=== PATIENT | female | born 1950 | race Two or more races ===

== ENCOUNTER 2021-12-20 08:04 | Outpatient (REF) | payer MEDICARE, MEDICAID, SELFPAY ==
[2021-12-20 08:37] LABS: MANUAL DIFF FLAG NO
[2021-12-20 09:25] LABS: Basophils Percent Auto 0.6 % (0-2); Eosinophils Absolute Auto 0.2 X10*3/uL (0.0-0.4); Eosinophils Percent Auto 3.2 % (0-4); Hematocrit 42.4 % (37.0-47.0); Hemoglobin 13.5 g/dl (12.0-16.0); Imm Gran Abs Auto 0.06 X10*3/uL (0.00-0.03); Imm Gran Pct Auto 0.9 % (0.0-0.4); Lymphocytes Absolute Auto 2.4 X10*3/uL (1.2-4.9); Lymphocytes Percent Auto 35.4 % (20-40); Mean Corpuscular HGB Conc 31.8 g/dl (31.0-35.0); Mean Corpuscular Hemoglobin 27.6 pg (27.0-33.0); Mean Corpuscular Volume 86.5 fL (80.0-98.0); Mean Platelet Volume 9.6 fL (9.4-12.3); Monocytes Absolute Auto 0.6 X10*3/uL (0.1-1.2); Monocytes Percent Auto 8.7 % (2-11); Neutrophils Absolute Auto 3.5 x10*3/uL (2.0-8.3); Neutrophils Percent Auto 51.2 % (45-73); Platelet Count 289 X10*3/uL (160-400); Red Cell Distribution Width 12.5 % (11.0-16.0); White Blood Count 6.9 X10*3/uL (4.8-10.8)
[2021-12-20 10:00] LABS: Appearance Urine CLOUDY; Color Urine BROWN; Glucose Urine UA NEG (NEG); Leukocyte Esterase Urine 2+ (NEG); Nitrite Urine NEG (NEG); PH 5.5 (5.0-8.0); Specific Gravity - Urine 1.025 (1.005-1.025); UACC Culture Trigger YES; Urine Blood 3+ (NEG); Urine Ketones NEG (NEG); Urine Protein 1+ MG/DL (NEG-TRACE)
[2021-12-20 10:02] LABS: Alanine Aminotransferase 22 U/L (0-31); Albumin Level 4.3 g/dL (3.5-5.0); Alkaline Phosphatase 82 U/L (39-117); Anion Gap 15 (12-20); Aspartate Amino Transferase 21 U/L (5-31); Bilirubin Total 0.8 mg/dL (0.0-1.0); Blood Urea Nitrogen 12 mg/dL (9-16); Calcium 10.1 mg/dL (8.4-10.2); Carbon Dioxide 29 mmol/L (22-29); Chloride 101 mmol/L (96-108); Cholesterol 155 mg/dL; Estimated Glomerular Filt Rate > 60; Glucose Fasting 133 mg/dL (60-99); HDL Cholesterol 50 mg/dL; LDL Cholesterol Calculated 74 mg/dl; Potassium 4.5 mmol/L (3.3-5.1); Sodium 140 mmol/L (135-145); Total Protein 7.2 g/dL (6.5-8.0); Triglycerides 157 mg/dL
[2021-12-20 10:06] LABS: Creatinine Urine 95.65 mg/dL; Microalbum/Creatinine Ratio Ur 175.6 ug/mg cr
[2021-12-20 10:09] LABS: Estimated Average Glucose 126 mg/dL
[2021-12-20 10:14] LABS: RBC Urine TNTC /HPF (0)
[2021-12-20 10:16] LABS: Bacteria Urine 2+ /LPF; Mucus Urine 1+ /LPF; WBC Urine 30-49 /HPF (0-4)
== END 2021-12-20 08:05 | disposition home or self-care (01) ==
LOC: HO.LAB 08:04
PROVIDERS: PCP Nurse Practitioner Family; Visit Provider Nurse Practitioner Family
DX: I10 Essential (primary) hypertension (principal); E11.9 Type 2 diabetes mellitus without complications; E78.00 Pure hypercholesterolemia, unspecified
CPT/HCPCS: 36415; 80053; 80061; 81001; 81003; 82043; 83036; 85025; 87086; 87088; 87186

== ENCOUNTER 2021-12-28 08:05 | Outpatient (REF) | payer MEDICARE, MEDICAID, SELFPAY ==
[2021-12-28 08:48] LABS: Appearance Urine CLEAR; Color Urine YELLOW; Glucose Urine UA NEG (NEG); Leukocyte Esterase Urine TRACE (NEG); Nitrite Urine NEG (NEG); PH 5.5 (5.0-8.0); Specific Gravity - Urine >= 1.030 (1.005-1.025); UACC Culture Trigger YES; Urine Blood 1+ (NEG); Urine Ketones NEG (NEG); Urine Protein 1+ MG/DL (NEG-TRACE)
[2021-12-28 08:58] LABS: Mucus Urine TRACE /LPF; Squamous Epithelial Cell Urine 2+ /LPF
== END 2021-12-28 08:06 | disposition home or self-care (01) ==
LOC: HO.LAB 08:05
PROVIDERS: PCP Nurse Practitioner Family; Visit Provider Nurse Practitioner Family
DX: I10 Essential (primary) hypertension (principal); N39.0 Urinary tract infection, site not specified
CPT/HCPCS: 81001; 87086

== ENCOUNTER 2022-02-20 15:46 | Outpatient (REF) | payer MEDICARE, MEDICAID, SELFPAY | END 2022-02-20 15:47 | disposition home or self-care (01) | LOC: HO.LNP 15:46 | PROVIDERS: Visit Provider Nurse Practitioner Family | DX: R35.0 Frequency of micturition (principal) | CPT/HCPCS: 87086; 87088; 87186 ==

== ENCOUNTER → 2022-05-08 14:02 | Outpatient (BNVA) | payer MEDICARE, MEDICAID, SELFPAY | PROVIDERS: PCP Nurse Practitioner Family; Referring Provider Nurse Practitioner Family; Visit Provider Physician Assistant | DX: K31.7 Polyp of stomach and duodenum (principal); K21.9 Gastro-esophageal reflux disease without esophagitis; Z79.899 Other long term (current) drug therapy | CPT/HCPCS: 99202 ==

== ENCOUNTER 2022-07-11 09:15 | Outpatient (REF) | payer MEDICARE, MEDICAID, SELFPAY ==
[2022-07-11 10:37] LABS: TSH reflex Free T4 2.73 uIU/mL (0.32-4.0); Vitamin D 25-OH Total 86.2 ng/mL (>30)
[2022-07-11 11:07] LABS: Folate > 20.0 ng/mL (> or = 4.0); Vitamin B12 407 pg/mL (200-900)
== END 2022-07-11 09:16 | disposition home or self-care (01) ==
LOC: HO.LAB 09:15
PROVIDERS: PCP Nurse Practitioner Family; Visit Provider Nurse Practitioner Family
DX: I10 Essential (primary) hypertension (principal)
CPT/HCPCS: 36415; 82306; 82607; 82746; 84443

== ENCOUNTER → 2022-08-10 13:26 | Outpatient (BNVA) | payer MEDICARE, MEDICAID, SELFPAY | PROVIDERS: PCP Nurse Practitioner Family; Visit Provider Physician Assistant | DX: K21.9 Gastro-esophageal reflux disease without esophagitis (principal); K31.7 Polyp of stomach and duodenum; I25.118 Atherosclerotic heart disease of native coronary artery with other forms of angina pectoris | CPT/HCPCS: 99212 ==

== ENCOUNTER 2022-08-22 14:38 | Outpatient (REF) | payer MEDICARE, MEDICAID, SELFPAY ==
[2022-08-22 15:00] LABS: MANUAL DIFF FLAG NO
[2022-08-22 15:13] LABS: Basophils Absolute Auto 0.1 X10*3/uL (0.0-0.2); Basophils Percent Auto 0.9 % (0-2); Eosinophils Absolute Auto 0.2 X10*3/uL (0.0-0.4); Eosinophils Percent Auto 2.6 % (0-4); Hematocrit 41.8 % (37.0-47.0); Hemoglobin 13.4 g/dl (12.0-16.0); Imm Gran Abs Auto 0.02 X10*3/uL (0.00-0.03); Imm Gran Pct Auto 0.3 % (0.0-0.4); Lymphocytes Absolute Auto 2.7 X10*3/uL (1.2-4.9); Lymphocytes Percent Auto 38.8 % (20-40); Mean Corpuscular HGB Conc 32.1 g/dl (31.0-35.0); Mean Corpuscular Hemoglobin 26.6 pg (27.0-33.0); Mean Corpuscular Volume 83.1 fL (80.0-98.0); Mean Platelet Volume 9.3 fL (9.4-12.3); Monocytes Absolute Auto 0.8 X10*3/uL (0.1-1.2); Neutrophils Absolute Auto 3.2 x10*3/uL (2.0-8.3); Neutrophils Percent Auto 46.4 % (45-73); Platelet Count 294 X10*3/uL (160-400); Red Blood Count 5.03 X10*6/uL (4.20-5.50); Red Cell Distribution Width 13.2 % (11.0-16.0); White Blood Count 6.9 X10*3/uL (4.8-10.8)
[2022-08-22 15:22] LABS: Prothrombin Time 11.9 SEC (10.0-13.1)
[2022-08-22 15:37] LABS: Alanine Aminotransferase 49 U/L (0-31); Albumin Level 4.4 g/dL (3.5-5.0); Alkaline Phosphatase 94 U/L (39-117); Anion Gap 16 (12-20); Aspartate Amino Transferase 38 U/L (5-31); Bilirubin Total 0.6 mg/dL (0.0-1.0); Blood Urea Nitrogen 13 mg/dL (9-16); Carbon Dioxide 26 mmol/L (22-29); Chloride 101 mmol/L (96-108); Estimated Glomerular Filt Rate > 60; Glucose Random 182 mg/dL (60-115); Potassium 3.9 mmol/L (3.3-5.1); Sodium 139 mmol/L (135-145); Total Protein 7.4 g/dL (6.5-8.0)
[2022-08-22 15:56] LABS: Erythrocyte Sedimentation Rate 11 MM/HR (0-20)
== END 2022-08-22 14:39 | disposition home or self-care (01) ==
LOC: HO.LAB 14:38
PROVIDERS: PCP Nurse Practitioner Family; Visit Provider Nurse Practitioner Family
DX: R21 Rash and other nonspecific skin eruption (principal)
CPT/HCPCS: 36415; 80053; 85025; 85610; 85652

== ENCOUNTER 2022-08-25 07:55 | Outpatient (REF) | payer MEDICARE, MEDICAID, SELFPAY ==
[2022-08-25 08:44] LABS: Estimated Average Glucose 160 mg/dL; Hemoglobin A1c % 7.2 %
[2022-08-25 08:53] LABS: Cholesterol 139 mg/dL; HDL Cholesterol 45 mg/dL; LDL Cholesterol Calculated 59 mg/dl; Triglycerides 178 mg/dL
[2022-08-25 09:08] LABS: HBS Num1 1.65 mIU/mL (0-7.99); HBc Num1 0.03 S/CO (0.00-0.79); HBsAGNum1 0.17 S/CO (0.00-0.99); Hepatitis A Antibody IgM 0.52 Index (0-0.79); Hepatitis B Core Antibody Nonreactive (Nonreactive); Hepatitis B Surface Antigen Negative (Negative); ~HepC Num1 0.06 S/CO (0.00-0.79); ~Hepatitis A Antibody IgM Nonreactive (Nonreactive); ~Hepatitis B Surface Antibody NONREACTIVE (Nonreactive); ~Hepatitis C Antibody Nonreactive (Nonreactive)
[2022-08-25 09:52] LABS: Creatinine Urine 124.72 mg/dL; Microalbum/Creatinine Ratio Ur 102.6 ug/mg cr
== END 2022-08-25 07:56 | disposition home or self-care (01) ==
LOC: HO.LAB 07:55
PROVIDERS: Visit Provider Nurse Practitioner Family
DX: R73.09 Other abnormal glucose (principal); R79.89 Other specified abnormal findings of blood chemistry; E78.00 Pure hypercholesterolemia, unspecified
CPT/HCPCS: 36415; 80061; 82043; 83036; 86704; 86706; 86709; 86803; 87340

== ENCOUNTER → 2022-08-29 08:33 | Outpatient (BNVA) | payer MEDICARE, MEDICAID, SELFPAY | PROVIDERS: PCP Nurse Practitioner Family; Visit Provider Urology | DX: I83.11 Varicose veins of right lower extremity with inflammation (principal); N39.0 Urinary tract infection, site not specified; N95.2 Postmenopausal atrophic vaginitis; R31.29 Other microscopic hematuria; E11.9 Type 2 diabetes mellitus without complications | CPT/HCPCS: 51701; 99202; 99212 ==

== ENCOUNTER 2022-08-30 10:12 | Outpatient (REF) | payer MEDICARE, MEDICAID, SELFPAY ==
--- NOTE | ~2022-08-30 | US_ITS ---
EXAMINATION: US ABDOMEN LIMITED CLINICAL INFORMATION: Other specified abnormal findings of blood chemistry. COMPARISON: None TECHNIQUE: Real-time imaging of the right upper quadrant abdominal viscera. FINDINGS: PANCREAS: Normal. LIVER: The liver contour is normal. Liver echotexture is increased. The liver is upper normal in size. No focal hepatic lesion. There is no intrahepatic biliary duct dilatation seen. GALLBLADDER: Normal. The gallbladder is physiologically distended without evidence of stones, sludge, polyps, wall thickening or pericholecystic fluid. COMMON BILE DUCT: Normal in caliber measuring 0.8 cm in diameter. RIGHT KIDNEY: Normal. No hydronephrosis. No renal calculi or focal parenchymal lesions. The kidney measures 11.3 cm in maximum dimension. FREE FLUID: None. US/US abdomen limited IMPRESSION: Echogenic liver probably representing fatty infiltration.
== END 2022-08-30 10:13 | disposition home or self-care (01) ==
LOC: HO.US 10:12
PROVIDERS: Visit Provider Urology
DX: R79.89 Other specified abnormal findings of blood chemistry (principal)
CPT/HCPCS: 76705

== ENCOUNTER 2022-09-12 14:50 | Outpatient (REF) | payer MEDICARE, MEDICAID, SELFPAY ==
--- NOTE | ~2022-09-12 | MM_ITS ---
EXAMINATION: MM SCREENING DIGITAL BREAST TOMOSYNTHESIS, BILATERAL CLINICAL INFORMATION: Screening. Asymptomatic. Prior [id number] mammography from [place] currently unavailable. History right lumpectomy for breast cancer, 2016. COMPARISON: None. TECHNIQUE: Digital breast tomosynthesis is performed in both the craniocaudal and mediolateral oblique views along with computer-aided detection (CAD). Synthesized 2D images are generated from the tomosynthesis. FINDINGS: There are scattered areas of fibroglandular density (ACR BI-RADS breast composition Category b). There are post therapy changes on the right with reduced breast size and primary scarring central breast. There are dystrophic calcifications in the scar as well as a biopsy clip marker. There is also scarring mid superior lateral breast and mid inferior medial breast with mild skin retraction. The axilla is unremarkable. There are no abnormal calcifications. The left breast shows unremarkable parenchymal pattern without underlying mass or architectural abnormality or abnormal calcifications. There are 2 small intramammary nodes mid outer left breast. The left axilla and skin contours are unremarkable. Radiology department staff will attempt to retrieve prior mjr-tq-[id number] mammography to allow for comparison in an addendum report. MM/MM tomosynthesis screening BI IMPRESSION: Right: -Post therapy changes right breast. Left: -No mammographic evidence of malignancy. ASSESSMENT: BI-RADS 0: Incomplete - prior outside mammography pending for comparison RECOMMENDATION: -Radiology department staff will attempt to retrieve outside prior exam(s) to allow for comparison in an addendum report. This patient's information was entered into a reminder system with a target due date for their next mammogram.
== END 2022-09-12 14:51 | disposition home or self-care (01) ==
LOC: HO.MAMMO 14:50
PROVIDERS: Visit Provider Nurse Practitioner Family
DX: Z12.31 Encounter for screening mammogram for malignant neoplasm of breast (principal)
CPT/HCPCS: 77063; 77067

== ENCOUNTER → 2022-10-04 09:59 | Outpatient (BNVA) | payer MEDICARE, MEDICAID, SELFPAY | PROVIDERS: PCP Nurse Practitioner Family; Referring Provider Nurse Practitioner Family; Visit Provider Internal Medicine Cardiovascular Disease | DX: I44.7 Left bundle-branch block, unspecified (principal) | CPT/HCPCS: 93005; 99202 ==

== ENCOUNTER → 2022-10-09 09:59 | Outpatient (BNVA) | payer MEDICARE, MEDICAID, SELFPAY | PROVIDERS: PCP Nurse Practitioner Family; Visit Provider Urology | DX: N39.0 Urinary tract infection, site not specified (principal); R35.0 Frequency of micturition; R31.29 Other microscopic hematuria; E11.9 Type 2 diabetes mellitus without complications; N95.2 Postmenopausal atrophic vaginitis | CPT/HCPCS: 52000; 99212 ==

== ENCOUNTER 2022-10-10 07:58 | Outpatient (REF) | payer MEDICARE, MEDICAID, SELFPAY ==
[2022-10-10 08:11] LABS: MANUAL DIFF FLAG NO
[2022-10-10 08:18] LABS: Basophils Percent Auto 0.5 % (0-2); Eosinophils Absolute Auto 0.2 X10*3/uL (0.0-0.4); Eosinophils Percent Auto 3.3 % (0-4); Hematocrit 46.6 % (37.0-47.0); Hemoglobin 14.6 g/dl (12.0-16.0); Imm Gran Abs Auto 0.02 X10*3/uL (0.00-0.03); Imm Gran Pct Auto 0.3 % (0.0-0.4); Lymphocytes Absolute Auto 1.9 X10*3/uL (1.2-4.9); Lymphocytes Percent Auto 32.3 % (20-40); Mean Corpuscular HGB Conc 31.3 g/dl (31.0-35.0); Mean Corpuscular Hemoglobin 26.4 pg (27.0-33.0); Mean Corpuscular Volume 84.3 fL (80.0-98.0); Mean Platelet Volume 9.1 fL (9.4-12.3); Monocytes Absolute Auto 0.5 X10*3/uL (0.1-1.2); Neutrophils Absolute Auto 3.3 x10*3/uL (2.0-8.3); Neutrophils Percent Auto 54.6 % (45-73); Platelet Count 304 X10*3/uL (160-400); Red Blood Count 5.53 X10*6/uL (4.20-5.50); Red Cell Distribution Width 13.1 % (11.0-16.0)
[2022-10-10 08:48] LABS: Alanine Aminotransferase 42 U/L (0-31); Albumin Level 4.7 g/dL (3.5-5.0); Alkaline Phosphatase 91 U/L (39-117); Anion Gap 15 (12-20); Aspartate Amino Transferase 36 U/L (5-31); Bilirubin Total 1.3 mg/dL (0.0-1.0); Blood Urea Nitrogen 16 mg/dL (9-16); Calcium 10.2 mg/dL (8.4-10.2); Carbon Dioxide 28 mmol/L (22-29); Chloride 102 mmol/L (96-108); Cholesterol 125 mg/dL; Estimated Average Glucose 134 mg/dL; Estimated Glomerular Filt Rate > 60; Glucose Fasting 143 mg/dL (60-99); HDL Cholesterol 51 mg/dL; Hemoglobin A1c % 6.3 %; LDL Cholesterol Calculated 50 mg/dl; Magnesium 1.6 mg/dL (1.6-2.6); Potassium 4.5 mmol/L (3.3-5.1); Sodium 140 mmol/L (135-145); Total Protein 7.8 g/dL (6.5-8.0); Triglycerides 122 mg/dL
[2022-10-10 10:43] LABS: Creatinine Urine 209.58 mg/dL; Microalbum/Creatinine Ratio Ur 84.4 ug/mg cr
== END 2022-10-10 07:59 | disposition home or self-care (01) ==
LOC: HO.LAB 07:58
PROVIDERS: Nurse Practitioner Family; PCP Nurse Practitioner Family; Visit Provider Nurse Practitioner Family
DX: I10 Essential (primary) hypertension (principal); E11.9 Type 2 diabetes mellitus without complications; E78.00 Pure hypercholesterolemia, unspecified; R25.2 Cramp and spasm
CPT/HCPCS: 36415; 80053; 80061; 82043; 83036; 83735; 85025

== ENCOUNTER → 2022-10-12 10:02 | Outpatient (BNVA) | payer MEDICARE, MEDICAID, SELFPAY | PROVIDERS: PCP Nurse Practitioner Family; Visit Provider Registered Nurse Diabetes Educator | DX: E11.9 Type 2 diabetes mellitus without complications (principal); Z79.84 Long term (current) use of oral hypoglycemic drugs | CPT/HCPCS: 99211 ==

== ENCOUNTER 2022-10-25 13:01 | Outpatient (REF) | payer MEDICARE, MEDICAID, SELFPAY ==
--- NOTE | ~2022-10-25 | MM_ITS ---
EXAMINATION: BONE DENSITOMETRY CLINICAL INDICATION: Menopause. COMPARISON: None (current study represents initial baseline exam). TECHNIQUE: Using a Univa DXA System (software version: 13.1) manufactured by [employer], dual-energy x-ray absorptiometry was performed of the lumbar spine and left hip. The images are of good technical quality. Summary results are attached. FINDINGS: AP SPINE L1-L4: BMD 1.058 g/cm2, Z-score 0.9, T-score -1.0, normal. LEFT FEMUR, NECK: BMD 0.733 g/cm2, Z-score -0.2, T-score -2.2, osteopenia. LEFT FEMUR, TOTAL: BMD 0.728 g/cm2, Z-score -0.4, T-score -2.2, osteopenia. IDENTIFIED RISK FACTORS: Early menopause, family history (parent hip fracture), hysterectomy, secondary osteoporosis. HISTORY OF FRACTURE: None listed. MEDICATIONS: Vitamin D. MM/XR DEXA axial skeleton IMPRESSION: 1. DIAGNOSIS: Osteopenia based on the lowest T-score value of -2.2 in the femur neck and total femur applying World Health Organization criteria. 2. 10-YEAR FRACTURE RISK PREDICTION, FRAX: Major osteoporotic fracture (clinical spine, forearm, hip or shoulder) 15.7%. Hip fracture 9.3%. 3. Treatment Recommendations: NOF guidelines recommend consideration for treatment in postmenopausal women and men age 50 and older presenting with the following: -A hip or vertebral (clinical or morphometric) fracture. -T-score less than or equal to -2.5 at the femoral neck or spine after appropriate evaluation to exclude secondary causes. -Low bone mass at the hip or spine and a 10-year fracture probability by FRAX of greater than or equal to 3% for hip fracture or greater than or equal to 20% for major osteoporotic fracture based on the [place] adapted WHO algorithm. 4. Other Recommendations: All treatment decisions require clinical judgment and consideration of individual patient factors, including patient preferences, comorbidities, previous drug use, risk factors not captured in the FRAX model (e.g. frailty, falls, vitamin D deficiency, increased bone turnover, interval significant decline in bone density) and possible under or overestimation of fracture risk by FRAX. Additional medical evaluation for secondary cause of low bone mineral density may be appropriate. FUTURE SCAN RECOMMENDATION: People with diagnosed cases of osteoporosis or at high risk for fracture should have regular bone mineral density tests. For patients eligible for Medicare, routine testing is allowed once every 2 years. The testing frequency can be increased to one year for patients who have rapidly progressing disease, those who are receiving or discontinuing medical therapy to restore bone mass, or have additional risk factors.
== END 2022-10-25 13:02 | disposition home or self-care (01) ==
LOC: HO.MAMMO 13:01
PROVIDERS: Visit Provider Nurse Practitioner Family
DX: Z13.820 Encounter for screening for osteoporosis (principal); Z78.0 Asymptomatic menopausal state
CPT/HCPCS: 77080

== ENCOUNTER 2022-10-27 08:06 | Outpatient (REF) | payer MEDICARE, MEDICAID, SELFPAY ==
--- NOTE | ~2022-10-27 | US_ITS ---
EXAMINATION: US VENOUS BILATERAL LOWER EXTREMITIES (REFLUX EXAM) CLINICAL INDICATION: Leg pain and varicose veins. COMPARISON: None TECHNIQUE: Color flow triplex imaging and compression Doppler was performed to evaluate both the deep and the superficial systems bilaterally. To evaluate the superficial system, the examination was performed in the upright position. Color-flow Doppler ultrasound and compression ultrasound were utilized. In addition, maneuvers were utilized to demonstrate reflux. FINDINGS: 1. DEEP VENOUS ULTRASOUND OF THE RIGHT LOWER EXTREMITY: Respiratory variation, normal compression and augmented flow are noted in the right common femoral vein as well as the right popliteal vein and there is no evidence of deep venous thrombosis at these locations. There is no evidence of reflux in the deep system in either the common femoral vein or the popliteal vein. There is no evidence of a Kate's cyst. 2. SUPERFICIAL ULTRASOUND WITH DOPPLER OF RIGHT LOWER EXTREMITY: The right great saphenous vein at the saphenofemoral junction measures 5 mm, at the proximal thigh 5 mm, at the mid thigh 3 mm, above the knee 2 mm, at the knee 2 mm, [id number]-[id number] 2 mm, midcalf 2 mm and at the ankle measures 2 mm. Segmental reflux in the mid thigh as well as at the level of the knee is noted with reflux times as high as 2.7 seconds. Duplicated Right Great Saphenous Vein: There is a 1 mm lateral accessory saphenous which does not reflux. The right small saphenous vein measures 5 mm and demonstrates 0.8 seconds of reflux in the distal calf. Accessory Vein of Giacomini: None Incompetent Perforators: None Varices Present: Small varices are present measuring 2 mm in size and demonstrate greater than 3 seconds of reflux. 3. DEEP VENOUS ULTRASOUND OF THE LEFT LOWER EXTREMITY: Respiratory variation, normal compression and augmented flow are noted in the left common femoral vein as well as the left popliteal vein and there is no evidence of deep venous thrombosis at these locations. There is no evidence of reflux in the deep system in either the common femoral vein or the popliteal vein. There is no evidence of a Kate's cyst. 4. SUPERFICIAL ULTRASOUND WITH DOPPLER OF LEFT LOWER EXTREMITY: Left great saphenous vein at the saphenofemoral junction measures 4 mm, at the proximal thigh 4 mm, at the mid thigh 2 mm, above the knee 2 mm, at the knee 3 mm, gspsk-env-[id number] 4 mm, midcalf 4 mm and at the ankle measures 2 mm. Reflux is present from the mid thigh down to the ankle with reflux times of just under 3 seconds. Duplicated Left Great Saphenous Vein: 1 mm lateral accessory saphenous which does not reflux. The left small saphenous vein measures 2 mm and shows no reflux. Accessory Vein of Giacomini: None Incompetent Perforators: None. Varices Present: 3 mm sized varices are present at the knee and in the calf which demonstrate greater than 3 seconds of reflux. US/US venous duplex LE BI IMPRESSION: 1. No evidence of reflux or thrombus in the common femoral veins or popliteal veins bilaterally. 2. Reflux present in both great saphenous veins as described above. 3. Reflux in right small saphenous vein in the distal calf. 4. Refluxing varices as described above.
== END 2022-10-27 08:07 | disposition home or self-care (01) ==
LOC: HO.US 08:06
PROVIDERS: Visit Provider Surgery Vascular Surgery
DX: I83.11 Varicose veins of right lower extremity with inflammation (principal)
CPT/HCPCS: 93970

== ENCOUNTER → 2022-11-03 07:51 | Outpatient (REF) | payer MEDICARE, MEDICAID, SELFPAY ==
--- NOTE | ~2022-11-03 | NM_ITS ---
Myocardial perfusion study Indication: Left bundle branch block to evaluate for myocardial ischemia Technique: The patient was brought in for a Lexiscan perfusion study on 11/03/2022. Patient performed low-level exercise and was injected 0.4 mg of Lexiscan intravenously. Within a minute of injection, 25 mCi of sestamibi was given intravenously. Images were obtained using the SPECT gamma camera interlaced with the gating device. Images were obtained in supine position. Resting perfusion study was performed on 11/06/2022. Patient was administered 25 mCi of sestamibi intravenously at rest. Images were then obtained in supine position. Images obtained with and without CT attenuation. Total DLP 87 mGy-cm. Images were processed with the software and compared side to side in short axis, horizontal long axis and vertical long axis views. Findings: The stress perfusion study showed non attenuated images show minimally reduced uptake in the apex of the LV myocardium. Remainder of the LV myocardium is normally perfused. Attenuation corrected images show mildly reduced uptake in the apex of the LV myocardium.. The gated study shows normal LV systolic function with calculated LVEF of greater than 70%. LV cavity is normal in size. The gated study shows normal systolic wall thickening and contraction of segments. Resting study shows no change in perfusion pattern compared to stress perfusion study. Gating at rest reveals normal systolic wall motion with ejection fraction at 65%. The findings are consistent with normal myocardial perfusion. NM/NM abel perf SPECT rest & str Impression: 1. Myocardial perfusion imaging study shows normal myocardial perfusion 2. Gated LVEF is 65% 3. Transient ischemic dilatation not present EKG is nondiagnostic for ischemia
--- NOTE | 2022-11-03 07:54 | CA_ITS ---
Acquisition Time: 2022-11-03 08:37:50 Total Exercise Time: 00:02:00 Test Indications: Abnormal ECG LBBB Medications: METOPROLOL ASA AMLODIPINE BREO ELIPTA METFORMIN ROSUVASTATIN ALBUTEROL Protocol: LEXISCAN Max HR: 125 BPM 85% of Pred: 146 BPM Max BP: 162/088 mmHG Max Work Load: 1.0 METS Pharmacological stress test with Lexiscan injection, while sitting not moving, with heart rate reaching 82% MPHR post injection, without anginal symptoms, with normotensive response, without arrythmia, with nondiagnostic EKG for ischemia. At 3 min recovery she had nausea and dry heaves, with heart rate up to 89% MPHR. She was treated with Aminophylline 75mg IVP to reverse Lexiscan with improvement in symptoms and heart rate. Nuclear images pending. Test reviewed with Dr Johns. Referred By: Tj Johns Overread By: DARWIN GOLD
--- NOTE | 2022-11-03 07:54 | HM_ITS ---
Conclusion: 1. Patient was monitored for total period of 2 days and 21 hours 2. Baseline was normal sinus with average heart of 67 beats per minute 3. Frequent sinus bradycardia with 37% of the time heart rate below 60 beats per minute 4. No significant pauses noted 5. Very rare PACs noted 6. No patient reported events MTDD
--- NOTE | 2022-11-03 07:54 | CA_ITS ---
Transthoracic Echocardiogram Patient (Last, First, Middle): Yvette Watson, Gender: Female Date of : 1950 Age: 72 Procedure Date: 11/03/2022 Procedure Type: Transthoracic Echocardiogram Location: OP Height: 170.18 cm Weight: 63.05 kg BSA: 1.73 m2 Heart Rate: 66 bpm BP: 136 / 80 mmHg Power Shovel Operator Helper: ELIA Referring MD: Tj Johns MD Single Corner Cutter: Tj Johns MD Symptoms: I44.7 - Left bundle-branch block, unspecified Study Quality: Adequate ECG Rhythm: Sinus Conclusions: - 1. Normal LV systolic function with impaired relaxation filling pattern 2. Normal cardiac valvular Doppler 3. Normal RV systolic pressure 4. No gross pericardial effusion Findings Left Ventricle Normal left ventricular size, thickness, and systolic function. The visually estimated ejection fraction is between 55-60%. There is paradoxical septal motion consistent with a left bundle branch block. Spectral Doppler is indicative of an impaired relaxation filling pattern. E/E prime ratio is between 8 and 15 consistent with indeterminate filling pressures. There is mild septal asymmetric hypertrophy. Right Ventricle Normal right ventricular cavity size and systolic function. Atria Both atria are normal in size. Interatrial shunt cannot be excluded. Aortic Valve Normal aortic valve structure and function. There is no aortic valve stenosis. There is no aortic valve regurgitation. Mitral Valve Normal mitral valve structure and function. There is trace mitral valve regurgitation. There is no mitral valve stenosis. Pulmonic Valve The pulmonic valve is likely normal. Tricuspid Valve Normal tricuspid valve structure. There is trace tricuspid valve regurgitation. The right ventricular systolic pressure is normal. The right ventricular systolic pressure is 15 mmHg. Normal right atrial pressure. There is no evidence of pulmonary hypertension. Great Vessels All visible segments of the aorta are normal in size. The pulmonary artery was not well visualized. Venous The inferior vena cava is normal in size and collapses greater than 50% with inspiration. Pericardium/Pleural There is no evidence of pericardial effusion. Prior Study Comparison No prior study available for comparison. Measurements 2D Linear Measurements IVSd: 1.24 0.6-0.9/0.6-1.0 cm LVIDd: 4.10 3.9-5.3/4.2-5.9 cm LVIDd Index: 2.37 2.4-3.2/2.2-3.1 cm/m2 LVIDs: 2.49 2.0-3.6 cm LVPWd: 0.81 0.7-1.1 cm LA Diam: 3.40 2.7-3.8/3.0-4.0 cm LAIDs Index: 1.97 1.5-2.3 cm/m2 LV Mass: 170.35 67-162/88-224 g LV Mass Index: 98.47 43-95/49-115 g/m2 LVOT Diam: 1.90 3.0+(-)1.3 cm 2D Systolic Function EF 4C: 58.40 >55% EF 2C: 59.80 >55% EF BiP: 56.50 >55% Mitral Valve MV Pk E: 0.60 MV PK A: 1.08 MV Decel Time: 286.00 E/A: 0.60 E'Lateral: 6.64 E'Medial: 3.81 E/E' Med: 15.90 E/E' Lat: 9.10 PHT: 84.00 MVA PHT: 2.62 Decel Montague: 2.11 Aortic Valve AoV Pk Segundo: 1.49 AoV Pk Grad: 9.00 LVOT LVOT Pk Segundo: 1.09 LVOT Mn Segundo: 0.81 LVOT VTI: 0.25 LVOT Pk Grad: 5.00 LVOT Mn Grad: 3.00 LVOT Diam: 1.90 LVOT Area: 2.84 Diastolic Function MV Pk E: 0.60 MV Pk A: 1.08 E/A: 0.60 E'Medial: 3.81 E/E' Med: 15.90 E' Laterial: 6.64 E/E' Lat: 9.10 Right Ventricle TAPSE (mm): 13.00 TVS' Segundo: 7.50 Tricuspid Valve TR Pk Segundo: 1.76 TR Pk Grad: 12.00 RA Press: 3.00 RVSP: 15.00 Great Vessels Aorta Sinus of Valsalva: 2.60 2.0-3.5 cm Ao Asc: 2.70 2.1-3.4 cm Pulmonary Valve PV Pk Segundo: 1.08 Peak PV Grad: 5.00 Updated in Other Vendor System with Status of Final Tj Johns MD electronically signed on 11/04/2022 1:20:35 PM with status of Final
== END ==
LOC: HO.CARD 07:51
PROVIDERS: PCP Nurse Practitioner Family; Visit Provider Internal Medicine Cardiovascular Disease
DX: I44.7 Left bundle-branch block, unspecified (principal)
CPT/HCPCS: 78452; 93017; 93242; 93306; A9500; J0280; J2785

== ENCOUNTER → 2022-11-07 09:56 | Outpatient (BNVA) | payer MEDICARE, MEDICAID, SELFPAY | PROVIDERS: PCP Nurse Practitioner Family; Visit Provider Surgery Vascular Surgery | DX: I83.11 Varicose veins of right lower extremity with inflammation (principal) | CPT/HCPCS: 99212 ==

== ENCOUNTER → 2022-11-09 08:01 | Outpatient (BNVA) | payer MEDICARE, MEDICAID, SELFPAY | PROVIDERS: PCP Nurse Practitioner Family; Referring Provider Nurse Practitioner Family; Visit Provider Physician Assistant | DX: K31.7 Polyp of stomach and duodenum (principal); K21.9 Gastro-esophageal reflux disease without esophagitis; Z79.899 Other long term (current) drug therapy | CPT/HCPCS: 99212 ==

== ENCOUNTER → 2022-11-28 12:43 | Outpatient (BNVA) | payer MEDICARE, MEDICAID, SELFPAY | PROVIDERS: PCP Nurse Practitioner Family; Visit Provider Registered Nurse Diabetes Educator | DX: E11.9 Type 2 diabetes mellitus without complications (principal) | CPT/HCPCS: 99211 ==

== ENCOUNTER 2022-12-20 10:06 | Outpatient (REF) | payer MEDICARE, MEDICAID, SELFPAY ==
--- NOTE | ~2022-12-20 | US_ITS ---
EXAMINATION: US RETROPERITONEAL LIMITED (RENAL ONLY) CLINICAL INFORMATION: Urinary tract infection, site not specified. COMPARISON: Limited abdominal ultrasound 08/30/2022. TECHNIQUE: Real-time imaging of the kidneys. FINDINGS: RIGHT KIDNEY: 10.9 x 4.0 x 5.1 cm (SAG x AP x TRV). The kidney is normal in size, contour, and echogenicity. Renal cortical thickness is normal. No renal calculi or hydronephrosis. Simple cyst in the upper pole measuring 1.1 cm for which no imaging follow-up is recommended. LEFT KIDNEY: 11.0 x 5.7 x 4.0 cm (SAG x AP x TRV). The kidney is normal in size, contour, and echogenicity. Renal cortical thickness is normal. No hydronephrosis. There is a 0.4 cm hyperechoic focus in the lower pole with no associated shadowing. US/US renal BI IMPRESSION: 1. A 0.4 cm hyperechoic focus in the lower pole of the left kidney could represent a nonobstructive calculus, vascular calcification or less likely a hyperechoic lesion such as tiny angiomyolipoma. Recommend a short-term follow-up ultrasound in 3-6 months to reassess. 2. No hydronephrosis. 3. Simple cyst in the upper pole of the right kidney for which no imaging follow-up is recommended.
== END 2022-12-20 10:07 | disposition home or self-care (01) ==
LOC: HO.US 10:06
PROVIDERS: PCP Nurse Practitioner Family; Visit Provider Urology
DX: N39.0 Urinary tract infection, site not specified (principal); R35.0 Frequency of micturition
CPT/HCPCS: 76775

== ENCOUNTER → 2022-12-29 09:55 | Outpatient (BNVA) | payer MEDICARE, MEDICAID, SELFPAY | PROVIDERS: PCP Nurse Practitioner Family; Visit Provider Surgery Vascular Surgery | DX: I83.11 Varicose veins of right lower extremity with inflammation (principal) | CPT/HCPCS: 36482 ==

== ENCOUNTER 2023-01-01 12:04 | Outpatient (REF) | payer MEDICARE, MEDICAID, SELFPAY ==
--- NOTE | ~2023-01-01 | US_ITS ---
EXAMINATION: US VENOUS ULTRASOUND WITH DOPPLER LOWER EXTREMITY, RIGHT CLINICAL INFORMATION: Right leg pain. COMPARISON: October 27, 2022. TECHNIQUE: Ultrasound of the deep veins is performed from the hip to the calf with compression sonography and color and pulse Doppler assessment. Spectral analysis with color-flow imaging is performed. FINDINGS: There is normal venous compression and respiratory variation and augmented flow. The visualized common femoral vein, superficial femoral vein, profunda femoral vein, popliteal vein, and the trifurcation region shows no evidence of deep venous thrombosis. There is no significant popliteal fossa cyst. The visualized portion of the greater saphenous vein appears occluded beginning approximately 0.9 cm from the saphenofemoral junction. There is no evidence of extension of thrombus into the femoral system. Incidentally visualized, normal-appearing right proximal thigh lymph node. US/US venous duplex LE RT IMPRESSION: No DVT demonstrated in the right lower extremity.
== END 2023-01-01 12:05 | disposition home or self-care (01) ==
LOC: HO.US 12:04
PROVIDERS: Visit Provider Surgery Vascular Surgery
DX: M79.604 Pain in right leg (principal)
CPT/HCPCS: 93971

== ENCOUNTER 2023-01-08 09:06 | Outpatient (REF) | payer MEDICARE, MEDICAID, SELFPAY ==
[2023-01-08 09:28] LABS: MANUAL DIFF FLAG NO
[2023-01-08 10:51] LABS: Basophils Absolute Auto 0.1 X10*3/uL (0.0-0.2); Basophils Percent Auto 0.9 % (0-2); Eosinophils Absolute Auto 0.1 X10*3/uL (0.0-0.4); Hematocrit 44.5 % (37.0-47.0); Hemoglobin 13.9 g/dl (12.0-16.0); Imm Gran Abs Auto 0.03 X10*3/uL (0.00-0.03); Imm Gran Pct Auto 0.5 % (0.0-0.4); Lymphocytes Absolute Auto 2.3 X10*3/uL (1.2-4.9); Lymphocytes Percent Auto 36.1 % (20-40); Mean Corpuscular HGB Conc 31.2 g/dl (31.0-35.0); Mean Corpuscular Hemoglobin 26.2 pg (27.0-33.0); Mean Corpuscular Volume 83.8 fL (80.0-98.0); Mean Platelet Volume 9.9 fL (9.4-12.3); Monocytes Absolute Auto 0.7 X10*3/uL (0.1-1.2); Monocytes Percent Auto 10.6 % (2-11); Neutrophils Absolute Auto 3.2 x10*3/uL (2.0-8.3); Neutrophils Percent Auto 49.9 % (45-73); Platelet Count 302 X10*3/uL (160-400); Red Blood Count 5.31 X10*6/uL (4.20-5.50); Red Cell Distribution Width 13.3 % (11.0-16.0); White Blood Count 6.5 X10*3/uL (4.8-10.8)
[2023-01-08 11:08] LABS: Estimated Average Glucose 111 mg/dL; Hemoglobin A1c % 5.5 %
[2023-01-08 11:35] LABS: Alanine Aminotransferase 29 U/L (0-31); Albumin Level 4.4 g/dL (3.5-5.0); Alkaline Phosphatase 65 U/L (39-117); Anion Gap 17 (12-20); Aspartate Amino Transferase 29 U/L (5-31); Bilirubin Total 1.2 mg/dL (0.0-1.0); Blood Urea Nitrogen 15 mg/dL (9-16); Calcium 10.2 mg/dL (8.4-10.2); Carbon Dioxide 27 mmol/L (22-29); Chloride 101 mmol/L (96-108); Cholesterol 112 mg/dL; Estimated Glomerular Filt Rate > 60; Glucose Random 104 mg/dL (60-115); HDL Cholesterol 55 mg/dL; LDL Cholesterol Calculated 39 mg/dl; Potassium 4.2 mmol/L (3.3-5.1); Sodium 141 mmol/L (135-145); Total Protein 7.1 g/dL (6.5-8.0); Triglycerides 92 mg/dL
== END 2023-01-08 09:07 | disposition home or self-care (01) ==
LOC: HO.LAB 09:06
PROVIDERS: PCP Internal Medicine; Visit Provider Nurse Practitioner Family
DX: E11.9 Type 2 diabetes mellitus without complications (principal); E78.00 Pure hypercholesterolemia, unspecified
CPT/HCPCS: 36415; 80053; 80061; 83036; 84443; 85025

== ENCOUNTER 2023-01-10 13:10 | Outpatient (REF) | payer MEDICARE, MEDICAID, SELFPAY | END 2023-01-10 13:11 | disposition home or self-care (01) | LOC: HO.LAB 13:10 | PROVIDERS: PCP Internal Medicine; Visit Provider Urology | DX: N39.0 Urinary tract infection, site not specified (principal); R35.0 Frequency of micturition; N95.2 Postmenopausal atrophic vaginitis; N20.0 Calculus of kidney | CPT/HCPCS: 51798; 99212 ==

== ENCOUNTER → 2023-01-11 11:28 | Outpatient (BNVA) | payer MEDICARE, MEDICAID, SELFPAY | PROVIDERS: PCP Internal Medicine; Visit Provider Surgery Vascular Surgery | DX: I83.11 Varicose veins of right lower extremity with inflammation (principal); I83.12 Varicose veins of left lower extremity with inflammation | CPT/HCPCS: 99212 ==

== ENCOUNTER → 2023-03-06 15:24 | Outpatient (BNVA) | payer MEDICARE, MEDICAID, SELFPAY | PROVIDERS: PCP Internal Medicine; Referring Provider Internal Medicine; Visit Provider Nurse Practitioner Family | DX: I25.10 Atherosclerotic heart disease of native coronary artery without angina pectoris (principal); I44.7 Left bundle-branch block, unspecified; I10 Essential (primary) hypertension; R00.1 Bradycardia, unspecified; E78.00 Pure hypercholesterolemia, unspecified | CPT/HCPCS: 99212 ==

== ENCOUNTER → 2023-05-21 10:21 | Outpatient (BNVA) | payer MEDICARE, MEDICAID, SELFPAY | PROVIDERS: PCP Internal Medicine; Visit Provider Physician Assistant | DX: K21.9 Gastro-esophageal reflux disease without esophagitis (principal); Z86.010 Personal history of colon polyps | CPT/HCPCS: 99212 ==

== ENCOUNTER 2023-05-30 15:15 | Outpatient (REF) | payer MEDICARE, MEDICAID, SELFPAY ==
--- NOTE | ~2023-05-30 | CT_ITS ---
EXAMINATION: CT ABDOMEN AND PELVIS WITHOUT CONTRAST CLINICAL INFORMATION: Abdominal pain COMPARISON: Renal ultrasound November 2022 and abdominal ultrasound August 2022 TECHNIQUE: Multidetector volumetric imaging was performed from the superior aspect of the liver through the pubic symphysis. Sagittal and coronal reformatted images were obtained on the technologist's workstation. This CT examination was performed using dose optimization techniques as appropriate, variously including the following: *Automated exposure control *Adjustment of mA and/or kV according to patient size (this includes techniques or standardized protocols for targeted exams where dose is matched to indication/reason for exam; i.e. extremities or head) *Use of iterative reconstruction technique DLP: 402 mGy-cm FINDINGS: LUNG BASES: The visualized lung bases are unremarkable. LIVER, GALLBLADDER, AND BILIARY TREE: The liver is normal in size, shape, and attenuation. No focal hepatic lesion or biliary ductal dilatation is present. The gallbladder is unremarkable with no evidence of radiopaque gallstones, gallbladder wall thickening, or obvious pericholecystic inflammatory changes. PANCREAS: Unremarkable. SPLEEN: Unremarkable. ADRENAL GLANDS: Unremarkable. KIDNEYS AND URETERS: The kidneys are normal in size, shape, and attenuation. No hydronephrosis, hydroureter, or calculi seen. No perinephric stranding. No CT correlate for renal ultrasound findings. BLADDER: Unremarkable. GASTROINTESTINAL TRACT: The small and large bowel are unremarkable. The appendix is unremarkable. ABDOMINAL WALL: No significant hernia is appreciated. LYMPH NODES: Normal. VASCULAR: Atherosclerotic disease. No aneurysm. PELVIC VISCERA: Uterus has been removed. No pelvic mass. OSSEOUS STRUCTURES: Degenerative changes of the spine and hip joints. CT/CT abdomen pelvis wo IV con IMPRESSION: Unremarkable exam. No stone seen. Fleischner guidelines were followed.
== END 2023-05-30 15:16 | disposition home or self-care (01) ==
LOC: HO.CT 15:15
PROVIDERS: PCP Internal Medicine; Visit Provider Urology
DX: N20.0 Calculus of kidney (principal)
CPT/HCPCS: 74176

== ENCOUNTER 2023-06-04 15:25 | Outpatient (AMB) | payer MEDICARE, MEDICAID, SELFPAY ==
--- NOTE | 2023-06-04 15:43 | A.OFFVIS_ITS ---
Intake Intake Visit Reasons: follow up/CT Intake Note: * Patient presents today for a follow-up on CT scan results * Meds- Naproxen & Nitrofurantoin * Allergies to Antibiotic- None * Blood Thinner- Aspirin Speech Communication Instructor Required: No Allergies lisinopril Allergy (Severe, Verified 06/05/23 16:03) Angioedema HPI HPI Comments History of Present Illness Details Veronica is a 72-year-old Persian-speaking female, Son interprets for her. FU for recurrent UTIs, recent move from [place]. Per patient 3 UTIs in the last 9 months, treated by PCP. UTI Symptoms include urgency and urge incontinence, Denies seeing blood in the urine Pertinent history: Total hysterectomy 2019, for endometrial adenocarcinoma, Comorbidity diabetes Last Visit--10/09/22--had office cysto-mild trabeculations, no suspicious bladder lesions Status post limited ultrasound of abdomen, 08/30/2022 the view the right kidney which was within normal limits Office visit--01/10/23-- doing well, asymptomatic discussed 12/20/22--renal sono results; ? left renal stone vs vasular calcification Evaluation today - PVR 163, UA- trace blood, mod leuks FU CT KUB in 4 months 06/04/23-- HPI: As noted above. The patient presents to the office for discussion of CT scan results. Previous renal US had noted left kidney calcification versus vascular calcification. The patient did not have UTI symptoms in the interim. CAT scan results reviewed--05/30/23-- No any kidney stones visualized. I discussed with the patient that on review of films I did not see a left kidney stone. However, the official reading is pending. Plan: Follow-up after 9 months for UA and UTI symptoms. [facility] Medical History (Updated 07/24/23 @ 09:04 by Isabella Clark RN) Angina pectoris Elevated cholesterol Osteopenia Renal calculi Left bundle branch block Diabetes Palpitations CAD (coronary artery disease) GERD (gastroesophageal reflux disease) Elevated LFTs Elevated glucose Rash and nonspecific skin eruption Angioedema Encounter to establish care Ductal carcinoma in situ of right breast Surgical History Hx of colonoscopy History of esophagogastroduodenoscopy (EGD) History of total hysterectomy with bilateral salpingo-oophorectomy (BSO) Social History Housing: Apartment Patient Tobacco Use Status: Never used Tobacco e-Cigarette/Vaping Use: Never Used Second Hand Smoke Exposure: No service: No Current occupational status: retired Cognitive needs: No Hearing needs: No Vision needs: Yes (glasses) Review of Systems Const All systems reviewed & are unremarkable except as noted in HPI and below Reports no additional complaints Eyes Reports no additional complaints ENT Reports no additional complaints Card Denies dyspnea Resp Denies cough and Denies dyspnea GI Reports no additional complaints Reports no additional complaints Musc Reports no additional complaints Skin/Breast Denies rash and Denies unusual bruising Neuro Reports no additional complaints Psych Reports no additional complaints Endo Reports no additional complaints Xiang/Lymph Reports no additional complaints Aller/Immun Reports no additional complaints Physical Exam Const General: cooperative and no acute distress Orientation/consciousness: patient oriented x3 HEENT Head: Yes normal to inspection, Yes normocephalic and Yes atraumatic Eyes Conjunctivae: conjunctivae normal Neck Neck: Yes normal visual inspection and Yes trachea midline Chest Chest palpation & inspection: normal inspection of the chest Resp Effort & Inspection: normal respiratory effort Cardio Rate: regular rate GI Inspection: Yes normal to inspection Neuro General: patient oriented x3 Psych Appearance: grossly normal Results AMB Urinalysis, Automated UA Leukoctes 0 Sylvester/uL Last Edit by JEFF Bills on 06/04/23 16:15 UA Nitrite Negative Last Edit by JEFF Bills on 06/04/23 16:15 UA Urobilinogen 0.2 mg/dL Last Edit by JEFF Bills on 06/04/23 16:1 5 UA Protein 0 mg/dL Last Edit by JEFF Bills on 06/04/23 16:15 UA pH 6.0 Last Edit by JEFF Bills on 06/04/23 16:15 UA Blood 10 Johnny/uL Last Edit by Josie Garduno, A on 06/04/23 16:15 UA Specific [place] 1.020 Last Edit by Josie Shaan, A on 06/04/23 16: 15 UA Ketone Negative Last Edit by Josie Garduno, A on 06/04/23 16:15 UA Bilirubin 0 mg/dL Last Edit by Josie Garduno, A on 06/04/23 16:15 UA Glucose 0 mg/dL Last Edit by Josie Garduno, A on 06/04/23 16:15 Results Reviewed Results Reviewed: Laboratory Last Values Urine pH (Auto) 6.0 06/04/23 15:47 Specific [place] (Auto) 1.020 06/04/23 15:47 Urine Protein (Auto) 0 mg/dL 06/04/23 15:47 Glucose (UA)(Auto) 0 mg/dL 06/04/23 15:47 Urine Ketones (Auto) Negative 06/04/23 15:47 Urine Blood (Auto) 10 Johnny/uL 06/04/23 15:47 Urine Nitrite (Auto) Negative 06/04/23 15:47 Urine Bilirubin (Auto) 0 mg/dL 06/04/23 15:47 Urine Urobilinogen (Auto) 0.2 mg/dL 06/04/23 15:47 Leukocyte Esterase (Auto) 0 Sylvester/uL 06/04/23 15:47 Assessment & Plan Assessment & Plan (1) Renal calcification: Code(s): N28.89 - Other specified disorders of kidney and ureter (2) Urinary frequency: Code(s): R35.0 - Frequency of micturition (3) Diabetes mellitus: Comment: T2DM and abnormal weight loss Code(s): E11.9 - Type 2 diabetes mellitus without complications (4) Recurrent UTI: Comment: Reviewed previous urine cultures E coli: Pansensitive Code(s): N39.0 - Urinary tract infection, site not specified (5) Vaginal atrophy: Code(s): N95.2 - Postmenopausal atrophic vaginitis (6) Microscopic hematuria: Code(s): R31.29 - Other microscopic hematuria Plan Follow-up after 9 months for UA and UTI symptoms. Orders: Orders AMB Urinalysis Automated 06/04/23 Hazel13.9 - Encounter for screening, unspecified Patient Instructions: The patient had an opportunity to ask questions regarding treatment plan. All questions were answered. Imaging, Laboratory studies and physical exam results were discussed and reviewed in detail. No major barriers to understanding were identified. The patient expressed understanding and agreement with the above treatment plan. The patient is aware they should contact our office by phone for worsening of their current condition or the appearance of new symptoms. Compliance is encouraged with any medications and followup testing that is ordered. It is a privilege to be allowed the opportunity to participate in the urologic care of your patient. If you have any questions or concerns regarding treatment for the above conditions please do not hesitate to contact me. The office telephone contact is [phone]. This note is constructed in part using voice recognition software. While every effort has been made to ensure accuracy ornament maker hand errors may have been included. Yours sincerely, Avelino Restrepo MD Coding Level of Care Code Est Pt Level 4 (47586) Diagnoses Renal calcification N28.89 Urinary frequency R35.0 Diabetes mellitus E11.9 Recurrent UTI N39.0 Vaginal atrophy N95.2 Microscopic hematuria R31.29
== END 2023-06-04 16:16 | disposition home or self-care (01) ==
PROVIDERS: PCP Internal Medicine; Visit Provider Urology
DX: N28.89 Other specified disorders of kidney and ureter (principal); R35.0 Frequency of micturition; E11.9 Type 2 diabetes mellitus without complications; N39.0 Urinary tract infection, site not specified; N95.2 Postmenopausal atrophic vaginitis; R31.29 Other microscopic hematuria
CPT/HCPCS: 99214

== ENCOUNTER → 2023-06-04 15:25 | Outpatient (BNVA) | payer MEDICARE, MEDICAID, SELFPAY | PROVIDERS: PCP Internal Medicine; Visit Provider Urology | DX: N28.89 Other specified disorders of kidney and ureter (principal); N39.0 Urinary tract infection, site not specified; N95.2 Postmenopausal atrophic vaginitis; R35.0 Frequency of micturition; R31.29 Other microscopic hematuria; E11.9 Type 2 diabetes mellitus without complications | CPT/HCPCS: 99212 ==

== ENCOUNTER 2023-06-05 15:49 | Outpatient (AMB) | payer MEDICARE, MEDICAID, SELFPAY ==
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
[2023-06-05 15:51] VITALS: BP 156/80; PULSE 68; BMI 18.5
== END 2023-06-05 16:23 | disposition home or self-care (01) ==
PROVIDERS: PCP Internal Medicine; Visit Provider Physician Assistant
DX: S09.90XA Unspecified injury of head, initial encounter (principal)
CPT/HCPCS: 99213

== ENCOUNTER 2023-06-05 16:25 | Emergency (ER) | payer MEDICARE, MEDICAID, SELFPAY ==
--- NOTE | ~2023-06-05 | CT_ITS ---
EXAMINATION: CT HEAD WITHOUT CONTRAST CLINICAL INFORMATION: Head injury. COMPARISON: None TECHNIQUE: Contiguous axial imaging was performed from the skull base to vertex without intravenous administration of contrast. This CT examination was performed using dose optimization techniques as appropriate, variously including the following: *Automated exposure control *Adjustment of mA and/or kV according to patient size (this includes techniques or standardized protocols for targeted exams where dose is matched to indication/reason for exam; i.e. extremities or head) *Use of iterative reconstruction technique DLP: 554 mGy-cm FINDINGS: Age indeterminate lacunar infarcts in the bilateral basal ganglia. There is no evidence of acute intracranial hemorrhage or edematous territorial infarction. A few foci of hypoattenuation in the periventricular and deep white matter are consistent with mild microangiopathy. Trejo-white matter differentiation is preserved. Proportional prominence of the ventricles and sulcal spaces. Symmetric mineralization of the basal ganglia. No evidence for obstructive hydrocephalus. No abnormal mass effect or midline shift. No extra-axial fluid collections. No acute soft tissue or osseous abnormalities. Mucus retention cyst in the left maxillary sinus. Otherwise, clear paranasal sinuses. The mastoids and middle ear cavities are clear. CT/CT head/brain wo IV con IMPRESSION: 1. 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 Correlation with an MRI of the brain could be obtained as clinically indicated. 2. No evidence of acute intracranial hemorrhage or edematous territorial infarction.
--- NOTE | ~2023-06-05 | XR_ITS ---
EXAMINATION: XR HAND, LEFT CLINICAL INFORMATION: Left hand pain COMPARISON: None available. TECHNIQUE: PA, lateral, and oblique views of the left hand. FINDINGS: Minimal degenerative changes are present DIP joints with some even lesser degenerative changes at the PIP joints most marked on the lateral aspect of the PIP joint of the middle finger. Along with the medial aspect of the PIP joint of the fifth digit. The MCP joints are free of disease. No chondrocalcinosis. No fractures or dislocations. XR/XR hand LT min 3V IMPRESSION: Mild degenerative changes as described above. No evidence of an acute injury.
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
[2023-06-05 16:44] VITALS: BP 163/95; PULSE 76; RESP 17; TEMP 36.6; O2SAT 98; BMI 18.5
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
[2023-06-05 19:21] VITALS: BP 169/71; PULSE 65; RESP 14; O2SAT 93
--- NOTE | 2023-06-05 20:59 | PC.NURSE ---
pt awaiting provider re-eval at this time, pt and spouse have had to be redirected back to exam room twice. explained via supervisor lead refinery that provider needs to see pt to discuss results to CT scan. allowed pt and spouse to vent frustrations. agreed to wait at this time. call sapp within reach
--- NOTE | 2023-06-06 00:16 | PC.NURSE ---
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
== END 2023-06-06 00:17 | disposition left against medical advice (07) ==
PROVIDERS: Emergency Provider Student in an Organized Health Care Education/Training Program; PCP Internal Medicine
DX: S00.83XA Contusion of other part of head, initial encounter (principal); S60.222A Contusion of left hand, initial encounter; V78.1XXA Passenger on bus injured in noncollision transport accident in nontraffic accident, initial encounter; Y93.89 Activity, other specified; Y92.414 Local residential or business street as the place of occurrence of the external cause; Y99.9 Unspecified external cause status
CPT/HCPCS: 70450; 73130; 99282; 99284

== ENCOUNTER 2023-06-12 10:00 | Outpatient (AMB) | payer MEDICARE, MEDICAID, SELFPAY ==
[2023-06-12 10:42] VITALS: BMI 18.5
--- NOTE | 2023-06-12 10:42 | A.OFFVIS_ITS ---
Intake VS Expanded 06/12/23 10:42 06/25/23 12:57 Height 5 ft 5 in 5 ft 5 in Weight 111 lb 5.335 oz 111 lb BMI 18.5 18.5 Intake Visit Reasons: Abnormal weight loss, T2DM Allergies lisinopril Allergy (Severe, Verified 06/05/23 16:03) Angioedema HPI Nutrition Presentation Details Pt presents for MNT for abnormal weight loss with T2DM. Pt was referred by care provider, SARAH Hathaway. Pt is accompanied by . Pt reports working on reducing food portions related to T2DM. Pt expresses concerns regarding food portions and blood glucose control leading to weight loss. Pt reports feeling hungry all the time WT in 12/2022 at 139 lbs , reports having lost about 10-15 lbs in a month and has remained in 110s since January 2023 7 d BG average at 110 24 hr food recall 8: 30 am B: 4 sandw with ham/barnes/tomatoe/cheese coffee with sugar no milk snack: crackers with butter , cheese 1-2pm : rice, beans ,meat, bistec, water 6 pm: sandw or [place] hamburger 8:30 pm fried potatoes food frequency fruits: 0- vegetables: 0 dairy: cheese mainly 2 -3 x/d protein foods 6-7 oz/d starches 10 -15 serving/d ETOH/SMOKING: denies physical activity:daily life activities NOK-Wajsqqr-Fe.Jeor Equation Height 5 ft 5 in Weight 111 lb Resting Metabolic Rate 1004.86 Calculated Activity Level Moderate Activity Calories Needed to Maintain Weight 1557.53 Diagnosis Nutrition problem #1 food nutri know defi and inadequate energy intake As related to (etiology) #1 unsure how to apply info As evidenced by (sign/symptom) #1 no prior educ - nutri rec Monitoring/Goals Nutrition problem monitoring level of knowledge/skill and weight Nutrition goal/outcome wt gain 5lbs in 2 months Learning/Education Readiness to learn good Stages of change preparation Educational materials provided Yes (meal planning) Most Recent Diabetes Results: No Data to Display [facility] Medical History Angioedema Ductal carcinoma in situ of right breast Elevated glucose Elevated LFTs Encounter to establish care Rash and nonspecific skin eruption Surgical History History of esophagogastroduodenoscopy (EGD) History of total hysterectomy with bilateral salpingo-oophorectomy (BSO) Hx of colonoscopy Social History Housing: Apartment Patient Tobacco Use Status: Never used Tobacco e-Cigarette/Vaping Use: Never Used Second Hand Smoke Exposure: No service: No Current occupational status: retired Cognitive needs: No Hearing needs: No Vision needs: Yes (glasses) Assessment & Plan Assessment & Plan (1) Diabetes mellitus: Comment: T2DM and abnormal weight loss Code(s): E11.9 - Type 2 diabetes mellitus without complications (2) Abnormal weight loss: Code(s): R63.4 - Abnormal weight loss Plan weight: 50 kg Est kcal needs as per MSJ: 1500 + 500/1000 (40% carb, 30% protein/fat) Est fluid needs as per 25-30 ml/d: 1500 Est prot per day as per 1 g/kg bw: 50+ Recommend fiber intake : 8-10 g per day and gradually increase to 25-28 g per day for women or as tolerated Recommend sodium intake per day : less than 2000 mg Educated patient on: ( R = reviewed V = verbalizes understanding N/R = needs review N/A = not applicable * Food sources of carbohydrate, adequate serving sizes and its role in various health conditions: R * Differences between complex carbohydrates a simple carbohydrates, role of fiber in diet: R * Differences between types of fats and role in diet (mono on saturated fat fatty acids, saturated fatty acids, trans fats): R * Food sources of sodium in salt and healthy modifications for heart health in kidney health: R * Vitamins and minerals: R * Healthy plate method concept: R * Physical activity: Benefits a precaution: NR * Hypoglycemia protocol (rule of 15): R * Dietary prevention of Hyperglycemia: R Patient Instructions: Include 2 serving of protein foods in two of your meals and in 2 of your snacks Choose high fiber sources of foods (whole grain bread, cereals, vegetables) keepa food record and bring to your follow up , call for questions prior to the appt Coding Level of Care Code Nutr Indiv Intake (68647) Diagnoses Diabetes mellitus E11.9 Abnormal weight loss R63.4 Time Spent (min) 30
[2023-06-25 12:57] VITALS: BMI 18.5
== END 2023-06-12 11:24 | disposition home or self-care (01) ==
PROVIDERS: PCP Internal Medicine; Visit Provider Dietitian, Registered
DX: E11.9 Type 2 diabetes mellitus without complications (principal); R63.4 Abnormal weight loss

== ENCOUNTER → 2023-06-12 10:00 | Outpatient (BNVA) | payer MEDICARE, MEDICAID, SELFPAY | PROVIDERS: Visit Provider Dietitian, Registered | DX: E11.9 Type 2 diabetes mellitus without complications (principal); R63.4 Abnormal weight loss | CPT/HCPCS: 97802 ==

== ENCOUNTER 2023-07-17 07:58 | Outpatient (REF) | payer OTHER, SELFPAY ==
[2023-07-17 08:22] LABS: MANUAL DIFF FLAG NO
[2023-07-17 08:49] LABS: Basophils Absolute Auto 0.1 X10*3/uL (0.0-0.2); Basophils Percent Auto 0.8 % (0-2); Eosinophils Absolute Auto 0.2 X10*3/uL (0.0-0.4); Eosinophils Percent Auto 2.9 % (0-4); Hematocrit 44.1 % (37.0-47.0); Hemoglobin 13.6 g/dl (12.0-16.0); Imm Gran Abs Auto 0.02 X10*3/uL (0.00-0.03); Imm Gran Pct Auto 0.3 % (0.0-0.4); Lymphocytes Absolute Auto 2.6 X10*3/uL (1.2-4.9); Lymphocytes Percent Auto 43.6 % (20-40); Mean Corpuscular HGB Conc 30.8 g/dl (31.0-35.0); Mean Corpuscular Hemoglobin 26.7 pg (27.0-33.0); Mean Corpuscular Volume 86.5 fL (80.0-98.0); Mean Platelet Volume 9.4 fL (9.4-12.3); Monocytes Absolute Auto 0.6 X10*3/uL (0.1-1.2); Monocytes Percent Auto 9.8 % (2-11); Neutrophils Absolute Auto 2.5 x10*3/uL (2.0-8.3); Neutrophils Percent Auto 42.6 % (45-73); Platelet Count 258 X10*3/uL (160-400); Red Cell Distribution Width 12.9 % (11.0-16.0); White Blood Count 5.9 X10*3/uL (4.8-10.8)
[2023-07-17 09:00] LABS: Estimated Average Glucose 111 mg/dL; Hemoglobin A1c % 5.5 % (<6.0)
[2023-07-17 09:19] LABS: Alanine Aminotransferase 24 U/L (0-31); Albumin Level 4.3 g/dL (3.5-5.0); Alkaline Phosphatase 66 U/L (39-117); Anion Gap 13 (12-20); Aspartate Amino Transferase 22 U/L (5-31); Bilirubin Total 0.9 mg/dL (0.0-1.0); Blood Urea Nitrogen 14 mg/dL (9-16); Calcium 10.5 mg/dL (8.4-10.2); Carbon Dioxide 28 mmol/L (22-29); Chloride 104 mmol/L (96-108); Cholesterol 135 mg/dL (<200); Estimated Glomerular Filt Rate > 60; Glucose Fasting 105 mg/dL (60-99); HDL Cholesterol 65 mg/dL (>40); LDL Cholesterol Calculated 50 mg/dL (<100); Potassium 4.5 mmol/L (3.3-5.1); Sodium 140 mmol/L (135-145); Total Protein 7.6 g/dL (6.5-8.0); Triglycerides 103 mg/dL (<150)
[2023-07-17 09:36] LABS: TSH reflex Free T4 4.21 uIU/mL (0.32-4.0)
[2023-07-17 10:23] LABS: Free T4 (Free Thyroxine) 0.85 ng/dL (0.71-1.85)
== END 2023-07-17 07:59 | disposition home or self-care (01) ==
LOC: HO.LAB 07:58
PROVIDERS: PCP Nurse Practitioner Family; Visit Provider Nurse Practitioner Family
DX: E78.00 Pure hypercholesterolemia, unspecified (principal); E11.9 Type 2 diabetes mellitus without complications
CPT/HCPCS: 36415; 80053; 80061; 83036; 84439; 84443; 85025

== ENCOUNTER 2023-07-26 08:54 | Day surgery (SDC) | payer OTHER, SELFPAY ==
[2023-07-24 09:03] VITALS: BMI 18.5
--- NOTE | 2023-07-25 08:52 | HO.ANESPROP2 ---
Documented by User: Мария Childs NP 07/25/23 08:58 HPI - Anesthesia Eval Consult details Narrative: 73yo F for Upper Endoscopy and Colonoscopy Follows [facility] [place]. Last seen 02/2023. Stable without symptoms walking to the grocery store. [facility] Active Problems Active Problems: All Active Problems (Updated 07/24/23 @ 09:04 by Isabella Clark RN) GERD (gastroesophageal reflux disease) (Acute) Essential hypertension (Acute) Adenocarcinoma (Acute) Osteoporosis screening (Acute) History of hysterectomy for cancer (Acute) History of angina (Acute) Asthma (Acute) Hypercholesterolemia (Acute) Palpitations (Acute) Hyperkeratosis lenticularis perstans (Acute) CAD (coronary artery disease) (Acute) Chronic stable angina (Acute) Gastric polyps (Acute) Rash (Acute) UTI (urinary tract infection) (Acute) Urinary frequency (Acute) Dysuria (Acute) Recurrent UTI (Acute) Varicose veins of both lower extremities (Acute) Hair loss (Acute) Diabetes mellitus (Acute) Recurrent UTI (Acute) Vaginal atrophy (Acute) Microscopic hematuria (Acute) Varicose veins of right lower extremity with inflammation (Acute) Left bundle branch block (Acute) Post-menopausal (Acute) Adult general medical exam (Acute) Leg cramps (Acute) Osteopenia (Acute) Encounter for screening colonoscopy (Acute) Weight loss (Acute) Kidney stone on left side (Acute) Varicose veins of left lower extremity with inflammation (Acute) Sinus bradycardia (Acute) History of colon polyps (Acute) Head injury (Acute) Abnormal weight loss (Acute) Blurry vision (Acute) Angioedema (Acute) Ductal carcinoma in situ of right breast (Acute) Past Medical History Medical History (Updated 07/24/23 @ 09:04 by Isabella Clark RN) Angina pectoris Angioedema CAD (coronary artery disease) Diabetes Ductal carcinoma in situ of right breast Elevated cholesterol Elevated glucose Elevated LFTs Encounter to establish care GERD (gastroesophageal reflux disease) Left bundle branch block Osteopenia Palpitations Rash and nonspecific skin eruption Renal calculi Surgical History Surgical History History of esophagogastroduodenoscopy (EGD) History of total hysterectomy with bilateral salpingo-oophorectomy (BSO) Hx of colonoscopy Social History Social History Housing: Apartment Patient Tobacco Use Status: Never used Tobacco e-Cigarette/Vaping Use: Never Used Second Hand Smoke Exposure: No Advance Directives: No Advance Directives Information Provided: Yes service: No Current occupational status: retired Cognitive needs: No Hearing needs: No Vision needs: Yes (glasses) Meds Allergies Allergy/AdvReac Type Severity Reaction Status Date / Time lisinopril Allergy Severe Angioedema Verified 06/05/23 16:03 Exam Exam Date and Time: July 25, 2023 0852 Height,Weight and Vital Signs: Height 5 ft 5 in Weight 50.349 kg Pertinent Lab Results Pertinent Lab Results: Laboratory Tests 07/17/23 07/17/23 08:21 08:21 WBC 5.9 Hgb 13.6 Hct 44.1 Plt Count 258 Sodium 140 Potassium 4.5 Chloride 104 Carbon Dioxide 28 BUN 14 Creatinine 0.72 Narrative Narrative: ECHO 10/2022 Conclusions: - 1. Normal LV systolic function with impaired relaxation filling pattern? 2. Normal cardiac valvular Doppler ? 3. Normal RV systolic pressure ? 4. No gross pericardial effusion ? ? NM abel perf SPECT rest & str 10/2022 Impression: ? 1.? Myocardial perfusion imaging study shows normal myocardial perfusion 2.? Gated LVEF is 65% 3. Transient ischemic dilatation not present ? EKG is nondiagnostic for ischemia EKG 09/2022 normal sinus rhythm with left bundle-branch block at 70 beats per minute Assessment and Plan Assessment Anesthesia Assessment: Chart Reviewed Documented by User: Zay Maharaj MD 07/26/23 09:19 [facility] Past Medical History Medical History (Updated 07/24/23 @ 09:04 by Isabella Clark RN) Angina pectoris Angioedema CAD (coronary artery disease) Diabetes Ductal carcinoma in situ of right breast Elevated cholesterol Elevated glucose Elevated LFTs Encounter to establish care GERD (gastroesophageal reflux disease) Left bundle branch block Osteopenia Palpitations Rash and nonspecific skin eruption Renal calculi Family History Family history of problems with anesthesia: No Surgical History Surgical History History of esophagogastroduodenoscopy (EGD) History of total hysterectomy with bilateral salpingo-oophorectomy (BSO) Hx of colonoscopy History of Problems with Anesthesia: No Social History Social History Housing: Apartment Patient Tobacco Use Status: Never used Tobacco e-Cigarette/Vaping Use: Never Used Second Hand Smoke Exposure: No Advance Directives: No Advance Directives Information Provided: Yes service: No Current occupational status: retired Cognitive needs: No Hearing needs: No Vision needs: Yes (glasses) Meds Allergies Allergy/AdvReac Type Severity Reaction Status Date / Time lisinopril Allergy Severe Angioedema Verified 06/05/23 16:03 Exam Airway Mallampati Class: II TM Dist: >3cm Neck ROM: Limited Heart: rrr Lungs: cta Assessment and Plan Final Anesthetic Review Family History of Problems with Anesthesia: No History of Problems with Anesthesia: No NPO: Yes ASA Class: III Final Preanesthetic Review: No Changes in Pt Med Stat, Meds/Allgs Chart Reviewed, Consent Obtained/Reviewed and Anes Risks/Benef Reviewed Patient Risk: Intermediate Procedure Risk: Intermediate Anesthetic Plan Anesthetic Plan: MAC: and Agree w/ Assess. and Plan Disposition: Standard PACU
[2023-07-26 09:36] LABS: Glucose, Whole Blood 100 mg/dL (60-115)
[2023-07-26 09:45] VITALS: BP 163/81; PULSE 77; RESP 14; TEMP 36.8; O2SAT 98
--- NOTE | 2023-07-26 10:03 | MHC.SHP ---
Pre-Procedural Eval Section A Date of Service: 07/26/23 Section B Chief Complaint: GERD,Screening Relevant Family History (Specify if Yes): No Relevant Social History: None Present Medications: see Short Stay Collaborative assessment Medical History: Significant History (Angina pectoris Angioedema CAD (coronary artery disease) Diabetes Ductal carcinoma in situ of right breast Elevated cholesterol Elevated glucose Elevated LFTs Encounter to establish care GERD (gastroesophageal reflux disease) Left bundle branch block Osteopenia Palpitations Rash and nonspecific skin) History of Previous Operations: Relevant previous surgery/procedure and date(s) (History of esophagogastroduodenoscopy (EGD) History of total hysterectomy with bilateral salpingo-oophorectomy (BSO) Hx of colonoscopy) Allergies: Allergies Allergy/AdvReac Type Severity Reaction Status Date / Time lisinopril Allergy Severe Angioedema Verified 06/05/23 16:03 Review of Systems Sugical H&P ROS: Negative: Constitution, Cardiovascular, Respiratory, Neurological, Psychiatric, Hem-Onc, Allergic/Immunologic, Gastrointestinal, Genitourinary, Musculoskeletal, Integumentary, Endocrine and Eyes/Ears/Nose/Throat Exam Surgical H&P Exam: Normal: HEENT, Normal: Heart, Normal: Lungs, Normal: Extremities, Normal: Abdomen, Normal: Skin and Normal: Neurological Plan Diagnosis/Plan: Unchanged I have reviewed the history and physical and performed a pertinent physical examination on my patient. No changes have occurred unless specified. Time Spent With Patient Time: Total time managing care of this patient today ____ minutes.
--- NOTE | 2023-07-26 10:54 | P.OP_ITS ---
Operative Note Operative Note Date of Service: 07/26/23 Narrative: Operative Information Procedure Description: EGD, Colonoscopy Indication: hx of gastric polyps, screening Anesthesia: MAC FLEXIBLE TRANSORAL UPPER GASTROINTESTINAL ENDOSCOPY AND COLONOSCOPY PROCEDURE NOTE UPPER ENDOSCOPY Consent: Indications for the procedure and potential complications of bleeding, perforation, reaction to medications and missed diagnosis were discussed with the patient and informed consent was obtained. Instrument: Olympus GIF H 190 J mid size upper endoscope Monitoring: Vital signs and clinical assessment, continuous EKG monitoring, Pulse oximetry, Carbon Dioxide monitoring and blood pressure monitoring were done throughout the procedure. Procedure: The patient was placed in the left lateral decubitis position and pre-procedure medications were administered and a bite block was placed. The endoscope was inserted into the mouth and advanced under direct vision to the third part of duodenum. A careful inspection was made as the upper endoscope was withdrawn including a retroflexed examination of the proximal stomach; Findings and interventions are described below. Findings: Larynx:normal Esophagus: GE junction at 38 cm, diaphragm hiatus at 38 cm, normal mucosa Stomach: Nodular mucosa with small scattered fundiv gland polyps . Biopsies were obtained. Grade 2 flap valve on retroflexed examination of the cardia. Duodenum: Normal bulb and descending duodenum, Intervention: Biopsies as noted above COLONOSCOPY Instrument: Olympus variable stiffness pediatric scope 190L Colonoscopy Monitoring: Vital signs and clinical assessment, continuous EKG monitoring, Pulse oximetry, Carbon Dioxide monitoring and blood pressure monitoring were done throughout the procedure. Colon withdrawal time was 8 minutes. Procedure: The patient was placed in the left lateral decubitis position and pre-procedure medications were administered. After a digital rectal examination of the ano-rectum, the video colonoscope was inserted into the rectum and advanced through the colon to the cecum/TI. The colonoscope was slowly withdrawn in a retrograde panoramic fashion and the colon mucosa was carefully examined including a retroflexed view of the rectum. Findings and interventions are described below. Procedure Difficulty: easy Findings: Terminal Ileum-normal Cecum:normal Ascending Colon: normal Transverse Colon -normal Descending Colon:normal Sigmoid Colon: mild diverticulosis Rectum: Retroflexion with medium sized internal hemorrhoids, grade I Anorectum - normal Colon preparation: [place] Bowel Preparation Scale Right colon; 2 Transverse colon: 3 Left colon; 2 (0 = Unprepared colon segment with mucosa not seen due to solid stool that cannot be cleared. 1 = Portion of mucosa of the colon segment seen, but other areas of the colon segment not well seen due to staining, residual stool and/or opaque liquid. 2 = Minor amount of residual staining, small fragments of stool and/or opaque liquid, but mucosa of colon segment seen well. 3 = Entire mucosa of colon segment seen well with no residual staining, small fragments of stool or opaque liquid) Impression and Post Procedure Diagnosis: Endoscopy Findings: gastritis fundic gland polyps Colonoscopy Findings: internal hemorrhoids diverticulosis Plan: Await Pathology results Repeat Colonoscopy in 10 years if health allows and patient wishes or earlier if clinically indicated High fiber diet leaflet avoid straining at stool, epsom salts and sitz bath, anusol supps or cream if h pylori pos then treat Above findings were reviewed with the patient and relevant handouts were provided if indicated.
[2023-07-26 11:00] VITALS: BP 125/72; PULSE 82; RESP 12; TEMP 36.2; O2SAT 99
[2023-07-26 11:15] VITALS: BP 174/86; PULSE 81; RESP 16; O2SAT 97
[2023-07-26 11:30] VITALS: BP 168/78; PULSE 80; RESP 16; TEMP 36.4; O2SAT 98
[2023-07-26 11:45] VITALS: BP 163/79; PULSE 79; RESP 16; TEMP 36.4; O2SAT 98
== END 2023-07-26 12:19 | disposition home or self-care (01) ==
PROVIDERS: PCP Nurse Practitioner Family; Visit Provider Internal Medicine Gastroenterology
PROC: (CPT 43239; principal; 2023-07-26 10:40)
DX: Z12.11 Encounter for screening for malignant neoplasm of colon (principal); Z86.010 Personal history of colon polyps; K57.30 Diverticulosis of large intestine without perforation or abscess without bleeding; K64.0 First degree hemorrhoids; K21.9 Gastro-esophageal reflux disease without esophagitis; K29.70 Gastritis, unspecified, without bleeding; K31.7 Polyp of stomach and duodenum; K44.9 Diaphragmatic hernia without obstruction or gangrene; I10 Essential (primary) hypertension; I25.10 Atherosclerotic heart disease of native coronary artery without angina pectoris; E78.00 Pure hypercholesterolemia, unspecified; J45.909 Unspecified asthma, uncomplicated; E11.8 Type 2 diabetes mellitus with unspecified complications; Z79.82 Long term (current) use of aspirin; Z79.84 Long term (current) use of oral hypoglycemic drugs; Z79.899 Other long term (current) drug therapy; Z88.8 Allergy status to other drugs, medicaments and biological substances
CPT/HCPCS: 43239; G0105; 82947; 88305; 88342; J2250

== ENCOUNTER → 2023-07-26 08:54 | Outpatient (BNV) | payer OTHER, SELFPAY | PROVIDERS: PCP Nurse Practitioner Family; Visit Provider Internal Medicine Gastroenterology | DX: Z12.11 Encounter for screening for malignant neoplasm of colon (principal); Z87.19 Personal history of other diseases of the digestive system; K31.7 Polyp of stomach and duodenum; K29.70 Gastritis, unspecified, without bleeding; K57.30 Diverticulosis of large intestine without perforation or abscess without bleeding; K64.8 Other hemorrhoids | CPT/HCPCS: 43239; 45378 ==

== ENCOUNTER 2023-08-06 10:38 | Outpatient (AMB) | payer OTHER, MEDICAID, SELFPAY ==
[2023-08-06 10:57] VITALS: BP 131/61; PULSE 71; BMI 18.9
--- NOTE | 2023-08-06 10:57 | MHC.OFFVIS ---
Intake Vital Signs 08/06/23 10:57 Height 5 ft 5 in Weight 113 lb 5.082 oz BMI 18.9 BP 131/61 Blood Pressure Location Lt brachial Position Sitting Pulse 71 Intake Visit Reasons: S/p egd/colon- Farrell Intake Note: Patient present to in office visit today in follow up of EGD and colonoscopy screening. CC: Patient reports doing well and denies having any GI concerns today. Layer Up Required: Yes Accompanied by: Spouse Allergies lisinopril Allergy (Severe, Verified 08/06/23 11:00) Angioedema Medication List - Last Reconciled 08/06/23 by Pat Dixon PA-C amlodipine 5 mg PO DAILY aspirin (Ecotrin Low Strength) 81 mg PO DAILY blood pressure monitor As directed blood sugar diagnostic (Innov[employer]ient Solutionsuch Ultra Test strips) test daily blood-glucose meter (In[employer]uch Ultra2 Meter) test daily calcium carbonate (Oyster Shell Calcium) 500 mg PO DAILY 90 days cholecalciferol (vitamin D3) 25 mcg PO DAILY diphenhydramine HCl (Allergy (diphenhydramine)) 25 mg PO Q6-8H PRN folic acid 1 mg PO DAILY lancets ([employer]uch UltraSoft 2 Lancet) test daily metformin 500 mg PO .every other day metoprolol succinate ER 50 mg PO DAILY omeprazole 40 mg PO DAILY rosuvastatin 10 mg PO DAILY HPI HPI Comments History of Present Illness Details A 73 y/o female f/u after EGD colonoscopy- -she says she has not felt anything at all- she feels well- Appetite is good, omeprazole with good response Bowels are normal no issues No nausea, vomiting, hematemesis, hematochezia fever chills She does have a mild cough some mornings no other symptoms Reviewed procedure report, pathology recommendation [facility] Medical History Angina pectoris Elevated cholesterol Osteopenia Renal calculi Left bundle branch block Diabetes Palpitations CAD (coronary artery disease) GERD (gastroesophageal reflux disease) Elevated LFTs Elevated glucose Rash and nonspecific skin eruption Angioedema Encounter to establish care Ductal carcinoma in situ of right breast Surgical History Hx of colonoscopy History of esophagogastroduodenoscopy (EGD) History of total hysterectomy with bilateral salpingo-oophorectomy (BSO) Social History Housing: Apartment Patient Tobacco Use Status: Never used Tobacco e-Cigarette/Vaping Use: Never Used Second Hand Smoke Exposure: No service: No Current occupational status: retired Cognitive needs: No Hearing needs: No Vision needs: Yes (glasses) Review of Systems Const All systems reviewed & are unremarkable except as noted in HPI and below Denies chills and Denies fever(s) ENT Reports post nasal drip Card Denies chest pain Physical Exam Vital Signs: Last Vital Signs Pulse 71 08/06/23 10:57 BP 131/61 08/06/23 10:57 BMI result Body Mass Index 18.9 Const General: cooperative, healthy appearing, comfortable and no acute distress Orientation/consciousness: patient oriented x3 Limitations: language barrier Eyes Sclerae: sclerae normal Resp Effort & Inspection: normal respiratory effort and able to speak in complete sentences Auscultation: clear to auscultation bilaterally, no rales, no rhonchi and no wheezes Cardio Rate: regular rate Rhythm: regular rhythm Heart sounds: S1 normal heart sound present and S2 normal heart sound present Skin General skin exam: no rashes or lesions noted Neuro General: patient oriented x3 Extrem General: Yes full ROM Psych Appearance: grossly normal and well kempt Mental Status: mental status grossly normal Speech and movement: Normal speech and movement present and Clear speech present Affect: normal affect Attitude: cooperative Thought process: Normal thought process present Thought content: Normal thought content present Insight: Good insight present (Psych) Judgement: Good judgement present (Psych) Results Reviewed Results Reviewed: Endoscopy Findings: gastritis fundic gland polyps Colonoscopy Findings: internal hemorrhoids diverticulosis Plan: Await Pathology results Repeat Colonoscopy in 10 years if health allows and patient wishes or earlier if clinically indicated High fiber diet leaflet avoid straining at stool, epsom salts and sitz bath, anusol supps or cream if h pylori pos then treat /Sex: 73/F Attending: Michael Farrell MD : 1950 Submitted by: Michael Farrell MD Copies to: Barbara Quintero MR #: [id number] Status: [facility] Collected: 07/26/23 Location: [facility] Received: 07/26/23 Diagnosis Stomach, biopsy: Gastric mucosa with no diagnostic alteration, no evidence of H. pylori, intestinal metaplasia, or dysplasia. Clinical History Pre-Op Dx: GERD, screening Post-Op Dx: Gastritis, fundic gland polyps, diverticulosis, internal hemorrhoids Microscopic Description Microscopic sections reviewed. H. pylori immunostain is negative. Assessment & Plan Assessment & Plan (1) Gastric polyps: Comment: few polyps- neg bx Code(s): K31.7 - Polyp of stomach and duodenum (2) Diverticulosis of colon: Code(s): K57.30 - Diverticulosis of large intestine without perforation or abscess without bleeding Plan: HFD ER protocol (3) Hemorrhoids: Code(s): K64.9 - Unspecified hemorrhoids Plan: HFD Avoid straining (4) GERD (gastroesophageal reflux disease): Code(s): K21.9 - Gastro-esophageal reflux disease without esophagitis Plan: Avoid culprits Continue ppi Patient Instructions: Pleasant 73-year-old female follows up after recent colonoscopy EGD with history of fundic gland polyps Reviewed procedure report, pathology and recommendation She will continue PPI, reflux precautions reviewed avoid culprits Maintain high-fiber diet avoid straining with hemorrhoids as well ER protocol for diverticulosis/diverticular Follow back with PCP for non GI concerns. Encouraged to call with any questions or concerns Recommend asymptomatic colonoscopy 10 years health dependent Coding Level of Care Code Est Pt Level 3 (48846) Diagnoses Gastric polyps K31.7 Diverticulosis of colon K57.30 Hemorrhoids K64.9 GERD (gastroesophageal reflux disease) K21.9 Time Spent (min) 20 Comment [id number]
== END 2023-08-06 12:01 | disposition home or self-care (01) ==
PROVIDERS: PCP Internal Medicine; Visit Provider Physician Assistant
DX: K31.7 Polyp of stomach and duodenum (principal); K57.30 Diverticulosis of large intestine without perforation or abscess without bleeding; K64.9 Unspecified hemorrhoids; K21.9 Gastro-esophageal reflux disease without esophagitis
CPT/HCPCS: 99213

== ENCOUNTER → 2023-08-06 10:38 | Outpatient (BNVA) | payer OTHER, MEDICAID, SELFPAY | PROVIDERS: PCP Internal Medicine; Visit Provider Physician Assistant | DX: K57.30 Diverticulosis of large intestine without perforation or abscess without bleeding (principal); K64.8 Other hemorrhoids; K29.70 Gastritis, unspecified, without bleeding; K31.7 Polyp of stomach and duodenum; K21.9 Gastro-esophageal reflux disease without esophagitis; Z79.899 Other long term (current) drug therapy; Z98.890 Other specified postprocedural states | CPT/HCPCS: 99212 ==

== ENCOUNTER 2023-08-21 10:23 | Outpatient (AMB) | payer OTHER, SELFPAY ==
[2023-08-21 10:25] VITALS: BP 142/80; PULSE 74; O2SAT 95; BMI 19.1
--- NOTE | 2023-08-21 10:25 | MHC.PC.OV ---
Vital Signs 08/21/23 10:25 Height 5 ft 5 in Weight 115 lb BMI 19.1 BP 142/80 H Blood Pressure Location Lt brachial Position Sitting Pulse 74 Pulse Source Pulse Oximeter Temp Source Skin Pulse Oximetry (%) 95 Oxygen Delivery Method Room Air Intake Visit Reasons: F/U on DM, HLD, HTN, 30 min visit please, ty Canceling Machine Operator Required: Yes Canceling Machine Operator Language: [place] Allergies lisinopril Allergy (Severe, Verified 08/21/23 10:52) Angioedema Medication List - Last Reconciled 08/21/23 by HASMUKH Dennis amlodipine 5 mg PO DAILY aspirin (Ecotrin Low Strength) 81 mg PO DAILY blood pressure monitor As directed blood sugar diagnostic (Joinnus Ultra Test strips) test daily blood-glucose meter (Joinnus Ultra2 Meter) test daily calcium carbonate (Oyster Shell Calcium) 500 mg PO DAILY 90 days cholecalciferol (vitamin D3) 25 mcg PO DAILY diphenhydramine HCl (Allergy (diphenhydramine)) 25 mg PO Q6-8H PRN folic acid 1 mg PO DAILY lancets (Joinnus UltraSoft 2 Lancet) test daily metformin 500 mg PO .every other day metoprolol succinate ER 50 mg PO DAILY omeprazole 40 mg PO DAILY rosuvastatin 10 mg PO DAILY Tobacco use date assessed: 08/21/23 Fall risk assessment: No Falls in past year Last assessed Fall Risk: 08/21/23 Dental Screening Dental Screen Date: 08/21/23 Did you have a dental visit in the last 12 months?: No Did you have a dental problem in the last 6 months where you did not have access to dental care?: No HPI F/U on DM, HLD, HTN, 30 min visit please, ty HPI Details Patient is a 73-year-old female who presents today for a routine follow-up. Medical history significant for CAD - followed by [facility], hypercholesterolemia, asthma, history of endometrial adenocarcinoma -followed by Dr. Ponce Sprinkler Inspector/Oncology, hypertension, GERD, and diabetes. Patient is compliant with her medications. Patient reports that she did not have diabetic eye exam yet, will place referral. In addition, patient reports 2 skin lesions on her chin for the past some time a she would like evaluation for this. Patient is a Prydeinig-speaking and online lace roller was incorporated into this visit [id number]. [facility] Medical History Angina pectoris Elevated cholesterol Osteopenia Renal calculi Left bundle branch block Diabetes Palpitations CAD (coronary artery disease) GERD (gastroesophageal reflux disease) Elevated LFTs Elevated glucose Rash and nonspecific skin eruption Angioedema Encounter to establish care Ductal carcinoma in situ of right breast Surgical History Hx of colonoscopy History of esophagogastroduodenoscopy (EGD) History of total hysterectomy with bilateral salpingo-oophorectomy (BSO) Social History Housing: Apartment Patient Tobacco Use Status: Never used Tobacco e-Cigarette/Vaping Use: Never Used Second Hand Smoke Exposure: No service: No Current occupational status: retired Cognitive needs: No Hearing needs: No Vision needs: Yes (glasses) Questionnaire Thrive Questionnaire Date Thrive assessed: 01/05/23 AUDIT C Alcohol Use Questionnaire (AUDIT-C) 1. How often do you have a drink containing alcohol?: Never 3. How often do you have six or more drinks on one occasion?: Never Total Score: 0 Score Reviewed/Action Taken: No SHEREE-7 AMB Questionnaire SHEREE-7 Date SHEREE - 7 assessed: 01/05/23 Source: Developed by Drs. Jorge Johnson, Diana Mcelroy, Arnaud Ortega and colleagues, with an educational tori from [employer]. Review of Systems Const Denies body aches, Denies chills, Denies fever(s) and Denies headache(s) Eyes Denies change in vision ENT Denies dizziness, Denies otalgia, Denies headache(s), Denies nasal discharge, Denies sinus pain and Denies sore throat Card Denies chest pain, Denies edema, Denies lightheadedness and Denies dyspnea Resp Denies chest congestion, Denies cough and Denies dyspnea GI Denies constipation, Denies diarrhea, Denies nausea and Denies vomiting Denies dysuria Musc Denies myalgias Skin/Breast Reports as per HPI, Denies lesions and Denies rash Neuro Denies dizziness and Denies headache(s) Physical exam (Primary Care) Vital Signs: Last Vital Signs Pulse 74 08/21/23 10:25 BP 142/80 H 08/21/23 10:25 Pulse Ox 95 08/21/23 10:25 Oxygen Delivery Method Room Air 08/21/23 10:25 BMI result Body Mass Index 19.1 Tobacco/Smoking Status: Tobacco use Status Tobacco use date assessed 08/21/23 08/21/23 10:31 Patient Tobacco Use Status Never used Tobacco 08/21/23 10:25 e-Cigarette/Vaping Use Never Used 08/21/23 10:25 Thrive Assessment: Date of Thrive Assessment Date Thrive assessed 01/05/23 08/21/23 10:25 Const General: cooperative and no acute distress Orientation/consciousness: patient oriented x3 HENMT Head: Yes normocephalic and Yes atraumatic Face and sinus: Yes sinuses nontender Mouth: oropharynx normal and moist mucous membranes Throat: Yes posterior oropharynx normal Eyes General: appearance normal, both eyes and all related structures Pupils: Equal, round and reactive pupils present EOM: EOMs intact bilaterally Neck Neck: Yes normal visual inspection, Yes full ROM and Yes no lymphadenopathy Thyroid: Thyroid normal Resp Effort & Inspection: normal respiratory effort and able to speak in complete sentences Auscultation: clear to auscultation bilaterally, no crackles, no rales, no rhonchi and no wheezes Cardio Rate: regular rate Rhythm: regular rhythm Heart sounds: S1 normal heart sound present, S2 normal heart sound present and no murmurs GI Palpation (GI): Soft to palpation, not firm, nontender, no guarding and not rigid Auscultation: normal bowel sounds Skin Other: Chin with two slightly raised skin colored lesions, nontender, no signs of infection noted Neuro General: patient oriented x3 Cranial nerves: Yes Equal, round and reactive pupils present Gait exam (Neuro): Normal gait present Extrem General: Yes full ROM and No edema Assessment and Plan Assessment & Plan (1) CAD (coronary artery disease): Code(s): I25.10 - Atherosclerotic heart disease of [place] coronary artery without angina pectoris Plan: Continue to follow-up with [facility] Aspirin 81 mg daily Metoprolol 50 mg daily Rosuvastatin 10 mg daily (2) Hypercholesterolemia: Code(s): E78.00 - Pure hypercholesterolemia, unspecified Plan: Rosuvastatin 10 mg daily Low-cholesterol diet (3) Asthma: Code(s): J45.909 - Unspecified asthma, uncomplicated Plan: Stable (4) Essential hypertension: Code(s): I10 - Essential (primary) hypertension Plan: Continue current treatment Low-sodium diet (5) GERD (gastroesophageal reflux disease): Code(s): K21.9 - Gastro-esophageal reflux disease without esophagitis Plan: Continue to follow-up with gastroenterology Continue omeprazole 40 mg daily Avoid GERD trigger foods and do not lay down 2-3 hours after evening meal (6) Diabetes mellitus: Comment: T2DM and abnormal weight loss Code(s): E11.9 - Type 2 diabetes mellitus without complications Plan: A1c 5.5 06/2023 Metformin 500 mg every other day Low carbohydrate diet Ophthalmology referral for diabetic eye exam Blood work ordered (7) Skin lesion: Code(s): L98.9 - Disorder of the skin and subcutaneous tissue, unspecified Plan: Chin with two slightly raised skin colored lesions, nontender, no signs of infection noted Dermatology referral for an evaluation and treatment Orders: Orders TSH reflex Free T4 3 Months I10 - Essential (primary) hypertension Lipid Panel 3 Months E11.9 - Type 2 diabetes mellitus without complications Hemoglobin A1c 3 Months E11.9 - Type 2 diabetes mellitus without complications Complete Blood Count Auto Diff Today E11.9 - Type 2 diabetes mellitus without complications Microalbumin, Random (w Creat) Today E11.9 - Type 2 diabetes mellitus without complications Comprehensive [place]. Panel Fast 3 Months E11.9 - Type 2 diabetes mellitus without complications Referrals Ophthalmology Referral E11.9 - Type 2 diabetes mellitus without complications Dermatology Referral L98.9 - Disorder of the skin and subcutaneous tissue, unspecified Coding Level of Care Code Est Pt Level 4 (35645) Diagnoses CAD (coronary artery disease) I25.10 Hypercholesterolemia E78.00 Asthma J45.909 Essential hypertension I10 GERD (gastroesophageal reflux disease) K21.9 Diabetes mellitus E11.9 Skin lesion L98.9
== END 2023-08-21 11:12 | disposition home or self-care (01) ==
PROVIDERS: PCP Internal Medicine; Visit Provider Nurse Practitioner Family
DX: J45.909 Unspecified asthma, uncomplicated (principal); I10 Essential (primary) hypertension; K21.9 Gastro-esophageal reflux disease without esophagitis; E11.9 Type 2 diabetes mellitus without complications; I25.10 Atherosclerotic heart disease of native coronary artery without angina pectoris; E78.00 Pure hypercholesterolemia, unspecified; L98.9 Disorder of the skin and subcutaneous tissue, unspecified
CPT/HCPCS: 99214

== ENCOUNTER 2023-09-05 08:45 | Emergency (ER) | payer OTHER, SELFPAY ==
[2023-09-05 09:10] VITALS: BP 185/73; PULSE 73; RESP 17; TEMP 36.6; O2SAT 98; BMI 18.1
--- NOTE | 2023-09-05 09:14 | ED_ITS ---
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 She states the pain is located in her entire shoulder and radiates to the upper arm. It is worse with palpation and movement. She denies any injury. She denies any numbness, weakness, tingling of the RUE, no chest pain, SOB or neck pain. She states it feels like a bone is broken. She sleeps on both her right and left sides at night. MD Complaint: extremity pain and joint pain Onset (ago): hour(s) (8) Pain Consistency: constant Location: right and upper extremity Severity scale (1-10): 7 Quality: aching Radiation: distal Relieving factors: immobilization Exacerbating factors: range of motion and palpation Associated symptoms: denies other symptoms Related Data Previous Rx's Medication Instructions Recorded diphenhydramine HCl 25 mg capsule 25 mg PO Q6-8H PRN nausea and 01/26/22 (Allergy (diphenhydramine)) vomiting #30 caps calcium carbonate 500 mg calcium 500 mg PO DAILY 90 days #90 tabs 10/27/22 (1,250 mg) tablet (Oyster Shell Calcium) cholecalciferol (vitamin D3) 25 25 mcg PO DAILY #90 tabs 01/21/23 mcg (1,000 unit) tablet metoprolol succinate 50 mg 50 mg PO DAILY #90 tabs 02/12/23 tablet,extended release 24 hr amlodipine 5 mg tablet 5 mg PO DAILY #90 tabs 04/18/23 aspirin 81 mg tablet,delayed 81 mg PO DAILY #90 tabs 05/11/23 release (Ecotrin Low Strength) blood pressure monitor #1 ea 05/11/23 metformin 500 mg tablet 500 mg PO .every other day #90 tabs 05/30/23 folic acid 1 mg tablet 1 mg PO DAILY #90 tabs 06/21/23 omeprazole 40 mg capsule,delayed 40 mg PO DAILY #30 caps 06/27/23 release rosuvastatin 10 mg tablet 10 mg PO DAILY #90 tabs 07/08/23 blood sugar diagnostic (OneTouch #100 ea 07/18/23 Ultra Test strips) blood-glucose meter (OneTouch #1 ea 07/18/23 Ultra2 Meter) lancets 30 gauge (OneTouch #200 ea 07/18/23 UltraSoft 2 Lancet) lidocaine 5 % topical patch 1 patch topical DAILY #15 ea 09/05/23 prednisone 20 mg tablet 40 mg (2 x 20 mg) PO DAILY #10 tabs 09/05/23 Allergies Allergy/AdvReac Type Severity Reaction Status Date / Time lisinopril Allergy Severe Angioedema Verified 09/05/23 09:10 Review of Systems Review of Systems: Yes all other systems are reviewed and are negative [facility] Past Medical History Medical History Angina pectoris Elevated cholesterol Osteopenia Renal calculi Left bundle branch block Diabetes Palpitations CAD (coronary artery disease) GERD (gastroesophageal reflux disease) Elevated LFTs Elevated glucose Rash and nonspecific skin eruption Angioedema Encounter to establish care Ductal carcinoma in situ of right breast Surgical History Hx of colonoscopy History of esophagogastroduodenoscopy (EGD) History of total hysterectomy with bilateral salpingo-oophorectomy (BSO) Social History Social History Housing: Apartment Patient Tobacco Use Status: Never used Tobacco e-Cigarette/Vaping Use: Never Used Second Hand Smoke Exposure: No Advance Directives: No Advance Directives Information Provided: Yes service: No Current occupational status: retired Cognitive needs: No Hearing needs: No Vision needs: Yes (glasses) Physical Exam Vital Signs: Vital Signs: Last Vital Signs Temp 98 F 09/05/23 09:10 Pulse 73 09/05/23 09:10 Resp 17 09/05/23 09:10 BP 185/73 H 09/05/23 09:10 Pulse Ox 98 09/05/23 09:10 O2 Del Method Room Air 09/05/23 09:10 BMI result Body Mass Index 18.1 Appearance: Alert. Oriented X3. No acute distress. HEENT: normal inspection CVS: Normal heart rate and rhythm. Pulses normal. Respiratory: No respiratory distress. Skin: Skin warm and dry. Normal skin color. Normal skin turgor. No rashes. Extremities: normal inspection of bilateral upper extremities. limited forward and lateral abduction to about 90 degrees w/ pain. +empty can test. NV intact distally. nontender upper arm, elbow and wrist on the right. Neuro: Oriented X 3. No motor deficit. No sensory deficit. Medications Administered Discontinued Medications Generic Name Dose Route Start Last Admin Trade Name Chris PRN Reason Stop Dose Admin Acetaminophen 975 mg 09/05/23 09:59 09/05/23 10:27 Acetaminophen 325 Mg Tablet PO 09/05/23 10:00 975 mg ONCE ONE Administration Medical Decision Making Medical Decision Making MDM Narrative: 73 yo female presenting with nontraumatic right shoulder pain since last night. limited ROM on exam w/ tenderness. xray is showing moderate degenerative changes. will start short course predinsone, tylenol and lidoderm for symptomatic relief. discussed need for follow up with ortho if pain persists. staff development coordinator rn used to discuss results, plan and return precautions. stable for d/c home Differential Diagnosis Differential Diagnoses: The differential diagnosis associated with the presentation includes osteoarthritis, bursitis, tendonitis, inflammatory arthritis, fracture Independent Interpretation I performed an independent interpretation of an: Plain X-Ray Interpretation: no acute fracture, agree w/ radiology read Radiology Impression Discussion of test interpretation with radiology: I have reviewed the radiologist's reading. Radiologist Impression: EXAMINATION: XR SHOULDER, RIGHT CLINICAL INFORMATION: Pain. Limited range of motion. No injury. COMPARISON: None available. TECHNIQUE: Four views of the right shoulder. FINDINGS: Visualized portion of the proximal right humerus demonstrate no fracture. Humeral head demonstrates good articulation the glenoid fossa. There are severe hypertrophic changes of the acromioclavicular joint. Some soft tissue calcifications overlying the greater tuberosity of the humerus. Small osteophytes of the glenoid. Visualized right-sided ribs and lung parenchyma are unremarkable. XR/XR shoulder RT min 2V IMPRESSION: Moderate degenerative changes of the right shoulder. Independent Historian Clinical information obtained from an independent historian. History obtained from or confirmed by: Spouse External Record Review External record reviewed: Outpatient record, Prior outpatient labs and Prior outpatient radiology Prescription Management I considered prescription management with: Pain Medication Chronic Conditions Patient?s care impacted by: Other (osteopenia) Critical Care Time Critical Care Time Critical Care Time: No Discharge Plan Discharge Clinical Impression: Osteoarthritis of right shoulder Qualifiers: Osteoarthritis type: unspecified Qualified Code(s): M19.011 - Primary osteoarthritis, right shoulder Patient Disposition: Home, Self-Care Instructions: Osteoarthritis (DC), Shoulder Pain (ED) Additional Instructions: Your x-ray today showed moderate degenerative changes, no broken bones Recommend Tylenol 975 mg every 6-8 hours for pain Take the prescribed steroid medication for the next 5 days Recommend following up with your doctor as well as orthopedics if pain persists If you develop new or worsening symptoms call 911 or come back to the ER for further evaluation. Tao radiograf?a de hoy mostr? cambios degenerativos moderados, no hay huesos rotos. Se recomienda Tylenol 975 mg cada 6-8 horas para el dolor. [place] los esteroides recetados clarence los pr?ximos 5 d?as. Recomendar seguimiento con tao m?dico as? feli con ortopedia si el dolor persiste. Si desarrolla s?ntomas nuevos o que empeoran, llame al 911 o regrese a la johanna de emergencias para lien evaluaci?n adicional. Prescriptions: New prednisone 20 mg tablet 40 mg PO DAILY Qty: 10 0RF lidocaine 5 % adhesive patch,medicated 1 patch topical DAILY Qty: 15 0RF Rx Instructions: leave on most painful area for up to 12 hrs No Action calcium carbonate [Oyster Shell Calcium] 500 mg calcium (1,250 mg) tablet 500 mg PO DAILY 90 Days Qty: 90 2RF cholecalciferol (vitamin D3) 25 mcg (1,000 unit) tablet 25 mcg PO DAILY Qty: 90 2RF metoprolol succinate 50 mg tablet extended release 24 hr 50 mg PO DAILY Qty: 90 1RF amlodipine 5 mg tablet 5 mg PO DAILY Qty: 90 1RF metformin 500 mg tablet 500 mg PO .every other day Qty: 90 1RF folic acid 1 mg tablet 1 mg PO DAILY Qty: 90 0RF omeprazole 40 mg capsule,delayed release(DR/EC) 40 mg PO DAILY Qty: 30 1RF rosuvastatin 10 mg tablet 10 mg PO DAILY Qty: 90 1RF (DME) OneTouch Ultra Test Strip See Rx Instructions .Route Qty: 100 1RF Rx Instructions: test daily (DME) blood-glucose meter [OneTouch Ultra2 Meter] Misc See Rx Instructions .Route Qty: 1 0RF Rx Instructions: test daily (DME) lancets [OneTouch UltraSoft 2 Lancet] 30 gauge misc See Rx Instructions .Route Qty: 200 1RF Rx Instructions: test daily diphenhydramine HCl [Allergy (diphenhydramine)] 25 mg capsule 25 mg PO Q6-8H PRN (Reason: nausea and vomiting) Qty: 30 1RF (DME) blood pressure monitor Kit See Rx Instructions .Route Qty: 1 0RF Rx Instructions: As directed aspirin [Ecotrin Low Strength] 81 mg tablet,delayed release (DR/EC) 81 mg PO DAILY Qty: 90 2RF naproxen 500 mg tablet 500 mg PO ONCE Qty: 1 0RF nitrofurantoin monohyd/m-cryst 100 mg capsule 100 mg PO ONCE Qty: 1 0RF lidocaine HCl 2 % jelly in applicator 10 ml intra-urethral ONCE Qty: 10 0RF Referrals: [facility] [place] [facility] [Provider Group] (right shoulder OA) Randi Negron MD [Primary Care Provider] - Print Language: Nicaraguan
== END 2023-09-05 11:04 | disposition home or self-care (01) ==
PROVIDERS: Emergency Provider Emergency Medicine Emergency Medical Services; PCP Internal Medicine
DX: M19.011 Primary osteoarthritis, right shoulder (principal); M25.511 Pain in right shoulder; E11.9 Type 2 diabetes mellitus without complications; I10 Essential (primary) hypertension; E78.5 Hyperlipidemia, unspecified; Z87.440 Personal history of urinary (tract) infections; Z79.82 Long term (current) use of aspirin; Z79.84 Long term (current) use of oral hypoglycemic drugs; Z79.899 Other long term (current) drug therapy
CPT/HCPCS: 73030; 99283

== ENCOUNTER 2023-09-19 13:04 | Outpatient (REF) | payer OTHER, SELFPAY ==
--- NOTE | ~2023-09-19 | MM_ITS ---
EXAMINATION: MM SCREENING DIGITAL BREAST TOMOSYNTHESIS, BILATERAL CLINICAL INFORMATION: Screening. Asymptomatic. Patient is status post treatment for right breast cancer in 2016. COMPARISON: Mammography: This study is compared with prior exams dating back to 2019. TECHNIQUE: Digital breast tomosynthesis is performed in both the craniocaudal and mediolateral oblique views along with computer-aided detection (CAD). Synthesized 2D images are generated from the tomosynthesis. FINDINGS: There are scattered areas of fibroglandular density (ACR BI-RADS breast composition Category b). There are no significant masses, abnormal calcifications, or other abnormalities. Surgical changes are present in the right breast. There are also benign dystrophic calcifications in the right breast from prior surgery. MM/MM tomosynthesis screening BI IMPRESSION: No mammographic evidence of malignancy. ASSESSMENT: BI-RADS BI-RADS 2 - Benign Findings RECOMMENDATION: Routine annual mammography screening. 1 year F/U This examination should not preclude the clinical evaluation of a suspicious palpable abnormality. This patient's information was entered into a reminder system with a target due date for their next mammogram.
== END 2023-09-19 13:05 | disposition home or self-care (01) ==
LOC: HO.MAMMO 13:04
PROVIDERS: PCP Internal Medicine; Visit Provider Nurse Practitioner Family
DX: Z12.31 Encounter for screening mammogram for malignant neoplasm of breast (principal)
CPT/HCPCS: 77063; 77067

== ENCOUNTER → 2023-09-19 13:45 | Outpatient (BNV) | payer OTHER, SELFPAY | PROVIDERS: PCP Internal Medicine; Visit Provider Radiology Diagnostic Radiology | DX: Z12.31 Encounter for screening mammogram for malignant neoplasm of breast (principal) | CPT/HCPCS: 77063; 77067 ==

== ENCOUNTER 2023-09-25 13:59 | Outpatient (AMB) | payer OTHER, SELFPAY ==
--- NOTE | 2023-09-25 14:09 | A.OFFVIS_ITS ---
Intake VS Expanded 09/25/23 14:10 Height 5 ft 6 in Weight 117 lb 4.575 oz BMI 18.9 Intake Visit Reasons: WT loss with DM Allergies lisinopril Allergy (Severe, Verified 09/05/23 09:10) Angioedema HPI Nutrition Presentation Details Pt presents for MNT f/u for T2DM Pt bring glucometer and her 7 d bg average at 123 mg/dl, 14 d bg average at 121 mg/dl, Pt reports feeling shaky if waiting too long to eat and then has just crackers and water as snack or may have a meal (sand with tuna and cup of milk or fruit) Pt reports weighing self at home on a daily basis Most Recent Diabetes Results: Cholesterol 135 mg/dL (<200) 07/17/23 HDL Cholesterol 65 mg/dL (>40) 07/17/23 Triglycerides 103 mg/dL (<150) 07/17/23 Creatinine 0.72 mg/dL (0.5-1.4) 07/17/23 Blood Urea Nitrogen 14 mg/dL (9-16) 07/17/23 Sodium 140 mmol/L (135-145) 07/17/23 Potassium 4.5 mmol/L (3.3-5.1) 07/17/23 Chloride 104 mmol/L (96-108) 07/17/23 Carbon Dioxide 28 mmol/L (22-29) 07/17/23 Calcium 10.5 mg/dL (8.4-10.2) H 07/17/23 AST 22 U/L (5-31) 07/17/23 ALT 24 U/L (0-31) 07/17/23 Total Protein 7.6 g/dL (6.5-8.0) 07/17/23 Albumin 4.3 g/dL (3.5-5.0) 07/17/23 [facility] Medical History Angina pectoris Elevated cholesterol Osteopenia Renal calculi Left bundle branch block Diabetes Palpitations CAD (coronary artery disease) GERD (gastroesophageal reflux disease) Elevated LFTs Elevated glucose Rash and nonspecific skin eruption Angioedema Encounter to establish care Ductal carcinoma in situ of right breast Surgical History Hx of colonoscopy History of esophagogastroduodenoscopy (EGD) History of total hysterectomy with bilateral salpingo-oophorectomy (BSO) Social History Housing: Apartment Patient Tobacco Use Status: Never used Tobacco e-Cigarette/Vaping Use: Never Used Second Hand Smoke Exposure: No service: No Current occupational status: retired Cognitive needs: No Hearing needs: No Vision needs: Yes (glasses) Assessment & Plan Assessment & Plan (1) Diabetes mellitus: Code(s): E11.9 - Type 2 diabetes mellitus without complications (2) Abnormal weight loss: Comment: Pt has gained 11 lbs since last visit in 11/2022 Code(s): R63.4 - Abnormal weight loss Plan weight: 50 kg (11/2022) , 53 kg (08/2023) Est kcal needs as per MSJ: 1500 + 500/1000 (40% carb, 30% protein/fat) Est fluid needs as per 25-30 ml/d: 1500 Est prot per day as per 1 g/kg bw: 50+ Recommend fiber intake : 8-10 g per day and gradually increase to 25-28 g per day for women or as tolerated Recommend sodium intake per day : less than 2000 mg Educated patient on: ( R = reviewed V = verbalizes understanding N/R = needs review N/A = not applicable * Food sources of carbohydrate, adequate serving sizes and its role in various health conditions: R * Differences between complex carbohydrates a simple carbohydrates, role of fiber in diet: R * Differences between types of fats and role in diet (mono on saturated fat fatty acids, saturated fatty acids, trans fats): R * Food sources of sodium in salt and healthy modifications for heart health in kidney health: R * Vitamins and minerals: R * Healthy plate method concept: R * Physical activity: Benefits a precaution: R * Hypoglycemia protocol (rule of 15): R * Dietary prevention of Hyperglycemia: R * importance of hydration : R Patient Instructions: Have a snack in between meals. Carry with a snack to prevent going long hours without eating and shakiness symptoms. Snack choices: crackers with peanut butter, fruit with nuts, [place] snack bars, glucerna shake, milk and crackers with cheese/egg salad keep hydrated by having water, crystal light, tea, low sodium broth with meals and snacks monitor weight every 1-2 weeks instead of daily Coding Level of Care Code Nutr Indiv Subseq (28574) Diagnoses Diabetes mellitus E11.9 Abnormal weight loss R63.4 Time Spent (min) 30
[2023-09-25 14:10] VITALS: BMI 18.9
== END 2023-09-25 14:32 | disposition home or self-care (01) ==
PROVIDERS: PCP Nurse Practitioner Family; Visit Provider Dietitian, Registered
DX: E11.9 Type 2 diabetes mellitus without complications (principal); R63.4 Abnormal weight loss

== ENCOUNTER → 2023-09-25 13:59 | Outpatient (BNVA) | payer OTHER, SELFPAY | PROVIDERS: PCP Nurse Practitioner Family; Visit Provider Dietitian, Registered | DX: E11.9 Type 2 diabetes mellitus without complications (principal); R63.4 Abnormal weight loss | CPT/HCPCS: 97803 ==

== ENCOUNTER 2023-10-02 09:02 | Outpatient (REF) | payer OTHER, SELFPAY ==
[2023-10-02 09:31] LABS: MANUAL DIFF FLAG NO
[2023-10-02 09:57] LABS: Basophils Absolute Auto 0.1 X10*3/uL (0.0-0.2); Basophils Percent Auto 1.1 % (0-2); Eosinophils Absolute Auto 0.1 X10*3/uL (0.0-0.4); Eosinophils Percent Auto 2.6 % (0-4); Hematocrit 43.9 % (37.0-47.0); Hemoglobin 13.5 g/dl (12.0-16.0); Imm Gran Abs Auto 0.02 X10*3/uL (0.00-0.03); Imm Gran Pct Auto 0.4 % (0.0-0.4); Lymphocytes Absolute Auto 2.4 X10*3/uL (1.2-4.9); Lymphocytes Percent Auto 44.5 % (20-40); Mean Corpuscular HGB Conc 30.8 g/dl (31.0-35.0); Mean Corpuscular Hemoglobin 26.8 pg (27.0-33.0); Mean Corpuscular Volume 87.3 fL (80.0-98.0); Mean Platelet Volume 9.8 fL (9.4-12.3); Monocytes Absolute Auto 0.5 X10*3/uL (0.1-1.2); Monocytes Percent Auto 9.9 % (2-11); Neutrophils Absolute Auto 2.3 x10*3/uL (2.0-8.3); Neutrophils Percent Auto 41.5 % (45-73); Platelet Count 267 X10*3/uL (160-400); Red Blood Count 5.03 X10*6/uL (4.20-5.50); Red Cell Distribution Width 13.1 % (11.0-16.0); White Blood Count 5.5 X10*3/uL (4.8-10.8)
[2023-10-02 10:44] LABS: Alanine Aminotransferase 18 U/L (0-31); Albumin Level 4.5 g/dL (3.5-5.0); Alkaline Phosphatase 68 U/L (39-117); Anion Gap 14 (12-20); Aspartate Amino Transferase 21 U/L (5-31); Bilirubin Total 0.9 mg/dL (0.0-1.0); Blood Urea Nitrogen 14 mg/dL (9-16); Calcium 10.7 mg/dL (8.4-10.2); Carbon Dioxide 29 mmol/L (22-29); Chloride 104 mmol/L (96-108); Cholesterol 148 mg/dL (<200); Estimated Glomerular Filt Rate > 60; Glucose Fasting 107 mg/dL (60-99); HDL Cholesterol 67 mg/dL (>40); LDL Cholesterol Calculated 62 mg/dL (<100); Potassium 4.6 mmol/L (3.3-5.1); Sodium 142 mmol/L (135-145); Total Protein 7.6 g/dL (6.5-8.0); Triglycerides 95 mg/dL (<150)
[2023-10-02 10:49] LABS: TSH reflex Free T4 2.18 uIU/mL (0.32-4.0)
[2023-10-02 11:00] LABS: Estimated Average Glucose 111 mg/dL; Hemoglobin A1C 110.1367 umol/L; Hemoglobin A1c % 5.5 % (<6.0)
== END 2023-10-02 09:03 | disposition home or self-care (01) ==
LOC: HO.LAB 09:02
PROVIDERS: PCP Nurse Practitioner Family; Visit Provider Nurse Practitioner Family
DX: E11.9 Type 2 diabetes mellitus without complications (principal); I10 Essential (primary) hypertension
CPT/HCPCS: 36415; 80053; 80061; 82043; 82570; 83036; 84443; 85025

== ENCOUNTER 2023-10-09 10:53 | Outpatient (AMB) | payer OTHER, MEDICAID, SELFPAY ==
[2023-10-09 10:54] VITALS: BP 132/80; PULSE 67; O2SAT 98; BMI 18.9
--- NOTE | 2023-10-09 10:54 | A.OFFPC_ITS ---
Vital Signs 10/09/23 10:54 Height 5 ft 6 in Weight 117 lb BMI 18.9 BP 132/80 Blood Pressure Location Lt brachial Position Sitting Pulse 67 Pulse Source Pulse Oximeter Pulse Oximetry (%) 98 Oxygen Delivery Method Room Air Intake Visit Reasons: PE Intake Note: Patient is here today for a physical. 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 Allergies lisinopril Allergy (Severe, Verified 10/09/23 11:06) Angioedema Medication List - Last Reconciled 10/09/23 by HASMUKH Dennis amlodipine 5 mg PO DAILY aspirin (Ecotrin Low Strength) 81 mg PO DAILY blood pressure monitor As directed blood sugar diagnostic (PowerbyProxiuch Ultra Test strips) test daily blood-glucose meter (PowerbyProxiuch Ultra2 Meter) test daily cholecalciferol (vitamin D3) 25 mcg PO DAILY diphenhydramine HCl (Allergy (diphenhydramine)) 25 mg PO Q6-8H PRN folic acid 1 mg PO DAILY lancets (KickstarterTouch UltraSoft 2 Lancet) test daily lidocaine 5% 1 patch topical DAILY metformin 500 mg PO .every other day metoprolol succinate ER 50 mg PO DAILY omeprazole 40 mg PO DAILY rosuvastatin 10 mg PO DAILY Tobacco use date assessed: 10/09/23 Fall risk assessment: No Falls in past year Last assessed Fall Risk: 10/09/23 Dental Screening Dental Screen Date: 10/09/23 Did you have a dental visit in the last 12 months?: Yes Did you have a dental problem in the last 6 months where you did not have access to dental care?: No Was dental information given to patient?: Patient has dentist HPI PE HPI Details Patient is a 73-year-old female who presents today for physical exam. Medical history significant for CAD - followed by [facility], hypercholesterolemia, asthma, history of endometrial adenocarcinoma -followed by Dr. 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 Mammogram normal 08/2023. Bone density screen 09/2022 with osteopenia. Colonoscopy 06/2023 with internal hemorrhoids and diverticulosis repeat in [address] Farrell. Patient reports diabetic eye exam 08/2023. Today we discussed patient's need for pneumonia and tetanus vaccines, patient would like to hold off on these vaccines. Recent blood work results reviewed with the patient. Patient is a Hungarian-speaking and Jesus was helping with interpretation. [facility] Medical History Angina pectoris Elevated cholesterol Osteopenia Renal calculi Left bundle branch block Diabetes Palpitations CAD (coronary artery disease) GERD (gastroesophageal reflux disease) Elevated LFTs Elevated glucose Rash and nonspecific skin eruption Angioedema Encounter to establish care Ductal carcinoma in situ of right breast Surgical History Hx of colonoscopy History of esophagogastroduodenoscopy (EGD) History of total hysterectomy with bilateral salpingo-oophorectomy (BSO) Social History Housing: Apartment Patient Tobacco Use Status: Never used Tobacco e-Cigarette/Vaping Use: Never Used Second Hand Smoke Exposure: No service: No Current occupational status: retired Cognitive needs: No Hearing needs: No Vision needs: Yes (glasses) Questionnaire PHQ-9 Over the last 2 weeks, how often have you been bothered by any of the following problems? 1. Little interest or pleasure in doing things: not at all 2. Feeling down, depressed, or hopeless: not at all 3. Trouble falling or staying asleep, or sleeping too much: not at all 4. Feeling tired or having little energy: not at all 5. Poor appetite or overeating: not at all 6. Feeling bad about yourself - or that you are a failure or have let yourself or your family down: not at all 7. Trouble concentrating on things, such as reading the newspaper or watching television: not at all 8. Moving or speaking so slowly that other people could have noticed. Or the opposite - being so fidgety or restless that you have been moving around a lot more than usual: not at all 9. Thoughts that you would be better off or of hurting yourself in some way: not at all Total score: 0 Depression Screening Interpretation: Negative Depression Screening Done: Yes [id number] - PHQ-9 Billing: Yes Source: Developed by Drs. Jorge Johnson, Diana Mcelroy, Arnaud Ortega and colleagues, with an educational tori from [employer]. Thrive Questionnaire Date Thrive assessed: 01/05/23 I am a: Patient What is your living situation today?: I have a steady place to live Within the past 12 months, did the food you bought not last and you didn't have the money to get more?: Never true Within the past 12 months, did you worry whether your food would run out before you got money to buy more?: Never true Do you have trouble paying for medicines?: No Do you have trouble getting transportation to medical appointments?: No Do you have trouble paying your heating and electricity bill?: No Do you have trouble taking care of your child, family member or friend?: No Do you have trouble with day-to-day activities such as bathing, preparing meals, shopping, managing finances, etc.?: No Are you currently unemployed and looking for a job?: No Are you interested in more education?: No Currently or been in a relationship where the following occur: no concerns reported AUDIT C Alcohol Use Questionnaire (AUDIT-C) 1. How often do you have a drink containing alcohol?: Never 3. How often do you have six or more drinks on one occasion?: Never Total Score: 0 Score Reviewed/Action Taken: No SHEREE-7 AMB Questionnaire SHEREE-7 Date SHEREE - 7 assessed: 10/09/23 Feeling nervous, anxious, or on edge: 0 = Not at all Not being able to stop or control worryin = Not at all Worrying too much about different things: 0 = Not at all Trouble relaxin = Not at all Being so restless that it is hard to sit still: 0 = Not at all Becoming easily annoyed or irritable: 0 = Not at all Feeling afraid as if something awful might happen: 0 = Not at all Total SHEREE-7 score (0-4 normal; 5-9 mild; 10-14 moderate; 15-21 severe): 0 Source: Developed by Drs. Jorge Johnson, Diana Mcelroy, Arnaud Ortega and colleagues, with an educational tori from [employer]. SHEREE-7 Assessment Billing SHEREE-7 Assessment Tool: SHEREE-7 Assessment 76712 Review of Systems Const Denies body aches, Denies chills, Denies fever(s) and Denies headache(s) Eyes Denies change in vision ENT Denies dizziness, Denies otalgia, Denies headache(s), Denies nasal discharge, Denies sinus pain and Denies sore throat Card Denies chest pain, Denies edema, Denies lightheadedness and Denies dyspnea Resp Denies chest congestion, Denies cough and Denies dyspnea GI Denies constipation, Denies diarrhea, Denies nausea and Denies vomiting Denies dysuria Musc Denies myalgias Skin/Breast Denies lesions and Denies rash Neuro Denies dizziness and Denies headache(s) Physical exam (Primary Care) Vital Signs: Last Vital Signs Pulse 67 10/09/23 10:54 BP 132/80 10/09/23 10:54 Pulse Ox 98 10/09/23 10:54 Oxygen Delivery Method Room Air 10/09/23 10:54 BMI result Body Mass Index 18.9 Tobacco/Smoking Status: Tobacco use Status Tobacco use date assessed 10/09/23 10/09/23 10:57 Patient Tobacco Use Status Never used Tobacco 10/09/23 10:57 e-Cigarette/Vaping Use Never Used 10/09/23 10:57 PHQ-9: PHQ-9 Score PHQ-9: Total score 0 10/09/23 11:07 Depression Screening Interpretation: Negative Thrive Assessment: Date of Thrive Assessment Date Thrive assessed 01/05/23 10/09/23 10:57 Currently or been in a relationship where the following occur: no concerns reported Const General: cooperative and no acute distress Orientation/consciousness: patient oriented x3 HENMT Head: Yes normocephalic and Yes atraumatic Ears: TM's normal bilaterally Face and sinus: Yes sinuses nontender Mouth: oropharynx normal and moist mucous membranes Throat: Yes posterior oropharynx normal Eyes General: appearance normal, both eyes and all related structures Pupils: Equal, round and reactive pupils present EOM: EOMs intact bilaterally Neck Neck: Yes normal visual inspection, Yes full ROM and Yes no lymphadenopathy Thyroid: Thyroid normal Resp Effort & Inspection: normal respiratory effort and able to speak in complete sentences Auscultation: clear to auscultation bilaterally, no crackles, no rales, no rhonchi and no wheezes Cardio Rate: regular rate Rhythm: regular rhythm Heart sounds: S1 normal heart sound present, S2 normal heart sound present and n o murmurs GI Palpation (GI): Soft to palpation, not firm, nontender, no guarding, not rigid and no hepatosplenomegaly Auscultation: normal bowel sounds General: No CVA tenderness Back/Spine/Pelvis Back: No CVA tenderness Skin General skin exam: no rashes or lesions noted Neuro General: patient oriented x3 Cranial nerves: Yes Equal, round and reactive pupils present Gait exam (Neuro): Normal gait present Extrem General: Yes full ROM and No edema Office Procedures Flu Questionnaire Does the patient have a severe egg allergy?: No Does the patient have severe life threatening allergies?: No Does the patient have a fever or illness today?: No Has the patient ever had Guillain-[place] Syndrome?: No Has the patient ever had any past reaction to a flu shot?: No Immunizations flu vacc [id number] 6mos up(PF) 60 mcg(15 mcgx4)/0.5 mL IM syringe Performing Provider: HASMUKH Dennis [facility] Administered by: JEFF Hairston on 10/09/23 11:38 Dose Route Admin Location Dispensed Lot Number Expiration Date NDC Special Delivery Mail Carrier 0.5 mL IM Left Deltoid 0.5 mL [id number] 05/25/24 13534-358-21 [employer] VIS Given Date VIS Provided VIS Publication Date 10/09/23 Single Vaccine 21 Eligibility Eligibility Date Funding Source Not [facility] Eligible 10/09/23 Private Assessment and Plan Assessment & Plan (1) CAD (coronary artery disease): Code(s): I25.10 - Atherosclerotic heart disease of sun'aq coronary artery without angina pectoris Plan: Continue to follow-up with [facility] Aspirin 81 mg daily Metoprolol 50 mg daily Rosuvastatin 10 mg daily (2) Hypercholesterolemia: Code(s): E78.00 - Pure hypercholesterolemia, unspecified Plan: Rosuvastatin 10 mg daily Low-cholesterol diet (3) Asthma: Code(s): J45.909 - Unspecified asthma, uncomplicated Plan: Stable (4) Essential hypertension: Code(s): I10 - Essential (primary) hypertension Plan: Continue current treatment Low-sodium diet (5) GERD (gastroesophageal reflux disease): Code(s): K21.9 - Gastro-esophageal reflux disease without esophagitis Plan: Continue to follow-up with gastroenterology Continue omeprazole 40 mg daily Avoid GERD trigger foods and do not lay down 2-3 hours after evening meal (6) Diabetes mellitus: Code(s): E11.9 - Type 2 diabetes mellitus without complications Plan: A1c 5.5 09/2023 Metformin 500 mg every other day Low carbohydrate diet Diabetic eye exam 08/2023 (7) Hypercalcemia: Code(s): E83.52 - Hypercalcemia Plan: Calcium 10.7 09/2023, will recheck in 2 weeks Patient reports that she recently stopped taking calcium supplement (8) Adult general medical exam: Comment: PNA IZ declined. Td IZ declined. Code(s): Z00.00 - Encounter for general adult medical examination without abnormal findings Plan Follow-up in 3 months Orders: Orders Calcium, Ionized Today E83.52 - Hypercalcemia PTHI Today E83.52 - Hypercalcemia Calcium Today E83.52 - Hypercalcemia Influenza [id number] Immunization Today Z23 - Encounter for immunization Coding Level of Care Code Est Pt Prev Care >65y(15773) Diagnoses CAD (coronary artery disease) I25.10 Hypercholesterolemia E78.00 Asthma J45.909 Essential hypertension I10 GERD (gastroesophageal reflux disease) K21.9 Diabetes mellitus E11.9 Hypercalcemia E83.52 Adult general medical exam Z00.00 Additional Codes SHEREE-7 Assessment Billing - SHEREE-7 Assessment Tool: SHEREE-7 Assessment 45348 ([id number])
== END 2023-10-09 11:38 | disposition home or self-care (01) ==
PROVIDERS: Visit Provider Nurse Practitioner Family
DX: Z00.00 Encounter for general adult medical examination without abnormal findings (principal); E11.9 Type 2 diabetes mellitus without complications; I25.10 Atherosclerotic heart disease of native coronary artery without angina pectoris; E78.00 Pure hypercholesterolemia, unspecified; Z23 Encounter for immunization; J45.909 Unspecified asthma, uncomplicated; I10 Essential (primary) hypertension; K21.9 Gastro-esophageal reflux disease without esophagitis; E83.52 Hypercalcemia
CPT/HCPCS: 90471; 90686; 99397

== ENCOUNTER 2023-12-23 14:25 | Emergency (ER) | payer OTHER, SELFPAY ==
[2023-12-23] VITALS (7 sets, daily range): BP systolic 150–200; BP diastolic 76–101; PULSE 70–83; RESP 13–17; TEMP 36.2–36.8; O2SAT 95–99; BMI 20.8
--- NOTE | ~2023-12-23 | CT_ITS ---
EXAMINATION: CT HEAD WITHOUT CONTRAST CLINICAL INFORMATION: Dizziness. Hypertension. COMPARISON: CT head from 06/05/2023. TECHNIQUE: Contiguous axial imaging was performed from the skull base to vertex without intravenous administration of contrast. This CT examination was performed using dose optimization techniques as appropriate, variously including the following: *Automated exposure control. *Adjustment of mA and/or kV according to patient size (this includes techniques or standardized protocols for targeted exams where dose is matched to indication/reason for exam; i.e. extremities or head). *Use of iterative reconstruction technique. DLP: 615 mGy-cm FINDINGS: There is no evidence of acute intracranial hemorrhage or edematous territorial infarction. Chronic lacunar infarct of the left lentiform nucleus. No new loss of ford-white matter differentiation. Basal ganglia mineralization. Scattered and partially confluent hypoattenuation in the periventricular and deep white matter are consistent with moderate microangiopathy. The ventricles are normal in morphology and size. No evidence for obstructive hydrocephalus. No abnormal mass effect or midline shift. No extra-axial fluid collections. No acute soft tissue or osseous abnormalities. Mild mucosal thickening of the paranasal sinuses. The mastoid air cells and middle ear cavities are clear. Mild degenerative arthropathy of the left temporomandibular joint. CT/CT head/brain wo IV con IMPRESSION: 1. No evidence of acute intracranial hemorrhage or edematous territorial infarction. 2. Moderate underlying microangiopathy and generalized cerebral volume loss. Chronic lacunar infarct of the left lentiform nucleus.
--- NOTE | 2023-12-23 15:11 | ECG_ITS ---
Test Reason : SIBDHN Blood Pressure : / mmHG Vent. Rate : 068 BPM Atrial Rate : 068 BPM P-R Int : 158 ms QRS Dur : 132 ms QT Int : 454 ms P-R-T Axes : 016 -06 115 degrees QTc Int : 482 ms Normal sinus rhythm Left bundle branch block Abnormal ECG No previous ECGs available Referred By: Generic ED Physician Electronically Signed By:DESTINEE GALE MD
[2023-12-23 16:14] LABS: MANUAL DIFF FLAG NO
[2023-12-23 16:18] LABS: Basophils Absolute Auto 0.1 X10*3/uL (0.0-0.2); Basophils Percent Auto 0.7 % (0-2); Eosinophils Absolute Auto 0.1 X10*3/uL (0.0-0.4); Eosinophils Percent Auto 0.8 % (0-4); Hematocrit 44.6 % (37.0-47.0); Hemoglobin 14.2 g/dl (12.0-16.0); Imm Gran Abs Auto 0.02 X10*3/uL (0.00-0.03); Imm Gran Pct Auto 0.3 % (0.0-0.4); Lymphocytes Absolute Auto 2.3 X10*3/uL (1.2-4.9); Lymphocytes Percent Auto 30.3 % (20-40); Mean Corpuscular HGB Conc 31.8 g/dl (31.0-35.0); Mean Corpuscular Hemoglobin 26.7 pg (27.0-33.0); Mean Platelet Volume 9.1 fL (9.4-12.3); Monocytes Absolute Auto 0.6 X10*3/uL (0.1-1.2); Monocytes Percent Auto 7.4 % (2-11); Neutrophils Absolute Auto 4.7 x10*3/uL (2.0-8.3); Neutrophils Percent Auto 60.5 % (45-73); Platelet Count 281 X10*3/uL (160-400); Red Blood Count 5.31 X10*6/uL (4.20-5.50); Red Cell Distribution Width 12.6 % (11.0-16.0); White Blood Count 7.7 X10*3/uL (4.8-10.8)
--- NOTE | 2023-12-23 16:23 | ED_ITS ---
HPI - Dizziness General Chief Complaint: Dizziness Stated Complaint: dizzy this am,high bp 200/90, h/o ca Time Seen by Provider: 12/23/23 16:22 Source: patient Mode of arrival: ambulatory Limitations: no limitations History of Present Illness HPI Narrative: Patient history of hypertension noticed sudden onset of vertiginous feeling when she woke up early today especially on movement of the head patient has similar episode in the past patient blood pressure by EMS was 192/101 also patient has slight nausea no vomiting Related Data Previous Rx's Medication Instructions Recorded diphenhydramine HCl 25 mg capsule 25 mg PO Q6-8H PRN nausea and 01/26/22 (Allergy (diphenhydramine)) vomiting #30 caps cholecalciferol (vitamin D3) 25 25 mcg PO DAILY #90 tabs 01/21/23 mcg (1,000 unit) tablet blood pressure monitor #1 ea 05/11/23 metformin 500 mg tablet 500 mg PO .every other day #90 tabs 05/30/23 rosuvastatin 10 mg tablet 10 mg PO DAILY #90 tabs 07/08/23 blood-glucose meter (OneTouch #1 ea 07/18/23 Ultra2 Meter) lidocaine 5 % topical patch 1 patch topical DAILY #15 ea 09/05/23 folic acid 1 mg tablet 1 mg PO DAILY #90 tabs 09/24/23 metoprolol succinate 50 mg 50 mg PO DAILY #90 tabs 09/24/23 tablet,extended release 24 hr blood sugar diagnostic (OneTouch #100 ea 10/09/23 Ultra Test strips) lancets 30 gauge (OneTouch #200 ea 10/09/23 UltraSoft 2 Lancet) amlodipine 5 mg tablet 5 mg PO DAILY #90 tabs 10/12/23 aspirin 81 mg tablet,delayed 81 mg PO DAILY #90 tabs 11/28/23 release (Ecotrin Low Strength) omeprazole 40 mg capsule,delayed 40 mg PO DAILY #30 caps 12/12/23 release meclizine 25 mg tablet 25 mg PO TID PRN dizziness #20 tabs 12/23/23 Allergies Allergy/AdvReac Type Severity Reaction Status Date / Time lisinopril Allergy Severe Angioedema Verified 10/09/23 11:06 Review of Systems 2 Review of Systems: Yes all other systems are reviewed and are negative PMFSH Past Medical History Medical History Angina pectoris Elevated cholesterol Osteopenia Renal calculi Left bundle branch block Diabetes Palpitations CAD (coronary artery disease) GERD (gastroesophageal reflux disease) Elevated LFTs Elevated glucose Rash and nonspecific skin eruption Angioedema Encounter to establish care Ductal carcinoma in situ of right breast Surgical History Hx of colonoscopy History of esophagogastroduodenoscopy (EGD) History of total hysterectomy with bilateral salpingo-oophorectomy (BSO) Social History Social History Housing: Apartment Patient Tobacco Use Status: Never used Tobacco e-Cigarette/Vaping Use: Never Used Second Hand Smoke Exposure: No Advance Directives: No Advance Directives Information Provided: No service: No Current occupational status: retired Cognitive needs: No Hearing needs: No Vision needs: Yes (glasses) Physical Exam 2 Vital Signs: Vital Signs: Last Vital Signs Temp 98.1 F 12/23/23 19:38 Pulse 72 12/23/23 19:38 Resp 15 12/23/23 19:38 BP 171/82 H 12/23/23 19:38 Pulse Ox 99 12/23/23 19:38 O2 Del Method Room Air 12/23/23 19:38 BMI result Body Mass Index 20.8 Appearance: Alert. Oriented X3. No acute distress. Eyes: PERRLA, No Nystagmus increased vertiginous feeling on moving her head to the right ENT: Pharynx normal. Oral Mucosa moist Neck: Normal inspection. Neck supple. CVS: Normal heart rate and rhythm. Pulses normal. Respiratory: No respiratory distress. Equal air entry bilateral, no wheezing/rales/rhonchi Abdomen: Soft and nontender. Bowel sounds are present, no mass palpable, no CVA tenderness Skin: Skin warm and dry. Normal skin color. Normal skin turgor. Extremities: No lower extremity edema. No calf tenderness Neuro: Oriented X 3. No motor deficit. No sensory deficit.No cerebellar signs , cranial nerves II-XII intact Medications Administered Discontinued Medications Generic Name Dose Route Start Last Admin Trade Name Freq PRN Reason Stop Dose Admin Meclizine HCl 25 mg 12/23/23 16:43 12/23/23 17:44 Meclizine Hcl 25 Mg Tablet PO 12/23/23 16:44 25 mg ONCE ONE Administration Medical Decision Making Medical Decision Making [facility] Narrative: Patient with peripheral signs of vertigo improved after meclizine ambulatory in the ED no signs of central nervous system normal CT scan of the head was negative vitals are stable at the time of discharge Differential Diagnosis Differential Diagnoses: The differential diagnosis associated with the presentation includes CVA/vertigo/benign positional vertigo Lab Data [facility] Lab Attestation statement: I reviewed the patient's lab results. 12/23/23 16:08 12/23/23 16:08 Labs: Lab Results 12/23/23 Range/Units 16:08 WBC 7.7 (4.8-10.8) X10*3/uL RBC 5.31 (4.20-5.50) X10*6/uL Hgb 14.2 (12.0-16.0) g/dl Hct 44.6 (37.0-47.0) % MCV 84.0 (80.0-98.0) fL MCH 26.7 L (27.0-33.0) pg MCHC 31.8 (31.0-35.0) g/dl RDW 12.6 (11.0-16.0) % Plt Count 281 (160-400) X10*3/uL MPV 9.1 L (9.4-12.3) fL Immature Gran % (Auto) 0.3 (0.0-0.4) % Neut % (Auto) 60.5 (45-73) % Lymph % (Auto) 30.3 (20-40) % Brooke % (Auto) 7.4 (2-11) % Eos % (Auto) 0.8 (0-4) % Baso % (Auto) 0.7 (0-2) % Lymph # (Auto) 2.3 (1.2-4.9) X10*3/uL Brooke # (Auto) 0.6 (0.1-1.2) X10*3/uL Eos # (Auto) 0.1 (0.0-0.4) X10*3/uL Baso # (Auto) 0.1 (0.0-0.2) X10*3/uL Abs Immat Gran (auto) 0.02 (0.00-0.03) X10*3/uL Absolute Neuts (auto) 4.7 (2.0-8.3) x10*3/uL Absolute Nucleated RBC 0.000 (0.0-0.012) X10*3/uL Nucleated RBC % (auto) 0.0 (0.0-0.2) /100WBC Sodium 142 (135-145) mmol/L Potassium 4.4 (3.3-5.1) mmol/L Chloride 103 (96-108) mmol/L Carbon Dioxide 28 (22-29) mmol/L Anion Gap 15 (12-20) BUN 12 (9-16) mg/dL Creatinine 0.72 (0.5-1.4) mg/dL Estim Creat Clear Calc 58.2 Estimated GFR > 60 Fasting Glucose 89 (60-99) mg/dL Calcium 10.8 H (8.4-10.2) mg/dL Total Bilirubin 0.7 (0.0-1.0) mg/dL AST 23 (5-31) U/L ALT 24 (0-31) U/L Alkaline Phosphatase 68 (39-117) U/L Total Protein 8.1 H (6.5-8.0) g/dL Albumin 4.6 (3.5-5.0) g/dL Independent Interpretation I performed an independent interpretation of an: EKG Interpretation: Normal sinus rhythm left bundle-branch block heart rate 68 beats per minute no acute ST T wave changes no acute ischemia Discharge Plan Discharge Clinical Impression: Benign paroxysmal positional vertigo Patient Disposition: Home, Self-Care Instructions: Benign Paroxysmal Positional Vertigo (ED) Additional Instructions: Care and cautions as advised Medication as advised for dizziness Follow with PCP if not better Cuidados y precauciones seg?n lo recomendado. Medicaci?n recomendada para los mareos. Seguir con PCP si no es mejor Prescriptions: New meclizine 25 mg tablet 25 mg PO TID PRN (Reason: dizziness) Qty: 20 0RF No Action cholecalciferol (vitamin D3) 25 mcg (1,000 unit) tablet 25 mcg PO DAILY Qty: 90 2RF metformin 500 mg tablet 500 mg PO .every other day Qty: 90 1RF rosuvastatin 10 mg tablet 10 mg PO DAILY Qty: 90 1RF (DME) blood-glucose meter [OneTouch Ultra2 Meter] [facility] See Rx Instructions .Route Qty: 1 0RF Rx Instructions: test daily folic acid 1 mg tablet 1 mg PO DAILY Qty: 90 0RF metoprolol succinate 50 mg tablet extended release 24 hr 50 mg PO DAILY Qty: 90 1RF amlodipine 5 mg tablet 5 mg PO DAILY Qty: 90 1RF aspirin [Ecotrin Low Strength] 81 mg tablet,delayed release (DR/EC) 81 mg PO DAILY Qty: 90 2RF omeprazole 40 mg capsule,delayed release(DR/EC) 40 mg PO DAILY Qty: 30 1RF lidocaine 5 % adhesive patch,medicated 1 patch topical DAILY Qty: 15 0RF Rx Instructions: leave on most painful area for up to 12 hrs diphenhydramine HCl [Allergy (diphenhydramine)] 25 mg capsule 25 mg PO Q6-8H PRN (Reason: nausea and vomiting) Qty: 30 1RF (DME) blood pressure monitor Kit See Rx Instructions .Route Qty: 1 0RF Rx Instructions: As directed (DME) lancets [OneTouch UltraSoft 2 Lancet] [facility] See Rx Instructions .Route Qty: 200 1RF Rx Instructions: test daily (DME) OneTouch Ultra Test Strip See Rx Instructions .Route Qty: 100 1RF Rx Instructions: test daily naproxen 500 mg tablet 500 mg PO ONCE Qty: 1 0RF nitrofurantoin monohyd/m-cryst 100 mg capsule 100 mg PO ONCE Qty: 1 0RF lidocaine HCl 2 % jelly in applicator 10 ml intra-urethral ONCE Qty: 10 0RF Interventions: ED Discharge Assessment Last Done: 12/23/23 19:39 Discharge Date/Time: 12/23/23 19:40 Print Language: Nauruan
[2023-12-23 16:33] LABS: Alanine Aminotransferase 24 U/L (0-31); Albumin Level 4.6 g/dL (3.5-5.0); Alkaline Phosphatase 68 U/L (39-117); Anion Gap 15 (12-20); Aspartate Amino Transferase 23 U/L (5-31); Bilirubin Total 0.7 mg/dL (0.0-1.0); Blood Urea Nitrogen 12 mg/dL (9-16); Calcium 10.8 mg/dL (8.4-10.2); Carbon Dioxide 28 mmol/L (22-29); Chloride 103 mmol/L (96-108); Creatinine Clr Calc Pharmacy 58.2; Estimated Glomerular Filt Rate > 60; Glucose Fasting 89 mg/dL (60-99); Potassium 4.4 mmol/L (3.3-5.1); Sodium 142 mmol/L (135-145); Total Protein 8.1 g/dL (6.5-8.0)
[2023-12-23] MEDS: Meclizine HCl 25 MG TABLET PO (17:44)
--- NOTE | 2023-12-23 19:12 | MHC.EDTECH ---
Patient went for an ambulation trial Per Provider request ,pt walk fine ,gait was steady ,Provider aware .
--- NOTE | 2023-12-23 19:22 | PC.NURSE ---
this rn assumed care of pt. pt sitting in stretcher, no acute distress noted at this time.
== END 2023-12-23 19:40 | disposition home or self-care (01) ==
PROVIDERS: Emergency Provider Internal Medicine
DX: H81.13 Benign paroxysmal vertigo, bilateral (principal); I44.7 Left bundle-branch block, unspecified; R11.0 Nausea; Z79.899 Other long term (current) drug therapy
CPT/HCPCS: 36415; 70450; 80053; 85025; 93005; 99284

== ENCOUNTER → 2023-12-23 15:11 | Outpatient (BNV) | payer OTHER, SELFPAY | PROVIDERS: Emergency Provider Internal Medicine; Visit Provider Internal Medicine Cardiovascular Disease | DX: R94.31 Abnormal electrocardiogram [ECG] [EKG] (principal) | CPT/HCPCS: 93010 ==

== ENCOUNTER 2023-12-26 14:07 | Outpatient (AMB) | payer OTHER, SELFPAY ==
[2023-12-26 14:29] VITALS: BMI 19.9
--- NOTE | 2023-12-26 14:29 | A.OFFVIS_ITS ---
Intake VS Expanded 12/26/23 14:29 Height 5 ft 4 in Weight 116 lb 2.938 oz BMI 19.9 Intake Visit Reasons: wt loss w dm/LVM Allergies lisinopril Allergy (Severe, Verified 01/01/24 16:32) Angioedema HPI Nutrition Presentation Details Pt presents for MNT for abnormal weight loss with T2DM controlled via diet, on metformin every other day. Pt presents with her during this appt. Hx: Pt was very restrictive with her diet to maintain glucose control and lost significant amount of weight , weight in 05/2023 at 111 lbs. Pt is gradually working on increasing portion sizes , today's wt at 116 lbs Pt relates her only child about 7-9 years ago and her child had T1DM. Pt reports often times this contributes to anxiety and becoming restrictive with her eating. Typical meal intake B: pancake and eggs or sand with oil or butter, ham and cheese, drinks milk or coffee with milk and diet sugar L: fruit or crackers with cheese (reports having tried glucerna but thinks it has too much sugar - today we reviewed nutrition facts and what it means for her DM/Wt/heart health D: chicken and broccoli, sometimes potato or beans snack: few crackers and peanut butter physical activity: walking everywhere fluids: water, 24 oz /d, sometimes coffee once/day Most Recent Diabetes Results: Cholesterol 148 mg/dL (<200) 10/02/23 HDL Cholesterol 67 mg/dL (>40) 10/02/23 Triglycerides 95 mg/dL (<150) 10/02/23 Creatinine 0.72 mg/dL (0.5-1.4) 12/23/23 Blood Urea Nitrogen 12 mg/dL (9-16) 12/23/23 Sodium 142 mmol/L (135-145) 12/23/23 Potassium 4.4 mmol/L (3.3-5.1) 12/23/23 Chloride 103 mmol/L (96-108) 12/23/23 Carbon Dioxide 28 mmol/L (22-29) 12/23/23 Calcium 10.8 mg/dL (8.4-10.2) H 12/23/23 AST 23 U/L (5-31) 12/23/23 ALT 24 U/L (0-31) 12/23/23 Total Protein 8.1 g/dL (6.5-8.0) H 12/23/23 Albumin 4.6 g/dL (3.5-5.0) 12/23/23 [facility] Medical History (Updated 01/02/24 @ 10:15 by Rhona Watson, RD, LDN) Angina pectoris Elevated cholesterol Osteopenia Renal calculi Left bundle branch block Diabetes Palpitations CAD (coronary artery disease) GERD (gastroesophageal reflux disease) Elevated LFTs Elevated glucose Rash and nonspecific skin eruption Angioedema Encounter to establish care Ductal carcinoma in situ of right breast Surgical History Hx of colonoscopy History of esophagogastroduodenoscopy (EGD) History of total hysterectomy with bilateral salpingo-oophorectomy (BSO) Social History Housing: Apartment Patient Tobacco Use Status: Never used Tobacco e-Cigarette/Vaping Use: Never Used Second Hand Smoke Exposure: No service: No Current occupational status: retired Cognitive needs: No Hearing needs: No Vision needs: Yes (glasses) Assessment & Plan Assessment & Plan (1) Diabetes mellitus: Code(s): E11.9 - Type 2 diabetes mellitus without complications (2) Abnormal weight loss: Comment: Pt's BMI at 19.9 today , gradually gaining weight from 111 lbs in 05/2023 to 116 lbs in 11/2023 Code(s): R63.4 - Abnormal weight loss Plan weight: 50 kg (11/2022) , 53 kg (08/2023), 53 kg (11/2023) Est kcal needs as per MSJ: 1500 + 500/1000 (40% carb, 30% protein/fat) Est fluid needs as per 25-30 ml/d: 1500 Est prot per day as per 1 g/kg bw: 50+ Recommend fiber intake : 8-10 g per day and gradually increase to 25-28 g per day for women or as tolerated Recommend sodium intake per day : less than 2000 mg Educated patient on: ( R = reviewed V = verbalizes understanding N/R = needs review N/A = not applicable * Food sources of carbohydrate, adequate serving sizes and its role in various health conditions: R * Differences between complex carbohydrates a simple carbohydrates, role of fiber in diet: R , V * Differences between types of fats and role in diet (mono on saturated fat fatty acids, saturated fatty acids, trans fats): R , V * Food sources of sodium in salt and healthy modifications for heart health in kidney health: R * Vitamins and minerals: R * Healthy plate method concept: R * Physical activity: Benefits a precaution: R * Hypoglycemia protocol (rule of 15): R * Dietary prevention of Hyperglycemia: R * importance of hydration : R Patient Instructions: Include a protein food with each meal (2-3 oz) and snack (1-2 oz) Have a cup of milk in at least 2 of your meals or in 1 meal and 1 snack Include heart healthy fats (olive oil, avocado, nuts, nut butter, seeds, seed butters as exampled) Maintain physically active as able and hydrated by having water, milk , juices dilutes with water Coding Level of Care Code Nutr Indiv Subseq ([id number]) Diagnoses Diabetes mellitus E11.9 Abnormal weight loss R63.4 Time Spent (min) 30
== END 2023-12-26 15:03 | disposition home or self-care (01) ==
PROVIDERS: PCP Nurse Practitioner Family; Visit Provider Dietitian, Registered
DX: E11.9 Type 2 diabetes mellitus without complications (principal); R63.4 Abnormal weight loss

== ENCOUNTER → 2023-12-26 14:07 | Outpatient (BNVA) | payer OTHER, SELFPAY | PROVIDERS: PCP Nurse Practitioner Family; Visit Provider Dietitian, Registered | DX: E11.9 Type 2 diabetes mellitus without complications (principal); R63.4 Abnormal weight loss; Z68.1 Body mass index [BMI] 19.9 or less, adult; Z71.3 Dietary counseling and surveillance | CPT/HCPCS: 97803 ==

== ENCOUNTER 2024-01-01 16:06 | Outpatient (AMB) | payer OTHER, SELFPAY ==
--- NOTE | 2024-01-01 16:09 | A.OFFPC_ITS ---
Vital Signs 01/01/24 16:10 Height 5 ft 4 in Weight 125 lb BMI 21.5 BP 132/68 Blood Pressure Location Lt brachial Position Sitting Intake Visit Reasons: [facility] [place] dc f/u 12/26 benign paroxysmal position vertigo [employer] Required: No Accompanied by: Spouse Allergies lisinopril Allergy (Severe, Verified 01/01/24 16:32) Angioedema Medication List - Last Reconciled 01/01/24 by Randi Thompson MD amlodipine 5 mg PO DAILY aspirin (Ecotrin Low Strength) 81 mg PO DAILY blood pressure monitor As directed blood sugar diagnostic ([employer]ista DiagnosticsTouch Ultra Test strips) test daily blood-glucose meter (T2 Systemsuch Ultra2 Meter) test daily cholecalciferol (vitamin D3) 25 mcg PO DAILY folic acid 1 mg PO DAILY lancets (T2 [employer] UltraSoft 2 Lancet) test daily lidocaine 5% 1 patch topical DAILY meclizine 25 mg PO TID PRN metformin 500 mg PO .every other day metoprolol succinate ER 50 mg PO DAILY omeprazole 40 mg PO DAILY rosuvastatin 10 mg PO DAILY Tobacco use date assessed: 01/01/24 Fall risk assessment: No Falls in past year Last assessed Fall Risk: 01/01/24 Dental Screening Dental Screen Date: 01/01/24 Did you have a dental visit in the last 12 months?: No Did you have a dental problem in the last 6 months where you did not have access to dental care?: No Was dental information given to patient?: Patient has dentist HPI HPI Comments History of Present Illness Details This is a 73-year-old female with diabetes mellitus type 2, hypertension, hypercholesterolemia and GERD that comes today accompanied by for hospital discharge follow-up with discharge date 12/23/2023 due to benign paroxysmal positional vertigo. She said she felt very dizzy and went to ER. Blood pressure was elevated at ER. Had a head CT showing no acute changes but chronic left infarct. Was prescribed meclizine as needed and dizziness has resolved. Blood pressure within normal limits. A1c within goal. Lipid panel will be order and her LDL goal should be less than 70. GERD stable with medications. [facility] Medical History (Updated 01/01/24 @ 18:39 by Randi Thompson MD) Angina pectoris Elevated cholesterol Osteopenia Renal calculi Left bundle branch block Diabetes Palpitations CAD (coronary artery disease) GERD (gastroesophageal reflux disease) Elevated LFTs Elevated glucose Rash and nonspecific skin eruption Angioedema Encounter to establish care Ductal carcinoma in situ of right breast Surgical History Hx of colonoscopy History of esophagogastroduodenoscopy (EGD) History of total hysterectomy with bilateral salpingo-oophorectomy (BSO) Social History Housing: Apartment Patient Tobacco Use Status: Never used Tobacco e-Cigarette/Vaping Use: Never Used Second Hand Smoke Exposure: No service: No Current occupational status: retired Cognitive needs: No Hearing needs: No Vision needs: Yes (glasses) Questionnaire PHQ-9 Over the last 2 weeks, how often have you been bothered by any of the following problems? 1. Little interest or pleasure in doing things: not at all 2. Feeling down, depressed, or hopeless: not at all 3. Trouble falling or staying asleep, or sleeping too much: not at all 4. Feeling tired or having little energy: not at all 5. Poor appetite or overeating: not at all 6. Feeling bad about yourself - or that you are a failure or have let yourself or your family down: not at all 7. Trouble concentrating on things, such as reading the newspaper or watching television: not at all 8. Moving or speaking so slowly that other people could have noticed. Or the opp osite - being so fidgety or restless that you have been moving around a lot more than usual: not at all 9. Thoughts that you would be better off or of hurting yourself in some way: not at all Total score: 0 Source: Developed by Drs. Jorge Johnson, Diana Mcelroy, Arnaud Ortega and colleagues, with an educational tori from [employer]. Thrive Questionnaire Date Thrive assessed: 01/01/24 I am a: Patient What is your living situation today?: I have a steady place to live Within the past 12 months, did the food you bought not last and you didn't have the money to get more?: Never true Within the past 12 months, did you worry whether your food would run out before you got money to buy more?: Never true Do you have trouble paying for medicines?: No Do you have trouble getting transportation to medical appointments?: No Do you have trouble paying your heating and electricity bill?: No Do you have trouble taking care of your child, family member or friend?: No Do you have trouble with day-to-day activities such as bathing, preparing meals, shopping, managing finances, etc.?: No Are you currently unemployed and looking for a job?: No Are you interested in more education?: No Please select the resources that you would like help with: None Currently or been in a relationship where the following occur: no concerns reported THRIVE Score: 0 AUDIT C Alcohol Use Questionnaire (AUDIT-C) 1. How often do you have a drink containing alcohol?: Never Total Score: 0 SHEREE-7 AMB Questionnaire SHEREE-7 Date SHEREE - 7 assessed: 01/01/24 Feeling nervous, anxious, or on edge: 0 = Not at all Not being able to stop or control worryin = Not at all Worrying too much about different things: 0 = Not at all Trouble relaxin = Not at all Being so restless that it is hard to sit still: 0 = Not at all Becoming easily annoyed or irritable: 0 = Not at all Feeling afraid as if something awful might happen: 0 = Not at all Total SHEREE-7 score (0-4 normal; 5-9 mild; 10-14 moderate; 15-21 severe): 0 Source: Developed by Drs. Jorge Johnson, Diana Mcelroy, Arnaud Ortega and colleagues, with an educational tori from [employer]. Review of Systems Const All systems reviewed & are unremarkable except as noted in HPI and below Eyes Reports no additional complaints, Denies change in vision and Denies other visual disturbances Card Denies chest pain at rest, Denies chest pain with activity, Denies edema, Denies irregular heart rhythm, Denies claudication, Denies dyspnea, Denies dyspnea on exertion, Denies orthopnea, Denies paroxysmal nocturnal dyspnea and Denies slow heart rate Resp Denies cough, Denies dyspnea and Denies dyspnea on exertion GI Denies abdominal pain, Denies change in bowel habits, Denies excessive flatus, Denies nausea and Denies vomiting Denies urinary incontinence, Denies urinary hesitancy and Denies urinary urgency Musc Denies abnormal gait, Denies atrophy, Denies deformity and Denies limited range of motion Neuro Denies abnormal gait, Denies behavioral changes and Denies lack of coordination Psych Denies behavioral changes Physical exam (Primary Care) Vital Signs: Last Vital Signs BP 132/68 01/01/24 16:10 BMI result Body Mass Index 21.5 Tobacco/Smoking Status: Tobacco use Status Tobacco use date assessed 01/01/24 01/01/24 16:20 Patient Tobacco Use Status Never used Tobacco 01/01/24 16:12 e-Cigarette/Vaping Use Never Used 01/01/24 16:12 PHQ-9: PHQ-9 Score PHQ-9: Total score 0 01/01/24 16:31 Thrive Assessment: Date of Thrive Assessment Date Thrive assessed 01/01/24 01/01/24 16:27 Currently or been in a relationship where the following occur: no concerns reported Eyes General: appearance normal, both eyes and all related structures Eyelids: Yes eyelids normal Conjunctivae: conjunctivae normal Neck Neck: Yes normal visual inspection and Yes supple Resp Effort & Inspection: normal respiratory effort Auscultation: clear to auscultation bilaterally Cardio Jugular venous distension: no JVD Rate: regular rate Rhythm: regular rhythm Heart sounds: S1 normal heart sound present and S2 normal heart sound present Extrem General: Yes full ROM Results AMB Hemoglobin A1c AMB Hemoglobin A1c 5.4 % Last Edit by JEFF Kamara on 01/01/24 16:2 8 Results Reviewed Results Reviewed: Laboratory Last Values Hgb A1c (Clinic) 5.4 % (4.0-6.0) 01/01/24 16:27 Assessment and Plan Assessment & Plan (1) Hospital discharge follow-up: Code(s): Z09 - Encounter for follow-up examination after completed treatment for conditions other than malignant neoplasm Plan: Discharge date 12/23/2023 due to vertigo. Head CT done showing no acute changes. Had chronic infarct. Was prescribed meclizine and vertigo resolved. (2) Benign paroxysmal positional vertigo: Code(s): H81.10 - Benign paroxysmal vertigo, unspecified ear Plan: Restart meclizine if needed. (3) Hypercholesterolemia: Code(s): E78.00 - Pure hypercholesterolemia, unspecified Plan: Continue statins. Repeat lipid panel. LDL goal is less than 70. (4) Diabetes mellitus: Code(s): E11.9 - Type 2 diabetes mellitus without complications Plan: Continue metformin. A1c goal is equal or less than 7%. (5) Essential hypertension: Code(s): I10 - Essential (primary) hypertension Plan: Continue amlodipine. Blood pressure goal is equal or less than 130/80. (6) GERD (gastroesophageal reflux disease): Code(s): K21.9 - Gastro-esophageal reflux disease without esophagitis Plan: Continue PPIs. Orders: Orders AMB Hemoglobin A1c Today E11.9 - Type 2 diabetes mellitus without complications Lipid Panel Today E78.5 - Hyperlipidemia, unspecified Vitamin D 25-OH Total Today E55.9 - Vitamin D deficiency, unspecified Parathyroid Hormone Intact Today E83.52 - Hypercalcemia Comprehensive [place]. Panel Fast Today E83.52 - Hypercalcemia XR hip LT min 2V Today M25.552 - Pain in left hip Microalbumin, Random (w Creat) Today E11.9 - Type 2 diabetes mellitus without complications Medications: Refilled lidocaine 5% leave on most painful area for up to 12 hrs 1 patch topical DAILY 15 ea 0RF Coding Level of Care Code TCM Mod MDM <= 14 Days Diagnoses Hospital discharge follow-up Z09 Benign paroxysmal positional vertigo H81.10 Hypercholesterolemia E78.00 Diabetes mellitus E11.9 Essential hypertension I10 GERD (gastroesophageal reflux disease) K21.9 Time Spent (min) 24
[2024-01-01 16:10] VITALS: BP 132/68; BMI 21.5
== END 2024-01-01 16:44 | disposition home or self-care (01) ==
PROVIDERS: PCP Nurse Practitioner Family; Visit Provider Internal Medicine
DX: H81.10 Benign paroxysmal vertigo, unspecified ear (principal); E78.00 Pure hypercholesterolemia, unspecified; E11.9 Type 2 diabetes mellitus without complications; I10 Essential (primary) hypertension; K21.9 Gastro-esophageal reflux disease without esophagitis
CPT/HCPCS: 83036; 99214

== ENCOUNTER 2024-01-02 08:54 | Outpatient (REF) | payer OTHER, SELFPAY ==
--- NOTE | ~2024-01-02 | XR_ITS ---
EXAMINATION: XR HIP, LEFT CLINICAL INFORMATION: Pain in left hip COMPARISON: None available. TECHNIQUE: Two views of the left hip. FINDINGS: No fracture. Alignment is anatomic. Hip joint space is maintained. Small calcification adjacent to the greater trochanter can be seen with gluteal tendinosis. Faint arterial calcifications indicative of atherosclerotic disease are seen within the inner thigh. XR/XR hip LT min 2V IMPRESSION: No significant abnormality of the left hip.
== END 2024-01-02 08:55 | disposition home or self-care (01) ==
LOC: HO.XRAY 08:54
PROVIDERS: PCP Internal Medicine; Visit Provider Internal Medicine
DX: M25.552 Pain in left hip (principal)
CPT/HCPCS: 73502

== ENCOUNTER 2024-01-30 07:57 | Outpatient (AMB) | payer OTHER, MEDICAID, SELFPAY ==
[2024-01-30 07:58] VITALS: BP 130/60; BMI 19.7
--- NOTE | 2024-01-30 07:58 | A.OFFPC_ITS ---
Vital Signs 01/30/24 07:58 Height 5 ft 4 in Weight 115 lb BMI 19.7 BP 130/60 Blood Pressure Location Lt brachial Position Sitting Intake Visit Reasons: Trans. 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 Operator Required: No Accompanied by: Spouse Allergies lisinopril Allergy (Severe, Verified 01/30/24 08:12) Angioedema Medication List - Last Reconciled 01/30/24 by Randi Thompson MD amlodipine 5 mg PO DAILY aspirin (Ecotrin Low Strength) 81 mg PO DAILY blood pressure monitor As directed blood sugar diagnostic ([employer] Ultra Test strips) test daily blood-glucose meter ([employer] Ultra2 Meter) test daily cholecalciferol (vitamin D3) 25 mcg PO DAILY folic acid 1 mg PO DAILY lancets ([employer] UltraSoft 2 Lancet) test daily lidocaine 5% 1 patch topical DAILY meclizine 25 mg PO TID PRN metformin 500 mg PO .every other day metoprolol succinate ER 50 mg PO DAILY omeprazole 40 mg PO DAILY rosuvastatin 10 mg PO DAILY Tobacco use date assessed: 01/01/24 Fall risk assessment: No Falls in past year Last assessed Fall Risk: 01/30/24 Dental Screening Dental Screen Date: 01/30/24 Did you have a dental visit in the last 12 months?: No Did you have a dental problem in the last 6 months where you did not have access to dental care?: No Was dental information given to patient?: Patient has dentist HPI HPI Comments History of Present Illness Details This is a 73-year-old female with diabetes mellitus type 2, hypertension, hyperlipidemia, GERD and chronic lacunar infarcts that comes today accompanied by for follow-up on her conditions. A1c within goal. Blood pressure stable. Last LDL was on goal. GERD stable with medications. On aspirin for secondary prophylaxis of chronic lacunar infarcts with no residual deficit. Still has hypercalcemia and this will be repeated. Denies any chest pain or shortness of breath. [facility] Medical History (Updated 01/30/24 @ 10:38 by Randi Thompson MD) Angina pectoris Elevated cholesterol Osteopenia Renal calculi Left bundle branch block Diabetes Palpitations CAD (coronary artery disease) GERD (gastroesophageal reflux disease) Elevated LFTs Elevated glucose Rash and nonspecific skin eruption Angioedema Encounter to establish care Ductal carcinoma in situ of right breast Surgical History Hx of colonoscopy History of esophagogastroduodenoscopy (EGD) History of total hysterectomy with bilateral salpingo-oophorectomy (BSO) Social History Housing: Apartment Patient Tobacco Use Status: Never used Tobacco e-Cigarette/Vaping Use: Never Used Second Hand Smoke Exposure: No service: No Current occupational status: retired Cognitive needs: No Hearing needs: No Vision needs: Yes (glasses) Questionnaire PHQ-9 Over the last 2 weeks, how often have you been bothered by any of the following problems? 1. Little interest or pleasure in doing things: not at all 2. Feeling down, depressed, or hopeless: not at all 3. Trouble falling or staying asleep, or sleeping too much: not at all 4. Feeling tired or having little energy: not at all 5. Poor appetite or overeating: not at all 6. Feeling bad about yourself - or that you are a failure or have let yourself or your family down: not at all 7. Trouble concentrating on things, such as reading the newspaper or watching television: not at all 8. Moving or speaking so slowly that other people could have noticed. Or the opposite - being so fidgety or restless that you have been moving around a lot more than usual: not at all 9. Thoughts that you would be better off or of hurting yourself in some way: not at all Total score: 0 Depression Screening Interpretation: Negative Depression Screening Done: Yes 43279 - PHQ-9 Billing: Yes Source: Developed by Drs. Jorge Johnson, Diana Mcelroy, Arnaud Ortega and colleagues, with an educational tori from [employer]. Thrive Questionnaire Date Thrive assessed: 01/30/24 I am a: Patient What is your living situation today?: I have a steady place to live Within the past 12 months, did the food you bought not last and you didn't have the money to get more?: Never true Within the past 12 months, did you worry whether your food would run out before you got money to buy more?: Never true Do you have trouble paying for medicines?: No Do you have trouble getting transportation to medical appointments?: No Do you have trouble paying your heating and electricity bill?: No Do you have trouble taking care of your child, family member or friend?: No Do you have trouble with day-to-day activities such as bathing, preparing meals, shopping, managing finances, etc.?: No Are you currently unemployed and looking for a job?: No Are you interested in more education?: No Please select the resources that you would like help with: None Currently or been in a relationship where the following occur: no concerns reported THRIVE Score: 0 AUDIT C Alcohol Use Questionnaire (AUDIT-C) 1. How often do you have a drink containing alcohol?: Never Total Score: 0 SHEREE-7 AMB Questionnaire SHEREE-7 Date SHEREE - 7 assessed: 01/30/24 Feeling nervous, anxious, or on edge: 0 = Not at all Not being able to stop or control worryin = Not at all Worrying too much about different things: 0 = Not at all Trouble relaxin = Not at all Being so restless that it is hard to sit still: 0 = Not at all Becoming easily annoyed or irritable: 0 = Not at all Feeling afraid as if something awful might happen: 0 = Not at all Total SHEREE-7 score (0-4 normal; 5-9 mild; 10-14 moderate; 15-21 severe): 0 Source: Developed by Drs. Jorge Johnson, Diana Mcelroy, Arnaud Ortega and colleagues, with an educational tori from [employer]. SHEREE-7 Assessment Billing SHEREE-7 Assessment Tool: SHEREE-7 Assessment 60251 Review of Systems Const All systems reviewed & are unremarkable except as noted in HPI and below Eyes Reports no additional complaints, Denies change in vision and Denies other visual disturbances Card Denies chest pain at rest, Denies chest pain with activity, Denies edema, Denies irregular heart rhythm, Denies claudication, Denies dyspnea, Denies dyspnea on exertion, Denies orthopnea, Denies paroxysmal nocturnal dyspnea and Denies slow heart rate Resp Denies cough, Denies dyspnea and Denies dyspnea on exertion GI Denies abdominal pain, Denies change in bowel habits, Denies excessive flatus, Denies nausea and Denies vomiting Denies urinary incontinence, Denies urinary hesitancy and Denies urinary urgency Musc Denies abnormal gait, Denies atrophy, Denies deformity and Denies limited range of motion Skin/Breast Denies bleeding lesions, Denies changing lesions and Denies rash Neuro Denies abnormal gait and Denies lack of coordination Physical exam (Primary Care) Vital Signs: Last Vital Signs BP 130/60 01/30/24 07:58 BMI result Body Mass Index 19.7 Tobacco/Smoking Status: Tobacco use Status Tobacco use date assessed 01/01/24 01/30/24 08:05 Patient Tobacco Use Status Never used Tobacco 01/30/24 08:05 e-Cigarette/Vaping Use Never Used 01/30/24 08:05 PHQ-9: PHQ-9 Score PHQ-9: Total score 0 01/30/24 08:25 Depression Screening Interpretation: Negative Thrive Assessment: Date of Thrive Assessment Date Thrive assessed 01/30/24 01/30/24 08:05 Currently or been in a relationship where the following occur: no concerns reported Const Orientation/consciousness: patient oriented x3 Eyes General: appearance normal, both eyes and all related structures Eyelids: Yes eyelids normal Conjunctivae: conjunctivae normal Neck Neck: Yes normal visual inspection and Yes supple Resp Effort & Inspection: normal respiratory effort Auscultation: clear to auscultation bilaterally Cardio Jugular venous distension: no JVD Rate: regular rate Rhythm: regular rhythm Heart sounds: S1 normal heart sound present and S2 normal heart sound present Neuro General: patient oriented x3 and no focal motor deficits Extrem General: Yes full ROM Assessment and Plan Assessment & Plan (1) Diabetes mellitus: Code(s): E11.9 - Type 2 diabetes mellitus without complications Qualifiers: Diabetes mellitus type: type 2 Diabetes mellitus terminal manager insulin use: without intermediate use Diabetes mellitus complication status: without complication Qualified Code(s): E11.9 - Type 2 diabetes mellitus without complications Plan: Continue metformin. A1c goal is equal or less than 7%. (2) Essential hypertension: Code(s): I10 - Essential (primary) hypertension Plan: Continue amlodipine. Blood pressure goal is equal or less than 130/80. (3) Hyperlipidemia LDL goal <70: Code(s): E78.5 - Hyperlipidemia, unspecified Plan: Continue statins. LDL goal is less than 70. (4) Hypercalcemia: Code(s): E83.52 - Hypercalcemia Plan: Repeat lab. (5) Multiple lacunar infarcts: Code(s): I63.81 - Other cerebral infarction due to occlusion or stenosis of small artery Plan: Continue aspirin for secondary prophylaxis. (6) GERD (gastroesophageal reflux disease): Code(s): K21.9 - Gastro-esophageal reflux disease without esophagitis Qualifiers: Esophagitis presence: esophagitis presence not specified Qualified Code(s): K21.9 - Gastro-esophageal reflux disease without esophagitis Plan: Continue PPIs as needed. Orders: Orders Calcium, Ionized Today E83.52 - Hypercalcemia Calcium, 24 Hr Ur Today E83.52 - Hypercalcemia Parathyroid Hormone Intact Today E83.52 - Hypercalcemia Medications: Refilled cholecalciferol (vitamin D3) 25 mcg PO DAILY 90 tabs 2RF M85.80 - Other specified disorders of bone density and structure, unspecified site lidocaine 5% leave on most painful area for up to 12 hrs 1 patch topical DAILY 15 ea 0RF Coding Level of Care Code Est Pt Level 4 (70806) Diagnoses Type 2 diabetes mellitus without complication, without long-term current use of insulin E11.9 Diabetes mellitus type: type 2 Diabetes mellitus intermediate insulin use: without terminal manager use Diabetes mellitus complication status: without complication Essential hypertension I10 Hyperlipidemia LDL goal <70 E78.5 Hypercalcemia E83.52 Multiple lacunar infarcts I63.81 Gastroesophageal reflux disease, unspecified whether esophagitis present K21.9 Esophagitis presence: esophagitis presence not specified Additional Codes SHEREE-7 Assessment Billing - SHEREE-7 Assessment Tool: SHEREE-7 Assessment 70060 ([id number]) Time Spent (min) 24
== END 2024-01-30 08:26 | disposition home or self-care (01) ==
PROVIDERS: PCP Nurse Practitioner Family; Visit Provider Internal Medicine
DX: E11.69 Type 2 diabetes mellitus with other specified complication (principal); I63.81 Other cerebral infarction due to occlusion or stenosis of small artery; I10 Essential (primary) hypertension; E78.5 Hyperlipidemia, unspecified; E83.52 Hypercalcemia; K21.9 Gastro-esophageal reflux disease without esophagitis
CPT/HCPCS: 99214

== ENCOUNTER 2024-02-06 07:56 | Outpatient (REF) | payer OTHER, SELFPAY ==
[2024-02-06 09:20] LABS: Anion Gap 13 (12-20); Blood Urea Nitrogen 14 mg/dL (9-16); Calcium 10.3 mg/dL (8.4-10.2); Carbon Dioxide 30 mmol/L (22-29); Chloride 103 mmol/L (96-108); Estimated Glomerular Filt Rate > 60; Glucose Fasting 117 mg/dL (60-99); Potassium 4.3 mmol/L (3.3-5.1); Sodium 142 mmol/L (135-145)
[2024-02-06 09:21] LABS: Alanine Aminotransferase 25 U/L (0-31); Albumin Level 4.5 g/dL (3.5-5.0); Alkaline Phosphatase 73 U/L (39-117); Aspartate Amino Transferase 21 U/L (5-31); Bilirubin Total 0.9 mg/dL (0.0-1.0); Cholesterol 149 mg/dL (<200); HDL Cholesterol 62 mg/dL (>40); LDL Cholesterol Calculated 58 mg/dL (<100); Total Protein 7.7 g/dL (6.5-8.0); Triglycerides 145 mg/dL (<150)
[2024-02-06 09:28] LABS: Vitamin D 25-OH Total 32.4 ng/mL (>30)
[2024-02-06 14:46] LABS: Creatinine Urine 54.22 mg/dL; Microalbum/Creatinine Ratio Ur 31.3 ug/mg cr (<30)
[2024-02-07 15:54] LABS: Calcium, Ionized 5.3 mg/dL (4.7-5.5)
== END 2024-02-06 07:57 | disposition home or self-care (01) ==
LOC: HO.LAB 07:56
PROVIDERS: PCP Internal Medicine; Visit Provider Internal Medicine
DX: E78.5 Hyperlipidemia, unspecified (principal); E11.9 Type 2 diabetes mellitus without complications; E55.9 Vitamin D deficiency, unspecified
CPT/HCPCS: 36415; 80053; 80061; 82043; 82306; 82330; 82570; 83970

== ENCOUNTER 2024-02-11 09:21 | Outpatient (REF) | payer OTHER, SELFPAY ==
[2024-02-12 20:44] LABS: Calcium, 24 Hr Urine 88 mg/24 h; Calcium/Creatinine Ratio 89 mg/g creat (30-275); Creatinine 24Hr Urine 0.98 g/24 h (0.50-2.15)
== END 2024-02-11 09:22 | disposition home or self-care (01) ==
LOC: HO.LNP 09:21
PROVIDERS: Visit Provider Internal Medicine
DX: E83.52 Hypercalcemia (principal)
CPT/HCPCS: 82340

== ENCOUNTER 2024-03-04 11:58 | Outpatient (AMB) | payer OTHER, SELFPAY ==
[2024-03-04 12:25] VITALS: BP 136/70; BMI 19.4
--- NOTE | 2024-03-04 12:25 | A.OFFPC_ITS ---
Vital Signs 03/04/24 12:25 Height 5 ft 4 in Weight 113 lb BMI 19.4 BP 136/70 Blood Pressure Location Lt brachial Position Sitting Intake Visit Reasons: [facility]-Left eye cataract surgery 03/11 Intake Note: Patient here for [facility] left eye cataract Record Press Tender Required: No Accompanied by: Spouse Allergies lisinopril Allergy (Severe, Verified 03/04/24 12:35) Angioedema Medication List - Last Reconciled 03/04/24 by Randi Thompson MD amlodipine 5 mg PO DAILY aspirin (Ecotrin Low Strength) 81 mg PO DAILY blood pressure monitor As directed blood sugar diagnostic ([employer]uch Ultra Test strips) test daily blood-glucose meter ([employer] Ultra2 Meter) test daily cholecalciferol (vitamin D3) 25 mcg PO DAILY folic acid 1 mg PO DAILY lancets ([employer] UltraSoft 2 Lancet) test daily lidocaine 5% 1 patch topical DAILY meclizine 25 mg PO TID PRN metformin 500 mg PO .every other day metoprolol succinate ER 50 mg PO DAILY omeprazole 40 mg PO DAILY rosuvastatin 10 mg PO DAILY Tobacco use date assessed: 01/01/24 Fall risk assessment: No Falls in past year Last assessed Fall Risk: 03/04/24 Dental Screening Dental Screen Date: 01/30/24 HPI HPI Comments History of Present Illness Details This is a 74-year-old female with diabetes mellitus type 2, multiple lacunar infarcts, hypertension, hyperlipidemia and GERD that comes today acc ompanied by for preop evaluation of cataract extraction and intraocular lens implant scheduled for 03/11/2024. A1c within goal. Has no residual deficit from her lacunar infarcts. Blood pressure stable. On statins for hyperlipidemia. GERD stable with PPIs. She has 5-7 Mets of ADLs. Going for a low risk surgery. EKG shows normal sinus rhythm with a left bundle branch block that has been present for the past 2 years. By RCRI she is class 1 with 0.4% risk of cardiac complications. Patient is medically clear for surgery. [facility] Medical History (Updated 03/04/24 @ 12:42 by Randi Thompson MD) Angina pectoris Elevated cholesterol Osteopenia Renal calculi Left bundle branch block Diabetes Palpitations CAD (coronary artery disease) GERD (gastroesophageal reflux disease) Elevated LFTs Elevated glucose Rash and nonspecific skin eruption Angioedema Encounter to establish care Ductal carcinoma in situ of right breast Surgical History Hx of colonoscopy History of esophagogastroduodenoscopy (EGD) History of total hysterectomy with bilateral salpingo-oophorectomy (BSO) Social History Housing: Apartment Patient Tobacco Use Status: Never used Tobacco e-Cigarette/Vaping Use: Never Used Second Hand Smoke Exposure: No service: No Current occupational status: retired Cognitive needs: No Hearing needs: No Vision needs: Yes (glasses) Questionnaire Thrive Questionnaire Date Thrive assessed: 01/30/24 SHEREE-7 AMB Questionnaire SHEREE-7 Date SHEREE - 7 assessed: 01/30/24 Source: Developed by Drs. Jorge Johnson, Diana Mcelroy, Arnaud Ortega and colleagues, with an educational tori from [employer]. Review of Systems Const All systems reviewed & are unremarkable except as noted in HPI and below Eyes Reports no additional complaints, Denies change in vision and Denies other visual disturbances Card Denies chest pain at rest, Denies chest pain with activity, Denies edema, Denies irregular heart rhythm, Denies claudication, Denies dyspnea, Denies dyspnea on exertion, Denies orthopnea, Denies paroxysmal nocturnal dyspnea and Denies slow heart rate Resp Denies cough, Denies dyspnea and Denies dyspnea on exertion GI Denies abdominal pain, Denies change in bowel habits, Denies excessive flatus, Denies nausea and Denies vomiting Denies urinary incontinence, Denies urinary hesitancy and Denies urinary urgency Physical exam (Primary Care) Vital Signs: Last Vital Signs BP 136/70 03/04/24 12:25 BMI result Body Mass Index 19.4 Tobacco/Smoking Status: Tobacco use Status Tobacco use date assessed 01/01/24 03/04/24 12:28 Patient Tobacco Use Status Never used Tobacco 03/04/24 12:28 e-Cigarette/Vaping Use Never Used 03/04/24 12:28 Thrive Assessment: Date of Thrive Assessment Date Thrive assessed 01/30/24 03/04/24 12:28 Resp Effort & Inspection: normal respiratory effort Auscultation: clear to auscultation bilaterally Cardio Jugular venous distension: no JVD Rate: regular rate Rhythm: regular rhythm Heart sounds: S1 normal heart sound present and S2 normal heart sound present Extrem General: Yes full ROM Assessment and Plan Assessment & Plan (1) Pre-op evaluation: Code(s): Z01.818 - Encounter for other preprocedural examination Plan: Patient medically clear for cataract extraction and intraocular lens implant. EKG and labs were reviewed. (2) Multiple lacunar infarcts: Code(s): I63.81 - Other cerebral infarction due to occlusion or stenosis of small artery Plan: Continue aspirin for secondary prophylaxis. (3) Diabetes mellitus: Code(s): E11.9 - Type 2 diabetes mellitus without complications Qualifiers: Diabetes mellitus type: type 2 Diabetes mellitus fdc insulin use: without fdc use Diabetes mellitus complication status: without complication Qualified Code(s): E11.9 - Type 2 diabetes mellitus without complications Plan: Continue metformin. A1c goal is equal or less than 7%. (4) Hyperlipidemia LDL goal <70: Code(s): E78.5 - Hyperlipidemia, unspecified Plan: Continue statins. LDL goal is less than 70. (5) GERD (gastroesophageal reflux disease): Code(s): K21.9 - Gastro-esophageal reflux disease without esophagitis Qualifiers: Esophagitis presence: esophagitis presence not specified Qualified Code(s): K21.9 - Gastro-esophageal reflux disease without esophagitis Plan: Continue PPIs. (6) Essential hypertension: Code(s): I10 - Essential (primary) hypertension Plan: Continue lisinopril. Blood pressure goal is equal or less than 130/80. Medications: Refilled metformin 500 mg PO .every other day 90 tabs 1RF E11.9 - Type 2 diabetes mellitus without complications omeprazole 40 mg PO DAILY 30 caps 1RF Coding Level of Care Code Est Pt Level 4 (25215) Diagnoses Pre-op evaluation Z01.818 Multiple lacunar infarcts I63.81 Type 2 diabetes mellitus without complication, without long-term current use of insulin E11.9 Diabetes mellitus type: type 2 Diabetes mellitus terminal gauger supervisor insulin use: without terminal gauger supervisor use Diabetes mellitus complication status: without complication Hyperlipidemia LDL goal <70 E78.5 Gastroesophageal reflux disease, unspecified whether esophagitis present K21.9 Esophagitis presence: esophagitis presence not specified Essential hypertension I10 Time Spent (min) 23
== END 2024-03-04 12:45 | disposition home or self-care (01) ==
PROVIDERS: PCP Internal Medicine; Visit Provider Internal Medicine
DX: Z01.818 Encounter for other preprocedural examination (principal); I63.81 Other cerebral infarction due to occlusion or stenosis of small artery; E11.9 Type 2 diabetes mellitus without complications; E78.5 Hyperlipidemia, unspecified; K21.9 Gastro-esophageal reflux disease without esophagitis; I10 Essential (primary) hypertension
CPT/HCPCS: 99214

== ENCOUNTER 2024-03-14 12:59 | Outpatient (AMB) | payer OTHER, SELFPAY ==
[2024-03-14 13:04] VITALS: BP 130/70; PULSE 87; O2SAT 98; BMI 19.4
--- NOTE | 2024-03-14 13:04 | MHC.OFFVIS ---
Vital Signs 03/14/24 13:04 Height 5 ft 4 in Weight 112 lb 14.027 oz BMI 19.4 BP 130/70 Blood Pressure Location Lt brachial Position Sitting Pulse 87 Pulse Source Pulse Oximeter Pulse Oximetry (%) 98 Oxygen Delivery Method Room Air Intake Visit Reasons: 1 yr f/up Intake Note: 1 year follow up PT feels good Dinkey Mechanic Required: Yes Dinkey Mechanic Name: [id number] Allergies lisinopril Allergy (Severe, Verified 03/04/24 12:35) Angioedema HPI Comments Details: [id number] female presents today with her for a follow-up. 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 Patient reports she has been doing well since she was last seen and has no complaints. She did go to the emergency room for dizziness and nausea and was noted by EMS her blood pressure was high. (192/101) and was noted to be related to Benign Paroxysmal Positional Vertigo. Her blood pressures since have been much better. She does not check her blood pressures often at home. She denies having any chest discomforts, shortness of breath, palpitations, dizziness, or syncope. She stays busy at home doing household duties and walks often and occasionally uses the stairs at home without difficulty. [facility] Medical History Angina pectoris Elevated cholesterol Osteopenia Renal calculi Left bundle branch block Diabetes Palpitations CAD (coronary artery disease) GERD (gastroesophageal reflux disease) Elevated LFTs Elevated glucose Rash and nonspecific skin eruption Angioedema Encounter to establish care Ductal carcinoma in situ of right breast Surgical History Hx of colonoscopy History of esophagogastroduodenoscopy (EGD) History of total hysterectomy with bilateral salpingo-oophorectomy (BSO) Social History Housing: Apartment Patient Tobacco Use Status: Never used Tobacco e-Cigarette/Vaping Use: Never Used Second Hand Smoke Exposure: No service: No Current occupational status: retired Cognitive needs: No Hearing needs: No Vision needs: Yes (glasses) Review of Systems Const Denies weakness ENT Denies dizziness Card Denies chest pain, Denies chest pain with activity, Denies syncope, Denies rapid heart rate, Denies pedal edema, Denies edema, Denies leg edema, Denies lightheadedness, Denies palpitations, Denies dyspnea, Denies dyspnea on exertion and Denies orthopnea Resp Denies cough, Denies dyspnea and Denies dyspnea on exertion GI Denies hematochezia and Denies change in stool character Musc Denies abnormal gait, Denies muscle cramps, Denies muscle weakness, Denies numbness, Denies radiating pain into limb and Denies tingling Neuro Denies abnormal gait, Denies dizziness, Denies syncope, Denies numbness, Denies tingling and Denies weakness Endo Denies palpitations Physical Exam Vital Signs: Last Vital Signs Pulse 87 03/14/24 13:04 BP 130/70 03/14/24 13:04 Pulse Ox 98 03/14/24 13:04 Oxygen Delivery Method Room Air 03/14/24 13:04 BMI result Body Mass Index 19.4 Const General: healthy appearing and no acute distress Orientation/consciousness: patient oriented x3 HEENT Head: Yes normal to inspection Eyes General: appearance normal, both eyes and all related structures Neck Neck: Yes normal visual inspection Chest Chest palpation & inspection: normal inspection of the chest Resp Effort & Inspection: normal respiratory effort Auscultation: clear to auscultation bilaterally Cardio Jugular venous distension: no JVD Palpation: normal PMI Rate: regular rate Rhythm: regular rhythm Heart sounds: S1 normal heart sound present, S2 normal heart sound present, no click, no gallops, no murmurs and no rubs GI Inspection: Yes normal to inspection Palpation (GI): Soft to palpation Skin General skin exam: no rashes or lesions noted Neuro General: patient oriented x3 Extrem General: Yes normal to inspection Psych Appearance: grossly normal Assessment & Plan Assessment & Plan (1) CAD (coronary artery disease): Code(s): I25.10 - Atherosclerotic heart disease of [place] coronary artery without angina pectoris Category: Medical Plan: She has no anginal symptoms at this time. Will have her continue on current meds including aspirin, rosuvastatin, metoprolol. EKG in ED shows normal sinus with LBBB. Echocardiogram on 11/03/2022 showing EF 55-60%, no valve abnormalities, no reported wall motion abnormality. Will repeat due to being over a year old and had high blood pressure readings in the emergency room. (2) Hyperlipidemia LDL goal <70: Code(s): E78.5 - Hyperlipidemia, unspecified Category: Medical Plan: LDl on 02/06/2024 58. Within goal. (3) Left bundle branch block: Code(s): I44.7 - Left bundle-branch block, unspecified Category: Medical Plan: Present on EKG. Unknown how vic has been present. Nuclear stress test done 11/03/2022 showed normal myocardial perfusion imaging. (4) Hypertension: Code(s): I10 - Essential (primary) hypertension Plan: Blood pressure is within range today. Orders: Orders CA echo transthoracic complete Today I25.10 - Atherosclerotic heart disease of [place] coronary artery without angina pectoris
== END 2024-03-14 13:28 | disposition home or self-care (01) ==
PROVIDERS: Visit Provider Nurse Practitioner
DX: I25.10 Atherosclerotic heart disease of native coronary artery without angina pectoris (principal); E78.5 Hyperlipidemia, unspecified; I44.7 Left bundle-branch block, unspecified; I10 Essential (primary) hypertension
CPT/HCPCS: 99214

== ENCOUNTER → 2024-03-14 12:59 | Outpatient (BNVA) | payer OTHER, SELFPAY | PROVIDERS: Visit Provider Nurse Practitioner | DX: I25.10 Atherosclerotic heart disease of native coronary artery without angina pectoris (principal); I44.7 Left bundle-branch block, unspecified; I10 Essential (primary) hypertension; E78.5 Hyperlipidemia, unspecified; Z79.82 Long term (current) use of aspirin | CPT/HCPCS: 99212 ==

== ENCOUNTER → 2024-04-02 12:54 | Outpatient (REF) | payer OTHER, SELFPAY ==
--- NOTE | 2024-04-02 12:58 | CA_ITS ---
Transthoracic Echocardiogram Patient (Last, First, Middle): Yvette Watson, Gender: Female Date of : 1950 Age: 74 Procedure Date: 04/02/2024 Procedure Type: Transthoracic Echocardiogram Location: OP Height: 167.64 cm Weight: 51.71 kg BSA: 1.58 m2 Heart Rate: bpm BP: 124 / 66 mmHg Cigar Bander: TO Referring MD: Ursula Fields WAREHOUSE SELECTOR Solar Engineer: jT Johns MD Symptoms: I25.10 - Atherosclerotic heart disease of [place] coronary artery without... Study Quality: Fair ECG Rhythm: Sinus Conclusions: - 1. Normal LV ejection fraction of 60 65% with impaired relaxation filling pattern 2. Normal cardiac valvular Doppler 3. Normal RV systolic pressure 4. No gross pericardial effusion Findings Procedure Information The patient declines contrast. Left Ventricle Normal left ventricular size, thickness, and systolic function. The visually estimated ejection fraction is between 60-65%. There is no dynamic left ventricular outflow tract obstruction. There is systolic anterior motion of the chordae of the mitral valve. Spectral Doppler is indicative of an impaired relaxation filling pattern. E/E prime ratio is between 8 and 15 consistent with indeterminate filling pressures. There is mild septal asymmetric hypertrophy. Right Ventricle Normal right ventricular cavity size and systolic function. Atria Both atria are normal in size. There is no evidence of interatrial shunt. Aortic Valve There is mild thickening of the aortic valve. There is no aortic valve stenosis. There is no aortic valve regurgitation. Mitral Valve There is mild anterior and posterior mitral leaflet thickening. There is mild mitral annular calcification. There is trace mitral valve regurgitation. There is no mitral valve stenosis. Pulmonic Valve The pulmonic valve was not well visualized. Tricuspid Valve Likely normal tricuspid valve structure and function. There is trace tricuspid valve regurgitation. The right ventricular systolic pressure is normal. The right ventricular systolic pressure is 18 mmHg. Normal right atrial pressure. There is no evidence of pulmonary hypertension. Great Vessels The pulmonary artery was not well visualized. Moderate plaque is seen in the sino tubular ridge. Venous The inferior vena cava is normal in size and collapses greater than 50% with inspiration. Pericardium/Pleural There is no evidence of pericardial effusion. Measurements 2D Linear Measurements IVSd: 1.12 0.6-0.9/0.6-1.0 cm LVIDd: 4.21 3.9-5.3/4.2-5.9 cm LVIDd Index: 2.66 2.4-3.2/2.2-3.1 cm/m2 LVIDs: 2.52 2.0-3.6 cm LVPWd: 0.84 0.7-1.1 cm LA Diam: 3.30 2.7-3.8/3.0-4.0 cm LAIDs Index: 2.09 1.5-2.3 cm/m2 LV Mass: 167.03 67-162/88-224 g LV Mass Index: 105.72 43-95/49-115 g/m2 LVOT Diam: 1.90 3.0+(-)1.3 cm 2D Systolic Function EF 4C: 60.40 >55% EF 2C: 65.00 >55% EF BiP: 63.20 >55% Mitral Valve MV Pk E: 0.73 MV PK A: 1.03 MV Decel Time: 252.00 E/A: 0.70 E'Lateral: 4.57 E'Medial: 4.35 E/E' Med: 16.90 E/E' Lat: 16.00 PHT: 74.00 MVA PHT: 2.97 Decel [place]: 2.91 Aortic Valve AoV Pk [place]: 1.74 AoV Mn [place]: 1.13 AoV VTI: 0.38 AoV Pk Grad: 12.00 Aov Mn Grad: 6.00 BONIFACIO Cont.VTI: 2.14 LVOT LVOT Pk [place]: 1.19 LVOT Mn [place]: 0.88 LVOT VTI: 0.29 LVOT Pk Grad: 6.00 LVOT Mn Grad: 3.00 LVOT Diam: 1.90 LVOT Area: 2.84 Diastolic Function MV Pk E: 0.73 MV Pk A: 1.03 E/A: 0.70 E'Medial: 4.35 E/E' Med: 16.90 E' Laterial: 4.57 E/E' Lat: 16.00 Right Ventricle TAPSE (mm): 17.20 TVS' Segundo: 9.79 Tricuspid Valve TR Pk [place]: 1.93 TR Pk Grad: 15.00 RA Press: 3.00 RVSP: 18.00 Great Vessels Aorta Sinus of Valsalva: 2.85 2.0-3.[address] [place]: 1.99 1.7-3.4 cm Ao Asc: 2.90 2.1-3.4 cm Updated in Other Vendor System with Status of Final Tj Johns MD electronically signed on 04/03/2024 1:44:17 PM with status of Final
== END ==
LOC: HO.CARD 12:54
PROVIDERS: PCP Internal Medicine; Visit Provider Nurse Practitioner
DX: I25.10 Atherosclerotic heart disease of native coronary artery without angina pectoris (principal)
CPT/HCPCS: 93306

== ENCOUNTER → 2024-04-02 12:58 | Outpatient (BNV) | payer OTHER, SELFPAY | PROVIDERS: PCP Internal Medicine; Visit Provider Internal Medicine Cardiovascular Disease | DX: I34.81 Nonrheumatic mitral (valve) annulus calcification (principal) | CPT/HCPCS: 93306 ==

== ENCOUNTER 2024-06-03 14:11 | Outpatient (AMB) | payer OTHER, SELFPAY ==
[2024-06-03 14:44] VITALS: BP 138/66; PULSE 67; O2SAT 98; BMI 20.1
--- NOTE | 2024-06-03 14:44 | MHC.PC.OV ---
Vital Signs 06/03/24 14:44 Height 5 ft 4 in Weight 117 lb BMI 20.1 BP 138/66 Blood Pressure Location Lt brachial Position Sitting Pulse 67 Pulse Source Pulse Oximeter Pulse Oximetry (%) 98 Oxygen Delivery Method Room Air Intake Visit Reasons: dm Senior Search Marketing Analyst Required: No Accompanied by: Spouse Allergies lisinopril Allergy (Severe, Verified 06/03/24 14:55) Angioedema Medication List - Last Reconciled 06/03/24 by Randi Thompson MD amlodipine 5 mg PO DAILY aspirin (Ecotrin Low Strength) 81 mg PO DAILY blood pressure monitor As directed blood sugar diagnostic (EPINEX DIAGNOSTICSuch Ultra Test strips) test daily blood-glucose meter (EPINEX DIAGNOSTICSuch Ultra2 Meter) test daily cholecalciferol (vitamin D3) 25 mcg PO DAILY folic acid 1 mg PO DAILY lancets (Inflection EnergyTouch UltraSoft 2 Lancet) test daily lidocaine 5% 1 patch topical DAILY meclizine 25 mg PO TID PRN metformin 500 mg PO .every other day metoprolol succinate ER 50 mg PO DAILY omeprazole 40 mg PO DAILY rosuvastatin 10 mg PO DAILY Tobacco use date assessed: 01/01/24 Dental Screening Dental Screen Date: 01/30/24 HPI HPI Comments History of Present Illness Details This is a 74-year-old female with diabetes mellitus type 2, hypertension, hyperlipidemia and GERD that comes accompanied by for follow-up on her conditions. A1c within goal. Blood pressure stable. LDL within goal. GERD stable with PPIs. No chest pain or shortness on breath. [facility] Medical History (Updated 06/03/24 @ 19:33 by Randi Thompson MD) Adenocarcinoma Chronic stable angina Angina pectoris Elevated cholesterol Osteopenia Renal calculi Left bundle branch block Diabetes Palpitations CAD (coronary artery disease) GERD (gastroesophageal reflux disease) Elevated LFTs Elevated glucose Rash and nonspecific skin eruption Angioedema Encounter to establish care Ductal carcinoma in situ of right breast Surgical History Hx of colonoscopy History of esophagogastroduodenoscopy (EGD) History of total hysterectomy with bilateral salpingo-oophorectomy (BSO) Social History Housing: Apartment Patient Tobacco Use Status: Never used Tobacco e-Cigarette/Vaping Use: Never Used Second Hand Smoke Exposure: No service: No Current occupational status: retired Cognitive needs: No Hearing needs: No Vision needs: Yes (glasses) Questionnaire Thrive Questionnaire Date Thrive assessed: 01/30/24 SHEREE-7 AMB Questionnaire SHEREE-7 Date SHEREE - 7 assessed: 01/30/24 Source: Developed by Drs. Jorge Johnson, Diana Mcelroy, Arnaud Ortega and colleagues, with an educational tori from [employer]. Review of Systems Const All systems reviewed & are unremarkable except as noted in HPI and below Card Denies chest pain at rest, Denies chest pain with activity, Denies edema, Denies irregular heart rhythm, Denies claudication, Denies dyspnea, Denies dyspnea on exertion, Denies orthopnea, Denies paroxysmal nocturnal dyspnea and Denies slow heart rate Resp Denies cough, Denies dyspnea and Denies dyspnea on exertion Physical exam (Primary Care) Vital Signs: Last Vital Signs Pulse 67 06/03/24 14:44 BP 138/66 06/03/24 14:44 Pulse Ox 98 06/03/24 14:44 Oxygen Delivery Method Room Air 06/03/24 14:44 BMI result Body Mass Index 20.1 Tobacco/Smoking Status: Tobacco use Status Tobacco use date assessed 01/01/24 06/03/24 14:50 Patient Tobacco Use Status Never used Tobacco 06/03/24 14:50 e-Cigarette/Vaping Use Never Used 06/03/24 14:50 Thrive Assessment: Date of Thrive Assessment Date Thrive assessed 01/30/24 06/03/24 14:50 Resp Auscultation: clear to auscultation bilaterally Cardio Jugular venous distension: no JVD Rate: regular rate Rhythm: regular rhythm Heart sounds: S1 normal heart sound present and S2 normal heart sound present Extrem General: Yes full ROM Results AMB Hemoglobin A1c AMB Hemoglobin A1c 5.7 % Last Edit by JOE Mari on 06/03/24 14:58 Results Reviewed Results Reviewed: Laboratory Last Values Hgb A1c (Clinic) 5.7 % (4.0-6.0) 06/03/24 14:42 Assessment and Plan Assessment & Plan (1) Diabetes mellitus: Code(s): E11.9 - Type 2 diabetes mellitus without complications Qualifiers: Diabetes mellitus type: type 2 Diabetes mellitus tool and gauge inspector insulin use: without correction use Diabetes mellitus complication status: without complication Qualified Code(s): E11.9 - Type 2 diabetes mellitus without complications Plan: Continue metformin. A1c goal is equal or less than 7%. (2) Essential hypertension: Code(s): I10 - Essential (primary) hypertension Plan: Continue amlodipine. Blood pressure goal is equal or less than 130/80. (3) GERD (gastroesophageal reflux disease): Code(s): K21.9 - Gastro-esophageal reflux disease without esophagitis Plan: Continue PPIs. (4) Hyperlipidemia LDL goal <70: Code(s): E78.5 - Hyperlipidemia, unspecified Plan: Continue statins. LDL goal is less than 70. Orders: Orders Microalbumin, Random (w Creat) 4 Months E11.9 - Type 2 diabetes mellitus without complications Vitamin D 25-OH Total 4 Months E55.9 - Vitamin D deficiency, unspecified Complete Blood Count Auto Diff 4 Months D64.9 - Anemia, unspecified Comprehensive [place]. Panel Fast 4 Months E78.5 - Hyperlipidemia, unspecified AMB Hemoglobin A1c Today E11.9 - Type 2 diabetes mellitus without complications Lipid Panel 4 Months E78.5 - Hyperlipidemia, unspecified Vitamin B12 and Folate 4 Months E53.8 - Deficiency of other specified B group vitamins IRON PROFILE 4 Months D64.9 - Anemia, unspecified Medications: New aspirin 81 mg PO DAILY 90 days 90 tabs 1RF Changed From metformin 500 mg PO .every other day 90 tabs 1RF E11.9 - Type 2 diabetes mellitus without complications To metformin 500 mg PO .every other day 90 days 45 tabs 1RF E11.9 - Type 2 diabetes mellitus without complications Refilled folic acid 1 mg PO DAILY 90 tabs 0RF metoprolol succinate ER 50 mg PO DAILY 90 tabs 1RF rosuvastatin 10 mg PO DAILY 90 tabs 1RF amlodipine 5 mg PO DAILY 90 tabs 1RF cholecalciferol (vitamin D3) 25 mcg PO DAILY 90 tabs 2RF M85.80 - Other specified disorders of bone density and structure, unspecified site lidocaine 5% leave on most painful area for up to 12 hrs 1 patch topical DAILY 15 ea 0RF omeprazole 40 mg PO DAILY 30 caps 1RF Coding Level of Care Code Est Pt Level 4 (39716) Complex EM visit Add On G2211 Diagnoses Type 2 diabetes mellitus without complication, without long-term current use of insulin E11.9 Diabetes mellitus type: type 2 Diabetes mellitus correction insulin use: without tool and gauge inspector use Diabetes mellitus complication status: without complication Essential hypertension I10 GERD (gastroesophageal reflux disease) K21.9 Hyperlipidemia LDL goal <70 E78.5 Time Spent (min) 22
== END 2024-06-03 15:15 | disposition home or self-care (01) ==
PROVIDERS: PCP Internal Medicine; Visit Provider Internal Medicine
DX: E11.9 Type 2 diabetes mellitus without complications (principal); I10 Essential (primary) hypertension; K21.9 Gastro-esophageal reflux disease without esophagitis; E78.5 Hyperlipidemia, unspecified
CPT/HCPCS: 83036; 99214; G2211

== ENCOUNTER 2024-07-24 10:00 | Outpatient (AMB) | payer OTHER, SELFPAY ==
[2024-07-24 10:38] VITALS: BMI 19.9
--- NOTE | 2024-07-24 10:38 | A.OFFVIS_ITS ---
VS Expanded 07/24/24 10:38 Height 5 ft 4 in Weight 116 lb 2.938 oz BMI 19.9 Intake Visit Reasons: monitor wt, [id number] Allergies lisinopril Allergy (Severe, Verified 06/03/24 14:55) Angioedema Nutrition Presentation Details: Pt presents for MNT f/u for T2DM Pt reports feeling more comfortable with including foods in her diet and having snacks in between meals. A1c at 5.7 on 05/2024, and Pt reports feeling more comfortable. BS Monitoring Most Recent Diabetes Results: Microalb/Creat Ratio 31.3 ug/mg cr (<30) H 02/06/24 Cholesterol 149 mg/dL (<200) 02/06/24 HDL Cholesterol 62 mg/dL (>40) 02/06/24 Triglycerides 145 mg/dL (<150) 02/06/24 Creatinine 0.69 mg/dL (0.5-1.4) 02/06/24 Blood Urea Nitrogen 14 mg/dL (9-16) 02/06/24 Sodium 142 mmol/L (135-145) 02/06/24 Potassium 4.3 mmol/L (3.3-5.1) 02/06/24 Chloride 103 mmol/L (96-108) 02/06/24 Carbon Dioxide 30 mmol/L (22-29) H 02/06/24 Calcium 10.3 mg/dL (8.4-10.2) H 02/06/24 AST 21 U/L (5-31) 02/06/24 ALT 25 U/L (0-31) 02/06/24 Total Protein 7.7 g/dL (6.5-8.0) 02/06/24 Albumin 4.5 g/dL (3.5-5.0) 02/06/24 [facility] Medical History (Updated 07/30/24 @ 16:[address], LDN) Adenocarcinoma Chronic stable angina Angina pectoris Elevated cholesterol Osteopenia Renal calculi Left bundle branch block Diabetes Palpitations CAD (coronary artery disease) GERD (gastroesophageal reflux disease) Elevated LFTs Elevated glucose Rash and nonspecific skin eruption Angioedema Encounter to establish care Ductal carcinoma in situ of right breast Surgical History Hx of colonoscopy History of esophagogastroduodenoscopy (EGD) History of total hysterectomy with bilateral salpingo-oophorectomy (BSO) Social History Housing: Apartment Patient Tobacco Use Status: Never used Tobacco e-Cigarette/Vaping Use: Never Used Second Hand Smoke Exposure: No service: No Current occupational status: retired Cognitive needs: No Hearing needs: No Vision needs: Yes (glasses) Assessment & Plan Assessment & Plan (1) Diabetes mellitus: Code(s): E11.9 - Type 2 diabetes mellitus without complications Category: Medical Qualifiers: Diabetes mellitus type: type 2 Diabetes mellitus [facility] insulin use: without long chain quiller tender use Diabetes mellitus complication status: without complication Qualified Code(s): E11.9 - Type 2 diabetes mellitus without complications (2) Abnormal weight loss: Comment: Pt's BMI at 19.9 today , gradually gaining weight from 111 lbs in 05/2023 to 116 lbs in 11/2023, 06/2024 Code(s): R63.4 - Abnormal weight loss Category: Medical Plan weight: 50 kg (11/2022) , 53 kg (08/2023), 53 kg (11/2023) Est kcal needs as per MSJ: 1500 + 500/1000 (40% carb, 30% protein/fat) Est fluid needs as per 25-30 ml/d: 1500 Est prot per day as per 1 g/kg bw: 50+ Recommend fiber intake : 8-10 g per day and gradually increase to 25-28 g per day for women or as tolerated Recommend sodium intake per day : less than 2000 mg Educated patient on: ( R = reviewed V = verbalizes understanding N/R = needs review N/A = not applicable * Food sources of carbohydrate, adequate serving sizes and its role in various health conditions: R * Differences between complex carbohydrates a simple carbohydrates, role of fiber in diet: R , V * Differences between types of fats and role in diet (mono on saturated fat fatty acids, saturated fatty acids, trans fats): R , V * Food sources of sodium in salt and healthy modifications for heart health in kidney health: R * Vitamins and minerals: R * Healthy plate method concept: R * Physical activity: Benefits a precaution: R * Hypoglycemia protocol (rule of 15): R * Dietary prevention of Hyperglycemia: R * importance of hydration : R Patient Instructions: Continue working on having 6 small meals per day Have glucerna shake or yogurt or 1/2 sancwhich or crackers iwth peanut butter or glass of milk with cracker with peanut ubtter as snack in between meals Coding Level of Care Code Nutr Indiv Subseq (82974) Diagnoses Type 2 diabetes mellitus without complication, without long-term current use of insulin E11.9 Diabetes mellitus type: type 2 Diabetes mellitus [facility] insulin use: without [facility] use Diabetes mellitus complication status: without complication Abnormal weight loss R63.4 Time Spent (min) 30
== END 2024-07-24 11:00 | disposition home or self-care (01) ==
PROVIDERS: PCP Internal Medicine; Visit Provider Dietitian, Registered
DX: E11.9 Type 2 diabetes mellitus without complications (principal); R63.4 Abnormal weight loss

== ENCOUNTER → 2024-07-24 10:00 | Outpatient (BNVA) | payer OTHER, SELFPAY | PROVIDERS: PCP Internal Medicine; Visit Provider Dietitian, Registered | DX: E11.9 Type 2 diabetes mellitus without complications (principal); R63.4 Abnormal weight loss | CPT/HCPCS: 97803 ==

== ENCOUNTER 2024-08-12 13:09 | Outpatient (AMB) | payer OTHER, SELFPAY ==
--- NOTE | 2024-08-12 13:15 | A.OFFVIS_ITS ---
Intake Visit Reasons: VV/Leg pain s/p 12/29/22 right gsv venaseal Intake Note: Patient has had a right venaseal back in November of 2022 and is here today to discuss having a procedure on her left leg. She is experiencing cramping occasionally but no pain. Accompanied by: Self / Same As Patient Allergies lisinopril Allergy (Severe, Verified 08/12/24 13:17) Angioedema HPI HPI VV/Leg pain s/p 12/29/22 right gsv venaseal: Details: Very pleasant 74-year-old female well known to us for prior venous procedures nearly 2 years ago presents for repeat swelling and discomfort. She reports that it is left more so than right. She does note some cramping along with some mild swelling and itching. It has progressively gotten worse over the last several months. She has been using compression since her initial procedure which was dated back to 01/15/2023. She now presents for follow-up evaluation. [facility] Medical History Adenocarcinoma Chronic stable angina Angina pectoris Elevated cholesterol Osteopenia Renal calculi Left bundle branch block Diabetes Palpitations CAD (coronary artery disease) GERD (gastroesophageal reflux disease) Elevated LFTs Elevated glucose Rash and nonspecific skin eruption Angioedema Encounter to establish care Ductal carcinoma in situ of right breast Surgical History Hx of colonoscopy History of esophagogastroduodenoscopy (EGD) History of total hysterectomy with bilateral salpingo-oophorectomy (BSO) Social History Housing: Apartment Patient Tobacco Use Status: Never used Tobacco e-Cigarette/Vaping Use: Never Used Second Hand Smoke Exposure: No service: No Current occupational status: retired Cognitive needs: No Hearing needs: No Vision needs: Yes (glasses) Review of Systems Const Reports as per HPI ENT Reports no additional complaints Card Denies chest pain, Denies chest pain at rest and Denies chest pain with activity Resp Denies chest congestion and Denies cough GI Reports no additional complaints Musc Details: pain over varicosities, aching of lower extremities, swelling, cramping, heaviness and tiredness, itching Denies abnormal gait Skin/Breast Reports pruritus and Denies wounds Neuro Reports no additional complaints and Denies abnormal gait Psych Denies no additional complaints Physical Exam Const General: cooperative, healthy appearing and comfortable Orientation/consciousness: oriented to person, oriented to place and oriented to time Neck Carotids: no bruits Chest Chest palpation & inspection: normal inspection of the chest and normal palpation of entire chest wall Resp Effort & Inspection: normal respiratory effort and able to speak in complete sentences Cardio Rate: regular rate Heart sounds: S1 normal heart sound present and S2 normal heart sound present Peripheral pulses: Peripheral pulses 2+ throughout GI Inspection: Yes normal to inspection Skin Other: +2 edema, CEAP Classification C4 - skin color changes Ep - Etiology Primary As - superficial veins P - reflux General skin exam: dry skin Neuro General: oriented to person, oriented to place and oriented to time Extrem Right lower extremity: full ROM, normal capillary refill and edema Left lower extremity: full ROM, normal capillary refill and edema Psych Mental Status: mental status grossly normal Assessment & Plan Assessment & Plan (1) Varicose veins of left lower extremity with inflammation: Code(s): I83.12 - Varicose veins of left lower extremity with inflammation Category: Medical Plan: Patient appears to have recurrent symptoms of venous disease. We did reinforce conservative measures including compression, elevation, exercise. Have taken the liberty of ordering repeat venous insufficiency testing to see the status of her prior treatments and if recurrent disease has occurred. She will follow up with us after testing. Thank you for allowing us to assist in her care. If there are any questions or concerns please do not hesitate to contact us (2) Varicose veins of right lower extremity with inflammation: Comment: 12/29/2022 right great saphenous vein Cyanoacralate ablation Code(s): I83.11 - Varicose veins of right lower extremity with inflammation Category: Medical Plan: See above Orders: Orders US venous duplex LE BI 1 Week I83.12 - Varicose veins of left lower extremity with inflammation Coding Level of Care Code Est Pt Level 4 (20428) Diagnoses Varicose veins of left lower extremity with inflammation I83.12 Varicose veins of right lower extremity with inflammation I83.11
== END 2024-08-12 13:29 | disposition home or self-care (01) ==
PROVIDERS: PCP Internal Medicine; Visit Provider Surgery Vascular Surgery
DX: I83.12 Varicose veins of left lower extremity with inflammation (principal); I83.11 Varicose veins of right lower extremity with inflammation
CPT/HCPCS: 99214

== ENCOUNTER → 2024-08-12 13:09 | Outpatient (BNVA) | payer OTHER, SELFPAY | PROVIDERS: PCP Internal Medicine; Visit Provider Surgery Vascular Surgery | DX: I83.12 Varicose veins of left lower extremity with inflammation (principal); I83.11 Varicose veins of right lower extremity with inflammation; Z98.890 Other specified postprocedural states | CPT/HCPCS: 99212 ==

== ENCOUNTER 2024-08-25 10:26 | Outpatient (REF) | payer OTHER, SELFPAY ==
--- NOTE | ~2024-08-25 | US_ITS ---
EXAMINATION: US LOWER EXTREMITY VENOUS (REFLUX EXAM), BILATERAL CLINICAL INDICATION: Varicose veins COMPARISON: None. TECHNIQUE: Color flow triplex imaging and compression Doppler was performed to evaluate both the deep and the superficial systems bilaterally. To evaluate the superficial system, the examination was performed in the upright position. Color-flow Doppler ultrasound and compression ultrasound were utilized. In addition, maneuvers were utilized to demonstrate reflux. FINDINGS: 1. DEEP VENOUS ULTRASOUND OF THE RIGHT LOWER EXTREMITY: Common Femoral Vein: Compressible, normal respiratory variation and augmented flow. Femoral Vein: Compressible, normal color flow and augmentation. Popliteal Vein: Compressible, normal augmentation. Deep Reflux: There is no evidence of reflux in the deep system in either the common femoral vein, superficial femoral or the popliteal vein. There is no evidence of a Kate's cyst. 2. SUPERFICIAL ULTRASOUND WITH DOPPLER OF RIGHT LOWER EXTREMITY: GREAT SAPHENOUS VEIN: Saphenofemoral Junction: 0.4 cm; Reflux: 0 ms Proximal Thigh: 0.3 cm; Reflux: 0 ms Mid Thigh: occluded Above Knee: occluded At Knee: 0.2 cm; Reflux: 0 ms Below Knee: 0.2 cm; Reflux: 0 ms Mid Calf: 0.2 cm; Reflux: 0 ms Ankle: 0.2 cm; Reflux: 0 ms DUPLICATED MEDIAL GREAT SAPHENOUS VEIN: Diameter: None imaged Reflux: NA DUPLICATED LATERAL GREAT SAPHENOUS VEIN: Diameter: None imaged Reflux: NA SMALL SAPHENOUS VEIN: Saphenopopliteal Junction: 0.4 cm; Reflux: 0 ms Proximal: 0.1 cm; Reflux: 0 ms Distal: 0.2 cm; Reflux: 0 ms VEIN OF GIACOMINI: Size: NA Reflux: NA PERFORATORS: Location: None imaged Size: NA Reflux: NA VARICOSITIES: Location: None imaged Size: NA Reflux: NA 3. DEEP VENOUS ULTRASOUND OF THE LEFT LOWER EXTREMITY: Common Femoral Vein: Compressible, normal respiratory variation and augmented flow. Femoral Vein: Compressible, normal color flow and augmentation. Popliteal Vein: Compressible, normal augmentation. Deep Reflux: There is no evidence of reflux in the deep system in either the common femoral vein, superficial femoral or the popliteal vein. There is no evidence of a Kate's cyst. 4. SUPERFICIAL ULTRASOUND WITH DOPPLER OF LEFT LOWER EXTREMITY: GREAT SAPHENOUS VEIN: Saphenofemoral Junction: 0.6 cm; Reflux: 0 ms Proximal Thigh: 0.3 cm; Reflux: 0 ms Mid Thigh: 0.1 cm; Reflux: 0 ms Above Knee: 0.2 cm; Reflux: 0 ms At Knee: 0.3 cm; Reflux: 3488 ms Below Knee: 0.3 cm; Reflux: 0 ms Mid Calf: 0.3 cm; Reflux: 0 ms Ankle: 0.2 cm; Reflux: 0 ms DUPLICATED MEDIAL GREAT SAPHENOUS VEIN: Diameter: None imaged Reflux: NA DUPLICATED LATERAL GREAT SAPHENOUS VEIN: Diameter: None imaged Reflux: NA SMALL SAPHENOUS VEIN: Saphenopopliteal Junction: 0.3 cm; Reflux: 0 ms Proximal: 0.2 cm; Reflux: 0 ms Distal: 0.2 cm; Reflux: 1428 ms VEIN OF GIACOMINI: Size: NA Reflux: NA PERFORATORS: Location: 0.2cm Size: Mid thigh Reflux: NA VARICOSITIES: Location: 0.3cm Size: Prox alfaro Reflux: NA US/US venous duplex LE BI IMPRESSION: 1. Right: The great saphenous vein is occluded in the mid thigh and above the knee. No reflux in the remaining great saphenous vein. 2. Left: Focal reflux in the great saphenous vein at the knee. Reflux in the small saphenous vein at the distal calf. Electronically signed by: Christa Parr MD 08/28/2024 02:31 PM EDT
== END 2024-08-25 10:27 | disposition home or self-care (01) ==
LOC: HO.US 10:26
PROVIDERS: PCP Internal Medicine; Visit Provider Surgery Vascular Surgery
DX: I83.12 Varicose veins of left lower extremity with inflammation (principal)
CPT/HCPCS: 93970

== ENCOUNTER 2024-09-04 14:00 | Outpatient (AMB) | payer OTHER, SELFPAY ==
--- NOTE | 2024-09-04 14:16 | A.OFFVIS_ITS ---
Intake Vital Signs 09/04/24 14:23 Height 5 ft 4 in Weight 113 lb BMI 19.4 BP 120/70 Blood Pressure Location Lt brachial Position Sitting Intake Visit Reasons: swv [id number] [employer] Required: No Accompanied by: Self / Same As Patient Allergies lisinopril Allergy (Severe, Verified 09/04/24 14:37) Angioedema Medication List - Last Reconciled 09/04/24 by Randi Thompson MD amlodipine 5 mg PO DAILY aspirin (Ecotrin Low Strength) 81 mg PO DAILY aspirin 81 mg PO DAILY 90 days blood pressure monitor As directed blood sugar diagnostic (SongviceTouch Ultra Test strips) test daily blood-glucose meter (Sebeniecher Appraisalsuch Ultra2 Meter) test daily cholecalciferol (vitamin D3) 25 mcg PO DAILY folic acid 1 mg PO DAILY lancets (SongviceTouch UltraSoft 2 Lancet) test daily lidocaine 5% 1 patch topical DAILY meclizine 25 mg PO TID PRN metformin 500 mg PO .every other day 90 days metoprolol succinate ER 50 mg PO DAILY omeprazole 40 mg PO DAILY rosuvastatin 10 mg PO DAILY HPI HPI Comments History of Present Illness Details This is a 74-year-old female with diabetes mellitus type 2 that comes accompanied by for her Medicare wellness exam. A1c within goal. Mammogram done less than a year ago. Colonoscopy done few years ago. Ppp handed to patient. [place] of care up to date. Complains of loss of balance and I will order a cane. [facility] Medical History (Updated 09/04/24 @ 17:20 by Randi Thompson MD) Adenocarcinoma Chronic stable angina Angina pectoris Elevated cholesterol Osteopenia Renal calculi Left bundle branch block Diabetes Palpitations CAD (coronary artery disease) GERD (gastroesophageal reflux disease) Elevated LFTs Elevated glucose Rash and nonspecific skin eruption Angioedema Encounter to establish care Ductal carcinoma in situ of right breast Surgical History Hx of colonoscopy History of esophagogastroduodenoscopy (EGD) History of total hysterectomy with bilateral salpingo-oophorectomy (BSO) Family History (Updated 09/04/24 @ 14:43 by Randi Thompson MD) Father Hypertension Mother No problems noted. Sister Uterine cancer Social History Housing: Apartment Patient Tobacco Use Status: Never used Tobacco e-Cigarette/Vaping Use: Never Used Second Hand Smoke Exposure: No service: No Current occupational status: retired Cognitive needs: No Hearing needs: No Vision needs: Yes (glasses) Questionnaire Medicare Wellness Checkup [age] What gender do you identify with?: female During the past 4 weeks, how much have you been bothered by emotional problems such as feeling anxious, depressed, irritable, sad or downhearted, and blue?: not at all During the past 4 weeks, has your physical & emotional health limited your social activities with family, friends, neighbors, or groups?: not at all During the past 4 weeks, how much bodily pain have you generally had?: mild pain During the past 4 weeks, was someone available to help you if you needed & wanted help?: no, not at all During the past 4 weeks, what was the hardest physical activity you could do for at least 2 minutes?: light Can you get to places out of walking distance without help? (For eg., can you travel alone on buses, taxis or drive your car?): Yes Can you go shopping for groceries or clothes without someone's help?: Yes Can you prepare your own meals?: Yes Can you do your housework without help?: Yes Because of any health problems, do you need the help of another person with your personal care needs such as eating, bathing, dressing or getting around the house?: No Can you handle your own money without help?: Yes During the past 4 weeks, how would you rate your health in general?: fair During the past 4 weeks how have things been going for you?: pretty well Are you having difficulties driving your car?: yes, often Do you always fasten your seat belt when you are in a car?: yes, sometimes During past 4 weeks, have you been bothered by the following: never: Falling or dizzy when standing up and Sexual problems? and sometimes: Trouble eating well?, Teeth or denture problems?, Problems using the telephone? and Tiredness or fatigue? Have you fallen 2 or more times in the past year?: No Are you afraid of falling?: Yes Are you a smoker?: no During the past 4 weeks, how many drinks of wine, beer, or other alcoholic beverages did you have?: no alcohol at all Do you exercise for about 20 minutes 3 or more times a week?: no, I usually do not exercise this much Have you been given information to help with the following?: yes: Keeping track of your medications? and no: Hazards in your house that might hurt you? How often do you have trouble taking medicines the way you have been told to take them?: I always take medicine as prescribed How confident are you that you can control & manage most of your health problems?: somewhat confident What is your race?: or origin or descent Mini Mental State Exam (MMSE) Orientation What is the (year) (season) (date) (day) (month)?: year, season, date, day and month Where are we (state) (county) (town or city) (hospital) (floor)?: state, county, town or city, hospital/clinic and floor Registration Name of 3 unrelated objects clearly and slowly, then ask patient to repeat all 3 of them. (1st repeat determines score. Make sure they can repeat all three): object 1, object 2 and object 3 Attention & Calculation (CHOOSE ONE) Spell WORLD backwards (DLROW): 5 letters Recall Ask patient to repeat the 3 items from question #3.: object 1, object 2 and object 3 Language Show patient a wristwatch & ask what it is. Repeat for pencil.: watch and pencil Ask the patient to repeat the phrase 'No ifs, ands, or buts' after you.: correct Ask the patient to 'take a piece of paper with their right hand' 'fold paper in half' 'place paper on floor': take paper in right hand, fold paper in half and place paper on floor Print the sentence 'CLOSE YOUR EYES' on a piece. If patient actually closes eyes then score.: followed written direction Give patient a blank piece of paper & ask to write a sentence. Score if it contains a noun & verb.: sentence contains subject and verb Ask patient to copy figure of intersecting pentagons exactly. Score if all 10 angles & 2 intersects are included.: all 10 angles present & 2 are intersected Score Score: 30 Activity of Daily Living Bathing - sponge bath, tub bath or shower: receives no assistance (gets in/out by self, if usual bathing means Dressing - getting clothes from closets & drawers, including inner/outer garments & fasteners.: gets clothes & gets completely dressed without help Toileting - going to the 'toilet room' for urine/bowel elimination & cleaning self/arranging clothes: goes to toilet room, cleans self, arranges clothes with out help Transfer: moves in & out of bed and chair without help (may use support object) Continence: controls urination/bowel movements completely by self Feeding: feeds self without help Total Score: 0 Information obtained from: patient Using telephone: independent Traveling: needs assistance Shopping: needs assistance Preparing meals: independent Housework: needs assistance Taking medicine: independent Managing money: independent PHQ-9 Over the last 2 weeks, how often have you been bothered by any of the following problems? 1. Little interest or pleasure in doing things: not at all 2. Feeling down, depressed, or hopeless: not at all 3. Trouble falling or staying asleep, or sleeping too much: not at all 4. Feeling tired or having little energy: not at all 5. Poor appetite or overeating: not at all 6. Feeling bad about yourself - or that you are a failure or have let yourself or your family down: not at all 7. Trouble concentrating on things, such as reading the newspaper or watching television: not at all 8. Moving or speaking so slowly that other people could have noticed. Or the opposite - being so fidgety or restless that you have been moving around a lot more than usual: not at all 9. Thoughts that you would be better off or of hurting yourself in some way: not at all Total score: 0 Depression Screening Interpretation: Negative Depression Screening Done: Yes 03212 - PHQ-9 Billing: Yes Source: Developed by Drs. Jorge Johnson, Diana Mcelroy, Arnaud Ortega and colleagues, with an educational tori from [employer]. Fall Risk Assessment Fall Risk Assessment Fall risk assessment: No Falls in past year Thrive Questionnaire Date Thrive assessed: 09/04/24 I am a: Patient What is your living situation today?: I have a steady place to live Within the past 12 months, did the food you bought not last and you didn't have the money to get more?: Never true Within the past 12 months, did you worry whether your food would run out before you got money to buy more?: Never true Do you have trouble paying for medicines?: No Do you have trouble getting transportation to medical appointments?: No Do you have trouble paying your heating and electricity bill?: No Do you have trouble taking care of your child, family member or friend?: No Do you have trouble with day-to-day activities such as bathing, preparing meals, shopping, managing finances, etc.?: No Are you currently unemployed and looking for a job?: No Are you interested in more education?: No Please select the resources that you would like help with: None Currently or been in a relationship where the following occur: No concerns reported THRIVE Score: 0 AUDIT C Alcohol Use Questionnaire (AUDIT-C) 1. How often do you have a drink containing alcohol?: Never Total Score: 0 Score Reviewed/Action Taken: No SHEREE-7 AMB Questionnaire SHEREE-7 Date SHEREE - 7 assessed: 09/04/24 Feeling nervous, anxious, or on edge: 0 = Not at all Not being able to stop or control worryin = Not at all Worrying too much about different things: 0 = Not at all Trouble relaxin = Not at all Being so restless that it is hard to sit still: 0 = Not at all Becoming easily annoyed or irritable: 0 = Not at all Feeling afraid as if something awful might happen: 0 = Not at all Total SHEREE-7 score (0-4 normal; 5-9 mild; 10-14 moderate; 15-21 severe): 0 Source: Developed by Drs. Jorge Johnson, Diana Mcelroy, Arnaud Ortega and colleagues, with an educational tori from [employer]. SHEREE-7 Assessment Billing SHEREE-7 Assessment Tool: SHEREE-7 Assessment 57438 Review of Systems Const All systems reviewed & are unremarkable except as noted in HPI and below Card Denies chest pain at rest, Denies chest pain with activity, Denies edema, Denies irregular heart rhythm, Denies claudication, Denies dyspnea, Denies dyspnea on exertion, Denies orthopnea, Denies paroxysmal nocturnal dyspnea and Denies slow heart rate Resp Denies cough, Denies dyspnea and Denies dyspnea on exertion GI Denies abdominal pain, Denies change in bowel habits, Denies excessive flatus, Denies nausea and Denies vomiting Denies urinary incontinence, Denies urinary hesitancy and Denies urinary urgency Musc Denies atrophy, Denies deformity and Denies limited range of motion Physical Exam Vital Signs: Last Vital Signs BP 120/70 09/04/24 14:23 BMI result Body Mass Index 19.4 Const General: cooperative Orientation/consciousness: patient oriented x3 Resp Effort & Inspection: normal respiratory effort Auscultation: clear to auscultation bilaterally Cardio Jugular venous distension: no JVD Rate: regular rate Rhythm: regular rhythm Heart sounds: S1 normal heart sound present and S2 normal heart sound present Neuro General: patient oriented x3 and no focal motor deficits Gait exam (Neuro): Normal gait present Romberg Test: Negative Extrem General: Yes full ROM Office Procedures Flu Questionnaire Does the patient have a severe egg allergy?: No Does the patient have severe life threatening allergies?: No Does the patient have a fever or illness today?: No Has the patient ever had Guillain-[place] Syndrome?: No Has the patient ever had any past reaction to a flu shot?: No Results AMB Hemoglobin A1c AMB Hemoglobin A1c 5.9 % Last Edit by JEFF Kamara on 09/04/24 14:3 5 Immunizations Fluarix Triv [id number] (PF) 45 mcg (15 mcg x 3)/0.5 mL IM syringe Performing Provider: Randi Thompson MD Performing Location: [facility] Administered by: JEFF Kamara on 09/04/24 15:07 Dose Route Admin Location Dispensed Lot Number Expiration Date [employer] 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5 mL IM Right Deltoid 0.5 mL [id number] 06/26/25 [employer] VIS Given Date VIS Provided VIS Publication Date 09/04/24 Single Vaccine 21 Eligibility Eligibility Date Funding Source Not [facility] Eligible 09/04/24 Private Results Reviewed Results Reviewed: Laboratory Last Values Hgb A1c (Clinic) 5.9 % (4.0-6.0) 09/04/24 14:15 Assessment & Plan Assessment & Plan (1) Encounter for Medicare annual wellness exam: Code(s): Z00.00 - Encounter for general adult medical examination without abnormal findings Plan: Repeat in a year. 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 A1c within goal. Orders: Orders AMB Hemoglobin A1c Today E11.9 - Type 2 diabetes mellitus without complications Lipid Panel 6 Months E78.5 - Hyperlipidemia, unspecified Microalbumin, Random (w Creat) 6 Months R80.9 - Proteinuria, unspecified Influenza [id number] Immunization Today Z23 - Encounter for immunization Pneumococcal 20 Immunization Today Z23 - Encounter for immunization Vitamin D 25-OH Total 6 Months E55.9 - Vitamin D deficiency, unspecified Comprehensive [place]. Panel Fast 6 Months I63.81 - Other cerebral infarction due to occlusion or stenosis of small artery Medications: New cane As directed 1 ea 0RF I63.81 - Other cerebral infarction due to occlusion or stenosis of small artery, R26.89 - Other abnormalities of gait and mobility Quality Reporting (2020) Fall Risk Screening ([facility] 139) Fall risk assessment: No Falls in past year Depression/Bipolar (159/160/161/177) PHQ-9: Total score: 0 Coding Level of Care Code Medicare Subsequent (G0439) Diagnoses Encounter for Medicare annual wellness exam Z00.00 Type 2 diabetes mellitus without complication, without long-term current use of insulin E11.9 Diabetes mellitus type: type 2 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
[2024-09-04 14:23] VITALS: BP 120/70; BMI 19.4
== END 2024-09-04 15:09 | disposition home or self-care (01) ==
PROVIDERS: PCP Internal Medicine; Visit Provider Internal Medicine
DX: Z00.00 Encounter for general adult medical examination without abnormal findings (principal); E11.9 Type 2 diabetes mellitus without complications; Z23 Encounter for immunization

== ENCOUNTER → 2024-09-04 14:00 | Outpatient (BNVA) | payer OTHER, SELFPAY | PROVIDERS: PCP Internal Medicine; Visit Provider Internal Medicine | DX: Z00.00 Encounter for general adult medical examination without abnormal findings (principal); Z23 Encounter for immunization; E11.9 Type 2 diabetes mellitus without complications | CPT/HCPCS: 83036; 90471; 90656; 90677; 96127 ==

== ENCOUNTER 2024-09-16 14:56 | Outpatient (AMB) | payer OTHER, SELFPAY ==
--- NOTE | 2024-09-16 14:59 | A.OFFVIS_ITS ---
Intake Visit Reasons: Follow Up 08/25 [facility] Intake Note: Patient presents for follow up US. No complaints. Accompanied by: Self / Same As Patient Allergies lisinopril Allergy (Severe, Verified 09/16/24 15:00) Angioedema HPI HPI Follow Up 08/25 [facility]: Details: Very pleasant 74-year-old female presents for routine follow-up regarding venous insufficiency. She has some swelling and cramping. She had initial procedures done back in December of 2022 and was concerned that she may have recurrent venous disease. She reports that she is doing fairly well with her compression. She actually were her compression to her visit. She now presents for routine follow-up. [facility] Medical History Adenocarcinoma Chronic stable angina Angina pectoris Elevated cholesterol Osteopenia Renal calculi Left bundle branch block Diabetes Palpitations CAD (coronary artery disease) GERD (gastroesophageal reflux disease) Elevated LFTs Elevated glucose Rash and nonspecific skin eruption Angioedema Encounter to establish care Ductal carcinoma in situ of right breast Surgical History Hx of colonoscopy History of esophagogastroduodenoscopy (EGD) History of total hysterectomy with bilateral salpingo-oophorectomy (BSO) Family History (Updated 09/04/24 @ 14:43 by Randi Thompson MD) Father Hypertension Mother No problems noted. Sister Uterine cancer Social History Housing: Apartment Patient Tobacco Use Status: Never used Tobacco e-Cigarette/Vaping Use: Never Used Second Hand Smoke Exposure: No service: No Current occupational status: retired Cognitive needs: No Hearing needs: No Vision needs: Yes (glasses) Review of Systems Const All systems reviewed & are unremarkable except as noted in HPI and below Reports no additional complaints ENT Reports Normal hearing present Card Denies chest pain, Denies chest pain at rest, Denies chest pain with activity and Denies pedal edema Resp Denies cough GI Denies abdominal pain Musc Denies abnormal gait, Denies muscle cramps and Denies radiating pain into limb Skin/Breast Denies skin ulcer and Denies wounds Neuro Reports Normal hearing present and Denies abnormal gait Psych Reports no additional complaints Physical Exam Const General: cooperative, healthy appearing and comfortable Orientation/consciousness: oriented to person, oriented to place and oriented to time HEENT Head: Yes normal to inspection Neck Neck: Yes normal visual inspection Carotids: no bruits Chest Chest palpation & inspection: normal inspection of the chest Resp Effort & Inspection: normal respiratory effort and able to speak in complete sentences Auscultation: clear to auscultation bilaterally, no crackles, no rales, no rhonchi and no wheezes Cardio Rate: regular rate Rhythm: regular rhythm Heart sounds: S1 normal heart sound present and S2 normal heart sound present Bruits: no carotid bruits Peripheral pulses: Peripheral pulses 2+ throughout GI Inspection: Yes normal to inspection Skin Wounds: no wounds Hair: normal Neuro General: oriented to person, oriented to place and oriented to time Cranial nerves: Yes CN's II-XII intact bilaterally and Yes Normal hearing present Cognition (Neuro): normal cognition Motor exam (neuro): 5/5 motor strength present throughout Extrem Other: venous exam: No significant superficial varicosities or spider telangiectasias, minimal edema General: No clubbing, No cyanosis and No edema Psych Appearance: grossly normal Mental Status: mental status grossly normal Speech and movement: Normal speech and movement present Results Reviewed Results Reviewed: Brief summary of venous insufficiency testing is as follows: right great saphenous vein: negative right small saphenous vein: negative right accessory vein: none present left great saphenous vein: negative left small saphenous vein: negative left accessory vein: none present Please note there is no evidence of any venous aneurysms or significant tortuosity Assessment & Plan Assessment & Plan (1) Varicose veins of right lower extremity with inflammation: Comment: 12/29/2022 right great saphenous vein Cyanoacralate ablation Code(s): I83.11 - Varicose veins of right lower extremity with inflammation Category: Medical Plan: In short the patient is negative for any additional venous insufficiency. At the current time I would recommend continued conservative measures including compression elevation and exercise. She will follow up with us on an as-needed basis. Thank you for allowing us to assist in her care. If there are any q uestions or concerns please do not hesitate to contact us. Coding Level of Care Code Est Pt Level 4 (89599) Diagnoses Varicose veins of right lower extremity with inflammation I83.11
== END 2024-09-16 15:25 | disposition home or self-care (01) ==
PROVIDERS: PCP Internal Medicine; Visit Provider Surgery Vascular Surgery
DX: I83.11 Varicose veins of right lower extremity with inflammation (principal)
CPT/HCPCS: 99214

== ENCOUNTER → 2024-09-16 14:56 | Outpatient (BNVA) | payer OTHER, SELFPAY | PROVIDERS: PCP Internal Medicine; Visit Provider Surgery Vascular Surgery | DX: I83.11 Varicose veins of right lower extremity with inflammation (principal) | CPT/HCPCS: 99212 ==

== ENCOUNTER 2024-09-24 13:21 | Outpatient (REF) | payer OTHER, SELFPAY ==
--- NOTE | ~2024-09-24 | MM_ITS ---
EXAMINATION: MM SCREENING DIGITAL BREAST TOMOSYNTHESIS, BILATERAL CLINICAL INFORMATION: Screening. Asymptomatic. COMPARISON: Mammography: Comparison is made with available priors TECHNIQUE: Digital breast mammography with tomosynthesis is performed in both the craniocaudal and mediolateral oblique views along with computer-aided detection (CAD). FINDINGS: The breasts are heterogeneously dense, which may obscure small masses (ACR BI-RADS breast composition Category c). Right lumpectomy changes. There are no significant masses, abnormal calcifications, or other abnormalities. MM/MM tomosynthesis screening BI IMPRESSION: No mammographic evidence of malignancy. ASSESSMENT: BI-RADS BI-RADS 2 - Benign Findings RECOMMENDATION: Routine annual mammography screening. 1 year F/U This examination should not preclude the clinical evaluation of a suspicious palpable abnormality. This patient's information was entered into a reminder system with a target due date for their next mammogram. Electronically signed by: Sandie Mcdonald DO 10/03/2024 09:35 AM ANÍBAL
== END 2024-09-24 13:22 | disposition home or self-care (01) ==
LOC: HO.MAMMO 13:21
PROVIDERS: PCP Internal Medicine; Visit Provider Internal Medicine
DX: Z12.31 Encounter for screening mammogram for malignant neoplasm of breast (principal)
CPT/HCPCS: 77063; 77067

== ENCOUNTER → 2024-09-24 13:30 | Outpatient (BNV) | payer OTHER, SELFPAY | PROVIDERS: PCP Internal Medicine; Visit Provider Internal Medicine | DX: Z12.31 Encounter for screening mammogram for malignant neoplasm of breast (principal) | CPT/HCPCS: 77063; 77067 ==

== ENCOUNTER 2024-11-20 09:02 | Emergency (ER) | payer OTHER, SELFPAY ==
[2024-11-20 09:11] VITALS: BP 153/76; PULSE 65; RESP 16; TEMP 36.6; O2SAT 99; BMI 19.5
--- NOTE | 2024-11-20 09:37 | ED.URI ---
HPI - URI/Sore Throat General Chief Complaint: Upper Respiratory Symptoms Stated Complaint: sore throat Time Seen by Provider: 11/20/24 09:35 Source: patient, family and investor relations analyst Mode of arrival: ambulatory Limitations: language barrier History of Present Illness ED Provider: Rose Marie Stewart PA-C HPI Narrative: This is a 74-year-old female, with a history of left bundle-branch block, diabetes, CAD, GERD, who presents emergency department with complaints of sore throat x3 days. Patient states that her is currently sick with RSV. She denies any fevers, chest pain, shortness of breath, headaches. She denies any cough, abdominal pain, nausea, vomiting. She does report that she has had 1 episode of diarrhea which was yesterday, denies any bloody or black stool. No other complaints or concerns at this time. MD elicited complaint: cough, sore throat, rhinorrhea and nasal congestion Onset (ago): day(s) Consistency: constant Severity: moderate Able to tolerate fluids by mouth: Yes Exacerbating factors: nothing Relieving factors: NSAID Context: sick contacts Associated symptoms: rhinorrhea, nasal congestion, sore throat and cough Treatments prior to arrival: none Related Data Previous Rx's ?Medication ?Instructions ?Recorded blood pressure monitor #1 ea 05/11/23 aspirin 81 mg tablet,delayed 81 mg PO DAILY #90 tabs 11/28/23 release (Ecotrin Low Strength) meclizine 25 mg tablet 25 mg PO TID PRN dizziness #20 tabs 12/23/23 amlodipine 5 mg tablet 5 mg PO DAILY #90 tabs 06/03/24 aspirin 81 mg tablet,delayed 81 mg PO DAILY 90 days #90 tabs 06/03/24 release cholecalciferol (vitamin D3) 25 25 mcg PO DAILY #90 tabs 06/03/24 mcg (1,000 unit) tablet lidocaine 5 % topical patch 1 patch topical DAILY #15 ea 06/03/24 metformin 500 mg tablet 500 mg PO .every other day 90 days 06/03/24 #45 tabs metoprolol succinate 50 mg 50 mg PO DAILY #90 tabs 06/03/24 tablet,extended release 24 hr rosuvastatin 10 mg tablet 10 mg PO DAILY #90 tabs 06/03/24 cane #1 ea 09/04/24 blood sugar diagnostic (OneTouch #100 ea 09/16/24 Ultra Test strips) blood-glucose meter (OneTouch #1 ea 09/16/24 Ultra2 Meter) lancets 30 gauge (OneTouch #200 ea 09/16/24 UltraSoft 2 Lancet) folic acid 1 mg tablet 1 mg PO DAILY #90 tabs 09/22/24 omeprazole 40 mg capsule,delayed 40 mg PO DAILY #30 caps 10/31/24 release acetaminophen 500 mg tablet 500 mg PO Q6H #30 tabs 11/20/24 (Tylenol Extra Strength) Allergies Allergy/AdvReac Type Severity Reaction Status Date / Time lisinopril Allergy Severe Angioedema Verified 11/20/24 09:16 Review of Systems Review of Systems: Yes all other systems are reviewed and are negative Constitutional: Constitutional: Reports as per [facility] Past Medical History Medical History Adenocarcinoma Chronic stable angina Angina pectoris Elevated cholesterol Osteopenia Renal calculi Left bundle branch block Diabetes Palpitations CAD (coronary artery disease) GERD (gastroesophageal reflux disease) Elevated LFTs Elevated glucose Rash and nonspecific skin eruption Angioedema Encounter to establish care Ductal carcinoma in situ of right breast Surgical History Hx of colonoscopy History of esophagogastroduodenoscopy (EGD) History of total hysterectomy with bilateral salpingo-oophorectomy (BSO) Family History Family History (Updated 09/04/24 @ 14:43 by Randi Thompson MD) Father Hypertension Mother No problems noted. Sister Uterine cancer Social History Social History Housing: Apartment Patient Tobacco Use Status: Never used Tobacco e-Cigarette/Vaping Use: Never Used Second Hand Smoke Exposure: No Advance Directives: No Advance Directives Information Provided: Yes service: No Current occupational status: retired Cognitive needs: No Hearing needs: No Vision needs: Yes (glasses) Physical Exam Vital Signs: Vital Signs: Last Vital Signs Temp 97.8 F 11/20/24 09:11 Pulse 65 11/20/24 09:11 Resp 16 11/20/24 09:11 BP 153/76 H 11/20/24 09:11 Pulse Ox 99 11/20/24 09:11 O2 Del Method Room Air 11/20/24 09:11 BMI result Body Mass Index 19.5 Const: General: cooperative, comfortable and no acute distress Orientation/consciousness: patient oriented x3 Limitations: no limitations HEENT: Other: Oropharynx is mildly erythematous, no tonsillar hypertrophy or exudates. No trismus, drooling, or dysphonia. Bilateral cervical lymphadenopathy noted. Head: Yes normal to inspection, Yes normocephalic and Yes atraumatic Ears: hearing grossly normal bilaterally and TM's normal bilaterally General nose exam: Normal external nose present Face and sinus: Yes normal facial exam Mouth: oropharynx normal and moist mucous membranes Throat: Yes uvula midline Eyes: General: appearance normal, both eyes and all related structures Eyelids: Yes eyelids normal Conjunctivae: conjunctivae normal Sclerae: sclerae normal Pupils: Equal, round and reactive pupils present EOM: EOMs intact bilaterally Neck: Neck: Yes normal visual inspection, Yes full ROM and Yes no lymphadenopathy Lymphatic: no lymphadenopathy noted Chest: Chest palpation & inspection: normal inspection of the chest Resp: Effort & Inspection: normal respiratory effort and able to speak in complete sentences Auscultation: clear to auscultation bilaterally, no crackles, no rales, no rhonchi and no wheezes Cardio: Rate: regular rate Rhythm: regular rhythm Heart sounds: S1 normal heart sound present and S2 normal heart sound present GI: Inspection: Yes normal to inspection Skin: General skin exam: no rashes or lesions noted Trauma: no lacerations or abrasions Wounds: no wounds Neuro: General: patient oriented x3 and moves all extremities Cranial nerves: Yes Equal, round and reactive pupils present Extrem: General: Yes normal to inspection Right upper extremity: normal to inspection Left upper extremity: normal to inspection Right lower extremity: normal to inspection Left lower extremity: normal to inspection Course Reevaluation(s) Reevaluation #1: Patient tested positive for RSV, discussed with patient. She has no shortness for breath, chest pain, vital signs within normal limits. She is only complaining of a sore throat therefore will discharge with Tylenol. Lungs are clear to auscultation bilaterally. Given strict return precautions. She understands agrees with plan. Patient stable for discharge. Time: 11:16 Medications Administered Discontinued Medications Generic Name Dose Route Start Last Admin Trade Name Freq PRN Reason Stop Dose Admin Acetaminophen 650 mg 11/20/24 10:46 11/20/24 11:18 Acetaminophen 325 Mg Tablet PO 11/20/24 10:47 650 mg ONCE ONE Administration Medical Decision Making Medical Decision Making [facility] Narrative: This is a 74-year-old Haitian-speaking female, with a history of GERD, CAD, left bundle branch block, who presents emergency department with complaints of sore throat x3 days. On arrival, vital signs revealing slight hypertension at 153/76, all other vital signs within normal limits. Oropharynx is mildly erythematous, no tonsillar hypertrophy or exudates. She is speaking in full sentences under no acute distress. She has no chest pain or shortness of breath. Differential diagnoses include RSV, COVID, flu, strep pharyngitis, tonsillitis, viral URI. Differential Diagnosis Differential Diagnoses: The differential diagnosis associated with the presentation includes See above Lab Data [facility] Lab Attestation statement: I reviewed the patient's lab results. Labs: Lab Results 11/20/24 Range/Units 10:25 Influenza Type A (PCR) NEGATIVE (Negative) Influenza Type B (PCR) NEGATIVE (Negative) RSV RNA Qual (PCR) POSITIVE A (Negative) SARS-CoV-2 RNA (RT-PCR) NEGATIVE (Negative) S. pyogenes GrpA SARAH Negative (Negative) Radiology Impression Discussion of test interpretation with radiology: I have reviewed the radiologist's reading. External Record Review External record reviewed: Inpatient record, Office record, Outpatient record, Prior outpatient labs, Prior outpatient radiology, Primary care record and Outside ED record Discharge Plan Discharge Clinical Impression: Respiratory syncytial virus (RSV) Patient Disposition: Home, Self-Care Instructions: Respiratory Syncytial Virus (ED) Additional Instructions: You were seen in the emergency department due to a sore throat. You did test positive for RSV. RSV is a virus that can cause sore throat, congestion, cough, shortness of breath. Please drink plenty of fluids get plenty of rest. Take Tylenol as needed for pain in your throat. Saltwater gargles, hot tea with honey, warm soups can help with your symptoms. If any new or worsening symptoms occur including but not limited to shortness of breath, chest pain, dizziness, blurred vision, severe headache, please seek emergent care. Prescriptions: New acetaminophen [Tylenol Extra Strength] 500 mg tablet 500 mg PO Q6H Qty: 30 0RF No Action aspirin [Ecotrin Low Strength] 81 mg tablet,delayed release (DR/EC) 81 mg PO DAILY Qty: 90 2RF (DME) blood-glucose meter [OneTouch Ultra2 Meter] Misc See Rx Instructions .Route Qty: 1 0RF Rx Instructions: test daily (DME) OneTouch Ultra Test Strip See Rx Instructions .Route Qty: 100 1RF Rx Instructions: test daily (DME) lancets [OneTouch UltraSoft 2 Lancet] 30 gauge misc See Rx Instructions .Route Qty: 200 1RF Rx Instructions: test daily folic acid 1 mg tablet 1 mg PO DAILY Qty: 90 0RF omeprazole 40 mg capsule,delayed release(DR/EC) 40 mg PO DAILY Qty: 30 1RF meclizine 25 mg tablet 25 mg PO TID PRN (Reason: dizziness) Qty: 20 0RF (DME) blood pressure monitor Kit See Rx Instructions .Route Qty: 1 0RF Rx Instructions: As directed amlodipine 5 mg tablet 5 mg PO DAILY Qty: 90 1RF aspirin 81 mg tablet,delayed release (DR/EC) 81 mg PO DAILY 90 Days Qty: 90 1RF cholecalciferol (vitamin D3) 25 mcg (1,000 unit) tablet 25 mcg PO DAILY Qty: 90 2RF lidocaine 5 % adhesive patch,medicated 1 patch topical DAILY Qty: 15 0RF Rx Instructions: leave on most painful area for up to 12 hrs metformin 500 mg tablet 500 mg PO .every other day 90 Days Qty: 45 1RF metoprolol succinate 50 mg tablet extended release 24 hr 50 mg PO DAILY Qty: 90 1RF rosuvastatin 10 mg tablet 10 mg PO DAILY Qty: 90 1RF naproxen 500 mg tablet 500 mg PO ONCE Qty: 1 0RF nitrofurantoin monohyd/m-cryst 100 mg capsule 100 mg PO ONCE Qty: 1 0RF lidocaine HCl 2 % jelly in applicator 10 ml intra-urethral ONCE Qty: 10 0RF (DME) cane Device See Rx Instructions .Route Qty: 1 0RF Rx Instructions: As directed Print Language: Haitian
[2024-11-20 10:48] LABS: IDNOW Serial# 6674DD1D; Strep A Nucleic Acid Negative (Negative)
[2024-11-20 11:10] LABS: Influenza A PCR NEGATIVE (Negative); Influenza B PCR NEGATIVE (Negative); Resp Syncy Virus RNA Qual PCR POSITIVE (Negative); SARS COV2 PCR INHOUSE NEGATIVE (Negative)
[2024-11-20] MEDS: Acetaminophen 325 MG TABLET 650 MG PO (11:18)
[2024-11-20 11:41] VITALS: BP 153/76; PULSE 65; RESP 16; TEMP 36.6; O2SAT 99
== END 2024-11-20 11:41 | disposition home or self-care (01) ==
PROVIDERS: Emergency Provider Emergency Medicine; PCP Internal Medicine
DX: J02.9 Acute pharyngitis, unspecified (principal); R05.9 Cough, unspecified; B97.4 Respiratory syncytial virus as the cause of diseases classified elsewhere; Z03.818 Encounter for observation for suspected exposure to other biological agents ruled out; J45.909 Unspecified asthma, uncomplicated
CPT/HCPCS: 0241U; 87651; 99283

== ENCOUNTER 2025-02-02 09:57 | Outpatient (AMB) | payer OTHER, SELFPAY ==
--- NOTE | 2025-02-02 09:58 | AM.OFFWIN_ITS ---
Intake Vital Signs 02/02/25 09:59 Weight 106 lb BP 132/80 Blood Pressure Location Rt brachial Position Sitting Pulse 72 Pulse Source Pulse Oximeter Temp 98.6 F Temp Source Oral Pulse Oximetry (%) 96 Oxygen Delivery Method Room Air Intake Visit Reasons: EP Cough, congestion Intake Note: Patient here congestion, cough that started Sunday night. Patient Tobacco Use Status: Never used Tobacco Allergies lisinopril Allergy (Severe, Verified 02/02/25 10:00) Angioedema Do you need a note to return to daycare/school/sports/work: No HPI HPI Comments History of Present Illness Details History The patient is a 74-year-old female presenting with cough and fever symptoms. - The onset of symptoms began with a run ny nose 4 days ago, with cough onset on Sunday morning. - Fever of 101?F was noted 2 days ago an d temporarily alleviated with Tylenol. - Additional symptoms such as shortness of breath, wheezing, nausea, vomiting, or diarrhea were absent. - No history of asthma or COPD. - Flu vaccination was administered this season; no prior COVID-19 test before this visit. - Nighttime cough affecting sleep contin ues without sinus or ear pain. Physical Exam General: Cooperative, healthy appearing, comfortable and no acute distress Orientation/consciousness: Patient oriented x3 Limitations: No limitations Head: Normal to inspection Ears: Hearing grossly normal bilaterally, external ears normal and TM's normal bilaterally Nose: Normal external nose present, Normal nares present and No nasal discharge present Face and sinus: Normal facial exam and Sinuses tender Mouth: Normal oral and palatal mucosa present and moist mucous membranes Throat: Yes tonsils normal, Yes uvula midline. Posterior oropharynx erythema Eyes: Appearance normal, both eyes and all related structures Neck: Normal visual inspection Respiratory: Clear to auscultation bilaterally. Normal respiratory effort, able to speak in complete sentences, Actively coughing, no respiratory distress, not tachypneic, no tripod positioning and no use of accessory muscles Cardiovascular: Regular rate and rhythm. Normal S1 and S2 Skin: No rashes or lesions noted Neuro: Patient oriented x3 Extremities: Normal to inspection and Yes no clubbing, cyanosis or edema [facility] Medical History Adenocarcinoma Chronic stable angina Angina pectoris Elevated cholesterol Osteopenia Renal calculi Left bundle branch block Diabetes Palpitations CAD (coronary artery disease) GERD (gastroesophageal reflux disease) Elevated LFTs Elevated glucose Rash and nonspecific skin eruption Angioedema Encounter to establish care Ductal carcinoma in situ of right breast Surgical History Hx of colonoscopy History of esophagogastroduodenoscopy (EGD) History of total hysterectomy with bilateral salpingo-oophorectomy (BSO) Family History (Updated 09/04/24 @ 14:43 by Randi Thompson MD) Father Hypertension Mother No problems noted. Sister Uterine cancer Social History Housing: Apartment Patient Tobacco Use Status: Never used Tobacco e-Cigarette/Vaping Use: Never Used Second Hand Smoke Exposure: No service: No Current occupational status: retired Cognitive needs: No Hearing needs: No Vision needs: Yes (glasses) Review of Systems Const All systems reviewed & are unremarkable except as noted in HPI and below Physical Exam Vital Signs: Last Vital Signs Temp 98.6 F 02/02/25 09:59 Pulse 72 02/02/25 09:59 BP 132/80 02/02/25 09:59 Pulse Ox 96 02/02/25 09:59 Oxygen Delivery Method Room Air 02/02/25 09:59 Assessment & Plan Assessment & Plan (1) URI, acute: Code(s): J06.9 - Acute upper respiratory infection, unspecified Plan: Testing for influenza, COVID-19, and RSV was carried out during the visit, with results expected the same day. In the event of a positive result for influenza, oseltamivir Tamiflu was considered, with detailed discussion of possible adverse effects; however, the patient preferred to forego this treatment unless necessary. Management includes prescribing a cough suppressant for nocturnal coughing and advising the use of fwtm-[id number] medications like Tylenol or ibuprofen to manage fever and symptoms. Emergency care should be sought if new symptoms like chest pain or shortness of breath arise. Patient was informed and verbally consented to the use of an ambient scribe for clinic note documentation during this visit Orders: Orders SARS-CoV2/FLU/RSV Today R09.89 - Other specified symptoms and signs involving the circulatory and respiratory systems Medications: New benzonatate 200 mg PO BEDTIME PRN 10 caps 0RF cough Coding Level of Care Code Est Pt Level 3 (37756) Diagnoses URI, acute J06.9
[2025-02-02 09:59] VITALS: BP 132/80; PULSE 72; TEMP 37; O2SAT 96
== END 2025-02-02 10:24 | disposition home or self-care (01) ==
PROVIDERS: PCP Internal Medicine; Visit Provider Physician Assistant
DX: J06.9 Acute upper respiratory infection, unspecified (principal)

== ENCOUNTER 2025-02-02 09:57 | Outpatient (REF) | payer OTHER, SELFPAY ==
[2025-02-02 14:16] LABS: Influenza A PCR POSITIVE (Negative); Influenza B PCR NEGATIVE (Negative); Resp Syncy Virus RNA Qual PCR NEGATIVE (Negative); SARS COV2 PCR INHOUSE NEGATIVE (Negative)
== END 2025-02-02 09:58 | disposition home or self-care (01) ==
LOC: HO.LAB 09:57
PROVIDERS: Physician Assistant; PCP Internal Medicine
DX: J06.9 Acute upper respiratory infection, unspecified (principal); R09.89 Other specified symptoms and signs involving the circulatory and respiratory systems
CPT/HCPCS: 0241U; 99212

== ENCOUNTER 2025-03-17 14:44 | Outpatient (AMB) | payer OTHER, SELFPAY ==
--- NOTE | 2025-03-17 14:46 | MHC.OFFVIS ---
Vital Signs 03/17/25 14:47 Height 5 ft 4 in Weight 104 lb 0.931 oz BMI 17.9 BP 120/70 Blood Pressure Location Lt brachial Position Sitting Pulse 65 Pulse Source Monitor Intake Visit Reasons: 1 yr f/up-echo Intake Note: 1 yr f/up-echo Quality Assurance Monitor Body Required: No Quality Assurance Monitor Body Name: shadia/son/urdu Accompanied by: Son Allergies lisinopril Allergy (Severe, Verified 02/02/25 10:00) Angioedema Medication List - Last Reconciled 03/17/25 by Tj Johns MD acetaminophen (Tylenol Extra Strength) 500 mg PO Q6H alprazolam 0.25 mg PO BID PRN 2 days amlodipine 5 mg PO DAILY aspirin 81 mg PO DAILY 90 days benzonatate 200 mg PO BEDTIME PRN blood pressure monitor As directed blood sugar diagnostic ([place] Medical[employer] Ultra Test strips) test daily blood-glucose meter ([employer] Ultra2 Meter) test daily cane As directed cholecalciferol (vitamin D3) 25 mcg PO DAILY folic acid 1 mg PO DAILY hydroxyzine HCl 25 mg PO BID PRN 14 days lancets ([employer] UltraSoft 2 Lancet) test daily lidocaine 5% 1 patch topical DAILY meclizine 25 mg PO TID PRN metformin 500 mg PO .every other day 90 days metoprolol succinate ER 50 mg PO DAILY omeprazole 40 mg PO DAILY rosuvastatin 10 mg PO DAILY HPI Comments Details: Yvette comes for follow-up, accompanied by his son who acts as supervisor gate services. Patient is taking all her medications. Denies any symptoms from cardiac perspective. No exertional chest pain or significant shortness of breath. No orthopnea, PND, leg edema. Blood pressures been generally well controlled. Denies any prolonged palpitation irregular heartbeat. No lightheadedness, syncope. [facility] Medical History Adenocarcinoma Chronic stable angina Angina pectoris Elevated cholesterol Osteopenia Renal calculi Left bundle branch block Diabetes Palpitations CAD (coronary artery disease) GERD (gastroesophageal reflux disease) Elevated LFTs Elevated glucose Rash and nonspecific skin eruption Angioedema Encounter to establish care Ductal carcinoma in situ of right breast Surgical History Hx of colonoscopy History of esophagogastroduodenoscopy (EGD) History of total hysterectomy with bilateral salpingo-oophorectomy (BSO) Family History Father Hypertension Mother No problems noted. Sister Uterine cancer Social History Housing: Apartment Patient Tobacco Use Status: Never used Tobacco e-Cigarette/Vaping Use: Never Used Second Hand Smoke Exposure: No service: No Current occupational status: retired Cognitive needs: No Hearing needs: No Vision needs: Yes (glasses) Review of Systems Const Denies chills, Denies fatigue, Denies fever(s), Denies frequent falls, Denies weakness, Denies weight gain and Denies weight loss ENT Denies dizziness Card Denies chest pain, Denies leg edema, Denies lightheadedness, Denies palpitations, Denies dyspnea and Denies dyspnea on exertion Resp Denies cough, Denies dyspnea and Denies dyspnea on exertion GI Denies hematochezia Musc Denies abnormal gait, Denies muscle weakness, Denies numbness, Denies radiating pain into limb and Denies tingling Neuro Denies abnormal gait, Denies dizziness, Denies frequent falls, Denies numbness, Denies tingling and Denies weakness Endo Denies fatigue and Denies palpitations Physical Exam Vital Signs: Last Vital Signs Pulse 65 03/17/25 14:47 BP 120/70 03/17/25 14:47 BMI result Body Mass Index 17.9 Const General: cooperative, healthy appearing, comfortable and no acute distress Nutritional Appearance: thin Orientation/consciousness: patient oriented x3 Neck Neck: Yes normal visual inspection and Yes no JVD Resp Effort & Inspection: normal respiratory effort Auscultation: clear to auscultation bilaterally, no crackles, no rales, no rhonchi and no wheezes Cardio Jugular venous distension: no JVD Rate: regular rate Rhythm: regular rhythm Heart sounds: S1 normal heart sound present, S2 normal heart sound present and no murmurs Neuro General: patient oriented x3 Extrem General: Yes normal to inspection and No no pedal edema Psych Appearance: grossly normal Mental Status: mental status grossly normal Speech and movement: Normal speech and movement present Office Procedures EKG Details: EKG shows normal sinus rhythm with left bundle-branch block, unchanged from before [id number], Complete Assessment & Plan Assessment & Plan (1) CAD (coronary artery disease): Code(s): I25.10 - Atherosclerotic heart disease of [place] coronary artery without angina pectoris Category: Medical Plan: Prior reported CAD from [place], details not available. Patient not aware of it. Currently on appropriate medications. Stable coronary artery disease. Currently on good medical therapy. Continue low-dose aspirin therapy for life. Continue statin therapy with target goal LDL less than 70 mg/dL continue aggressive blood pressure control which is currently well optimized. (2) Left bundle branch block: Code(s): I44.7 - Left bundle-branch block, unspecified Category: Medical Plan: Left bundle-branch block which is chronic. She was no symptoms related to it. No interventions required per se for the same. Will require EKGs on annual basis. Echocardiogram every 3 years. Will follow up in the clinic in 1 year's time, sooner p.r.n.. Thank you for allowing me to partake in her care Coding Level of Care Code Est Pt Level 4 (55271) Complex EM visit Add On G2211 Diagnoses CAD (coronary artery disease) I25.10 Left bundle branch block I44.7 CPT Codes EKG - CPT: 26805-[id number], Complete ([id number])
[2025-03-17 14:47] VITALS: BP 120/70; PULSE 65; BMI 17.9
--- OUTSIDE RECORDS SUMMARY | 2025-03-17 17:34 | XMS_ITS | Patient Health Record ---
Author Organization [facility] Address [address] [place] [address] Care Team Providers Care Radiator Specialist Name Role Phone RICKIE FREY Primary Care Provider [phone] Allergies No Known Allergies Reason For Referral No Information Medications Medication SIG (Take, Route, Frequency, Duration) Notes Start Date End Date Status Anastrozole 1 MG TAKE 1 TABLET BY NAINA TH EVERY DAY 10/18/2021 Active Cyanocobalamin 2500 MCG as directed Subl ingual Once a day 10/18/2021 Active Clopidogrel Bisulfate 75 MG TAKE 1 TABLE T BY MOUTH EVERY DAY for 100 Active Clotrimazole 1 % 1 application Coupon Collection Clerk ally Twice a day for 28 day(s) 08/22/2021 Active Vitamin D (Ergocalciferol) 84518 UNIT TAKE 1 CAPSULE BY MOUTH ONCE A WEEK Orally wkly for 90 days 08/22/2021 Active Breo Ellipta 100-25 MCG/INH 1 puff Inhal ation Once a day 10/18/2021 Active Omeprazole 40 MG 1 capsule Orally Onc e a day 08/22/2021 Active Alendronate Sodium 70 MG 1 tablet Orally 1 XWEEK 1 11/26/2020 Active CalciFol 1342-1.6 MG 1 wafer Orally Once a day 11/2020 Active Plavix 75 1 tablet Orally Once a day 10/18/2021 Active Prevnar 13 - as directed Intramus cular once for 1 days Active Clotrimazole-Betamethasone 1-0.05 % 1 application Externally Twice a day for 30 days 08/22/2021 Active Losartan Potassium 25 MG TAKE 1 TABLET B Y MOUTH EVERY DAY Orally Once a day 10/18/2021 Active Vitamin D (Ergocalciferol) 1.25 MG (18764 UT) TAKE 1 CAPSULE BY MOUTH EVERY WEEK Orally wkly for 90 days 10/18/2021 Active Tylenol 8 Hour Arthritis Pain 650 MG 2 tablets as needed Orally every 8 hrs for 30 days 10/18/2021 Active Rosuvastatin Calcium 10 MG TAKE ONE TABL ET BY MOUTH DAILY Orally Once a day 10/18/2021 Active Folic Acid 1 MG TAKE 1 TABLET BY NAINA TH EVERY DAY Orally Once a day for 90 days Active Metoprolol Succinate ER 50 MG TAKE 1 TABLET BY MOUTH EVERY DAY Orally Once a day 10/18/2021 Active Ranexa 500 MG 1 tablet Orally Twic e a day 10/18/2021 Active Immunizations Vaccine Route Administration Date Status Comme nts Influenza (split), preservat fernando free, 6-35 months Unknown 09/12/2018 Administered Influenza (split), preservat fernando free, 6-35 months Unknown 09/11/2019 Administered Pneumococcal polysaccharide PPV23 Unknown 09/14/2017 Ad ministered Social History Tobacco Use: Social History Observation Description Date Details (start date - stop date) Never Smoker NA - NA Tobacco Use/Smoking Question Answer Notes Are you a nonsmoker Alcohol Screen (Audit-C) Question Answer Notes Did you have a drink containing alcohol in the p ast year? No Points 0 Interpretation Negative Tobacco use other than smoking: Question Answer Notes Are you an other tobacco user? 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) Active confirmed Problem 02736475 Varicose veins o f bilateral lower extremities with pain (I83.813) Active confirmed Problem 27924544 HTN (hypertensio n), benign (I10) Active confirmed Problem 1345640279655249 Arthritis of kn ee, left (M17.12) Active confirmed Problem 57799630 Vitamin D defici ency (E55.9) Active confirmed Problem 275869247 Arthritis of kne e (M17.10) Active confirmed Problem 75270217 Hyperlipidemia L DL goal <100 (E78.5) Active confirmed Problem 035277560 Mild intermitten t asthma without complication (J45.20) Active confirmed Problem 408774411 Gastroesophageal reflux disease without esophagitis (K21.9) Active confirmed Problem 071524252 Chronic stable a ngina (I20.8) Active confirmed Problem 401882871 History of breas t cancer (Z85.3) Active confirmed Problem 71060284 Benign gastric p olyp (K31.7) Active confirmed Problem Pure hypercholesterolemia (987897461) Pure hypercholesterolemia (272.0) Active confirmed jose rafael-48 5222 Problem Mixed hyperlipidemia (960972735) Mixed hyperlipidemia (272.2) Active confirmed jose rafael-48 5222 Problem Essential hypertension (21714807) Unspecified essential hypertension (401.9) Active confirmed jose rafael-48 5222 Problem Acute bronchitis (35096213) Acute bronchitis (466.0) Active confirmed jose rafael-48 5222 Problem Acute gastritis (70177886) Acute gastritis (535.0) Active confirmed jose rafael-48 5222 Problem Chronic nonalcoholic liver disease (00726478) Other chronic nonalcoholic liver disease (571.8) Active confirmed jose rafael-48 5222 Problem Lumbago (295547170) Lumbago (724.2) Active conf irmed jose rafael-48 5222 Problem Depression screening (580811332) Screening for depression (V79.0) Active confirmed jose rafael-48 5222 Problem General examination of patient (009826705) Routine general medical examination at a health care facility (V70.0) Active confirmed jose rafael-48 5222 Problem Bursitis of right shoulder (274332456246789) Bursitis of right shoulder (726.10) Active confirmed jose rafael-48 5222 Problem Stable angina (528914900) Stable angina (413.9) Active confirmed mi g-48 5222 Problem Gastric polyposis (21191518) Gastric polyposis (211.1) Active confirmed jose rafael-48 5222 Problem Nodule of breast (793.89) Active confirmed jose rafael-48 5222 Problem Carcinoma in situ of breast (722413616) 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 09/11/2017 *Sed Rate (ESR) 09/11/2017 *Thyroxine (T4 Total). 09/11/2017 *TSH Ultra Sensitive (3rd Gen) 7 *Urinalysis. 09/11/2017 *Urinalysis. 07/24/2019 *Urinalysis. 01/27/2020 *Vitamin B12 & Folate. 09/11/2017 *VITAMIN D 25-HYDROXY 09/11/2017 *VITAMIN D 25-HYDROXY 07/08/2018 PA074- LIPID PANEL WITH NON-HDL CHOLESTE ROL 09/11/2017 888-Phlebotomy 09/11/2017 888-Phlebotomy 07/08/2018 34495-GTOAKBST BLOOD COUNT (CBC) WITH DI FFERENTIAL[203] 09/11/2017 999NS - Problem With Specimen (No Specim en Received) 04/07/2021 999NS - Problem With Specimen (No Specim en Received) 09/26/2021 [id number] IONIZED[[id number]] 9 Insurance Providers Payer Name Payer Address Payer Phone Subscriber Number Group Number Insured Name Patient Relationship to Insured Coverage Start Date Coverage End Date MEDICARE [address] [place] [address] [phone] [id number] Nehemiah riveraYvette Self - patient is the insured 3 [facility] Medicaid [address] [place] [phone] [id number] Nehemiah rivreaYvette Self - patient is the insured 0 MEDICAID [address] [place] [address] [id number] Nehemiah Yvette rivera Self - patient is the insured 2 Medical (General) History Medical History History ICD Code GASTRIC POLYPS, hypertenion gastritis hyperlipidemia fatty liver Bronchitis Ductal Ca in situ of breast Surgical History Surgery Date(Month/Year) CESAREA 1977 AND 1978, Rt breast Biopsy 04/2017 Uterus Cancer 10/18/2020
--- OUTSIDE RECORDS SUMMARY | 2025-03-17 17:34 | XMS_ITS | Continuity of Care Document ---
Author Organization [facility] Address [address] [place] [address] Phone Care Team Providers Care Swimmer Name Role Phone Emily Pedraza MD Unavailable [...] Pt 45 Mins [facility], [address] [place] [address], [id number], [place] tel:[phone] CONNIE Hdz chronic venous htn w/oth compvaricose vns low extrem w/oth Sep-2 1201 5 Milo Diaz. [address] [facility], [facility] [address], [place], [place], [id number] , [place]. tel:[phone] Referring Provider: Ros Nielsen, [address] [place], [address] . tel:[phone] [facility], [address] [place] [address], [id number], [place] tel:[phone] CONNIE GONZALEZ - [place] No Information Milo Diaz. [address] [facility], [address], [place], [place], [id number] , [place]. tel: [phone] Referring Provider: Ros Nielsen, [address] [place], [address] . tel:[phone] Family History Family Member Type Diagnosis Age At Onset No Information Payers Payer name Insurance type Covered democrat ID Authoriza tion(s) Medicare [facility] [id number] [facility] [id number] Social History Type Description Quantity Date Captured [...]
== END 2025-03-17 15:05 | disposition home or self-care (01) ==
LOC: HO.HCS 14:44
PROVIDERS: PCP Internal Medicine; Visit Provider Internal Medicine Cardiovascular Disease
DX: I25.10 Atherosclerotic heart disease of native coronary artery without angina pectoris (principal); I44.7 Left bundle-branch block, unspecified
CPT/HCPCS: 93010; 99214; G2211

== ENCOUNTER → 2025-03-17 14:44 | Outpatient (BNVA) | payer OTHER, SELFPAY | PROVIDERS: PCP Internal Medicine; Visit Provider Internal Medicine Cardiovascular Disease | DX: I25.10 Atherosclerotic heart disease of native coronary artery without angina pectoris (principal); I44.7 Left bundle-branch block, unspecified | CPT/HCPCS: 93005; 99212 ==

== ENCOUNTER 2025-03-19 13:31 | Outpatient (AMB) | payer OTHER, SELFPAY ==
--- NOTE | 2025-03-19 13:35 | A.OFFPC_ITS ---
Vital Signs 03/19/25 13:42 Height 5 ft 4 in Weight 102 lb BMI 17.5 BP 140/62 H Blood Pressure Location Lt brachial Position Sitting Intake Visit Reasons: weight loss 15 lbs Tire Fixer Required: No Accompanied by: Son Allergies lisinopril Allergy (Severe, Verified 03/19/25 13:48) Angioedema Medication List - Last Reconciled 03/19/25 by Randi Thompson MD acetaminophen (Tylenol Extra Strength) 500 mg PO Q6H alprazolam 0.25 mg PO BID PRN 2 days amlodipine 5 mg PO DAILY aspirin 81 mg PO DAILY 90 days benzonatate 200 mg PO BEDTIME PRN blood pressure monitor As directed blood sugar diagnostic (Klick2Contactuch Ultra Test strips) test daily blood-glucose meter (Klick2Contactuch Ultra2 Meter) test daily cane As directed cholecalciferol (vitamin D3) 25 mcg PO DAILY folic acid 1 mg PO DAILY hydroxyzine HCl 25 mg PO BID PRN 14 days lancets (Klick2Contactuch UltraSoft 2 Lancet) test daily lidocaine 5% 1 patch topical DAILY meclizine 25 mg PO TID PRN metformin 500 mg PO .every other day 90 days metoprolol succinate ER 50 mg PO DAILY omeprazole 40 mg PO DAILY rosuvastatin 10 mg PO DAILY Tobacco use date assessed: 03/19/25 Fall risk assessment: No Falls in past year Last assessed Fall Risk: 03/19/25 Dental Screening Dental Screen Date: 03/19/25 Did you have a dental visit in the last 12 months?: No Did you have a dental problem in the last 6 months where you did not have access to dental care?: No Was dental information given to patient?: Patient has dentist HPI HPI Comments History of Present Illness Details The patient is a 75-year-old female presenting with unexplained weight loss. Over the course of four months, she has experienced an 11-pound decrease in weight since October, which she reports was not influenced by any changes in diet or exercise routine. Her background includes a history of Type 2 Diabetes Mellitus and currently takes Metformin 500 mg on alternate days. Adding to her recent challenges, the patient has experienced depressive symptoms following a personal event on the of the month, leading her to notice a decline in appetite and overall motivation. Additionally, she reports experiencing leg weakness, notably in the knees, and frequent cramping, raising concerns about potential electrolyte disturbances. She also has hypertension and hyperlipidemia with LDL goal less than 70. Has mild major depression since the loss of the with a PHQ-9 of 8 and I will start her on sertraline. Patient aware she is going to feel better after taking it for 2-3 weeks. Accompanied by son today. Also complains of muscle cramps and bilateral leg paresthesias and weakness. Will order nerve conduction study. [facility] Medical History (Updated 03/19/25 @ 14:04 by Randi Thompson MD) Adenocarcinoma Chronic stable angina Angina pectoris Elevated cholesterol Osteopenia Renal calculi Left bundle branch block Diabetes Palpitations CAD (coronary artery disease) GERD (gastroesophageal reflux disease) Elevated LFTs Elevated glucose Rash and nonspecific skin eruption Angioedema Encounter to establish care Ductal carcinoma in situ of right breast Surgical History Hx of colonoscopy History of esophagogastroduodenoscopy (EGD) History of total hysterectomy with bilateral salpingo-oophorectomy (BSO) Family History Father Hypertension Mother No problems noted. Sister Uterine cancer Social History Housing: Apartment Patient Tobacco Use Status: Never used Tobacco e-Cigarette/Vaping Use: Never Used Second Hand Smoke Exposure: No service: No Current occupational status: retired Cognitive needs: No Hearing needs: No Vision needs: Yes (glasses) Questionnaire PHQ-9 Over the last 2 weeks, how often have you been bothered by any of the following problems? 1. Little interest or pleasure in doing things: not at all 2. Feeling down, depressed, or hopeless: more than half the days 3. Trouble falling or staying asleep, or sleeping too much: more than half the days 4. Feeling tired or having little energy: more than half the days 5. Poor appetite or overeating: more than half the days 6. Feeling bad about yourself - or that you are a failure or have let yourself or your family down: not at all 7. Trouble concentrating on things, such as reading the newspaper or watching television: not at all 8. Moving or speaking so slowly that other people could have noticed. Or the opposite - being so fidgety or restless that you have been moving around a lot more than usual: not at all 9. Thoughts that you would be better off or of hurting yourself in some way: not at all Total score: 8 Depression Screening Interpretation: Positive Depression Screening Follow-up: Existing condition, In treatment and Follow-up Visit Requested Depression Screening Done: Yes 67554 - PHQ-9 Billing: Yes Source: Developed by Drs. Jorge Johnson, Diana Mcelroy, Arnaud Ortega and colleagues, with an educational tori from [employer]. Thrive Questionnaire Date Thrive assessed: 03/19/25 I am a: Patient What is your living situation today?: I have a steady place to live Within the past 12 months, did the food you bought not last and you didn't have the money to get more?: Never true Within the past 12 months, did you worry whether your food would run out before you got money to buy more?: Never true Do you have trouble paying for medicines?: No Do you have trouble getting transportation to medical appointments?: No Do you have trouble paying your heating and electricity bill?: No Do you have trouble taking care of your child, family member or friend?: No Do you have trouble with day-to-day activities such as bathing, preparing meals, shopping, managing finances, etc.?: No Are you currently unemployed and looking for a job?: No Are you interested in more education?: No Please select the resources that you would like help with: None Currently or been in a relationship where the following occur: No concerns reported THRIVE Score: 0 AUDIT C Alcohol Use Questionnaire (AUDIT-C) 1. How often do you have a drink containing alcohol?: Never Total Score: 0 SHEREE-7 AMB Questionnaire SHEREE-7 Date SHEREE - 7 assessed: 03/19/25 Feeling nervous, anxious, or on edge: 0 = Not at all Not being able to stop or control worryin = Not at all Worrying too much about different things: 0 = Not at all Trouble relaxin = Not at all Being so restless that it is hard to sit still: 0 = Not at all Becoming easily annoyed or irritable: 0 = Not at all Feeling afraid as if something awful might happen: 0 = Not at all Total SHEREE-7 score (0-4 normal; 5-9 mild; 10-14 moderate; 15-21 severe): 0 Source: Developed by Drs. Jorge Johnson, Diana Mcelroy, Arnaud Ortega and colleagues, with an educational tori from [employer]. SHEREE-7 Assessment Billing SHEREE-7 Assessment Tool: SHEREE-7 Assessment 75080 Review of Systems Const All systems reviewed & are unremarkable except as noted in HPI and below Card Denies chest pain at rest, Denies chest pain with activity, Denies edema, Denies irregular heart rhythm, Denies claudication, Denies dyspnea, Denies dyspnea on exertion, Denies orthopnea, Denies paroxysmal nocturnal dyspnea and Denies slow heart rate Resp Denies cough, Denies dyspnea and Denies dyspnea on exertion GI Denies abdominal pain, Denies change in bowel habits, Denies excessive flatus, Denies nausea and Denies vomiting Physical exam (Primary Care) Vital Signs: Last Vital Signs BP 140/62 H 03/19/25 13:42 BMI result Body Mass Index 17.5 Tobacco/Smoking Status: Tobacco use Status Tobacco use date assessed 03/19/25 03/19/25 13:47 Patient Tobacco Use Status Never used Tobacco 03/19/25 13:39 e-Cigarette/Vaping Use Never Used 03/19/25 13:39 PHQ-9: PHQ-9 Score PHQ-9: Total score 8 03/19/25 13:58 Depression Screening Interpretation: Positive Depression Screening Follow-up: Existing condition, In treatment and Follow-up Visit Requested Thrive Assessment: Date of Thrive Assessment Date Thrive assessed 03/19/25 03/19/25 13:39 Currently or been in a relationship where the following occur: No concerns reported Resp Effort & Inspection: normal respiratory effort Auscultation: clear to auscultation bilaterally Cardio Jugular venous distension: no JVD Rate: regular rate Rhythm: regular rhythm Heart sounds: S1 normal heart sound present and S2 normal heart sound present Extrem General: Yes full ROM Results AMB Hemoglobin A1c AMB Hemoglobin A1c 5.8 % Last Edit by JEFF Kamara on 03/19/25 13:4 9 Results Reviewed Results Reviewed: Laboratory Last Values Hgb A1c (Clinic) 5.8 % (4.0-6.0) 03/19/25 13:33 Coding Level of Care Code Est Pt Level 4 (57676) Complex EM visit Add On G2211 Diagnoses Mild recurrent major depression F33.0 Bilateral leg paresthesia R20.2 Hyperlipidemia LDL goal <70 E78.5 Weight loss R63.4 Muscle cramps R25.2 Type 2 diabetes mellitus without complication, without long-term current use of insulin E11.9 Diabetes mellitus type: type 2 Diabetes mellitus intermediate insulin use: without rn long term care use Diabetes mellitus complication status: without complication Essential hypertension I10 Additional Codes SHEREE-7 Assessment Billing - SHEREE-7 Assessment Tool: SHEREE-7 Assessment 52033 ([id number]) PHQ-9 - 64496 - PHQ-9 Billing: Yes ([id number]) Time Spent (min) 23 Assessment & Plan Assessment & Plan (1) Mild recurrent major depression: Code(s): F33.0 - Major depressive disorder, recurrent, mild Category: Medical (2) Bilateral leg paresthesia: Code(s): R20.2 - Paresthesia of skin Category: Medical (3) Hyperlipidemia LDL goal <70: Code(s): E78.5 - Hyperlipidemia, unspecified Category: Medical (4) Weight loss: Code(s): R63.4 - Abnormal weight loss Category: Medical (5) Muscle cramps: Code(s): R25.2 - Cramp and spasm Category: Medical (6) Diabetes mellitus: Code(s): E11.9 - Type 2 diabetes mellitus without complications Category: Medical Qualifiers: Diabetes mellitus type: type 2 Diabetes mellitus intermediate insulin use: without rn long term care use Diabetes mellitus complication status: without complication Qualified Code(s): E11.9 - Type 2 diabetes mellitus without complications (7) Essential hypertension: Code(s): I10 - Essential (primary) hypertension Category: Medical Plan I have ordered laboratory tests including cholesterol, thyroid, hemoglobin, white blood cells, magnesium, and potassium levels to investigate the patient's current symptoms of weight loss and muscle cramps. A nerve conduction study has also been arranged to further understand the neuromuscular complaints, specifically leg weakness and cramping. The patient will begin a short course of antidepressants, potentially for a duration of 2 to 4 months, to address her depressive symptoms and expected improvement in appetite and mood. Regular follow-up will be necessary to evaluate the outcomes of these interventions. She has been advised to maintain her current medication regimen, including Metformin, omeprazole, amlodipine, aspirin, folic acid, metoprolol, naproxen, and rosuvastatin, while monitoring blood pressure readings due to today's high readings. Ongoing evaluation of her physical and psychological symptoms is essential to effectively manage and adjust her treatment plan. Patient was informed and verbally consented to the use of an ambient scribe for clinic note documentation during this visit. I discussed the diagnostic plan with the patient, including the necessity of fasting laboratory tests to assess for potential causes of weight loss and muscle cramps, such as imbalances in cholesterol, thyroid function, hemoglobin, white blood cells, magnesium, and potassium. The nerve conduction study was explained as a next step to further evaluate the recurrent leg weakness and cramps. We deliberated on starting an antidepressant for mood improvement and appetite increase, explaining that this course is short-term, possibly 2 to 4 months, and the importance of compliance for optimal results. The patient acknowledged the allergy to lisinopril and is aware of the elevation in blood pressure, hence the importance of adherence to amlodipine was reiterated. I provided reassurance and addressed concerns regarding potential side effects and emphasized the importance of follow-up visits to ensure effective management of her conditions. Orders: Orders AMB Hemoglobin A1c Today E11.9 - Type 2 diabetes mellitus without complications Lipid Panel Today E78.5 - Hyperlipidemia, unspecified Microalbumin, Random (w Creat) Today R80.9 - Proteinuria, unspecified Vitamin B12 and Folate Today E53.8 - Deficiency of other specified B group vitamins Complete Blood Count Auto Diff Today R63.4 - Abnormal weight loss Magnesium Today R25.2 - Cramp and spasm Vitamin D 25-OH Total Today E55.9 - Vitamin D deficiency, unspecified Thyroid Stimulating Hormone Today R63.4 - Abnormal weight loss NE nerve conduction velocity Today R20.2 - Paresthesia of skin Medications: New sertraline 25 mg PO DAILY 90 tabs 0RF 90 days F33.0 - Major depressive disorder, recurrent, mild Patient Instructions: - Undergo fasting lab tests as indicated to assess weight loss and cramp causes. - Attend the scheduled nerve conduction study for leg symptoms evaluation. - Start prescribed antidepressant in the morning; monitor for side effects and determine effectiveness over 2-3 weeks. - Continue current medications (Metformin, amlodipine, etc.) and monitor blood pressure regularly. - Return for follow-up appointments to review lab results and treatment progress. - Contact the office immediately if experiencing unusual symptoms or significant changes.
[2025-03-19 13:42] VITALS: BP 140/62; BMI 17.5
--- OUTSIDE RECORDS SUMMARY | 2025-03-19 15:55 | XMS_ITS | Patient Health Record ---
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) Active confirmed Problem 47007179 Varicose veins o f bilateral lower extremities with pain (I83.813) Active confirmed Problem 03428206 HTN (hypertensio n), benign (I10) Active confirmed Problem 1060857066705961 Arthritis of kn ee, left (M17.12) Active confirmed Problem 22500367 Vitamin D defici ency (E55.9) Active confirmed Problem 761095010 Arthritis of kne e (M17.10) Active confirmed Problem 34957153 Hyperlipidemia L DL goal <100 (E78.5) Active confirmed Problem 875648253 Mild intermitten t asthma without complication (J45.20) Active confirmed Problem 124734044 Gastroesophageal reflux disease without esophagitis (K21.9) Active confirmed Problem 517609615 Chronic stable a ngina (I20.8) Active confirmed Problem 661807033 History of breas t cancer (Z85.3) Active confirmed Problem 92289700 Benign gastric p olyp (K31.7) Active confirmed Problem Pure hypercholesterolemia (449926052) Pure hypercholesterolemia (272.0) Active confirmed jose rafael-48 5222 Problem Mixed hyperlipidemia (231846384) Mixed hyperlipidemia (272.2) Active confirmed jose rafael-48 5222 Problem Essential hypertension (17878147) Unspecified essential hypertension (401.9) Active confirmed jose rafael-48 5222 Problem Acute bronchitis (35584978) Acute bronchitis (466.0) Active confirmed jose rafael-48 5222 Problem Acute gastritis (04448809) Acute gastritis (535.0) Active confirmed jose rafael-48 5222 Problem Chronic nonalcoholic liver disease (48216302) Other chronic nonalcoholic liver disease (571.8) Active confirmed jose rafael-48 5222 Problem Lumbago (915496968) Lumbago (724.2) Active conf irmed jose rafael-48 5222 Problem Depression screening (613548469) Screening for depression (V79.0) Active confirmed jose rafael-48 5222 Problem General examination of patient (837757501) Routine general medical examination at a health care facility (V70.0) Active confirmed jose rafael-48 5222 Problem Bursitis of right shoulder (209685648379060) Bursitis of right shoulder (726.10) Active confirmed jose rafael-48 5222 Problem Stable angina (866452974) Stable angina (413.9) Active confirmed mi g-48 5222 Problem Gastric polyposis (71604587) Gastric polyposis (211.1) Active confirmed jose rafael-48 5222 Problem Nodule of breast (793.89) Active confirmed jose rafael-48 5222 Problem Carcinoma in situ of breast (933482354) 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 09/11/2017 *Sed Rate (ESR) 09/11/2017 *Thyroxine (T4 Total). 09/11/2017 *TSH Ultra Sensitive (3rd Gen) 7 *Urinalysis. 09/11/2017 *Urinalysis. 01/27/2020 *Urinalysis. 07/24/2019 *Vitamin B12 & Folate. 09/11/2017 *VITAMIN D 25-HYDROXY 09/11/2017 *VITAMIN D 25-HYDROXY 07/08/2018 PA074- LIPID PANEL WITH NON-HDL CHOLESTE ROL 09/11/2017 888-Phlebotomy 07/08/2018 888-Phlebotomy 09/11/2017 19512-ESKHFFGA BLOOD COUNT (CBC) WITH DI FFERENTIAL[203] 09/11/2017 999NS - Problem With Specimen (No Specim en Received) 09/26/2021 999NS - Problem With Specimen (No Specim en Received) 04/07/2021 [id number] IONIZED[4831] 9 Insurance Providers Payer Name Payer Address Payer Phone Subscriber Number Group Number Insured Name Patient Relationship to Insured Coverage Start Date Coverage End Date MEDICARE [address] [place] [address] [phone] [id number] Nehemiah riveraYvette Self - patient is the insured 3 [facility] Medicaid [address] [place] [address] [id number] Nehemiah riveraYvette Self - patient is the insured 0 MEDICAID [address] [place] [address] [id number] Nehemiah zYvette Self - patient is the insured 2 Medical (General) History Medical History History ICD Code GASTRIC POLYPS, hypertenion gastritis hyperlipidemia fatty liver Bronchitis Ductal Ca in situ of breast Surgical History Surgery Date(Month/Year) CESAREA 1977 AND 1978, Rt breast Biopsy 04/2017 Uterus Cancer 10/18/2020
== END 2025-03-19 14:02 | disposition home or self-care (01) ==
LOC: HO.HMCH 13:31
PROVIDERS: PCP Internal Medicine; Visit Provider Internal Medicine
DX: E11.69 Type 2 diabetes mellitus with other specified complication (principal); F33.0 Major depressive disorder, recurrent, mild; R20.2 Paresthesia of skin; E78.5 Hyperlipidemia, unspecified; R63.4 Abnormal weight loss; R25.2 Cramp and spasm; I10 Essential (primary) hypertension

== ENCOUNTER → 2025-03-19 13:31 | Outpatient (BNVA) | payer OTHER, SELFPAY | PROVIDERS: PCP Internal Medicine; Visit Provider Internal Medicine | DX: E11.9 Type 2 diabetes mellitus without complications (principal); I10 Essential (primary) hypertension; E78.5 Hyperlipidemia, unspecified; Z79.84 Long term (current) use of oral hypoglycemic drugs; F33.0 Major depressive disorder, recurrent, mild; R20.2 Paresthesia of skin; R63.4 Abnormal weight loss; R25.2 Cramp and spasm; Z68.1 Body mass index [BMI] 19.9 or less, adult | CPT/HCPCS: 83036; 96127; 99212 ==

== ENCOUNTER 2025-03-23 08:21 | Outpatient (REF) | payer OTHER, SELFPAY ==
[2025-03-23 08:33] LABS: MANUAL DIFF FLAG NO
--- OUTSIDE RECORDS SUMMARY | 2025-03-23 08:40 | XMS_ITS | Patient Health Record ---
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) Active confirmed Problem 31477083 Varicose veins o f bilateral lower extremities with pain (I83.813) Active confirmed Problem 02940290 HTN (hypertensio n), benign (I10) Active confirmed Problem 1948756385745404 Arthritis of kn ee, left (M17.12) Active confirmed Problem 15881005 Vitamin D defici ency (E55.9) Active confirmed Problem 740067826 Arthritis of kne e (M17.10) Active confirmed Problem 83625217 Hyperlipidemia L DL goal <100 (E78.5) Active confirmed Problem 602974577 Mild intermitten t asthma without complication (J45.20) Active confirmed Problem 976667671 Gastroesophageal reflux disease without esophagitis (K21.9) Active confirmed Problem 371035897 Chronic stable a ngina (I20.8) Active confirmed Problem 939909706 History of breas t cancer (Z85.3) Active confirmed Problem 20180630 Benign gastric p olyp (K31.7) Active confirmed Problem Pure hypercholesterolemia (933788957) Pure hypercholesterolemia (272.0) Active confirmed jose rafael-48 5222 Problem Mixed hyperlipidemia (502541652) Mixed hyperlipidemia (272.2) Active confirmed jose rafael-48 5222 Problem Essential hypertension (23591197) Unspecified essential hypertension (401.9) Active confirmed jose rafael-48 5222 Problem Acute bronchitis (27345690) Acute bronchitis (466.0) Active confirmed jose rafael-48 5222 Problem Acute gastritis (79558802) Acute gastritis (535.0) Active confirmed jose rafael-48 5222 Problem Chronic nonalcoholic liver disease (81897204) Other chronic nonalcoholic liver disease (571.8) Active confirmed jose rafael-48 5222 Problem Lumbago (003507322) Lumbago (724.2) Active conf irmed jose rafael-48 5222 Problem Depression screening (475538523) Screening for depression (V79.0) Active confirmed jose rafael-48 5222 Problem General examination of patient (086402896) Routine general medical examination at a health care facility (V70.0) Active confirmed jose rafael-48 5222 Problem Bursitis of right shoulder (334756845001628) Bursitis of right shoulder (726.10) Active confirmed jose rafael-48 5222 Problem Stable angina (723753317) Stable angina (413.9) Active confirmed mi g-48 5222 Problem Gastric polyposis (80634769) Gastric polyposis (211.1) Active confirmed jose rafael-48 5222 Problem Nodule of breast (793.89) Active confirmed jose rafael-48 5222 Problem Carcinoma in situ of breast (729424856) 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) [...] CHOLESTE ROL 09/11/2017 888-Phlebotomy 07/08/2018 888-Phlebotomy 09/11/2017 49554-[id number] BLOOD COUNT (CBC) WITH DI FFERENTIAL[203] 09/11/2017 999NS - Problem With Specimen (No Specim en Received) 04/07/2021 999NS - Problem With Specimen (No Specim en Received) 09/26/2021 [id number] IONIZED[4831] 9 Insurance Providers Payer Name Payer Address Payer Phone Subscriber Number Group Number Insured Name Patient Relationship to Insured Coverage Start Date Coverage End Date MEDICARE [address] [place] [address] [phone] [id number] Nehemiah riveraYvette Self - patient is the insured 3 [facility] Medicaid [address] [place] [address] [id number] Nehemiah riveraYvette Self - patient is the insured 0 MEDICAID [address] [place] [address] [id number] Nehemiah Yvette rivera Self - patient is the insured 2 Medical (General) History Medical History History ICD Code GASTRIC POLYPS, hypertenion gastritis hyperlipidemia fatty liver Bronchitis Ductal Ca in situ of breast Surgical History Surgery Date(Month/Year) CESAREA 1977 AND 1978, Rt breast Biopsy 04/2017 Uterus Cancer 10/18/2020
[2025-03-23 09:12] LABS: Basophils Absolute Auto 0.1 X10*3/uL (0.0-0.2); Basophils Percent Auto 0.9 % (0-2); Eosinophils Absolute Auto 0.1 X10*3/uL (0.0-0.4); Eosinophils Percent Auto 2.3 % (0-4); Hematocrit 43.4 % (37.0-47.0); Hemoglobin 13.5 g/dl (12.0-16.0); Imm Gran Abs Auto 0.02 X10*3/uL (0.00-0.03); Imm Gran Pct Auto 0.4 % (0.0-0.4); Lymphocytes Percent Auto 35.2 % (20-40); Mean Corpuscular HGB Conc 31.1 g/dl (31.0-35.0); Mean Corpuscular Hemoglobin 26.4 pg (27.0-33.0); Mean Corpuscular Volume 84.8 fL (80.0-98.0); Mean Platelet Volume 9.6 fL (9.4-12.3); Monocytes Absolute Auto 0.6 X10*3/uL (0.1-1.2); Monocytes Percent Auto 10.2 % (2-11); Neutrophils Absolute Auto 2.9 x10*3/uL (2.0-8.3); Platelet Count 275 X10*3/uL (160-400); Red Blood Count 5.12 X10*6/uL (4.20-5.50); Red Cell Distribution Width 13.5 % (11.0-16.0); White Blood Count 5.6 X10*3/uL (4.8-10.8)
[2025-03-23 09:57] LABS: Alanine Aminotransferase 21 U/L (0-31); Albumin Level 4.5 g/dL (3.5-5.0); Alkaline Phosphatase 62 U/L (39-117); Anion Gap 13 (12-20); Aspartate Amino Transferase 29 U/L (5-31); Blood Urea Nitrogen 14 mg/dL (9-16); Carbon Dioxide 29 mmol/L (22-29); Chloride 104 mmol/L (96-108); Cholesterol 141 mg/dL (<200); Estimated Glomerular Filt Rate > 60; Glucose Fasting 95 mg/dL (60-99); HDL Cholesterol 67 mg/dL (>40); Iron 132 mcg/dL (30-160); LDL Cholesterol Calculated 52 mg/dL (<100); Magnesium 1.7 mg/dL (1.6-2.6); Percent Iron Saturation 50 % (15-50); Sodium 142 mmol/L (135-145); Total Iron Binding Capacity 263 mcg/dL (228-428); Total Protein 7.8 g/dL (6.5-8.0); Triglycerides 113 mg/dL (<150); Unsaturated Iron Binding 131 ug/dL
[2025-03-23 10:12] LABS: Folate 16.4 ng/mL (> or = 4.0); Vitamin B12 440 pg/mL (200-900)
[2025-03-23 10:15] LABS: Vitamin D 25-OH Total 40.7 ng/mL (>30)
[2025-03-23 12:55] LABS: Creatinine Urine 114.62 mg/dL; Microalbum/Creatinine Ratio Ur 39.2 ug/mg cr (<30)
== END 2025-03-23 08:22 | disposition home or self-care (01) ==
LOC: HO.LAB 08:21
PROVIDERS: PCP Internal Medicine; Visit Provider Internal Medicine
DX: D64.9 Anemia, unspecified (principal); E53.8 Deficiency of other specified B group vitamins; E78.5 Hyperlipidemia, unspecified; R63.4 Abnormal weight loss; I63.81 Other cerebral infarction due to occlusion or stenosis of small artery; E55.9 Vitamin D deficiency, unspecified; R25.2 Cramp and spasm; R80.9 Proteinuria, unspecified; E11.9 Type 2 diabetes mellitus without complications
CPT/HCPCS: 36415; 80053; 80061; 82043; 82306; 82570; 82607; 82746; 83540; 83735; 84443; 85025

== ENCOUNTER 2025-04-07 10:00 | Outpatient (REF) | payer OTHER, SELFPAY ==
--- NOTE | 2025-04-07 10:03 | EMG_ITS ---
Bilateral tibial and peroneal motor studies were performed. Bilateral superficial peroneal, sural, and median and lateral mixed plantar sensory studies were performed. Tibial H reflexes were obtained and paraspinal muscles were tested with a needle. IMPRESSION: Mild to moderate axonal sensory motor peripheral neuropathy. MD RONALD Jo/MARK / [id number]
--- OUTSIDE RECORDS SUMMARY | 2025-04-07 10:52 | XMS_ITS | Patient Health Record ---
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) Active confirmed Problem 66152770 Varicose veins o f bilateral lower extremities with pain (I83.813) Active confirmed Problem 74722066 HTN (hypertensio n), benign (I10) Active confirmed Problem 7740777706441183 Arthritis of kn ee, left (M17.12) Active confirmed Problem 65287410 Vitamin D defici ency (E55.9) Active confirmed Problem 337315809 Arthritis of kne e (M17.10) Active confirmed Problem 44416570 Hyperlipidemia L DL goal <100 (E78.5) Active confirmed Problem 191940873 Mild intermitten t asthma without complication (J45.20) Active confirmed Problem 917296663 Gastroesophageal reflux disease without esophagitis (K21.9) Active confirmed Problem 397860552 Chronic stable a ngina (I20.8) Active confirmed Problem 838444241 History of breas t cancer (Z85.3) Active confirmed Problem 80600650 Benign gastric p olyp (K31.7) Active confirmed Problem Pure hypercholesterolemia (836460479) Pure hypercholesterolemia (272.0) Active confirmed jose rafael-48 5222 Problem Mixed hyperlipidemia (260699922) Mixed hyperlipidemia (272.2) Active confirmed jose rafael-48 5222 Problem Essential hypertension (02861133) Unspecified essential hypertension (401.9) Active confirmed jose rafael-48 5222 Problem Acute bronchitis (22492435) Acute bronchitis (466.0) Active confirmed jose rafael-48 5222 Problem Acute gastritis (61440906) Acute gastritis (535.0) Active confirmed jose rafael-48 5222 Problem Chronic nonalcoholic liver disease (62419799) Other chronic nonalcoholic liver disease (571.8) Active confirmed jose rafael-48 5222 Problem Lumbago (862041485) Lumbago (724.2) Active conf irmed jose rafael-48 5222 Problem Depression screening (571046312) Screening for depression (V79.0) Active confirmed jose rafael-48 5222 Problem General examination of patient (298373432) Routine general medical examination at a health care facility (V70.0) Active confirmed jose rafael-48 5222 Problem Bursitis of right shoulder (104230577020866) Bursitis of right shoulder (726.10) Active confirmed jose rafael-48 5222 Problem Stable angina (759954422) Stable angina (413.9) Active confirmed mi g-48 5222 Problem Gastric polyposis (31178772) Gastric polyposis (211.1) Active confirmed jose rafael-48 5222 Problem Nodule of breast (793.89) Active confirmed jose rafael-48 5222 Problem Carcinoma in situ of breast (349909832) 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) [...] CHOLESTE ROL 09/11/2017 888-Phlebotomy 07/08/2018 888-Phlebotomy 09/11/2017 43529-[id number] BLOOD COUNT (CBC) WITH DI FFERENTIAL[203] 09/11/2017 999NS - Problem With Specimen (No Specim en Received) 09/26/2021 999NS - Problem With Specimen (No Specim en Received) 04/07/2021 [id number] IONIZED[4831] 9 Insurance Providers Payer Name Payer Address Payer Phone Subscriber Number Group Number Insured Name Patient Relationship to Insured Coverage Start Date Coverage End Date MEDICARE [address] [place] [address] [phone] [id number] Nehemiah riveraYvette Self - patient is the insured 3 [facility] Medicaid [address] [place] [address] [id number] Nehemiah riveraYvette Self - patient is the insured 0 MEDICAID [address] [place] [address] [id number] Nehemiah zYvette Self - patient is the insured 2 Medical (General) History Medical History History ICD Code GASTRIC POLYPS, hypertenion gastritis hyperlipidemia fatty liver Bronchitis Ductal Ca in situ of breast Surgical History Surgery Date(Month/Year) CESAREA 1977 AND 1978, Rt breast Biopsy 04/2017 Uterus Cancer 10/18/2020
--- OUTSIDE RECORDS SUMMARY | 2025-04-07 10:52 | XMS_ITS | Continuity of Care Document ---
Author Organization [facility] Address [address] [facility] [address] [place] [address] Phone Care Team Providers Care Electronics Supervisor Name Role Phone Emily Pedraza MD Unavailable [...] Pt 45 Mins [facility], [address] [place] [address], [id number], [place] tel:[phone] CONNIE Hdz chronic venous htn w/oth compvaricose vns low extrem w/oth Sep-2 1201 5 Milo Diaz. [address] [facility], [facility] [address], [place], [place], [id number] , [place]. tel:[phone] Referring Provider: Ros Nielsen, [address] [place] [address], [address] . tel:[phone] [facility], [address] [place] [address], [id number], [place] tel:[phone] CONNIE GONZALEZ - Marcell No Information Milo Diaz. [address] [facility], [address], [place], [place], [id number] , [place]. tel: [phone] Referring Provider: Ros Nielsen, [address] [place], [address] . tel:[phone] Family History Family Member Type Diagnosis Age At Onset No Information Payers Payer name Insurance type Covered constitution party ID Authoriza tion(s) Medicare [facility] [id number] [facility] [id number] Social History Type Description Quantity Date Captured [...]
== END 2025-04-07 10:01 | disposition home or self-care (01) ==
LOC: HO.NEURO 10:00
PROVIDERS: PCP Internal Medicine; Visit Provider Internal Medicine
DX: R20.2 Paresthesia of skin (principal)
CPT/HCPCS: 95886; 95913

== ENCOUNTER 2025-05-27 10:39 | Outpatient (AMB) | payer OTHER, SELFPAY ==
--- NOTE | 2025-05-27 10:53 | MHC.OFFVIS ---
Vital Signs 05/27/25 10:54 Height 5 ft 4 in Weight 103 lb BMI 17.7 BP 128/72 Blood Pressure Location Rt brachial Position Sitting Intake Visit Reasons: 15LVM+Let INP-Polyneuropathy Intake Note: Patient referred inhouse Dr. Coe for polyneuropathy Broadcast Operations Manager Services: Broadcast Operations Manager Offered & Declined Broadcast Operations Manager Name: son will interpret Information Interpreted: non-clinical & clinical Allergies lisinopril Allergy (Severe, Verified 05/27/25 10:55) Angioedema Medication List - Last Reconciled 05/28/25 by Jo-Ann Mendoza MD acetaminophen (Tylenol Extra Strength) 500 mg PO Q6H alprazolam 0.25 mg PO BID PRN 2 days amlodipine 5 mg PO DAILY aspirin 81 mg PO DAILY 90 days benzonatate 200 mg PO BEDTIME PRN blood pressure monitor As directed blood sugar diagnostic (Chef SurfingTouch Ultra Test strips) test daily blood-glucose meter (Task Messengeruch Ultra2 Meter) test daily cane As directed cholecalciferol (vitamin D3) 25 mcg PO DAILY folic acid 1 mg PO DAILY gabapentin 100 mg PO BEDTIME hydroxyzine HCl 25 mg PO BID PRN 14 days lancets (Task Messengeruch UltraSoft 2 Lancet) test daily lidocaine 5% 1 patch topical DAILY meclizine 25 mg PO TID PRN metformin 500 mg PO .every other day 90 days metoprolol succinate ER 50 mg PO DAILY omeprazole 40 mg PO DAILY rosuvastatin 10 mg PO DAILY sertraline 25 mg PO DAILY 90 days HPI Comments Details: 75y/o female comes for neurological evaluation. she reports leg cramps about 5 years ago.The cramps are intermittent affecting her when she is lying down, at night and wakes her up from sleep occasionally . sometimes when she sits down she also feels abdominal cramps. Rubbing her abdomen helps with her cramps but for legs she stands up and stretches. she has excessive daytime fatigue and snores.she has involuntary leg movements when she is resting , occasionally affecting her UE as well. EMG was c/w mild axonal neuropathy She denies back pain. she denies any numbness or tingling in her feet. [facility] Medical History (Updated 05/28/25 @ 15:46 by Jo-Ann Mendoza MD) Neuropathy Leg cramps, sleep related Adenocarcinoma Chronic stable angina Angina pectoris Elevated cholesterol Osteopenia Renal calculi Left bundle branch block Diabetes Palpitations CAD (coronary artery disease) GERD (gastroesophageal reflux disease) Elevated LFTs Elevated glucose Rash and nonspecific skin eruption Angioedema Encounter to establish care Ductal carcinoma in situ of right breast Surgical History Hx of colonoscopy History of esophagogastroduodenoscopy (EGD) History of total hysterectomy with bilateral salpingo-oophorectomy (BSO) Family History Father Hypertension Mother No problems noted. Sister Uterine cancer Social History Housing: Apartment Patient Tobacco Use Status: Never used Tobacco e-Cigarette/Vaping Use: Never Used Second Hand Smoke Exposure: No service: No Current occupational status: retired Cognitive needs: No Hearing needs: No Vision needs: Yes (glasses) Physical Exam Vital Signs: Last Vital Signs BP 128/72 05/27/25 10:54 BMI result Body Mass Index 17.7 Const General: cooperative, healthy appearing, comfortable and no acute distress Nutritional Appearance: average body habitus Orientation/consciousness: patient oriented x3 Eyes Pupils: Equal, round and reactive pupils present Neuro General: patient oriented x3, tone normal, moves all extremities and no focal motor deficits Cranial nerves: Yes Facial sensation intact/muscles of mastication intact, Yes Equal, round and reactive pupils present, Yes Bilaterally intact EOM present, Yes Nystagmus not present, Yes Normal facial strength present and Yes Midline tongue present Cognition (Neuro): normal cognition Gait exam (Neuro): Antalgic gait present Motor exam (neuro): 5/5 motor strength present throughout and Normal motor muscle tone present throughout Assessment & Plan Assessment & Plan (1) Leg cramps, sleep related: Comment: nocturnal, ? restless legs Code(s): G47.62 - Sleep related leg cramps Category: Medical (2) Neuropathy: Code(s): G62.9 - Polyneuropathy, unspecified Category: Medical Plan I will trial her on gabapentin 100mg qhs will consider sleep study Reviewed labs Check ferritin level i will monitor neuropathy clinically Orders: Orders Ferritin Today G62.9 - Polyneuropathy, unspecified Medications: New gabapentin 100 mg PO BEDTIME 30 caps 6RF Coding Level of Care Code New Pt Level 4 (47800) Complex EM visit Add On G2211 Diagnoses Leg cramps, sleep related G47.62 Neuropathy G62.9
[2025-05-27 10:54] VITALS: BP 128/72; BMI 17.7
== END 2025-05-27 11:27 | disposition home or self-care (01) ==
PROVIDERS: PCP Internal Medicine; Visit Provider Psychiatry & Neurology Neurology
DX: G47.62 Sleep related leg cramps (principal); G62.9 Polyneuropathy, unspecified
CPT/HCPCS: 99204; G2211

== ENCOUNTER → 2025-05-27 10:39 | Outpatient (BNVA) | payer OTHER, SELFPAY | PROVIDERS: PCP Internal Medicine; Visit Provider Psychiatry & Neurology Neurology | DX: G47.62 Sleep related leg cramps (principal); G62.9 Polyneuropathy, unspecified | CPT/HCPCS: 99202 ==

== ENCOUNTER 2025-06-30 16:21 | Outpatient (AMB) | payer OTHER, SELFPAY ==
--- OUTSIDE RECORDS SUMMARY | 2025-06-30 16:24 | XMS_ITS | Patient Health Record ---
Author Organization [facility] Address [address] [place] [address] Care Team Providers Care Split And Drum Room Supervisor Name Role Phone SalbadorDharmesh tolbert Unavailable [phone] Matt Lamar Unavailable Unavailable Reason For Referral No Information Plan Of Treatment No Information Insurance Providers Payer Name Payer Address Payer Phone Subscriber Number Group Number Insured Name Patient Relationship to Insured Coverage Start Date Coverage End Date MEDICARE [address] [place] [phone] [id number] Yvette Graham Self - patient is the insured [facility] [address] [place] [address] [id number] Yvette Graham Self - patient is the insured
--- OUTSIDE RECORDS SUMMARY | 2025-06-30 16:24 | XMS_ITS | Patient Health Record ---
Author Organization Alex F[facility] Address [address] [place] [address] Care Team Providers Care Publicity Agent Name Role Phone RICKIE FREY Primary Care Provider [phone] Allergies No Known Allergies Reason For Referral No Information Medications Medication SIG (Take, Route, Frequency, Duration) Notes Start Date End Date Status Anastrozole 1 MG TAKE 1 TABLET BY NAINA TH EVERY DAY 10/18/2021 Active Cyanocobalamin 2500 MCG as directed Subl ingual Once a day 10/18/2021 Active Clopidogrel Bisulfate 75 MG TAKE 1 TABLE T BY MOUTH EVERY DAY; Duration: 100 Active Clotrimazole 1 % 1 application [employer] ally Twice a day; Duration: 28 day(s) 08/22/2021 Active Vitamin D (Ergocalciferol) 86086 UNIT TAKE 1 CAPSULE BY MOUTH ONCE A WEEK Orally wkly; Duration: 90 days 08/22/2021 Active Breo Ellipta 100-25 [...] Prevnar 13 - as directed Intramus cular once; Duration: 1 days Active Clotrimazole-Betamethasone 1-0.05 % 1 application Externally Twice a day; Duration: 30 days 08/22/2021 Active Losartan Potassium 25 MG TAKE 1 TABLET B Y MOUTH EVERY DAY Orally Once a day 10/18/2021 Active Vitamin D (Ergocalciferol) 1.25 MG (44998 UT) TAKE 1 CAPSULE BY MOUTH EVERY WEEK Orally wkly; Duration: 90 days 10/18/2021 Active Tylenol 8 Hour Arthritis Pain 650 MG 2 tablets as needed Orally every 8 hrs; Duration: 30 days 10/18/2021 Active Rosuvastatin Calcium 10 MG TAKE ONE TABL ET BY MOUTH DAILY Orally Once a day 10/18/2021 Active Folic Acid 1 MG TAKE 1 TABLET BY NAINA TH EVERY DAY Orally Once a day; Duration: 90 days Active Metoprolol Succinate ER 50 [...] Problem Status W/U Status Risk Notes Problem Intraductal carcinom a in situ of right breast (9948867176749824) 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 confirmed Problem Pain co-occurrent an d due to varicose veins of bilateral legs (61139353032520716) Varicose veins of bilateral lower extremities with pain (I83.813) Active confirmed Problem Essential hypertension (38120317) HTN (hypertension), benign (I10) Active confirmed Problem Arthritis of left knee (3317992702325112) Arthritis of knee, left (M17.12) Active confirmed Problem Vitamin D deficiency (87667835) Vitamin D deficiency (E55.9) Active confirmed Problem Arthritis of knee (902403536) Arthritis of knee (M17.10) Active confirmed Problem Hyperlipidaemia (43989905) Hyperlipidemia LDL goal <100 (E78.5) Active confirmed Problem Mild intermittent asthma (021501134) Mild intermittent asthma without complication (J45.20) Active confirmed Problem Gastroesophageal reflux disease without esophagitis (907890373) Gastroesophageal reflux disease without esophagitis (K21.9) Active confirmed Problem Stable angina (disorder) (383260731) Chronic stable angina (I20.8) Active confirmed Problem Personal history of primary malignant neoplasm of breast (722276293) History of breast cancer (Z85.3) Active confirmed Problem Benign neoplasm of stomach (62747227) Benign gastric polyp (K31.7) Active confirmed Problem Pure hypercholesterolemia (131896818) Pure hypercholesterolemia (272.0) Active confirmed jose rafael-48 5222 Problem Mixed hyperlipidemia (871937256) Mixed hyperlipidemia (272.2) Active confirmed jose rafael-48 5222 Problem Essential hypertension (73268017) Unspecified essential hypertension (401.9) Active confirmed jose rafael-48 5222 Problem Acute bronchitis (70057627) Acute bronchitis (466.0) Active confirmed jose rafael-48 5222 Problem Acute gastritis (17582796) Acute gastritis (535.0) Active confirmed jose rafael-48 5222 Problem Chronic nonalcoholic liver disease (57056617) Other chronic nonalcoholic liver disease (571.8) Active confirmed jose rafael-48 5222 Problem Lumbago (284474504) Lumbago (724.2) Active conf irmed jose rafael-48 5222 Problem Depression screening (417183810) Screening for depression (V79.0) Active confirmed jose rafael-48 5222 Problem General examination of patient (075203157) Routine general medical examination at a health care facility (V70.0) Active confirmed jose rafael-48 5222 Problem Bursitis of right shoulder (159535374996617) Bursitis of right shoulder (726.10) Active confirmed jose rafael-48 5222 Problem Stable angina (568338107) Stable angina (413.9) Active confirmed mi g-48 5222 Problem Gastric polyposis (42105286) Gastric polyposis (211.1) Active confirmed jose rafael-48 5222 Problem Nodule of breast (793.89) Active confirmed jose rafael-48 5222 Problem Carcinoma in situ of breast (588903266) 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) [...] CHOLESTE ROL 09/11/2017 888-Phlebotomy 09/11/2017 888-Phlebotomy 07/08/2018 [id number]-[id number] BLOOD COUNT (CBC) WITH DI FFERENTIAL[203] 09/11/2017 999NS - Problem With Specimen (No Specim en Received) 04/07/2021 999NS - Problem With Specimen (No Specim en Received) 09/26/2021 [id number] IONIZED[[id number]] 9 Insurance Providers Payer Name Payer Address Payer Phone Subscriber Number Group Number Insured Name Patient Relationship to Insured Coverage Start Date Coverage End Date MEDICARE [address] [place] [address] [phone] [id number] Yvette Graham Self - patient is the insured [address] [facility] Comm Medicaid [address] [place] [address] [id number] Yvette Graham Self - patient is the insured 0 MEDICAID [address] [place] [address] [id number] Yvette Graham Self - patient is the insured 2 Medical (General) History Medical History History ICD Code GASTRIC POLYPS, hypertenion gastritis hyperlipidemia fatty liver Bronchitis Ductal Ca in situ of breast Surgical History Surgery Date(Month/Year) CESAREA 1977 AND 1978, Rt breast Biopsy 04/2017 Uterus Cancer 10/18/2020
[2025-06-30 16:25] VITALS: BP 136/72; BMI 17.5
--- NOTE | 2025-06-30 16:25 | A.OFFPC_ITS ---
Vital Signs 06/30/25 16:25 Height 5 ft 4 in Weight 102 lb BMI 17.5 BP 136/72 Blood Pressure Location Lt brachial Position Sitting Intake Visit Reasons: DM Intake Note: Patient here for a follow up DM, c/o right shoulder pain [employer] Required: No Accompanied by: Son Allergies lisinopril Allergy (Severe, Verified 06/30/25 16:41) Angioedema Medication List - Last Reconciled 06/30/25 by Randi Thompson MD acetaminophen (Tylenol Extra Strength) 500 mg PO Q6H alprazolam 0.25 mg PO BID PRN 2 days amlodipine 5 mg PO DAILY aspirin 81 mg PO DAILY 90 days blood pressure monitor As directed blood sugar diagnostic (Blue[employer] Systemsuch Ultra Test strips) test daily blood-glucose meter ([employer] Systemsuch Ultra2 Meter) test daily cane As directed cholecalciferol (vitamin D3) 25 mcg PO DAILY folic acid 1 mg PO DAILY gabapentin 100 mg PO BEDTIME hydroxyzine HCl 25 mg PO BID PRN 14 days lancets ([employer] Systemsuch UltraSoft 2 Lancet) test daily lidocaine 5% 1 patch topical DAILY linagliptin (Tradjenta) 5 mg PO DAILY 90 days meclizine 25 mg PO TID PRN metoprolol succinate ER 50 mg PO DAILY omeprazole 40 mg PO DAILY rosuvastatin 10 mg PO DAILY sertraline 25 mg PO DAILY 90 days Tobacco use date assessed: 03/19/25 Fall risk assessment: No Falls in past year Last assessed Fall Risk: 06/30/25 Dental Screening Dental Screen Date: 03/19/25 HPI HPI Comments History of Present Illness Details The patient is a 75-year-old female presenting with a follow-up for her chronic conditions, including diabetes and hypertension. Her diabetes is currently well-controlled with an HbA1c of 5.6, and she is on Trajenta for management. She also takes amlodipine for hypertension, which is currently well- managed. The patient reports a history of depression, for which she takes sertraline. She prefers to take it in the evening to avoid dizziness during the day, which has been effective in preventing falls. She has hyperlipidemia managed with rosuvastatin and reports no issues with her cholesterol levels. The patient experiences dizziness, for which she takes meclizine. She denies any recent episodes of dizziness or falls. She has a history of gastroesophageal reflux disease, managed with omeprazole, and reports no recent symptoms of heartburn. The patient reports chronic pain in her right shoulder, which she describes as a persistent ache. She has had imaging done previously, but no recent interventions have been discussed. [facility] Medical History (Updated 06/30/25 @ 16:58 by Randi Thompson MD) Neuropathy Leg cramps, sleep related Adenocarcinoma Chronic stable angina Angina pectoris Elevated cholesterol Osteopenia Renal calculi Left bundle branch block Diabetes Palpitations CAD (coronary artery disease) GERD (gastroesophageal reflux disease) Elevated LFTs Elevated glucose Rash and nonspecific skin eruption Angioedema Encounter to establish care Ductal carcinoma in situ of right breast Surgical History Hx of colonoscopy History of esophagogastroduodenoscopy (EGD) History of total hysterectomy with bilateral salpingo-oophorectomy (BSO) Family History Father Hypertension Mother No problems noted. Sister Uterine cancer Social History Housing: Apartment Patient Tobacco Use Status: Never used Tobacco e-Cigarette/Vaping Use: Never Used Second Hand Smoke Exposure: No service: No Current occupational status: retired Cognitive needs: No Hearing needs: No Vision needs: Yes (glasses) Questionnaire PHQ-9 Over the last 2 weeks, how often have you been bothered by any of the following problems? 1. Little interest or pleasure in doing things: not at all 2. Feeling down, depressed, or hopeless: not at all 3. Trouble falling or staying asleep, or sleeping too much: not at all 4. Feeling tired or having little energy: several days 5. Poor appetite or overeating: more than half the days 6. Feeling bad about yourself - or that you are a failure or have let yourself or your family down: not at all 7. Trouble concentrating on things, such as reading the newspaper or watching television: not at all 8. Moving or speaking so slowly that other people could have noticed. Or the opposite - being so fidgety or restless that you have been moving around a lot m ore than usual: not at all 9. Thoughts that you would be better off or of hurting yourself in some way: not at all Total score: 3 Depression Screening Interpretation: Positive Depression Screening Follow-up: Existing condition, In treatment, Community Mental Health Worker F/U and Follow- up Visit Requested Depression Screening Done: Yes 84616 - PHQ-9 Billing: Yes Source: Developed by Drs. Jorge Johnson, Diana Mcelroy, Arnaud Ortega and colleagues, with an educational tori from [employer]. Thrive Questionnaire Date Thrive assessed: 06/30/25 I am a: Patient What is your living situation today?: I have a steady place to live Within the past 12 months, did the food you bought not last and you didn't have the money to get more?: Never true Within the past 12 months, did you worry whether your food would run out before you got money to buy more?: Never true Do you have trouble paying for medicines?: No Do you have trouble getting transportation to medical appointments?: No Do you have trouble paying your heating and electricity bill?: No Do you have trouble taking care of your child, family member or friend?: No Do you have trouble with day-to-day activities such as bathing, preparing meals, shopping, managing finances, etc.?: Yes Are you currently unemployed and looking for a job?: Yes THRIVE Score: 0 SHEREE-7 AMB Questionnaire SHEREE-7 Date SHEREE - 7 assessed: 03/19/25 Source: Developed by Drs. Jorge Johnson, Diana Mcelroy, Arnaud Ortega and colleagues, with an educational tori from [employer]. Review of Systems Const All systems reviewed & are unremarkable except as noted in HPI and below Card Denies chest pain at rest, Denies chest pain with activity, Denies edema, Denies irregular heart rhythm, Denies claudication, Denies dyspnea, Denies dyspnea on exertion, Denies orthopnea, Denies paroxysmal nocturnal dyspnea and Denies slow heart rate Resp Denies cough, Denies dyspnea and Denies dyspnea on exertion GI Denies abdominal pain, Denies change in bowel habits, Denies excessive flatus, Denies nausea and Denies vomiting Physical exam (Primary Care) Vital Signs: Last Vital Signs BP 136/72 06/30/25 16:25 BMI result Body Mass Index 17.5 Tobacco/Smoking Status: Tobacco use Status Tobacco use date assessed 03/19/25 06/30/25 16:33 Patient Tobacco Use Status Never used Tobacco 06/30/25 16:33 e-Cigarette/Vaping Use Never Used 06/30/25 16:33 PHQ-9: PHQ-9 Score PHQ-9: Total score 3 06/30/25 16:36 Depression Screening Interpretation: Positive Depression Screening Follow-up: Existing condition, In treatment, Community Mental Health Worker F/U and Follow- up Visit Requested Thrive Assessment: Date of Thrive Assessment Date Thrive assessed 06/30/25 06/30/25 16:33 Resp Effort & Inspection: normal respiratory effort Auscultation: clear to auscultation bilaterally Cardio Jugular venous distension: no JVD Rate: regular rate Rhythm: regular rhythm Heart sounds: S1 normal heart sound present and S2 normal heart sound present Extrem General: Yes full ROM Results AMB Hemoglobin A1c AMB Hemoglobin A1c 5.6 % Last Edit by JEFF Kamara on 06/30/25 16:3 6 Results Reviewed Results Reviewed: Laboratory Last Values Hgb A1c (Clinic) 5.6 % (4.0-6.0) 06/30/25 16:25 Coding Level of Care Code Est Pt Level 4 (94774) Complex EM visit Add On G2211 Diagnoses Mild recurrent major depression F33.0 Essential hypertension I10 Hyperlipidemia LDL goal <70 E78.5 Type 2 diabetes mellitus without complication, without long-term current use of insulin E11.9 Diabetes mellitus type: type 2 Diabetes mellitus retirement insulin use: without retirement use Diabetes mellitus complication status: without complication Multiple lacunar infarcts I63.81 Right shoulder pain M25.511 Additional Codes PHQ-9 - 92041 - PHQ-9 Billing: Yes ([id number]) Time Spent (min) 24 Assessment & Plan Assessment & Plan (1) Mild recurrent major depression: Code(s): F33.0 - Major depressive disorder, recurrent, mild Category: Medical (2) Essential hypertension: Code(s): I10 - Essential (primary) hypertension Category: Medical (3) Hyperlipidemia LDL goal <70: Code(s): E78.5 - Hyperlipidemia, unspecified Category: Medical (4) Diabetes mellitus: Code(s): E11.9 - Type 2 diabetes mellitus without complications Category: Medical Qualifiers: Diabetes mellitus type: type 2 Diabetes mellitus intermodal dispatcher insulin use: without intermodal dispatcher use Diabetes mellitus complication status: without complication Qualified Code(s): E11.9 - Type 2 diabetes mellitus without complications (5) Multiple lacunar infarcts: Code(s): I63.81 - Other cerebral infarction due to occlusion or stenosis of small artery Category: Medical (6) Right shoulder pain: Code(s): M25.511 - Pain in right shoulder Category: Medical Plan The patient's diabetes management with Trajenta will continue as her HbA1c is well-controlled at 5.6. Hypertension management with amlodipine is effective, and no changes are needed at this time. For depression, the patient will continue taking sertraline in the evening to avoid dizziness, and she is advised to monitor for any changes in mood or side effects. Hyperlipidemia management with rosuvastatin will continue, and cholesterol levels will be re-evaluated at the next visit. The patient is advised to continue meclizine for dizziness as needed and to report any new episodes. For gastroesophageal reflux disease, omeprazole will be continued, and the patient should report any recurrence of symptoms. Chronic right shoulder pain will be monitored, and further imaging or intervention will be considered if symptoms persist or worsen. Patient was informed and verbally consented to the use of an ambient scribe for clinic note documentation during this visit. Orders: Orders Comprehensive [place]. Panel Fast Today I63.81 - Other cerebral infarction due to occlusion or stenosis of small artery AMB Hemoglobin A1c Today E11.9 - Type 2 diabetes mellitus without complications Lipid Panel Today E78.5 - Hyperlipidemia, unspecified Microalbumin, Random (w Creat) Today R80.9 - Proteinuria, unspecified Vitamin D 25-OH Total Today E55.9 - Vitamin D deficiency, unspecified Medications: New sitagliptin phosphate (Januvia) 25 mg PO DAILY 90 tabs 1RF 90 days Discontinued linagliptin (Tradjenta) Discontinued Reason: Patient Completed Course 5 mg PO DAILY 90 days 90 tabs 0RF E11.9 - Type 2 diabetes mellitus without complications
== END 2025-06-30 16:54 | disposition home or self-care (01) ==
LOC: HO.HMCH 16:22
PROVIDERS: PCP Internal Medicine; Visit Provider Internal Medicine
DX: F33.0 Major depressive disorder, recurrent, mild (principal); I10 Essential (primary) hypertension; E78.5 Hyperlipidemia, unspecified; E11.9 Type 2 diabetes mellitus without complications; I63.81 Other cerebral infarction due to occlusion or stenosis of small artery; M25.511 Pain in right shoulder

== ENCOUNTER → 2025-06-30 16:21 | Outpatient (BNVA) | payer OTHER, SELFPAY | PROVIDERS: PCP Internal Medicine; Visit Provider Internal Medicine | DX: E11.9 Type 2 diabetes mellitus without complications (principal); M25.511 Pain in right shoulder; I10 Essential (primary) hypertension; E78.5 Hyperlipidemia, unspecified; R42 Dizziness and giddiness; K21.9 Gastro-esophageal reflux disease without esophagitis; G89.29 Other chronic pain; F33.0 Major depressive disorder, recurrent, mild; R80.9 Proteinuria, unspecified; E55.9 Vitamin D deficiency, unspecified; Z86.73 Personal history of transient ischemic attack (TIA), and cerebral infarction without residual deficits | CPT/HCPCS: 83036; 96127; 99212 ==

== ENCOUNTER 2025-09-14 08:29 | Outpatient (REF) | payer OTHER, SELFPAY ==
[2025-09-14 08:41] LABS: MANUAL DIFF FLAG NO
[2025-09-14 08:54] LABS: Hematocrit 43.8 % (37.0-47.0); Hemoglobin 13.8 g/dl (12.0-16.0); Imm Gran Abs Auto 0.05 X10*3/uL (0.00-0.03); Imm Gran Pct Auto 0.6 % (0.0-0.4); Lymphocytes Absolute Auto 2.6 X10*3/uL (1.2-4.9); Mean Corpuscular HGB Conc 31.5 g/dl (31.0-35.0); Mean Corpuscular Hemoglobin 26.7 pg (27.0-33.0); Mean Corpuscular Volume 84.9 fL (80.0-98.0); NRBC Abs Auto 0.000 X10*3/uL (0.0-0.012); NRBC Pct Auto 0.0 /100WBC (0.0-0.2); Platelet Count 283 X10*3/uL (160-400); Red Blood Count 5.16 X10*6/uL (4.20-5.50); White Blood Count 7.9 X10*3/uL (4.8-10.8)
[2025-09-14 09:21] LABS: Alanine Aminotransferase 16 U/L (0-31); Albumin Level 4.5 g/dL (3.5-5.0); Alkaline Phosphatase 77 U/L (39-117); Anion Gap 16 (12-20); Aspartate Amino Transferase 24 U/L (5-31); Blood Urea Nitrogen 18 mg/dL (9-16); Calcium 10.3 mg/dL (8.4-10.2); Carbon Dioxide 26 mmol/L (22-29); Chloride 102 mmol/L (96-108); Cholesterol 134 mg/dL (<200); Estimated Glomerular Filt Rate > 60; HDL Cholesterol 62 mg/dL (>40); Potassium 4.2 mmol/L (3.3-5.1); Sodium 140 mmol/L (135-145); Total Protein 7.8 g/dL (6.5-8.0); Triglycerides 87 mg/dL (<150)
[2025-09-14 09:53] LABS: Folate 14.9 ng/mL (> or = 4.0); Vitamin B12 550 pg/mL (200-900)
== END 2025-09-14 08:30 | disposition home or self-care (01) ==
LOC: HO.LAB 08:29
PROVIDERS: PCP Internal Medicine; Visit Provider Internal Medicine
DX: E53.8 Deficiency of other specified B group vitamins (principal); R63.4 Abnormal weight loss; E78.5 Hyperlipidemia, unspecified; E55.9 Vitamin D deficiency, unspecified
CPT/HCPCS: 36415; 80053; 80061; 82306; 82607; 82746; 85025

== ENCOUNTER 2025-09-21 14:04 | Outpatient (AMB) | payer OTHER, SELFPAY ==
[2025-09-21 14:06] VITALS: BP 148/80; PULSE 63; O2SAT 96; BMI 18.0
--- NOTE | 2025-09-21 14:06 | A.OFFVIS_ITS ---
Intake Vital Signs 09/21/25 14:06 Height 5 ft 4 in Weight 105 lb BMI 18.0 BP 148/80 H Blood Pressure Location Lt brachial Position Sitting Pulse 63 Pulse Source Pulse Oximeter Pulse Oximetry (%) 96 Oxygen Delivery Method Room Air Intake Visit Reasons: AWV Water Quality Specialist Required: No Accompanied by: relative Allergies lisinopril Allergy (Severe, Verified 09/21/25 14:19) Angioedema Medication List - Last Reconciled 09/21/25 by Randi Thompson MD acetaminophen (Tylenol Extra Strength) 500 mg PO Q6H alprazolam 0.25 mg PO BID PRN 2 days amlodipine 5 mg PO DAILY aspirin 81 mg PO DAILY 90 days blood pressure monitor As directed blood sugar diagnostic (Merkuuch Ultra Test strips) test daily blood-glucose meter (Merkuuch Ultra2 Meter) test daily cane As directed cholecalciferol (vitamin D3) 25 mcg PO DAILY folic acid 1 mg PO DAILY gabapentin 100 mg PO BEDTIME hydroxyzine HCl 25 mg PO BID PRN 14 days lancets (Merkuuch UltraSoft 2 Lancet) test daily lidocaine 5% 1 patch topical DAILY meclizine 25 mg PO TID PRN metoprolol succinate ER 50 mg PO DAILY omeprazole 40 mg PO DAILY rosuvastatin 10 mg PO DAILY sertraline 25 mg PO DAILY 90 days sitagliptin phosphate (Januvia) 25 mg PO DAILY 90 days Do you need a note to return to daycare/school/sports/work: No HPI HPI Comments 2 History of Present Illness Details The patient is a 75-year-old female presenting for her Medicare Annual Wellness Exam. Her past medical history is significant for a hysterectomy and bronchitis. She has diabetes mellitus type 2 and her A1c last time was within goal being less than 7%. Her LDL is also within goal. PPP handed to patient. In terms of preventative screenings, her last colonoscopy was in 2022, and she is due for a mammogram in August. 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 [place] of care reviewed and updated. The patient reports experiencing significant forgetfulness and notes having a dry mouth at night. She denies any issues with urinary incontinence. [facility] Medical History Neuropathy Leg cramps, sleep related Adenocarcinoma Chronic stable angina Angina pectoris Elevated cholesterol Osteopenia Renal calculi Left bundle branch block Diabetes Palpitations CAD (coronary artery disease) GERD (gastroesophageal reflux disease) Elevated LFTs Elevated glucose Rash and nonspecific skin eruption Angioedema Encounter to establish care Ductal carcinoma in situ of right breast Surgical History Hx of colonoscopy History of esophagogastroduodenoscopy (EGD) History of total hysterectomy with bilateral salpingo-oophorectomy (BSO) Family History Father Hypertension Mother No problems noted. Sister Uterine cancer Social History Housing: Apartment Patient Tobacco Use Status: Never used Tobacco e-Cigarette/Vaping Use: Never Used Second Hand Smoke Exposure: No service: No Current occupational status: retired Cognitive needs: No Hearing needs: No Vision needs: Yes (glasses) Questionnaire Medicare Wellness Checkup What [age]?: [age] What gender do you identify with?: female Mini Mental State Exam (MMSE) Orientation What is the (year) (season) (date) (day) (month)?: year, season, date, day and month Where are we (state) (county) (town or city) (hospital) (floor)?: state, county, town or city, hospital/clinic and floor Registration Name of 3 unrelated objects clearly and slowly, then ask patient to repeat all 3 of them. (1st repeat determines score. Make sure they can repeat all three): object 1, object 2 and object 3 Attention & Calculation (CHOOSE ONE) Spell WORLD backwards (DLROW): 5 letters Recall Ask patient to repeat the 3 items from question #3.: object 1 and object 2 Language Show patient a wristwatch & ask what it is. Repeat for pencil.: watch and pencil Ask the patient to repeat the phrase 'No ifs, ands, or buts' after you.: correct Ask the patient to 'take a piece of paper with their right hand' 'fold paper in half' 'place paper on floor': take paper in right hand, fold paper in half and place paper on floor Print the sentence 'CLOSE YOUR EYES' on a piece. If patient actually closes eyes then score.: followed written direction Give patient a blank piece of paper & ask to write a sentence. Score if it contains a noun & verb.: sentence contains subject and verb Ask patient to copy figure of intersecting pentagons exactly. Score if all 10 angles & 2 intersects are included.: all 10 angles present & 2 are intersected Score Score: 29 Activity of Daily Living Bathing - sponge bath, tub bath or shower: receives no assistance (gets in/out by self, if usual bathing means Dressing - getting clothes from closets & drawers, including inner/outer garments & fasteners.: gets clothes & gets completely dressed without help Toileting - going to the 'toilet room' for urine/bowel elimination & cleaning self/arranging clothes: goes to toilet room, cleans self, arranges clothes without help Transfer: moves in & out of bed and chair without help (may use support object) Continence: controls urination/bowel movements completely by self Feeding: feeds self without help Total Score: 0 Information obtained from: patient Using telephone: independent Traveling: dependent Shopping: dependent Preparing meals: dependent Housework: dependent Taking medicine: independent Managing money: independent Thrive Questionnaire Date Thrive assessed: 06/30/25 I am a: Patient What is your living situation today?: I have a steady place to live Within the past 12 months, did the food you bought not last and you didn't have the money to get more?: Never true Within the past 12 months, did you worry whether your food would run out before you got money to buy more?: Never true Do you have trouble paying for medicines?: No Do you have trouble getting transportation to medical appointments?: No Do you have trouble paying your heating and electricity bill?: No Do you have trouble taking care of your child, family member or friend?: No Do you have trouble with day-to-day activities such as bathing, preparing meals, shopping, managing finances, etc.?: Yes Are you currently unemployed and looking for a job?: Yes THRIVE Score: 0 SHEREE-7 AMB Questionnaire SHEREE-7 Date SHEREE - 7 assessed: 09/21/25 Feeling nervous, anxious, or on edge: 0 = Not at all Not being able to stop or control worryin = Not at all Worrying too much about different things: 0 = Not at all Trouble relaxin = Not at all Being so restless that it is hard to sit still: 0 = Not at all Becoming easily annoyed or irritable: 0 = Not at all Feeling afraid as if something awful might happen: 0 = Not at all Total SHEREE-7 score (0-4 normal; 5-9 mild; 10-14 moderate; 15-21 severe): 0 Source: Developed by Drs. Jorge Johnson, Diana Mcelroy, Arnaud Ortega and colleagues, with an educational tori from [employer]. SHEREE-7 Assessment Billing SHEREE-7 Assessment Tool: SHEREE-7 Assessment 34027 Review of Systems Const All systems reviewed & are unremarkable except as noted in HPI and below Card Denies chest pain at rest, Denies chest pain with activity, Denies edema, Denies irregular heart rhythm, Denies claudication, Denies dyspnea, Denies dyspnea on exertion, Denies orthopnea, Denies paroxysmal nocturnal dyspnea and Denies slow heart rate Resp Denies cough, Denies dyspnea and Denies dyspnea on exertion Physical Exam Vital Signs: Last Vital Signs Pulse 63 09/21/25 14:06 BP 148/80 H 09/21/25 14:06 Pulse Ox 96 09/21/25 14:06 Oxygen Delivery Method Room Air 09/21/25 14:06 BMI result Body Mass Index 18.0 Resp Effort & Inspection: normal respiratory effort Auscultation: clear to auscultation bilaterally Cardio Jugular venous distension: no JVD Rate: regular rate Rhythm: regular rhythm Heart sounds: S1 normal heart sound present and S2 normal heart sound present Neuro General: no focal motor deficits Romberg Test: Negative Extrem General: Yes full ROM Office Procedures Flu Questionnaire Does the patient have a severe egg allergy?: No Does the patient have severe life threatening allergies?: No Does the patient have a fever or illness today?: No Has the patient ever had Guillain-Adams Syndrome?: No Has the patient ever had any past reaction to a flu shot?: No Immunizations Fluarix [id number] (PF) 45 mcg (15 mcg x 3)/0.5 mL IM syringe Performing Provider: Randi Thompson MD Performing Location: [facility] [place] [place] [facility] Administered by: JEFF Ortez on 09/21/25 14:42 Dose Route Admin Location Dispensed Lot Number Expiration Date NDC Quality Assurance/R&D Lab Technician 0.5 mL IM Left Deltoid 0.5 mL [id number] 05/25/26 90980-971-06 GLAXNokoriINE VIS Given Date VIS Provided VIS Publication Date 09/21/25 Single Vaccine 24 Eligibility Eligibility Date Funding Source Not [facility] Eligible 09/21/25 Private Assessment & Plan Assessment & Plan (1) Encounter for Medicare annual wellness exam: Code(s): Z00.00 - Encounter for general adult medical examination without abnormal findings (2) Diabetes mellitus: Code(s): E11.9 - Type 2 diabetes mellitus without complications Qualifiers: Diabetes mellitus type: type 2 Diabetes mellitus detention insulin use: without ocean transportation intermediary use Diabetes mellitus complication status: without complication Qualified Code(s): E11.9 - Type 2 diabetes mellitus without complications Plan Plan 1. Encounter for general adult medical examination without abnormal findings Z00.00 A cognitive assessment and review of activities of daily living (ADLs) and instrumental activities of daily living (IADLs) were performed. Recent lab results were reviewed, and preventative screenings including mammogram and colonoscopy status were discussed. An influenza vaccine will be administered. 2. Diabetes mellitus type 2 A1c goal is equal or less than 7%. Orders: Orders Influenza [id number] Immunization Today Z23 - Encounter for immunization Coding Level of Care Code Medicare Subsequent (G0439) Diagnoses Encounter for Medicare annual wellness exam Z00.00 Type 2 diabetes mellitus without complication, without long-term current use of insulin E11.9 Diabetes mellitus type: type 2 Diabetes mellitus detention insulin use: without ocean transportation intermediary use Diabetes mellitus complication status: without complication CPT Codes Advance Care Planning - Time spent: 1-15 minutes, on File ([id number]) Additional Codes SHEREE-7 Assessment Billing - SHEREE-7 Assessment Tool: SHEREE-7 Assessment 54652 ([id number]) Time Spent (min) 34 Advance Care Planning Advance Care Planning discussion: Exists, not on file Date of discussion: 09/21/25 Forms completed: Health Care Proxy Time spent: 1-15 minutes, on File Actual minutes spent: 1
--- OUTSIDE RECORDS SUMMARY | 2025-09-21 17:44 | XMS_ITS | Patient Health Record ---
Author Organization Alex F[facility] Address [address] [place] [address] Care Team Providers Care Post Production Assistant Name Role Phone RICKIE FREY Primary Care Provider [phone] Allergies No Known Allergies Reason For Referral [...] 100 Active Clotrimazole 1 % 1 application Rn Surgical ally Twice a day; Duration: 28 day(s) 08/22/2021 Active Vitamin D (Ergocalciferol) 78020 UNIT TAKE 1 CAPSULE BY MOUTH ONCE [...] 10/18/2021 Active Vitamin D (Ergocalciferol) 1.25 MG (01660 UT) TAKE 1 CAPSULE BY MOUTH EVERY [...] carcinom a in situ of right breast (3162952349270009) 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 confirmed Problem Pain co-occurrent an d due to varicose veins of bilateral legs (83388916885081732) Varicose veins of bilateral lower extremities with pain (I83.813) Active confirmed Problem Essential hypertension (28226731) HTN (hypertension), benign (I10) Active confirmed Problem Arthritis of left knee (1375896908033490) Arthritis of knee, left (M17.12) Active confirmed Problem Vitamin D deficiency (20527820) Vitamin D deficiency (E55.9) Active confirmed Problem Arthritis of knee (940631245) Arthritis of knee (M17.10) Active confirmed Problem Hyperlipidaemia (70070164) Hyperlipidemia LDL goal <100 (E78.5) Active confirmed Problem Mild intermittent asthma (796788468) Mild intermittent asthma without complication (J45.20) Active confirmed Problem Gastroesophageal reflux disease without esophagitis (406268864) Gastroesophageal reflux disease without esophagitis (K21.9) Active confirmed Problem Stable angina (disorder) (459313535) Chronic stable angina (I20.8) Active confirmed Problem Personal history of primary malignant neoplasm of breast (705221730) History of breast cancer (Z85.3) Active confirmed Problem Benign neoplasm of stomach (07568366) Benign gastric polyp (K31.7) Active confirmed Problem Pure hypercholesterolemia (545973134) Pure hypercholesterolemia (272.0) Active confirmed jose rafael-48 5222 Problem Mixed hyperlipidemia (148991452) Mixed hyperlipidemia (272.2) Active confirmed jose rafael-48 5222 Problem Essential hypertension (46694133) Unspecified essential hypertension (401.9) Active confirmed jose rafael-48 5222 Problem Acute bronchitis (76145670) Acute bronchitis (466.0) Active confirmed jose rafael-48 5222 Problem Acute gastritis (33863303) Acute gastritis (535.0) Active confirmed jose rafael-48 5222 Problem Chronic nonalcoholic liver disease (73984596) Other chronic nonalcoholic liver disease (571.8) Active confirmed jose rafael-48 5222 Problem Lumbago (079746489) Lumbago (724.2) Active conf irmed jose rafael-48 5222 Problem Depression screening (075165898) Screening for depression (V79.0) Active confirmed jose rafael-48 5222 Problem General examination of patient (259016848) Routine general medical examination at a health care facility (V70.0) Active confirmed jose rafael-48 5222 Problem Bursitis of right shoulder (751191345959479) Bursitis of right shoulder (726.10) Active confirmed jose rafael-48 5222 Problem Stable angina (556468574) Stable angina (413.9) Active confirmed mi g-48 5222 Problem Gastric polyposis (91753776) Gastric polyposis (211.1) Active confirmed jose rafael-48 5222 Problem Nodule of breast (793.89) Active confirmed jose rafael-48 5222 Problem Carcinoma in situ of breast (897769574) 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) [...] CHOLESTE ROL 09/11/2017 888-Phlebotomy 09/11/2017 888-Phlebotomy 07/08/2018 [id number] BLOOD COUNT (CBC) WITH DI FFERENTIAL[203] 09/11/2017 999NS - Problem With Specimen (No Specim en Received) 09/26/2021 999NS - Problem With Specimen (No Specim en Received) 04/07/2021 [id number] IONIZED[4831] 9 Insurance Providers Payer Name Payer Address Payer Phone Subscriber Number Group Number Insured Name Patient Relationship to Insured Coverage Start Date Coverage End Date MEDICARE [address] [place] [address] [id number] Yvette Graham Self - patient is the insured 3 [facility] Comm Medicaid [address] [place] [address] [id number] Yvette Graham Self - patient is the insured 0 MEDICAID [address] [place] [address] [id number] Yvette Graham Self - patient is the insured 2 Medical (General) History Medical History History ICD Code GASTRIC POLYPS, hypertenion gastritis hyperlipidemia fatty liver Bronchitis Ductal Ca in situ of breast Surgical History Surgery Date(Month/Year) CESAREA 1977 AND 1978, Rt breast Biopsy 04/2017 Uterus Cancer 10/18/2020
--- OUTSIDE RECORDS SUMMARY | 2025-09-21 17:44 | XMS_ITS | Patient Health Record ---
Author Organization [facility] [employer] Address [address] [place] [address] Care Team Providers Care Bending Roll Operator Name Role Phone SalbadorDharmesh tolbert Unavailable [phone] Matt Lamar Unavailable Unavailable Reason For Referral No Information Plan Of Treatment No Information Insurance Providers Payer Name Payer Address Payer Phone Subscriber Number Group Number Insured Name Patient Relationship to Insured Coverage Start Date Coverage End Date MEDICARE [address] [place] [phone] [id number] Yvette Graham Self - patient is the insured [facility] [address] [place] [address] [id number] Yvette Graham Self - patient is the insured
== END 2025-09-21 14:48 | disposition home or self-care (01) ==
LOC: HO.HMCH 14:05
PROVIDERS: PCP Internal Medicine; Visit Provider Internal Medicine
DX: Z00.00 Encounter for general adult medical examination without abnormal findings (principal); E11.9 Type 2 diabetes mellitus without complications; Z23 Encounter for immunization

== ENCOUNTER 2025-09-21 14:04 | Outpatient (REF) | payer OTHER, SELFPAY ==
[2025-09-21 16:09] LABS: Microalbum/Creatinine Ratio Ur 15.7 ug/mg cr (<30)
--- OUTSIDE RECORDS SUMMARY | 2025-09-22 20:04 | XMS_ITS | Patient Health Record ---
Author Organization [facility] [employer] Address [address] [place] [address] Care Team Providers Care Cigar Sorter Name Role Phone SalbadorDharmesh tolbert Unavailable [phone] Matt Lamar Unavailable Unavailable Reason For Referral No Information Plan Of Treatment No Information Insurance Providers Payer Name Payer Address Payer Phone Subscriber Number Group Number Insured Name Patient Relationship to Insured Coverage Start Date Coverage End Date MEDICARE [address] [place] [phone] [id number] Yvette Graham Self - patient is the insured [facility] [address] [place] [address] [phone] [id number] Yvette Graham Self - patient is the insured
--- OUTSIDE RECORDS SUMMARY | 2025-09-22 20:04 | XMS_ITS | Patient Health Record ---
Author Organization Alex Frey [facility] Address [address] [place] [address] Care Team Providers Care Director Digital Analytics Name Role Phone RICKIE FREY Primary Care [...] 100 Active Clotrimazole 1 % 1 application Litigation Paralegal ally Twice a day; Duration: 28 day(s) 08/22/2021 Active Vitamin D (Ergocalciferol) 94415 UNIT TAKE 1 CAPSULE BY MOUTH ONCE [...] 10/18/2021 Active Vitamin D (Ergocalciferol) 1.25 MG (84876 UT) TAKE 1 CAPSULE BY MOUTH EVERY [...] carcinom a in situ of right breast (4175445320332229) 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 confirmed Problem Pain co-occurrent an d due to varicose veins of bilateral legs (78362010696244255) Varicose veins of bilateral lower extremities with pain (I83.813) Active confirmed Problem Essential hypertension (28032108) HTN (hypertension), benign (I10) Active confirmed Problem Arthritis of left knee (6667285509745628) Arthritis of knee, left (M17.12) Active confirmed Problem Vitamin D deficiency (21511435) Vitamin D deficiency (E55.9) Active confirmed Problem Arthritis of knee (167245635) Arthritis of knee (M17.10) Active confirmed Problem Hyperlipidaemia (16400328) Hyperlipidemia LDL goal <100 (E78.5) Active confirmed Problem Mild intermittent asthma (087026811) Mild intermittent asthma without complication (J45.20) Active confirmed Problem Gastroesophageal reflux disease without esophagitis (259379254) Gastroesophageal reflux disease without esophagitis (K21.9) Active confirmed Problem Stable angina (disorder) (170321105) Chronic stable angina (I20.8) Active confirmed Problem Personal history of primary malignant neoplasm of breast (254350050) History of breast cancer (Z85.3) Active confirmed Problem Benign neoplasm of stomach (73692515) Benign gastric polyp (K31.7) Active confirmed Problem Pure hypercholesterolemia (282774342) Pure hypercholesterolemia (272.0) Active confirmed jose rafael-48 5222 Problem Mixed hyperlipidemia (613249104) Mixed hyperlipidemia (272.2) Active confirmed jose rafael-48 5222 Problem Essential hypertension (45283268) Unspecified essential hypertension (401.9) Active confirmed jose rafael-48 5222 Problem Acute bronchitis (28102067) Acute bronchitis (466.0) Active confirmed jose rafael-48 5222 Problem Acute gastritis (50187073) Acute gastritis (535.0) Active confirmed jose rafael-48 5222 Problem Chronic nonalcoholic liver disease (67272386) Other chronic nonalcoholic liver disease (571.8) Active confirmed jose rafael-48 5222 Problem Lumbago (329044057) Lumbago (724.2) Active conf irmed jose rafael-48 5222 Problem Depression screening (933837566) Screening for depression (V79.0) Active confirmed jose rafael-48 5222 Problem General examination of patient (223762572) Routine general medical examination at a health care facility (V70.0) Active confirmed jose rafael-48 5222 Problem Bursitis of right shoulder (555473489176232) Bursitis of right shoulder (726.10) Active confirmed jose rafael-48 5222 Problem Stable angina (022252458) Stable angina (413.9) Active confirmed mi g-48 5222 Problem Gastric polyposis (02650257) Gastric polyposis (211.1) Active confirmed jose rafael-48 5222 Problem Nodule of breast (793.89) Active confirmed jose rafael-48 5222 Problem Carcinoma in situ of breast (404449754) 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) [...] CHOLESTE ROL 09/11/2017 888-Phlebotomy 09/11/2017 888-Phlebotomy 07/08/2018 [id number] BLOOD COUNT (CBC) WITH DI FFERENTIAL[203] 09/11/2017 999NS - Problem With Specimen (No Specim en Received) 04/07/2021 999NS - Problem With Specimen (No Specim en Received) 09/26/2021 [id number] IONIZED[4831] 9 Insurance Providers Payer Name Payer Address Payer Phone Subscriber Number Group Number Insured Name Patient Relationship to Insured Coverage Start Date Coverage End Date MEDICARE [address] [place] [address] [id number] Yvette Graham Self - patient is the insured [address] [facility] Comm Medicaid [address] [place] [address] [id number] vYette Graham Self - patient is the insured 0 MEDICAID [address] [place] [address] [id number] Yvette Graham Self - patient is the insured 2 Medical (General) History Medical History History ICD Code GASTRIC POLYPS, hypertenion gastritis hyperlipidemia fatty liver Bronchitis Ductal Ca in situ of breast Surgical History Surgery Date(Month/Year) CESAREA 1977 AND 1978, Rt breast Biopsy 04/2017 Uterus Cancer 10/18/2020
== END 2025-09-21 14:05 | disposition home or self-care (01) ==
LOC: HO.LNP 14:04
PROVIDERS: PCP Internal Medicine; Visit Provider Internal Medicine
DX: Z00.00 Encounter for general adult medical examination without abnormal findings (principal); E11.9 Type 2 diabetes mellitus without complications; Z23 Encounter for immunization; Z79.4 Long term (current) use of insulin; Z79.82 Long term (current) use of aspirin
CPT/HCPCS: 82043; 82570; 90471; 90656; 96127

== ENCOUNTER 2025-09-30 13:07 | Outpatient (REF) | payer OTHER, SELFPAY ==
--- OUTSIDE RECORDS SUMMARY | 2015-08-16 10:45 | XMS_ITS | Continuity of Care Document ---
Author Organization [facility] Address [address] [facility] [address] [place] [id number] Phone Care Team Providers Care Ordnance Keeper Name Role Phone Emily Pedraza MD Unavailable Unavailable Allergies, Adverse Reactions, Alerts Substance Reaction Status Criticality No Known Drug Allergies Active No I nformation Procedures Procedure Date Office/Oupt E&M New Pt 45 Mins 15 Duplex Scan-extrem Veins; Comp 15 Advance Directives Directive Yes / No Effective Date File Name No Information Encounters Encounter Description Practice Location Reason(s) For Visit Diagnoses Date Provider Providers Copied on Encounter Office/Oupt E&M New Pt 45 Mins [facility], [address] [place] [address], [id number], [place] tel:[phone] CONNIE Hdz chronic venous htn w/oth compvaricose vns low extrem w/oth Sep-2 1201 5 Milo Diaz. [address] [facility], [facility] [address], [place], [place], [id number] , [place]. tel:[phone] Referring Provider: Ros Nielsen, [address] [place] [address], [id number] . tel:[phone] [facility], [address] [place] [address], [id number], [place] tel:[phone] CONNIE GONZALEZ - Waka No Information Miol Diaz. [address] [facility], [address], [place], [place], [id number] , [place]. tel: [phone] Referring Provider: Ros Nielsen, [address] [place], [address] . tel:[phone] Family History Family Member Type Diagnosis Age At Onset No Information Payers Payer name Insurance type Covered alliance party ID Authoriza tion(s) Medicare [facility] [id number] [facility] [id number] Social History Type Description Quantity Date Captured Comments Alcohol Use Details No Caffeine Use Details Unknown Tobacco Use Status Never smoked tobacco 2014 Smoking Status Never smoker Non-Smoking Tobacco Use Details : No Details Available : No Details Available Sex Female Vital Signs Date / Time: Height Weight BMI Pulse Rate Blood Pressure Temperature Respiratory Rate Body Surface Area Head Circumference Head Circ. Percentile Wt./Supa. Percentile BMI percentile Pulse Ox Inhaled Ox 7:56 AM 65.00 in 65.771 kg (145.00 lbs) 24.1 3 kg/m eter (2) 126/90 mm[Hg] Chief Complaint And Reason For Visit No Information Reason For Referral Reason For Referral No Information History Of Present Illness Encounter Date Complaint History Of Prese nt Illness No Information Functional Status Date Functional Assessmen t No Information Instructions Date Instruction Additional Infor mation No Information Assessments Type Assessment Date assessment chronic venous htn w/oth comp Se assessment varicose vns low extrem w/oth Se Patient Care Teams Name Effective Dates (start - stop) Status Members No Information
--- OUTSIDE RECORDS SUMMARY | 2025-09-30 15:53 | XMS_ITS | Patient Health Record ---
Author Organization Alex Frey [facility] Address [address] [place] [address] Care Team Providers Care Sheet Writer Name Role Phone RICKIE FREY Primary Care Provider [phone] Allergies No Known Allergies Reason For Referral [...] 100 Active Clotrimazole 1 % 1 application [employer] ally Twice a day; Duration: 28 day(s) 08/22/2021 Active Vitamin D (Ergocalciferol) 84057 UNIT TAKE 1 CAPSULE BY MOUTH ONCE [...] 10/18/2021 Active Vitamin D (Ergocalciferol) 1.25 MG (82978 UT) TAKE 1 CAPSULE BY MOUTH EVERY [...] carcinom a in situ of right breast (2597288059052167) 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 confirmed Problem Pain co-occurrent an d due to varicose veins of bilateral legs (42875790613516751) Varicose veins of bilateral lower extremities with pain (I83.813) Active confirmed Problem Essential hypertension (50264955) HTN (hypertension), benign (I10) Active confirmed Problem Arthritis of left knee (9461994604052985) Arthritis of knee, left (M17.12) Active confirmed Problem Vitamin D deficiency (35205626) Vitamin D deficiency (E55.9) Active confirmed Problem Arthritis of knee (478183505) Arthritis of knee (M17.10) Active confirmed Problem Hyperlipidaemia (46733816) Hyperlipidemia LDL goal <100 (E78.5) Active confirmed Problem Mild intermittent asthma (543881787) Mild intermittent asthma without complication (J45.20) Active confirmed Problem Gastroesophageal reflux disease without esophagitis (129932443) Gastroesophageal reflux disease without esophagitis (K21.9) Active confirmed Problem Stable angina (disorder) (368732363) Chronic stable angina (I20.8) Active confirmed Problem Personal history of primary malignant neoplasm of breast (741075222) History of breast cancer (Z85.3) Active confirmed Problem Benign neoplasm of stomach (02514387) Benign gastric polyp (K31.7) Active confirmed Problem Pure hypercholesterolemia (772331388) Pure hypercholesterolemia (272.0) Active confirmed jose rafael-48 5222 Problem Mixed hyperlipidemia (980848780) Mixed hyperlipidemia (272.2) Active confirmed jose rafael-48 5222 Problem Essential hypertension (29035263) Unspecified essential hypertension (401.9) Active confirmed jose rafael-48 5222 Problem Acute bronchitis (65320760) Acute bronchitis (466.0) Active confirmed jose rafael-48 5222 Problem Acute gastritis (15622307) Acute gastritis (535.0) Active confirmed jose rafael-48 5222 Problem Chronic nonalcoholic liver disease (21596925) Other chronic nonalcoholic liver disease (571.8) Active confirmed jose rafael-48 5222 Problem Lumbago (952222172) Lumbago (724.2) Active conf irmed jose rafael-48 5222 Problem Depression screening (839776448) Screening for depression (V79.0) Active confirmed jose rafael-48 5222 Problem General examination of patient (618802269) Routine general medical examination at a health care facility (V70.0) Active confirmed jose rafael-48 5222 Problem Bursitis of right shoulder (650357769916872) Bursitis of right shoulder (726.10) Active confirmed jose rafael-48 5222 Problem Stable angina (466623591) Stable angina (413.9) Active confirmed mi g-48 5222 Problem Gastric polyposis (09669057) Gastric polyposis (211.1) Active confirmed jose rafael-48 5222 Problem Nodule of breast (793.89) Active confirmed jose rafael-48 5222 Problem Carcinoma in situ of breast (646942025) 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) [...] CHOLESTE ROL 09/11/2017 888-Phlebotomy 09/11/2017 888-Phlebotomy 07/08/2018 [id number] BLOOD COUNT (CBC) WITH DI FFERENTIAL[203] 09/11/2017 999NS - Problem With Specimen (No Specim en Received) 04/07/2021 999NS - Problem With Specimen (No Specim en Received) 09/26/2021 [id number] IONIZED[4831] 9 Insurance Providers Payer Name Payer Address Payer Phone Subscriber Number Group Number Insured Name Patient Relationship to Insured Coverage Start Date Coverage End Date MEDICARE [address] [place] [address] [id number] Yvette Graham Self - patient is the insured 3 [facility] Comm Medicaid [address] [place] [address] [id number] Yvette Graham Self - patient is the insured 0 MEDICAID [address] [place] [address] [id number] Yvette Graham Self - patient is the insured 2 Medical (General) History Medical History History ICD Code GASTRIC POLYPS, hypertenion gastritis hyperlipidemia fatty liver Bronchitis Ductal Ca in situ of breast Surgical History Surgery Date(Month/Year) CESAREA 1977 AND 1978, Rt breast Biopsy 04/2017 Uterus Cancer 10/18/2020
--- OUTSIDE RECORDS SUMMARY | 2025-09-30 15:53 | XMS_ITS | Patient Health Record ---
Author Organization [facility] [employer] Address [address] [place] [address] Care Team Providers Care Staff Services Manager Name Role Phone SalbadorDharmesh tolbert Unavailable [phone] Matt Lamar Unavailable Unavailable Reason For Referral No Information Plan Of Treatment No Information Insurance Providers Payer Name Payer Address Payer Phone Subscriber Number Group Number Insured Name Patient Relationship to Insured Coverage Start Date Coverage End Date MEDICARE [address] [place] [phone] [id number] Yvette Graham Self - patient is the insured [facility] [address] [place] [address] [id number] Yvette Graham Self - patient is the insured
== END 2025-09-30 13:08 | disposition home or self-care (01) ==
LOC: HO.MAMMO 13:07
PROVIDERS: PCP Internal Medicine; Visit Provider Internal Medicine
DX: Z12.31 Encounter for screening mammogram for malignant neoplasm of breast (principal)
CPT/HCPCS: 77063; 77067

== ENCOUNTER → 2025-09-30 13:30 | Outpatient (BNV) | payer OTHER, SELFPAY | PROVIDERS: PCP Internal Medicine; Visit Provider Internal Medicine | DX: Z12.31 Encounter for screening mammogram for malignant neoplasm of breast (principal) | CPT/HCPCS: 77063; 77067 ==

== ENCOUNTER 2025-11-23 12:38 | Emergency (ER) | payer OTHER, SELFPAY ==
--- NOTE | ~2025-11-23 | XR_ITS ---
EXAMINATION: XR CHEST CLINICAL INFORMATION: weakness COMPARISON: None available. TECHNIQUE: 2 views of the chest were obtained. FINDINGS: The cardiac, hilar, and mediastinal contours are normal. Lungs are somewhat hyperaerated and hyperlucent suggesting COPD. There is an oval opacity in the right upper lobe region best appreciated on the PA view. A mass cannot be excluded given the appearance. Pneumonia is also a possibility. There is no pneumothorax or pleural effusion. There is no focal osseous or soft tissue abnormality. XR/XR chest 2V IMPRESSION: 1. COPD. 2. Masslike opacity right upper lobe, for which underlying pulmonary mass cannot be excluded. CT recommended. Electronically signed by: Andrea Fields MD 11/23/2025 02:33 PM EST
[2025-11-23 13:44] VITALS: BP 156/66; PULSE 40; RESP 16; TEMP 36.9; O2SAT 95; BMI 16.3
--- NOTE | 2025-11-23 13:44 | ED_ITS ---
HPI - General Adult General Chief complaint: Chest Pain Stated complaint: High BP, palpitations, hard to talk Related Data Previous Rx's ?Medication ?Instructions ?Recorded blood pressure monitor #1 ea 05/11/23 meclizine 25 mg tablet 25 mg PO TID PRN dizziness # 20 tabs 12/23/23 lidocaine 5 % topical patch 1 patch topical DAILY #15 ea 06/03/24 cane #1 ea 09/04/24 blood sugar diagnostic (OneTouch #100 ea 09/16/24 Ultra Test strips) blood-glucose meter (OneTouch #1 ea 09/16/24 Ultra2 Meter) lancets 30 gauge (OneTouch #200 ea 09/16/24 UltraSoft 2 Lancet) acetaminophen 500 mg tablet 500 mg PO Q6H #30 tabs (Tylenol Extra Strength) aspirin 81 mg tablet,delayed 81 mg PO DAILY 90 days #9 0 tabs 12/02/24 release alprazolam 0.25 mg tablet 0.25 mg PO BID PRN anxiety 2 days 03/03/25 #4 tabs hydroxyzine HCl 25 mg tablet 25 mg PO BID PRN anxiety 14 days 03/03/25 #28 tabs folic acid 1 mg tablet 1 mg PO DAILY #90 tabs 03/27 amlodipine 5 mg tablet 5 mg PO DAILY #90 tabs 04/07 omeprazole 40 mg capsule,delayed 40 mg PO DAILY #30 ca ps 04/12/25 release cholecalciferol (vitamin D3) 25 25 mcg PO DAILY #90 ta bs 04/25/25 mcg (1,000 unit) tablet gabapentin 100 mg capsule 100 mg PO BEDTIME #30 caps 0 05/27/25 metoprolol succinate 50 mg 50 mg PO DAILY #90 tabs tablet,extended release 24 hr sitagliptin phosphate 25 mg tablet 25 mg PO DAILY 90 d ays #90 tabs 06/30/25 (Januvia) sertraline 25 mg tablet 25 mg PO DAILY 90 days #90 t abs 09/08/25 rosuvastatin 10 mg tablet 10 mg PO DAILY #90 tabs 08/27 03/20 Allergies Allergy/AdvReac Type Severity Reaction Status Date / Time lisinopril Allergy Severe Angioedema Verified 11/23/25 13:47 [facility] Past Medical History Medical History Neuropathy Leg cramps, sleep related Adenocarcinoma Chronic stable angina Angina pectoris Elevated cholesterol Osteopenia Renal calculi Left bundle branch block Diabetes Palpitations CAD (coronary artery disease) GERD (gastroesophageal reflux disease) Elevated LFTs Elevated glucose Rash and nonspecific skin eruption Angioedema Encounter to establish care Ductal carcinoma in situ of right breast Surgical History Hx of colonoscopy History of esophagogastroduodenoscopy (EGD) History of total hysterectomy with bilateral salpingo-oophorectomy (BSO) Family History Family History Father Hypertension Mother No problems noted. Sister Uterine cancer Social History Social History Housing: Apartment Patient Tobacco Use Status: Never used Tobacco e-Cigarette/Vaping Use: Never Used Second Hand Smoke Exposure: No Advance Directives: No Advance Directives Information Provided: No Do you have a plan to hurt others: No Plan service: No Current occupational status: retired Cognitive needs: No Hearing needs: No Vision needs: Yes (glasses) Physical Exam ED Vital Signs: Vital Signs - 24 hr 11/23/25 13:44 Temperature 98.5 F Pulse Rate 40 L Respiratory Rate 16 Blood Pressure 156/66 H Pulse Oximetry 95 Oxygen Delivery Method Room Air BMI result Body Mass Index 16.3 Course Course Course Narrative: Rapid medical examination performed in triage by Monica Gallegos PA-C: Patient is a 75 year old female presenting to the emergency department with palpitations and difficulty speaking. Detailed physical exam and review of systems are deferred to the admissions clinician. EKG, labs, swabs, and imaging ordered. Patient placed back in the waiting room pending room availability and results. Patient left the department without completing treatment. Patient left the department before myself or any of the other emergency department clinicians could explain to or review with the patient; physical exam findings, test results, need or lack there of for additional testing, need or lack there of for a procedure to be performed, need or lack there of for hospital admission / transfer, need or lack there of for prescription medication, treatment options, or a treatment plan. Patient's limited physical exam performed in triage showed a non-toxic individual with appropriate breathing, alert and oriented, and ambulating without assistance. Medical Decision Making Lab Data 11/23/25 13:57 11/23/25 13:57 Labs: Lab Results 11/23/25 Range/Units 13:57 WBC 8.9 (4.8-10.8) X10*3/uL RBC 5.03 (4.20-5.50) X10*6/uL Hgb 13.2 (12.0-16.0) g/dl Hct 42.1 (37.0-47.0) % MCV 83.7 (80.0-98.0) fL MCH 26.2 L (27.0-33.0) pg MCHC 31.4 (31.0-35.0) g/dl RDW 13.3 (11.0-16.0) % Plt Count 249 (160-400) X10*3/uL MPV 9.4 (9.4-12.3) fL Immature Gran % (Auto) 0.4 (0.0-0.4) % Neut % (Auto) 60.7 (45-73) % Lymph % (Auto) 27.0 (20-40) % [place] % (Auto) 10.1 (2-11) % Eos % (Auto) 1.2 (0-4) % Baso % (Auto) 0.6 (0-2) % Lymph # (Auto) 2.4 (1.2-4.9) X10*3/uL [place] # (Auto) 0.9 (0.1-1.2) X10*3/uL Eos # (Auto) 0.1 (0.0-0.4) X10*3/uL Baso # (Auto) 0.1 (0.0-0.2) X10*3/uL Abs Immat Gran (auto) 0.04 H (0.00-0.03) X10*3/uL Absolute Neuts (auto) 5.4 (2.0-8.3) x10*3/uL Absolute Nucleated RBC 0.000 (0.0-0.012) X10*3/uL Nucleated RBC % (auto) 0.0 (0.0-0.2) /100WBC Sodium 140 (135-145) mmol/L Potassium 3.5 (3.3-5.1) mmol/L Chloride 106 (96-108) mmol/L Carbon Dioxide 26 (22-29) mmol/L Anion Gap 12 (12-20) BUN 20 H (9-16) mg/dL Creatinine 0.72 (0.5-1.4) mg/dL Estim Creat Clear Calc 47.2 Estimated GFR > 60 Random Glucose 82 (60-115) mg/dL Calcium 10.3 H (8.4-10.2) mg/dL Magnesium 1.8 (1.6-2.6) mg/dL Total Bilirubin 0.7 (0.0-1.0) mg/dL AST 27 (5-31) U/L ALT 22 (0-31) U/L Alkaline Phosphatase 66 (39-117) U/L Troponin I High Sens 4.3 (<3.5-17.0) ng/L NT-Pro-B Natriuret Pep 246.7 (<300) pg/mL Total Protein 7.4 (6.5-8.0) g/dL Albumin 4.5 (3.5-5.0) g/dL Influenza Type A (PCR) NEGATIVE (Negative) Influenza Type B (PCR) NEGATIVE (Negative) RSV RNA Qual (PCR) NEGATIVE (Negative) SARS-CoV-2 RNA (RT-PCR) NEGATIVE (Negative) Discharge Plan Discharge Clinical Impression: Palpitations Patient Disposition: Left W/O Completing Treatment Prescriptions: No Action (DME) blood-glucose meter [OneTouch Ultra2 Meter] Misc See Rx Instructions .Route Qty: 1 0RF Rx Instructions: test daily (DME) OneTouch Ultra Test Strip See Rx Instructions .Route Qty: 100 1RF Rx Instructions: test daily (DME) lancets [OneTouch UltraSoft 2 Lancet] 30 gauge misc See Rx Instructions .Route Qty: 200 1RF Rx Instructions: test daily aspirin 81 mg tablet,delayed release (DR/EC) 81 mg PO DAILY 90 Days Qty: 90 1RF hydroxyzine HCl 25 mg tablet 25 mg PO BID PRN (Reason: anxiety) 14 Days Qty: 28 0RF alprazolam 0.25 mg tablet 0.25 mg PO BID PRN (Reason: anxiety) 2 Days Qty: 4 0RF Rx Instructions: Take 45 minutes before flying folic acid 1 mg tablet 1 mg PO DAILY Qty: 90 1RF amlodipine 5 mg tablet 5 mg PO DAILY Qty: 90 1RF omeprazole 40 mg capsule,delayed release(DR/EC) 40 mg PO DAILY Qty: 30 1RF cholecalciferol (vitamin D3) 25 mcg (1,000 unit) tablet 25 mcg PO DAILY Qty: 90 2RF metoprolol succinate 50 mg tablet extended release 24 hr 50 mg PO DAILY Qty: 90 1RF sertraline 25 mg tablet 25 mg PO DAILY 90 Days Qty: 90 0RF rosuvastatin 10 mg tablet 10 mg PO DAILY Qty: 90 1RF meclizine 25 mg tablet 25 mg PO TID PRN (Reason: dizziness) Qty: 20 0RF acetaminophen [Tylenol Extra Strength] 500 mg tablet 500 mg PO Q6H Qty: 30 0RF (DME) blood pressure monitor Kit See Rx Instructions .Route Qty: 1 0RF Rx Instructions: As directed lidocaine 5 % adhesive patch,medicated 1 patch topical DAILY Qty: 15 0RF Rx Instructions: leave on most painful area for up to 12 hrs naproxen 500 mg tablet 500 mg PO ONCE Qty: 1 0RF nitrofurantoin monohyd/m-cryst 100 mg capsule 100 mg PO ONCE Qty: 1 0RF lidocaine HCl 2 % jelly in applicator 10 ml intra-urethral ONCE Qty: 10 0RF (DME) cane Device See Rx Instructions .Route Qty: 1 0RF Rx Instructions: As directed Januvia 25 mg tablet 25 mg PO DAILY 90 Days Qty: 90 1RF gabapentin 100 mg capsule 100 mg PO BEDTIME Qty: 30 6RF Discharge Date/Time: 11/23/25 20:21
--- NOTE | 2025-11-23 13:45 | ECG_ITS ---
Test Reason : CP Blood Pressure : */* mmHG Vent. Rate : 45 BPM Atrial Rate : 46 BPM P-R Int : * ms QRS Dur : 124 ms QT Int : 528 ms P-R-T Axes : 54 102 -23 degrees QTcB Int : 456 ms Sinus bradycardia with A-V dissociation and Wide QRS rhythm with ventricular escape complexes Right bundle branch block Abnormal ECG When compared with ECG of 23-Dec-2023 15:44, Wide QRS rhythm has replaced Sinus rhythm Vent. rate has decreased by 23 bpm Referred By: Monica Gallegos Electronically Signed By: IVET ESPOSITO
[2025-11-23 14:21] LABS: MANUAL DIFF FLAG NO
[2025-11-23 14:24] LABS: Hematocrit 42.1 % (37.0-47.0); Hemoglobin 13.2 g/dl (12.0-16.0); Imm Gran Abs Auto 0.04 X10*3/uL (0.00-0.03); Imm Gran Pct Auto 0.4 % (0.0-0.4); Lymphocytes Absolute Auto 2.4 X10*3/uL (1.2-4.9); Mean Corpuscular HGB Conc 31.4 g/dl (31.0-35.0); Mean Corpuscular Hemoglobin 26.2 pg (27.0-33.0); Mean Corpuscular Volume 83.7 fL (80.0-98.0); NRBC Abs Auto 0.000 X10*3/uL (0.0-0.012); NRBC Pct Auto 0.0 /100WBC (0.0-0.2); Platelet Count 249 X10*3/uL (160-400); Red Blood Count 5.03 X10*6/uL (4.20-5.50); White Blood Count 8.9 X10*3/uL (4.8-10.8)
[2025-11-23 14:40] LABS: Alanine Aminotransferase 22 U/L (0-31); Albumin Level 4.5 g/dL (3.5-5.0); Alkaline Phosphatase 66 U/L (39-117); Anion Gap 12 (12-20); Aspartate Amino Transferase 27 U/L (5-31); Blood Urea Nitrogen 20 mg/dL (9-16); Calcium 10.3 mg/dL (8.4-10.2); Carbon Dioxide 26 mmol/L (22-29); Chloride 106 mmol/L (96-108); Creatinine Clr Calc Pharmacy 47.2; Estimated Glomerular Filt Rate > 60; Magnesium 1.8 mg/dL (1.6-2.6); Potassium 3.5 mmol/L (3.3-5.1); Sodium 140 mmol/L (135-145); Total Protein 7.4 g/dL (6.5-8.0)
[2025-11-23 14:48] LABS: Troponin-I High Sensitivity 4.3 ng/L (<3.5-17.0)
[2025-11-23 14:51] LABS: NT Pro B Type Natriuretic Pept 246.7 pg/mL (<300)
[2025-11-23 15:01] LABS: Resp Syncy Virus RNA Qual PCR NEGATIVE (Negative); SARS COV2 PCR INHOUSE NEGATIVE (Negative)
--- OUTSIDE RECORDS SUMMARY | 2025-11-23 20:02 | XMS_ITS | Patient Health Record ---
Author Organization [facility] [employer] Address [address] [place] [address] Care Team Providers Care Children'S Service Supervisor Name Role Phone SalbadorDharmesh tolbert Unavailable [phone] Matt Lamar Unavailable Unavailable Reason For Referral No Information Plan Of Treatment No Information Insurance Providers Payer Name Payer Address Payer Phone Subscriber Number Group Number Insured Name Patient Relationship to Insured Coverage Start Date Coverage End Date MEDICARE [address] [place] [phone] [id number] Yvette Graham Self - patient is the insured [facility] [address] [place] [address] [phone] [id number] Yvette Graham Self - patient is the insured
--- OUTSIDE RECORDS SUMMARY | 2025-11-23 20:03 | XMS_ITS | Patient Health Record ---
Author Organization Alex [facility] Address [address] [place] [address] Care Team Providers Care Legislative Correspondent Name Role Phone RICKIE FREY Primary Care Provider [phone] Allergies No Known Allergies Reason For Referral [...] 100 Active Clotrimazole 1 % 1 application [employer] ally Twice a day; Duration: 28 day(s) 08/22/2021 Active Vitamin D (Ergocalciferol) 68299 UNIT TAKE 1 CAPSULE BY MOUTH ONCE [...] 10/18/2021 Active Vitamin D (Ergocalciferol) 1.25 MG (99965 UT) TAKE 1 CAPSULE BY MOUTH EVERY [...] carcinom a in situ of right breast (5370957622137246) 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 confirmed Problem Pain co-occurrent an d due to varicose veins of bilateral legs (75150365857932965) Varicose veins of bilateral lower extremities with pain (I83.813) Active confirmed Problem Essential hypertension (40707805) HTN (hypertension), benign (I10) Active confirmed Problem Arthritis of left knee (1429306449470379) Arthritis of knee, left (M17.12) Active confirmed Problem Vitamin D deficiency (29615989) Vitamin D deficiency (E55.9) Active confirmed Problem Arthritis of knee (969398598) Arthritis of knee (M17.10) Active confirmed Problem Hyperlipidaemia (49514258) Hyperlipidemia LDL goal <100 (E78.5) Active confirmed Problem Mild intermittent asthma (114168106) Mild intermittent asthma without complication (J45.20) Active confirmed Problem Gastroesophageal reflux disease without esophagitis (666683130) Gastroesophageal reflux disease without esophagitis (K21.9) Active confirmed Problem Stable angina (disorder) (082099795) Chronic stable angina (I20.8) Active confirmed Problem Personal history of primary malignant neoplasm of breast (424089039) History of breast cancer (Z85.3) Active confirmed Problem Benign neoplasm of stomach (60103969) Benign gastric polyp (K31.7) Active confirmed Problem Pure hypercholesterolemia (166043527) Pure hypercholesterolemia (272.0) Active confirmed jose rafael-48 5222 Problem Mixed hyperlipidemia (103368587) Mixed hyperlipidemia (272.2) Active confirmed jose rafael-48 5222 Problem Essential hypertension (23320139) Unspecified essential hypertension (401.9) Active confirmed jose rafael-48 5222 Problem Acute bronchitis (06894410) Acute bronchitis (466.0) Active confirmed jose rafael-48 5222 Problem Acute gastritis (90012752) Acute gastritis (535.0) Active confirmed jose rafael-48 5222 Problem Chronic nonalcoholic liver disease (44550674) Other chronic nonalcoholic liver disease (571.8) Active confirmed jose rafael-48 5222 Problem Lumbago (151725837) Lumbago (724.2) Active conf irmed jose rafael-48 5222 Problem Depression screening (116705725) Screening for depression (V79.0) Active confirmed jose rafael-48 5222 Problem General examination of patient (550678088) Routine general medical examination at a health care facility (V70.0) Active confirmed jose rafael-48 5222 Problem Bursitis of right shoulder (243426729160852) Bursitis of right shoulder (726.10) Active confirmed jose rafael-48 5222 Problem Stable angina (671996794) Stable angina (413.9) Active confirmed mi g-48 5222 Problem Gastric polyposis (53841865) Gastric polyposis (211.1) Active confirmed jose rafael-48 5222 Problem Nodule of breast (793.89) Active confirmed jose rafael-48 5222 Problem Carcinoma in situ of breast (744034737) 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) [...] CHOLESTE ROL 09/11/2017 888-Phlebotomy 09/11/2017 888-Phlebotomy 07/08/2018 [id number] BLOOD COUNT (CBC) WITH DI FFERENTIAL[203] 09/11/2017 999NS - Problem With Specimen (No Specim en Received) 04/07/2021 999NS - Problem With Specimen (No Specim en Received) 09/26/2021 [id number] IONIZED[4831] 9 Insurance Providers Payer Name Payer Address Payer Phone Subscriber Number Group Number Insured Name Patient Relationship to Insured Coverage Start Date Coverage End Date MEDICARE [address] [place] [address] [phone] [id number] Yvette Graham Self - patient is the insured 3 [facility] Comm Medicaid [address] [place] [address] [id number] Yvette Graham Self - patient is the insured 0 MEDICAID [address] [place] [address] [id number] Yvette Graham Self - patient is the insured 2 Medical (General) History Medical History History ICD Code GASTRIC POLYPS, hypertenion gastritis hyperlipidemia fatty liver Bronchitis Ductal Ca in situ of breast Surgical History Surgery Date(Month/Year) CESAREA 1977 AND 1978, Rt breast Biopsy 04/2017 Uterus Cancer 10/18/2020
== END 2025-11-23 20:21 | disposition left against medical advice (07) ==
LOC: HO.ED 20:00
PROVIDERS: Physician Assistant Medical; Emergency Provider Emergency Medicine; PCP Internal Medicine
DX: R00.2 Palpitations (principal); R07.89 Other chest pain; R06.02 Shortness of breath; Z03.818 Encounter for observation for suspected exposure to other biological agents ruled out; Z79.899 Other long term (current) drug therapy
CPT/HCPCS: 36415; 71046; 80053; 83735; 83880; 84484; 85025; 87637; 93005; 99283

== ENCOUNTER → 2025-11-23 13:45 | Outpatient (BNV) | payer OTHER, SELFPAY | PROVIDERS: PCP Internal Medicine; Visit Provider Internal Medicine | DX: R00.1 Bradycardia, unspecified (principal); I45.10 Unspecified right bundle-branch block | CPT/HCPCS: 93010 ==

== ENCOUNTER → 2025-11-23 13:45 | Outpatient (BNV) | payer OTHER, SELFPAY | PROVIDERS: PCP Internal Medicine; Visit Provider Radiology Diagnostic Radiology | DX: J44.9 Chronic obstructive pulmonary disease, unspecified (principal); R91.8 Other nonspecific abnormal finding of lung field | CPT/HCPCS: 71046 ==

== ENCOUNTER 2025-11-24 08:27 | Outpatient (AMB) | payer OTHER, SELFPAY ==
--- NOTE | 2025-11-24 08:34 | MHC.OFFWIV ---
Intake Vital Signs 11/24/25 08:36 Height 5 ft 6 in Weight 100 lb BMI 16.1 BP 154/72 H Blood Pressure Location Lt brachial Position Sitting Pulse 47 L Pulse Source Pulse Oximeter Pulse Oximetry (%) 96 Oxygen Delivery Method Room Air Intake Visit Reasons: EP High BP 157/70, heart beating fast Intake Note: Patient presents c/o high BP & increased HR x3 days. Patient Tobacco Use Status: Never used Tobacco Allergies lisinopril Allergy (Severe, Verified 11/24/25 08:36) Angioedema HPI HPI Comments History of Present Illness Details - The patient is accompanied by her son, who is serving as her educational interpreter, Citizen [place] video educational interpreter declined. History of Present Illness - The patient is a 75-year-old Citizen [place] speaking female with past med hx of diverticulosis, kidney stones, osteopenia, LBBB, sinus bradycardia, DM2, CAD, HLD, asthma, HTN and GERD presenting for evaluation of worsening palpitations over the last two days. - She states the palpitations are located more in her upper abdomen than her chest and are associated with difficulty speaking. - She visited the [facility] [place] emergency department yesterday where a workup was initiated. - Her labs were normal, and her troponin was negative. - An EKG performed at that time showed sinus bradycardia at a rate of 45 beats per minute with AV disassociation, a wide QRS rhythm with ventricular escape complexes, and a right bundle branch block. - She left without treatment due to long wait times. Review of Systems - Constitutional: Denies dizziness. - Cardiovascular: Reports palpitations located in her upper abdomen for the last two days. - Gastrointestinal: Denies nausea and vomiting. - Musculoskeletal: Denies back pain. - Neurological: Denies syncopal episodes. - HEENT/Mouth: Reports difficulty speaking secondary to palpitations. All systems reviewed and are unremarkable except as noted in HPI Physical Exam General: Cooperative, healthy appearing, comfortable, no acute distress and well developed Orientation: Patient oriented x3 Limitations: Difficulty speaking due to palpitations Head: Normal to inspection Ears: Hearing grossly normal bilaterally Nose: Normal External nose present Face and sinus: Normal facial exam Eyes: Appearance normal, both eyes and all related structures Neck: Normal visual inspection and Yes full ROM Respiratory: Normal respiratory effort, but difficulty speaking in complete sentences due to palpitations. Clear to auscultation throughout, no wheezes, rales and rhonchi. Cardiac: Bradycardic rate and regular rhythm, Normal S1 and S2, no murmurs, rubs or gallops GI: soft, no TTP throughout, palpated epigastric aorta but no visible pulsations on thin pt Skin: No rashes or lesions noted Neuro: Patient oriented x3, gait normal Extremities: Normal to inspection [facility] Medical History Neuropathy Leg cramps, sleep related Adenocarcinoma Chronic stable angina Angina pectoris Elevated cholesterol Osteopenia Renal calculi Left bundle branch block Diabetes Palpitations CAD (coronary artery disease) GERD (gastroesophageal reflux disease) Elevated LFTs Elevated glucose Rash and nonspecific skin eruption Angioedema Encounter to establish care Ductal carcinoma in situ of right breast Surgical History Hx of colonoscopy History of esophagogastroduodenoscopy (EGD) History of total hysterectomy with bilateral salpingo-oophorectomy (BSO) Family History Father Hypertension Mother No problems noted. Sister Uterine cancer Social History Housing: Apartment Patient Tobacco Use Status: Never used Tobacco e-Cigarette/Vaping Use: Never Used Second Hand Smoke Exposure: No service: No Current occupational status: retired Cognitive needs: No Hearing needs: No Vision needs: Yes (glasses) Physical Exam Vital Signs: Last Vital Signs Pulse 47 L 11/24/25 08:36 BP 154/72 H 11/24/25 08:36 Pulse Ox 96 11/24/25 08:36 Oxygen Delivery Method Room Air 11/24/25 08:36 BMI result Body Mass Index 16.1 Assessment & Plan Assessment & Plan (1) Palpitations: Code(s): R00.2 - Palpitations Plan: Assessment and Plan The patient is a 75-year-old Citizen [place] speaking female with past med hx of diverticulosis, kidney stones, osteopenia, LBBB, sinus bradycardia, DM2, CAD, HLD, asthma, HTN and GERD presenting with a 2-day history of palpitations localized to the upper abdomen. Her EKG today reveals a heart rate of 48 bpm, an undetermined rhythm , and T-wave depressions in leads V1-V6 on one tracing and V1-V3 on another. Qtc on EKG is 488 on one EKG, one minute later it is 536. The T wave inversions are similar to the EKG from her ER visit yesterday, which showed sinus bradycardia (45 bpm), AV disassociation, a wide QRS rhythm with ventricular escape complexes, and a right bundle branch block. Her labs and troponin were all negative yesterday. She left the ED without being treated as the wait was too long. The patient's primary symptom of palpitations is located in the upper abdomen. On exam, her abdominal aorta was palpable but not visibly pulsating. Due to the location of her symptoms, changing EKG, an abdominal aortic aneurysm (AAA) is a differential diagnosis as well at evolving [place] that must be ruled out. Given the persistent significant bradycardia, Qt prolongation and EKG changes, she requires ED evaluation. Her and her son understands and agrees with the plan, he opted to drive his mother to the ED. Ambulance declined. Her asset protection greeter, Dr. Johns, was contacted and recommended she return to the ED for a thorough workup, as this cannot be managed in the office. Called [facility] [place] ED with expect, 9:30AM, spoke with MARIANNA Morel. Patient was informed and verbally consented to the use of an ambient scribe for clinic note documentation during this visit. (2) Prolonged QT interval: Code(s): R94.31 - Abnormal electrocardiogram [ECG] [EKG] Plan: QT on EKG is 488 on one EKG, one minute later it is 536. Also T waves on first EKG are inverted (same as yesterday) on V1-V4 and a minute later are inverted on V1-V6 (different from yesterday and previous EKG). Rates of 48 and 49, respectively. Coding Level of Care Code Est Pt Level 5 (01266) Diagnoses Palpitations R00.2 Prolonged QT interval R94.31
[2025-11-24 08:36] VITALS: BP 154/72; PULSE 47; O2SAT 96; BMI 16.1
--- OUTSIDE RECORDS SUMMARY | 2025-11-24 10:05 | XMS_ITS | Patient Health Record ---
Author Organization [facility] [place] [facility] Address [address] [place] [address] Care Team Providers Care High Risk Case Manager Name Role Phone RICKIE FREY Primary Care [...] 100 Active Clotrimazole 1 % 1 application Critical Care Registered Nurse ally Twice a day; Duration: 28 day(s) 08/22/2021 Active Vitamin D (Ergocalciferol) 04315 UNIT TAKE 1 CAPSULE BY MOUTH ONCE [...] 10/18/2021 Active Vitamin D (Ergocalciferol) 1.25 MG (00110 UT) TAKE 1 CAPSULE BY MOUTH EVERY [...] carcinom a in situ of right breast (2952924633533224) 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 confirmed Problem Pain co-occurrent an d due to varicose veins of bilateral legs (86317817724454188) Varicose veins of bilateral lower extremities with pain (I83.813) Active confirmed Problem Essential hypertension (61945191) HTN (hypertension), benign (I10) Active confirmed Problem Arthritis of left knee (4015041712940859) Arthritis of knee, left (M17.12) Active confirmed Problem Vitamin D deficiency (76477588) Vitamin D deficiency (E55.9) Active confirmed Problem Arthritis of knee (752059331) Arthritis of knee (M17.10) Active confirmed Problem Hyperlipidaemia (16623701) Hyperlipidemia LDL goal <100 (E78.5) Active confirmed Problem Mild intermittent asthma (184023460) Mild intermittent asthma without complication (J45.20) Active confirmed Problem Gastroesophageal reflux disease without esophagitis (778460209) Gastroesophageal reflux disease without esophagitis (K21.9) Active confirmed Problem Stable angina (disorder) (854337781) Chronic stable angina (I20.8) Active confirmed Problem Personal history of primary malignant neoplasm of breast (576708829) History of breast cancer (Z85.3) Active confirmed Problem Benign neoplasm of stomach (68614846) Benign gastric polyp (K31.7) Active confirmed Problem Pure hypercholesterolemia (345285516) Pure hypercholesterolemia (272.0) Active confirmed jose rafael-48 5222 Problem Mixed hyperlipidemia (471141199) Mixed hyperlipidemia (272.2) Active confirmed jose rafael-48 5222 Problem Essential hypertension (66059661) Unspecified essential hypertension (401.9) Active confirmed jose rafael-48 5222 Problem Acute bronchitis (11733971) Acute bronchitis (466.0) Active confirmed jose rafael-48 5222 Problem Acute gastritis (36936488) Acute gastritis (535.0) Active confirmed jose rafael-48 5222 Problem Chronic nonalcoholic liver disease (19883143) Other chronic nonalcoholic liver disease (571.8) Active confirmed jose rafael-48 5222 Problem Lumbago (597448746) Lumbago (724.2) Active conf irmed jose rafael-48 5222 Problem Depression screening (269420000) Screening for depression (V79.0) Active confirmed jose rafael-48 5222 Problem General examination of patient (417750929) Routine general medical examination at a health care facility (V70.0) Active confirmed jose rafael-48 5222 Problem Bursitis of right shoulder (904529771498956) Bursitis of right shoulder (726.10) Active confirmed jose rafael-48 5222 Problem Stable angina (705757435) Stable angina (413.9) Active confirmed mi g-48 5222 Problem Gastric polyposis (56915294) Gastric polyposis (211.1) Active confirmed jose rafael-48 5222 Problem Nodule of breast (793.89) Active confirmed jose rafael-48 5222 Problem Carcinoma in situ of breast (493368721) 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) [...] CHOLESTE ROL 09/11/2017 888-Phlebotomy 07/08/2018 888-Phlebotomy 09/11/2017 78762-PBAPAWEA BLOOD COUNT (CBC) WITH DI FFERENTIAL[203] 09/11/2017 999NS - Problem With Specimen (No Specim en Received) 09/26/2021 999NS - Problem With Specimen (No Specim en Received) 04/07/2021 [id number] IONIZED[[id number]] 9 Insurance Providers Payer Name Payer Address Payer Phone Subscriber Number Group Number Insured Name Patient Relationship to Insured Coverage Start Date Coverage End Date MEDICARE [address] [place] [address] [id number] Yvette Graham Self - patient is the insured 3 [facility] Comm Medicaid [address] [place] [address] [id number] Yvette Graham Self - patient is the insured 0 MEDICAID [address] [place] [address] [id number] Yvette Graham Self - patient is the insured 2 Medical (General) History Medical History History ICD Code GASTRIC POLYPS, hypertenion gastritis hyperlipidemia fatty liver Bronchitis Ductal Ca in situ of breast Surgical History Surgery Date(Month/Year) CESAREA 1977 AND 1978, Rt breast Biopsy 04/2017 Uterus Cancer 10/18/2020
--- OUTSIDE RECORDS SUMMARY | 2025-11-24 10:05 | XMS_ITS | Patient Health Record ---
Author Organization [facility] Address [address] [place] [address] Care Team Providers Care Inside Sales Professional Name Role Phone SalbadorDharmesh tolbert Unavailable [phone] Matt Lamar Unavailable Unavailable Reason For Referral No Information Plan Of Treatment No Information Insurance Providers Payer Name Payer Address Payer Phone Subscriber Number Group Number Insured Name Patient Relationship to Insured Coverage Start Date Coverage End Date MEDICARE [address] [place] [phone] [id number] Yvette Graham Self - patient is the insured [facility] [address] [place] [address] [id number] Yvette Graham Self - patient is the insured
== END 2025-11-24 09:30 | disposition home or self-care (01) ==
PROVIDERS: PCP Internal Medicine; Visit Provider Physician Assistant
DX: R00.2 Palpitations (principal); R94.31 Abnormal electrocardiogram [ECG] [EKG]

== ENCOUNTER 2025-11-24 09:30 | Emergency (ER) | payer OTHER, SELFPAY ==
--- NOTE | 2025-11-24 09:36 | ECG_ITS ---
Test Reason : PALPITATIONS Blood Pressure : */* mmHG Vent. Rate : 42 BPM Atrial Rate : 42 BPM P-R Int : 160 ms QRS Dur : 152 ms QT Int : 526 ms P-R-T Axes : 71 -42 101 degrees QTcB Int : 439 ms Normal sinus rhythm Second degree AV block Left axis deviation Left bundle branch block Abnormal ECG When compared with ECG of 23-Nov-2025 13:56, Rhythm change Referred By: Generic ED Physician Electronically Signed By: IVET ESPOSITO
[2025-11-24 10:13] VITALS: BP 162/69; PULSE 66; RESP 16; TEMP 37; O2SAT 98; BMI 16.3
--- NOTE | 2025-11-24 10:15 | ED_ITS ---
HPI - Chest Pain General Chief Complaint: Arrhythmia/Palpitations Stated Complaint: heart palpitations Time Seen by Provider: 11/24/25 11:02 Source: patient and older adult social work specialist Mode of arrival: ambulatory Limitations: no limitations History of Present Illness ED Provider: HPI narrative: 75-year-old female with a history of hyperlipidemia, diabetes, CAD, has been having palpitations for the past 2 days, presented yesterday had workup done which included blood work, chest x-ray EKG and then left prior to workup being complete due to prolonged wait times, re-presented with the palpitations. States this is new started 2 days ago nonexertional Related Data Previous Rx's ?Medication ?Instructions ?Recorded blood pressure monitor #1 ea 05/11/23 meclizine 25 mg tablet 25 mg PO TID PRN dizziness # 20 tabs 12/23/23 lidocaine 5 % topical patch 1 patch topical DAILY #15 ea 06/03/24 cane #1 ea 09/04/24 blood sugar diagnostic (OneTouch #100 ea 09/16/24 Ultra Test strips) blood-glucose meter (OneTouch #1 ea 09/16/24 Ultra2 Meter) lancets 30 gauge (OneTouch #200 ea 09/16/24 UltraSoft 2 Lancet) acetaminophen 500 mg tablet 500 mg PO Q6H #30 tabs (Tylenol Extra Strength) aspirin 81 mg tablet,delayed 81 mg PO DAILY 90 days #9 0 tabs 12/02/24 release alprazolam 0.25 mg tablet 0.25 mg PO BID PRN anxiety 2 days 03/03/25 #4 tabs hydroxyzine HCl 25 mg tablet 25 mg PO BID PRN anxiety 14 days 03/03/25 #28 tabs folic acid 1 mg tablet 1 mg PO DAILY #90 tabs 03/27 amlodipine 5 mg tablet 5 mg PO DAILY #90 tabs 04/07 omeprazole 40 mg capsule,delayed 40 mg PO DAILY #30 ca ps 04/12/25 release cholecalciferol (vitamin D3) 25 25 mcg PO DAILY #90 ta bs 04/25/25 mcg (1,000 unit) tablet gabapentin 100 mg capsule 100 mg PO BEDTIME #30 caps 0 05/27/25 metoprolol succinate 50 mg 50 mg PO DAILY #90 tabs 07/ 18/25 tablet,extended release 24 hr sitagliptin phosphate 25 mg tablet 25 mg PO DAILY 90 d ays #90 tabs 06/30/25 (Januvia) sertraline 25 mg tablet 25 mg PO DAILY 90 days #90 t abs 09/08/25 rosuvastatin 10 mg tablet 10 mg PO DAILY #90 tabs 08/27 03/20 Allergies Allergy/AdvReac Type Severity Reaction Status Date / Time lisinopril Allergy Severe Angioedema Verified 11/24/25 10:16 Review of Systems 2 Constitutional: Constitutional: Reports as per HPI [facility] Past Medical History Medical History Neuropathy Leg cramps, sleep related Adenocarcinoma Chronic stable angina Angina pectoris Elevated cholesterol Osteopenia Renal calculi Left bundle branch block Diabetes Palpitations CAD (coronary artery disease) GERD (gastroesophageal reflux disease) Elevated LFTs Elevated glucose Rash and nonspecific skin eruption Angioedema Encounter to establish care Ductal carcinoma in situ of right breast Surgical History Hx of colonoscopy History of esophagogastroduodenoscopy (EGD) History of total hysterectomy with bilateral salpingo-oophorectomy (BSO) Family History Family History Father Hypertension Mother No problems noted. Sister Uterine cancer Social History Social History Housing: Apartment Patient Tobacco Use Status: Never used Tobacco e-Cigarette/Vaping Use: Never Used Second Hand Smoke Exposure: No Advance Directives: No Advance Directives Information Provided: No service: No Current occupational status: retired Cognitive needs: No Hearing needs: No Vision needs: Yes (glasses) Physical Exam 2 Exam: Exam: ?General: ??looks age appropriate ?CV: Irregular rhythm I do not appreciate any murmurs ?Resp: ?No wheezing rales rhonchi no stridor moving air well Abd: ?Bowel sounds are present, no tenderness no rebound no rigidity MSK: FROM, strength 5/5 all extremities Skin: Warm, dry, intact, ?Neuro: ?Alert and oriented x3, moving upper and lower extremities symmetrically, no obvious facial asymmetry noted, cranial nerves 2-12 intact Vital Signs: Vital Signs: Last Vital Signs Temp 98.6 F 11/24/25 10:13 Pulse 33 L 11/24/25 11:52 Resp 20 11/24/25 11:52 BP 160/78 H 11/24/25 11:52 Pulse Ox 97 11/24/25 11:52 O2 Del Method Room Air 11/24/25 11:52 BMI result Body Mass Index 16.3 Course Course Course Narrative: This is a Rapid Medical Exam performed in triage by Amanda Gordillo PA-C. Full HPI, ROS and PE to be performed by primary ED provider. 75-year-old English-speaking female with a past medical history of HLD, GERD, hypercalcemia, CAD, asthma presenting to the ED c/o continued palpitations, upper abdominal pain x2 days. Denies SOB. Patient was evaluated in our ED yesterday however LWCT. Went to urgent care this morning was sent to the ED due to concerns with the EKG - prolonged QTC PE: NAD, nontoxic appearing, talking in complete sentences. Ambulating with steady gait Plan: EKG, labs - CXR performed yesterday recommending CT Medical Decision Making Medical Decision Making MDM Narrative: 11:51 AM 11/24/2025 (Dr. Syed Nguyen): Patient has ECG reveals what appears to be Mobitz type 2 second-degree AV keegan block, this was present on EKG yesterday on 11/23 and today, patient is hemodynamically stable, blood work did not reveal any anemia or any evidence of ACS, her prior EKG from February 2024 just with a chronic left bundle branch block, I also ran the case by Dr. Brandt from Cardiology, who recommended transfer to a center that is able to establish a permanent pacemaker, you did tell me that this can not be done here and that [facility] had a 3 day wait, I spoke to patient and her son regarding transfer and they are comfortable with that, information has been obtained and care has been discussed with the help of the manager traffic. Dr. Pedro is the accepting provider at [facility] Patient is connected to the pacer pads Differential Diagnosis Differential Diagnoses: The differential diagnosis associated with the presentation includes (AV keegan block, AFib, a flutter, electrolyte derangements, ACS) Admission/Observation Consideration of admission/observation: Escalation of care including admission/observation considered Consult Healthcare Provider Management of the patient was discussed with: Marine Fisheries Technician (Cardiology) Lab Data MDM Lab Attestation statement: I reviewed the patient's lab results. 11/24/25 10:25 11/24/25 10:25 Labs: Lab Results 11/24/25 Range/Units 10:25 WBC 7.9 (4.8-10.8) X10*3/uL RBC 5.32 (4.20-5.50) X10*6/uL Hgb 14.1 (12.0-16.0) g/dl Hct 44.3 (37.0-47.0) % MCV 83.3 (80.0-98.0) fL MCH 26.5 L (27.0-33.0) pg MCHC 31.8 (31.0-35.0) g/dl RDW 13.3 (11.0-16.0) % Plt Count 241 (160-400) X10*3/uL MPV 9.2 L (9.4-12.3) fL Immature Gran % (Auto) 0.5 H (0.0-0.4) % Neut % (Auto) 61.8 (45-73) % Lymph % (Auto) 22.7 (20-40) % [place] % (Auto) 13.1 H (2-11) % Eos % (Auto) 1.1 (0-4) % Baso % (Auto) 0.8 (0-2) % Lymph # (Auto) 1.8 (1.2-4.9) X10*3/uL [place] # (Auto) 1.0 (0.1-1.2) X10*3/uL Eos # (Auto) 0.1 (0.0-0.4) X10*3/uL Baso # (Auto) 0.1 (0.0-0.2) X10*3/uL Abs Immat Gran (auto) 0.04 H (0.00-0.03) X10*3/uL Absolute Neuts (auto) 4.9 (2.0-8.3) x10*3/uL Absolute Nucleated RBC 0.000 (0.0-0.012) X10*3/uL Nucleated RBC % (auto) 0.0 (0.0-0.2) /100WBC Sodium 141 (135-145) mmol/L Potassium 3.4 (3.3-5.1) mmol/L Chloride 104 (96-108) mmol/L Carbon Dioxide 28 (22-29) mmol/L Anion Gap 12 (12-20) BUN 17 H (9-16) mg/dL Creatinine 0.65 (0.5-1.4) mg/dL Estim Creat Clear Calc 52.4 Estimated GFR > 60 Random Glucose 77 (60-115) mg/dL Calcium 10.0 (8.4-10.2) mg/dL Magnesium 1.8 (1.6-2.6) mg/dL Total Bilirubin 0.9 (0.0-1.0) mg/dL Direct Bilirubin 0.4 (0.0-0.5) mg/dL AST 27 (5-31) U/L ALT 24 (0-31) U/L Alkaline Phosphatase 71 (39-117) U/L Troponin I High Sens 5.7 (<3.5-17.0) ng/L Total Protein 7.7 (6.5-8.0) g/dL Albumin 4.6 (3.5-5.0) g/dL Lipase 33 (8-78) U/L TSH 1.85 (0.32-4.0) uIU/mL Independent Interpretation I performed an independent interpretation of an: EKG (42 beats per minute second-degree Mobitz) and Plain X-Ray (Noted mass right upper lobe and discussed with the patient) Radiology Impression Discussion of test interpretation with radiology: I have reviewed the radiologist's reading. (IMPRESSION: 1. COPD. 2. Masslike opacity right upper lobe, for which underlying pulmonary mass cannot be excluded. CT recommended.) Critical Care Time Critical Care Time Total Critical Care Time: 45 Attestation: Time is exclusive of separately billable procedures. Time includes: direct patient care, patient reassessment, coordination of patient care, interpretation of data (laboratory data, pulse oximetry, arterial blood gases and chest xrays), review of patient's medical records, medical consultation and documentation of patient care. Procedures excluded from critical care time: central intravenous line placement and electrocardiography. Discharge Plan Discharge Clinical Impression: Second degree AV block, Mobitz type II Patient Disposition: [facility] Transfer Details: [place] Prescriptions: No Action (DME) blood-glucose meter [OneTouch Ultra2 Meter] Misc See Rx Instructions .Route Qty: 1 0RF Rx Instructions: test daily (DME) OneTouch Ultra Test Strip See Rx Instructions .Route Qty: 100 1RF Rx Instructions: test daily (DME) lancets [OneTouch UltraSoft 2 Lancet] 30 gauge misc See Rx Instructions .Route Qty: 200 1RF Rx Instructions: test daily aspirin 81 mg tablet,delayed release (DR/EC) 81 mg PO DAILY 90 Days Qty: 90 1RF hydroxyzine HCl 25 mg tablet 25 mg PO BID PRN (Reason: anxiety) 14 Days Qty: 28 0RF alprazolam 0.25 mg tablet 0.25 mg PO BID PRN (Reason: anxiety) 2 Days Qty: 4 0RF Rx Instructions: Take 45 minutes before flying folic acid 1 mg tablet 1 mg PO DAILY Qty: 90 1RF amlodipine 5 mg tablet 5 mg PO DAILY Qty: 90 1RF omeprazole 40 mg capsule,delayed release(DR/EC) 40 mg PO DAILY Qty: 30 1RF cholecalciferol (vitamin D3) 25 mcg (1,000 unit) tablet 25 mcg PO DAILY Qty: 90 2RF metoprolol succinate 50 mg tablet extended release 24 hr 50 mg PO DAILY Qty: 90 1RF sertraline 25 mg tablet 25 mg PO DAILY 90 Days Qty: 90 0RF rosuvastatin 10 mg tablet 10 mg PO DAILY Qty: 90 1RF meclizine 25 mg tablet 25 mg PO TID PRN (Reason: dizziness) Qty: 20 0RF acetaminophen [Tylenol Extra Strength] 500 mg tablet 500 mg PO Q6H Qty: 30 0RF (DME) blood pressure monitor Kit See Rx Instructions .Route Qty: 1 0RF Rx Instructions: As directed lidocaine 5 % adhesive patch,medicated 1 patch topical DAILY Qty: 15 0RF Rx Instructions: leave on most painful area for up to 12 hrs naproxen 500 mg tablet 500 mg PO ONCE Qty: 1 0RF nitrofurantoin monohyd/m-cryst 100 mg capsule 100 mg PO ONCE Qty: 1 0RF lidocaine HCl 2 % jelly in applicator 10 ml intra-urethral ONCE Qty: 10 0RF (DME) cane Device See Rx Instructions .Route Qty: 1 0RF Rx Instructions: As directed Menguvia 25 mg tablet 25 mg PO DAILY 90 Days Qty: 90 1RF gabapentin 100 mg capsule 100 mg PO BEDTIME Qty: 30 6RF Print Language: English
--- NOTE | 2025-11-24 10:18 | ECG_ITS ---
Test Reason : PALPITAIONS Blood Pressure : */* mmHG Vent. Rate : 52 BPM Atrial Rate : 52 BPM P-R Int : 184 ms QRS Dur : 136 ms QT Int : 496 ms P-R-T Axes : 68 -15 109 degrees QTcB Int : 461 ms Normal sinus rhythm Initial part of EKG with high grade AV block Left bundle branch block Abnormal ECG When compared with ECG of 24-Nov-2025 09:41, No significant changes seen Referred By: Amanda Gordillo Electronically Signed By: IVET ESPOSITO
[2025-11-24 10:41] LABS: MANUAL DIFF FLAG NO
[2025-11-24 10:42] LABS: Hematocrit 44.3 % (37.0-47.0); Hemoglobin 14.1 g/dl (12.0-16.0); Imm Gran Abs Auto 0.04 X10*3/uL (0.00-0.03); Imm Gran Pct Auto 0.5 % (0.0-0.4); Lymphocytes Absolute Auto 1.8 X10*3/uL (1.2-4.9); Mean Corpuscular HGB Conc 31.8 g/dl (31.0-35.0); Mean Corpuscular Hemoglobin 26.5 pg (27.0-33.0); Mean Corpuscular Volume 83.3 fL (80.0-98.0); NRBC Abs Auto 0.000 X10*3/uL (0.0-0.012); NRBC Pct Auto 0.0 /100WBC (0.0-0.2); Platelet Count 241 X10*3/uL (160-400); Red Blood Count 5.32 X10*6/uL (4.20-5.50); White Blood Count 7.9 X10*3/uL (4.8-10.8)
[2025-11-24 11:05] LABS: Alanine Aminotransferase 24 U/L (0-31); Albumin Level 4.6 g/dL (3.5-5.0); Alkaline Phosphatase 71 U/L (39-117); Anion Gap 12 (12-20); Aspartate Amino Transferase 27 U/L (5-31); Blood Urea Nitrogen 17 mg/dL (9-16); Calcium 10.0 mg/dL (8.4-10.2); Carbon Dioxide 28 mmol/L (22-29); Chloride 104 mmol/L (96-108); Creatinine Clr Calc Pharmacy 52.4; Estimated Glomerular Filt Rate > 60; Lipase 33 U/L (8-78); Magnesium 1.8 mg/dL (1.6-2.6); Potassium 3.4 mmol/L (3.3-5.1); Sodium 141 mmol/L (135-145); Total Protein 7.7 g/dL (6.5-8.0)
[2025-11-24 11:14] LABS: Troponin-I High Sensitivity 5.7 ng/L (<3.5-17.0)
[2025-11-24 11:30] VITALS: BP 160/62; PULSE 62; RESP 16; O2SAT 94
--- NOTE | 2025-11-24 11:50 | PC.NURSE ---
Pt HR dropped to 33bpm. EKG obtained and MD at bedside. Pt a/ox3. BP 160/78. Denies CP/SOB. Pt to be transferred to [facility] for higher level of care. Pt placed on pacer pads.
[2025-11-24 11:52] VITALS: BP 160/78; PULSE 33; RESP 20; O2SAT 97
[2025-11-24 12:02] VITALS: BP 151/65; PULSE 49; RESP 20; O2SAT 97
[2025-11-24 12:39] VITALS: BP 151/66; PULSE 54; RESP 16; TEMP 36.4; O2SAT 97
--- OUTSIDE RECORDS SUMMARY | 2025-11-24 15:05 | XMS_ITS ---
Author Name [facility] Organization Unknown Encounters Encounter Type Encounter Reason Primary Diagnosis Location Date Emergency Irregular Heart Beat Irregular Heart Beat [place] 11/24/2025 Care Team Organization Name Specialty Phone Email Start Date End Da te [place] 11/24/2025
== END 2025-11-24 12:49 | disposition short-term general hospital (02) ==
PROVIDERS: Physician Assistant; Emergency Provider Emergency Medicine; PCP Internal Medicine
DX: I44.1 Atrioventricular block, second degree (principal); R00.2 Palpitations; E11.9 Type 2 diabetes mellitus without complications; E78.5 Hyperlipidemia, unspecified; Z79.82 Long term (current) use of aspirin; Z79.899 Other long term (current) drug therapy; Z79.02 Long term (current) use of antithrombotics/antiplatelets
CPT/HCPCS: 36415; 80048; 80076; 83690; 83735; 84443; 84484; 85025; 93005; 99212; 99285

== ENCOUNTER → 2025-11-24 09:36 | Outpatient (BNV) | payer OTHER, SELFPAY | PROVIDERS: Emergency Provider Emergency Medicine; PCP Internal Medicine; Visit Provider Internal Medicine | DX: I44.7 Left bundle-branch block, unspecified (principal); I44.1 Atrioventricular block, second degree | CPT/HCPCS: 93010 ==